=== PATIENT | female | born 1955 | race Hispanic/Latino ===

== ENCOUNTER 2016-10-21 11:28 | Inpatient (IN) | payer MEDICARE ==
--- NOTE | 2016-10-21 12:05 | Emergency Department Report ---
Chief Complaint: Abdominal Pain Stated Complaint: NAUSEA/VOMITING Time Seen by Provider: 10/21/16 12:03 - HPI History of Present Illness: 61 y/o female complain of serve abdominal pain x 2 days .pt state she vomiting since this am .pt state chest pain start this am .pt denies any prior medical treatment.pt state she do dialysis on Saturday and Saturday.pt denies any prior treatment . - ROS Review of Systems: per HPI - Exam Vital Signs: Vital Signs 10/21/16 11:44 Temperature 98.5 F Pulse Rate 76 Respiratory 20 Rate Blood Pressure 191/136 O2 Sat by Pulse 95 Oximetry Physical Exam: GENERAL: The patient is well-developed and well-nourished. Patient is in NAD. HENT: Normocephalic. Atraumatic. Patient has moist mucous membranes. Throat: No erythema, swelling or exudates. Ears:Tympanic membranes pearly zimmerman ,intact , and free of exudate and erythema . EYES: Extraocular motions are intact, PERRL NECK: Supple. No meningitic signs are noted. There is no adenopathy noted. CHEST/LUNGS: Clear to auscultation bilaterally. No wheezing, rales or rhonchi noted. There is no respiratory distress noted. HEART/CARDIOVASCULAR: Regular rate and rhythm. Normal S1 S2. No murmurs, rubs , clicks, or gallops. ABDOMEN: Abdomen is soft, nontender.. Bowel sounds normoactive. There is no abdominal distention. Negative rebound tenderness. : Deferred. SKIN: There is no rash. There is no edema. There is no diaphoresis.Normal skin turgor NEURO: The patient is A&Ox3. The patient has no focal neurologic deficits. MUSCULOSKELETAL: There is no tenderness or deformity. There is no limitation range of motion. posture erect.Spine aligned,no deformities. PSYCH: Pt has appropriate mood and affect. MSE screening note: Focused history and physical exam performed. Due to findings the following was ordered: ED Disposition for MSE Condition: Stable Instructions: Abdominal Pain (ED)
[2016-10-21 12:37] LABS: Basophils % (Auto) 0.6 % (0.0-1.8); Hematocrit 35.9 % (30.3-42.9); Hemoglobin 11.7 gm/dl (10.1-14.3); Mean Corpuscular HGB Conc 33 % (30-34); Mean Corpuscular Hemoglobin 28 pg (28-32); Mean Corpuscular Volume 85 fl (79-97); Platelet Count 210 K/mm3 (140-440); Red Blood Count 4.22 M/mm3 (3.65-5.03); White Blood Count 8.6 K/mm3 (4.5-11.0)
[2016-10-21 12:45] LABS: BUN/Creatinine Ratio 4.44; Calcium 10.4 mg/dL (8.4-10.2); Potassium 4.7 mmol/L (3.6-5.0)
[2016-10-21 12:47] LABS: Creatine Kinase 36 units/L (30-135)
[2016-10-21 12:48] LABS: INR 0.93 (0.87-1.13)
[2016-10-21 12:58] LABS: Creatine Kinase MB < 1.0 ng/mL (0.0-4.0)
[2016-10-21] MEDS ORDERED: ZOFRAN ONE ×2 (13:55→14:44)
[2016-10-21] MEDS ORDERED: ZOFRAN IV ONE ×2 (14:03→14:45)
--- NOTE | 2016-10-21 14:31 | Emergency Department Report ---
ED Abdominal Pain HPI - General Chief Complaint: Abdominal Pain Stated Complaint: NAUSEA/VOMITING Time Seen by Provider: 10/21/16 13:47 Source: patient Mode of arrival: Ambulatory Limitations: No Limitations - History of Present Illness Initial Comments: 61-year-old female presents to the emergency department complaining of abdominal pain, nausea, and vomiting. Patient reports onset of abdominal pain following dialysis 2 days ago. Pain is in the middle of her abdomen and does not radiate. She describes sharp pain. Patient began having nausea and vomiting earlier today and came to the emergency department. Patient denies fever or diarrhea. There are no other complaints. MD Complaint: abdominal pain -: Gradual, days(s) (2) Location: periumbilical Radiation: none Migration to: no migration Severity scale (0 -10): 6 Quality: sharp Consistency: constant Improves With: nothing Worsens With: nothing Associated Symptoms: nausea, vomiting - Related Data Home Medications Medication Instructions Recorded Confirmed Last Taken Cholecalciferol (Vitamin D3) 2 tab PO 4XW 07/05/16 10/21/16 10/21/16 [Vitamin D3] Meclizine [Antivert] 25 mg PO TID PRN 07/05/16 10/21/16 10/21/16 hydrALAZINE [Apresoline] 25 mg PO Q8HR 07/05/16 10/21/16 10/21/16 Previous Rx's Medication Instructions Recorded Last Taken Type Aspirin [Aspirin BABY CHEW TAB] 81 mg PO QDAY #30 tab.chew 02/13/16 10/21/16 Rx Carvedilol [Coreg] 25 mg PO BID #60 tablet 02/13/16 10/21/16 Rx Losartan [Cozaar] 25 mg PO QDAY #30 tablet 02/13/16 10/21/16 Rx Promethazine [Phenergan TAB] 25 mg PO Q6HR PRN #30 tablet 02/13/16 10/21/16 Rx Sevelamer Carbonate [Renvela] 2,400 mg PO TIDWM #90 tablet 02/13/16 10/21/16 Rx Vit B Cplx #11/FA/C/Biot/Zn Ox 1 each PO DAILY #30 tablet 02/13/16 10/21/16 Rx [Dialyvite with Zinc Tablet] amLODIPine [Norvasc] 10 mg PO DAILY #30 tablet 02/13/16 10/21/16 Rx cloNIDine [Catapres] 0.2 mg PO TID #90 tablet 02/13/16 10/21/16 Rx Allergies Allergy/AdvReac Type Severity Reaction Status Date / Time codeine Allergy Rash Verified 05/05/15 06:48 Penicillins Allergy Hives Verified 02/12/16 17:55 ciprofloxacin [From Cipro] AdvReac severe Verified 05/05/15 06:48 nausea ciprofloxacin HCl AdvReac severe Verified 05/05/15 06:48 [From Cipro] nausea ED Review of Systems ROS: Stated complaint: NAUSEA/VOMITING Other details as noted in HPI Comment: All other systems reviewed and negative Gastrointestinal: abdominal pain, nausea, vomiting ED Past Medical Hx - Past Medical History Previous Medical History?: Yes Hx Hypertension: Yes (FOR 10+ YRS; cardiomegaly, EF 55%) Hx Diabetes: Yes (FOR 10+ YRS, DIET CONTROLLED) Hx Renal Disease: Yes (HD MWF; LUE AVF) Hx Arthritis: Yes (LEFT KNEE) Hx Asthma: No Hx COPD: No Hx HIV: No Additional medical history: DIALYSIS (M-W-F) - Surgical History Past Surgical History?: Yes Hx Open Heart Surgery: No Hx Appendectomy: Yes Additional Surgical History: NODULES removed from LUNGS , SHUNT LEFT ARM, bilateral nephrectomies, HYSTERECTOMY - Family History Family history: no significant - Social History Smoking Status: Never Smoker Substance Use Type: None - Medications Home Medications: Home Medications Medication Instructions Recorded Confirmed Last Taken Type Aspirin [Aspirin BABY CHEW TAB] 81 mg PO QDAY #30 tab.chew 02/13/16 10/21/16 Rx Carvedilol [Coreg] 25 mg PO BID #60 tablet 02/13/16 10/21/16 10/21/16 Rx Losartan [Cozaar] 25 mg PO QDAY #30 tablet 02/13/16 10/21/16 10/21/16 Rx Promethazine [Phenergan TAB] 25 mg PO Q6HR PRN #30 tablet 02/13/16 10/21/16 Rx Sevelamer Carbonate [Renvela] 2,400 mg PO TIDWM #90 tablet 02/13/16 10/21/16 Rx Vit B Cplx #11/FA/C/Biot/Zn Ox 1 each PO DAILY #30 tablet 02/13/16 10/21/16 Rx [Dialyvite with Zinc Tablet] amLODIPine [Norvasc] 10 mg PO DAILY #30 tablet 02/13/16 10/21/16 10/21/16 Rx cloNIDine [Catapres] 0.2 mg PO TID #90 tablet 02/13/16 10/21/16 10/21/16 Rx Cholecalciferol (Vitamin D3) 2 tab PO 4XW 07/05/16 10/21/16 10/21/16 History [Vitamin D3] Meclizine [Antivert] 25 mg PO TID PRN 07/05/16 10/21/16 10/21/16 History hydrALAZINE [Apresoline] 25 mg PO Q8HR 07/05/16 10/21/16 10/21/16 History ED Physical Exam - General Limitations: No Limitations General appearance: alert, in distress (mild distress secondary to vomiting) - Head Head exam: Present: atraumatic, normocephalic - Eye Eye exam: Present: normal appearance, PERRL, EOMI - ENT ENT exam: Present: normal exam, normal orophraynx, mucous membranes moist - Neck Neck exam: Present: normal inspection, full ROM. Absent: tenderness - Respiratory Respiratory exam: Present: normal lung sounds bilaterally. Absent: respiratory distress - Cardiovascular Cardiovascular Exam: Present: regular rate, normal rhythm, normal heart sounds - GI/Abdominal GI/Abdominal exam: Present: soft, normal bowel sounds. Absent: distended, tenderness - Extremities Exam Extremities exam: Present: normal inspection, full ROM. Absent: tenderness - Back Exam Back exam: Present: normal inspection, full ROM. Absent: tenderness - Neurological Exam Neurological exam: Present: alert, oriented X3. Absent: motor sensory deficit - Skin Skin exam: Present: warm, dry, intact ED Course Vital Signs 10/21/16 10/21/16 11:44 15:27 Temperature 98.5 F 98.6 F Pulse Rate 76 80 Respiratory 20 16 Rate Blood Pressure 191/136 Blood Pressure 190/84 [Right] O2 Sat by Pulse 95 99 Oximetry ED Medical Decision Making - Lab Data Result diagrams: 10/21/16 12:19 10/21/16 12:19 - EKG Data -: EKG Interpreted by Oh EKG shows normal: sinus rhythm, axis, intervals, QRS complexes Rate: normal - EKG Data When compared to previous EKG there are: no significant change Interpretation: unchanged when compared t (12/03/2012), nonspecific ST-T wave bill - Radiology Data Radiology results: report reviewed, image reviewed CT abdomen and pelvis shows possible area of focal colitis at the splenic flexure. There is also a masslike lesion of the pancreas. - Medical Decision Making Lab and imaging results reviewed and discussed with the patient. Patient was previously aware of the mass on her pancreas. Patient has had a total of 12 mg of Zofran and 10 mg of Reglan. She is continuing to have nausea and dry heaves. I have previously spoken with Dr. Alexis, nephrology. Patient is to be admitted by the hospitalist. - Differential Diagnosis abdominal pain, gastritis, bowel obstruction Critical care attestation.: If time is entered above; I have spent that time in minutes in the direct care of this critically ill patient, excluding procedure time. ED Disposition Clinical Impression: Intractable vomiting Qualifiers: Vomiting type: unspecified Nausea presence: with nausea Qualified Code(s): R11.2 - Nausea with vomiting, unspecified Disposition: OP ADMITTED IP TO THIS HOSP Is pt being admited?: Yes Condition: Stable Instructions: Abdominal Pain (ED) Time of Disposition: 16:17
[2016-10-21] MEDS ORDERED: REGLAN ONE (15:45)
[2016-10-21] MEDS ORDERED: REGLAN IV ONE (15:52)
--- NOTE | 2016-10-21 15:55 | Cat Scan Report ---
FINAL REPORT EXAM: CT ABDOMEN PELVIS WO CON HISTORY: abdominal pain, h/o bilateral nephrectomy TECHNIQUE: CT of the abdomen and pelvis was performed without intravenous contrast. Reconstructions were included in the coronal and sagittal planes. PRIORS: None. FINDINGS: Lower thorax: Bilateral dependent atelectasis is seen. Calcified granulomas are seen in the right lower lobe. The visualized portions of the heart are normal. Liver: The liver is normal in attenuation. No intrahepatic biliary duct dilation. No focal hepatic lesions. Gallbladder/ biliary system: No cholelithiasis. The common bile duct appears nondilated. Spleen: No splenic lesions are seen. Pancreas: A focal masslike soft tissue density involving the tail of the pancreas measuring approximately 3.4 centimeters. No pancreatic duct dilation. Kidneys: Prior bilateral nephrectomy is noted. No masses are seen within the nephrectomy bed. Adrenal glands: No adrenal masses. Vasculature: The abdominal aorta is nondilated. Calcifications are seen in the abdominal aorta. Lymph nodes: No enlarged lymph nodes are seen in the abdomen or pelvis. Bowel, mesentery, peritoneum: No bowel obstruction. No free fluid or free air. The appendix is not seen. No pericecal inflammatory changes are present. No colonic diverticulosis. There is wall thickening and surrounding inflammation of the splenic flexure of the colon. Urinary bladder: The urinary bladder is decompressed. Pelvis: The uterus is absent. Abdominal wall: No abdominal wall hernia or other subcutaneous findings. Bones: Degenerative changes are seen in the spine. Diffuse sclerotic appearance of the bones is noted. IMPRESSION: 1. Findings may represent focal colitis involving the splenic flexure of the colon, infectious versus inflammatory or ischemic. An underlying colonic neoplasm is not completely excluded. Recommend further evaluation with colonoscopy if one has not recently been performed. 2. Soft tissue, masslike lesion arising from the tail of the pancreas. Recommend further evaluation with multiphasic pancreatic CT or MRI. 3. Post bilateral nephrectomy. 4. Diffuse sclerotic appearance of the bones can be seen renal osteodystrophy.
[2016-10-21] MEDS ORDERED: DILAUDID IV ONE (16:11)
[2016-10-21] MEDS ORDERED: D50W (25GM) IV PRN (16:47)
[2016-10-21] MEDS ORDERED: APRESOLINE ONE (17:23)
[2016-10-21] MEDS: APRESOLINE IV PRN ×2 (17:31→22:30)
--- NOTE | 2016-10-21 17:43 | Consultation ---
History of Present Illness - Reason for Consult Consult date: 10/21/16 end stage renal disease Requesting physician: RAMSES SUTTON - History of Present Illness 61-year-old female presents to the emergency department complaining of abdominal pain, nausea, and vomiting. Patient reports onset of abdominal pain following dialysis 2 days ago. Pain is in the middle of her abdomen and does not radiate. She describes sharp pain. Patient began having nausea and vomiting earlier today and came to the emergency department. Patient denies fever or diarrhea. There are no other complaints. Patient's think that her symptoms started recently after she was placed on a new medication. Patient denies any shortness of breath. He undergoes hemodialysis on Mondays, Wednesdays and Fridays at [facility]. She did have her last dialysis treatment on Saturday Past History Past Medical History: diabetes, ESRD, hypertension, other (renal cell cancer with possible metastases to the lungs) Social history: no significant social history Family history: no significant family history Medications and Allergies Allergies Allergy/AdvReac Type Severity Reaction Status Date / Time codeine Allergy Rash Verified 05/05/15 06:48 Penicillins Allergy Hives Verified 02/12/16 17:55 ciprofloxacin [From Cipro] AdvReac severe Verified 05/05/15 06:48 nausea ciprofloxacin HCl AdvReac severe Verified 05/05/15 06:48 [From Cipro] nausea Home Medications Medication Instructions Recorded Confirmed Last Taken Type Aspirin [Aspirin BABY CHEW TAB] 81 mg PO QDAY #30 tab.chew 02/13/16 10/21/16 Rx Carvedilol [Coreg] 25 mg PO BID #60 tablet 02/13/16 10/21/16 10/21/16 Rx Losartan [Cozaar] 25 mg PO QDAY #30 tablet 02/13/16 10/21/16 10/21/16 Rx Promethazine [Phenergan TAB] 25 mg PO Q6HR PRN #30 tablet 02/13/16 10/21/16 Rx Sevelamer Carbonate [Renvela] 2,400 mg PO TIDWM #90 tablet 02/13/16 10/21/16 Rx Vit B Cplx #11/FA/C/Biot/Zn Ox 1 each PO DAILY #30 tablet 02/13/16 10/21/16 Rx [Dialyvite with Zinc Tablet] amLODIPine [Norvasc] 10 mg PO DAILY #30 tablet 02/13/16 10/21/16 10/21/16 Rx cloNIDine [Catapres] 0.2 mg PO TID #90 tablet 02/13/16 10/21/16 10/21/16 Rx Cholecalciferol (Vitamin D3) 2 tab PO 4XW 07/05/16 10/21/16 10/21/16 History [Vitamin D3] Meclizine [Antivert] 25 mg PO TID PRN 07/05/16 10/21/16 10/21/16 History hydrALAZINE [Apresoline] 25 mg PO Q8HR 07/05/16 10/21/16 10/21/16 History Active Meds: Active Medications Amlodipine Besylate (Norvasc) 10 mg PO DAILY [facility] Aspirin (Baby Aspirin) 81 mg PO QDAY [facility] Carvedilol (Coreg) 25 mg PO BID [facility] Clonidine HCl (Catapres) 0.2 mg PO TID [facility] Dextrose (D50w (25gm)) 50 ml IV PRN PRN PRN Reason: Hypoglycemia Enoxaparin Sodium (Lovenox) 30 mg SUB-Q QDAY [facility] Hydralazine HCl (Apresoline) 25 mg PO Q8HR [facility] Hydralazine HCl (Apresoline) 10 mg IV Q6H PRN PRN Reason: SBP >160 Last Admin: 10/21/16 17:31 Dose: 10 mg Insulin Aspart (Novolog) 0 units SUB-Q ACHS [facility] PRN Reason: Protocol Losartan Potassium (Cozaar) 25 mg PO QDAY [facility] Metoclopramide HCl (Reglan) 10 mg PO Q6H PRN PRN Reason: Nausea And Vomiting Miscellaneous Medication (Cholecalciferol (Vitamin D3) [Vitamin D3]) 2 tab PO 4XW [facility] Miscellaneous Medication (Vit B Cplx #11/Fa/C/Biot/Zn Ox [Dialyvite With Zinc Tablet]) 1 each PO DAILY [facility] Ondansetron HCl (Zofran) 4 mg IV Q8H PRN PRN Reason: N/V unrelieved by Reglan Sevelamer Carbonate (Renvela) 2,400 mg PO TIDWM [facility] Review of Systems All systems: negative (negative except as noted above) Exam - Vital Signs Vital signs: Vital Signs Temp Pulse Resp BP Pulse Ox 98.5 F 76 20 191/136 95 10/21/16 11:44 10/21/16 11:44 10/21/16 11:44 10/21/16 11:44 10/21/16 11:44 - General Appearance General appearance: well-developed, well-nourished, appears stated age EENT: PERRL, mucous membranes moist Neck: Present: neck supple Respiratory: Clear to Ascultation Heart: regular, normal heart rate Gastrointestinal: Present: normoactive bowel sounds, tenderness (mild diffuse tenderness. No rebound or guarding) Integumentary: no rash, other (no edema. AVG in her left upper arm. Good bruit and thrill) Results - Lab Results 10/21/16 12:19 10/21/16 12:19 Most recent lab results Calcium 10.4 mg/dL (8.4-10.2) H 10/21/16 12:19 Assessment and Plan Impression * End-stage renal disease on maintenance hemodialysis * Nausea and vomiting * Abdominal pain * Hypertension * Diabetes * Renal cell carcinoma status post nephrectomy Recommendations * Shall schedule patient for hemodialysis tomorrow and keep her on Mondays, Wednesdays and Fridays * Adjust diet and meds for ESRD state * No IV, BP or venipuncture access arm * Shall hold off on her phosphorus binders at this time * Procrit with dialysis * Thank you very much for the consultation. Shall follow along with you
[2016-10-21] MEDS ORDERED: NACL 0.9% 1000 ML 100 ML IV PRN (17:46)
[2016-10-21] MEDS: ZOFRAN IV PRN (20:58)
[2016-10-21] MEDS: CATAPRES PO SCH ×2 (21:02→21:04)
[2016-10-21] MEDS: MORPHINE IV PRN (23:22)
[2016-10-21] MEDS: COREG PO SCH (23:23)
[2016-10-21] MEDS: APRESOLINE PO SCH (23:23)
[2016-10-21] MEDS: NOVOLOG SUB-Q SCH (23:34)
--- NOTE | 2016-10-21 23:55 | History and Physical Report ---
History of Present Illness Date of examination: 10/21/16 Date of admission: 10/21/16 16:18 Chief complaint: Abdominal pain, nausea and vomiting - 3 days History of present illness: Patient is a 61-year-old lady who has a history of bilateral renal cell carcinoma status post bilateral nephrectomy and a hemodialysis on Wednesdays and Fridays, diabetes mellitus, hypertension, and pancreatic cancer currently undergoing chemotherapy had her phosphate binder, change to a different phosphate binder. Started having intractable abdominal pain, nausea and vomiting. She believes her symptoms tare due the change in the recent phosphate binder. Denies any fever. No diarrhea. No chest pain. Past History Past Medical History: diabetes, ESRD, hypertension, other (renal cell cancer with possible metastases to the lungs) Social history: no significant social history Family history: no significant family history Medications and Allergies Allergies Allergy/AdvReac Type Severity Reaction Status Date / Time codeine Allergy Rash Verified 05/05/15 06:48 Penicillins Allergy Hives Verified 02/12/16 17:55 ciprofloxacin [From Cipro] AdvReac severe Verified 05/05/15 06:48 nausea ciprofloxacin HCl AdvReac severe Verified 05/05/15 06:48 [From Cipro] nausea Home Medications Medication Instructions Recorded Confirmed Last Taken Type Aspirin [Aspirin BABY CHEW TAB] 81 mg PO QDAY #30 tab.chew 02/13/16 10/21/16 Rx Carvedilol [Coreg] 25 mg PO BID #60 tablet 02/13/16 10/21/16 10/21/16 Rx Losartan [Cozaar] 25 mg PO QDAY #30 tablet 02/13/16 10/21/16 10/21/16 Rx Promethazine [Phenergan TAB] 25 mg PO Q6HR PRN #30 tablet 02/13/16 10/21/16 Rx Sevelamer Carbonate [Renvela] 2,400 mg PO TIDWM #90 tablet 02/13/16 10/21/16 Rx Vit B Cplx #11/FA/C/Biot/Zn Ox 1 each PO DAILY #30 tablet 02/13/16 10/21/16 Rx [Dialyvite with Zinc Tablet] amLODIPine [Norvasc] 10 mg PO DAILY #30 tablet 02/13/16 10/21/1617 Rx cloNIDine [Catapres] 0.2 mg PO TID #90 tablet 02/13/16 10/21/16 10/21/16 Rx Cholecalciferol (Vitamin D3) 2 tab PO 4XW 07/05/16 10/21/16 10/21/16 History [Vitamin D3] Meclizine [Antivert] 25 mg PO TID PRN 07/05/16 10/21/16 10/21/16 History hydrALAZINE [Apresoline] 25 mg PO Q8HR 07/05/16 10/21/16 10/21/16 History Active Meds: Active Medications Amlodipine Besylate (Norvasc) 10 mg PO DAILY [facility] Aspirin (Baby Aspirin) 81 mg PO QDAY [facility] Carvedilol (Coreg) 25 mg PO BID [facility] Last Admin: 10/21/16 23:23 Dose: Not Given Cholecalciferol (Vitamin D3) 2,000 unit PO MoWeFr [facility] Cholecalciferol (Vitamin D3) 2,000 unit PO Ya [facility] Clonidine HCl (Catapres) 0.2 mg PO TID [facility] Last Admin: 10/21/16 21:04 Dose: Not Given Dextrose (D50w (25gm)) 50 ml IV PRN PRN PRN Reason: Hypoglycemia Enoxaparin Sodium (Lovenox) 30 mg SUB-Q QDAY [facility] Hydralazine HCl (Apresoline) 25 mg PO Q8HR [facility] Last Admin: 10/21/16 23:23 Dose: Not Given Hydralazine HCl (Apresoline) 10 mg IV Q6H PRN PRN Reason: SBP >160 Last Admin: 10/21/16 22:30 Dose: 10 mg Sodium Chloride (Nacl 0.9% 1000 Ml) 100 mls @ 999 mls/hr IV STEPHANIE PRN PRN Reason: Hypotension Insulin Aspart (Novolog) 0 units SUB-Q ACHS [facility] PRN Reason: Protocol Last Admin: 10/21/16 23:34 Dose: Not Given Losartan Potassium (Cozaar) 25 mg PO QDAY [facility] Metoclopramide HCl (Reglan) 10 mg PO Q6H PRN PRN Reason: Nausea And Vomiting Morphine Sulfate (Morphine) 2 mg IV Q4H PRN PRN Reason: Pain Last Admin: 10/21/16 23:22 Dose: 2 mg Multivit/Ca Carb/B Cmplx/FA/Prenat (Renal Caps) 1 cap PO DAILY [facility] Ondansetron HCl (Zofran) 4 mg IV Q8H PRN PRN Reason: N/V unrelieved by Devante Herman Admin: 10/21/16 20:58 Dose: 4 mg Sevelamer Carbonate (Renvela) 2,400 mg PO TIDWM [facility] Review of systems Constitutional: Well Nouridhed and Well developed. Head: NC/ AT Eyes: Denies any visual impairments. No discharge from the eyes Nose: Denies any rhinorrhea or epistaxis Throats: Denies any post nasal drainage. Ears: Denies any hearing deficits Cardiovascular system: Denies any chest pain, shortness of breath, orthopnea, paroxysmal nocturnal dyspnea, or palpitation. Respiratory system: Denies any cough, difficulty breathing, wheezing, pleuritic chest pain, Gastrointestinal system: Has abdominal pain, nausea vomiting. No hematemesis or melena. Neurological system: Denies any headache, slurred speech, facial droop, lateralizing weakness Genitalia system: Denies any dysuria, urinary frequency or urgency, urethral discharge Skin: No rashes, hyperpigmented spots. Hematological: Denies any cervical tenderness hemorrhages or petechia. Immunological: Denies any multiple septic spots, Lymphatic: Denies any generalized lymphadenopathy. Endocrine: Denies any polyuria, polydipsia, polyphagia. No heat or cold intolerance. Exam - Constitutional Vitals: Temp Pulse Resp BP Pulse Ox 99.4 F 106 H 20 198/102 95 10/21/16 17:50 10/21/16 22:30 10/21/16 17:50 10/21/16 22:30 10/21/16 17:50 General appearance: Present: mild distress, well-nourished, other (patient in moderate to severe respiratory distress from nausea vomiting with abdominal pain ) - EENT Eyes: Present: PERRL ENT: hearing intact, clear oral mucosa - Neck Neck: Present: supple, normal ROM - Respiratory Respiratory effort: normal Respiratory: bilateral: CTA - Cardiovascular Heart Sounds: Present: S1 & S2. Absent: rub, click - Extremities Extremities: pulses symmetrical, No edema Peripheral Pulses: within normal limits - Abdominal General gastrointestinal: Present: soft, non-tender, non-distended, normal bowel sounds Female genitourinary: Present: normal - Integumentary Integumentary: Present: clear, warm, dry - Musculoskeletal Musculoskeletal: gait normal, strength equal bilaterally - Psychiatric Psychiatric: appropriate mood/affect, intact judgment & insight - Neurologic Neurologic: CNII-XII intact, moves all extremities Results - Labs CBC & Chem 7: 10/21/16 12:19 10/21/16 12:19 Labs: Abnormal lab results 10/21/16 Range/Units 21:35 POC Glucose 142 H (70-105) Assessment and Plan Assessment 1 Intractable abdominal pain with nausea vomiting 2. End-stage renal disease hemodialysis and underwent his arthritis 3. Metabolic acidosis 4. Diabetes mellitus type 2 uncontrolled 5. Pancreatic cancer currently undergoing chemotherapy with Dr. FRANDY Admit to [facility]. Commence IV Zofran and Reglan. IV morphine for abdominal pain. Nephrology consult for commencement of hemodialysis. Sodium bicarbonate IV. Metabolic acidosis worsened by protracted vomiting Consistent collided diets, A1c, sliding-scale insulin using NovoLog, moderate dose. DVT prophylaxis with Lovenox, GI prophylaxis with Pepcid. Spent 35 minutes in direct patient care, review of laboratory and radiological data, and explanation of management plan to the patient.
[2016-10-22] MEDS: MORPHINE IV PRN ×4 (03:53→23:39)
[2016-10-22] MEDS: APRESOLINE IV PRN (04:33)
[2016-10-22] MEDS: ZOFRAN IV PRN ×3 (05:29→19:51)
[2016-10-22 05:51] LABS: Basophils % (Auto) 0.3 % (0.0-1.8); Hemoglobin 11.1 gm/dl (10.1-14.3); Mean Corpuscular HGB Conc 33 % (30-34); Mean Corpuscular Hemoglobin 28 pg (28-32); Mean Corpuscular Volume 85 fl (79-97); Platelet Count 209 K/mm3 (140-440); Red Blood Count 3.99 M/mm3 (3.65-5.03); Red Cell Distribution Width 14.9 % (13.2-15.2); White Blood Count 9.4 K/mm3 (4.5-11.0)
[2016-10-22 06:00] LABS: INR 1.12 (0.87-1.13)
[2016-10-22 06:12] LABS: Albumin 4.2 g/dL (3.9-5); Albumin/Globulin Ratio 1.2 %; BUN/Creatinine Ratio 4.46; Bilirubin,Total 0.5 mg/dL (0.1-1.2); Calcium 10.6 mg/dL (8.4-10.2); Chloride 100.9 mmol/L (98-107); Total Protein 7.8 g/dL (6.3-8.2)
[2016-10-22] MEDS: APRESOLINE PO SCH ×2 (07:02→19:12)
[2016-10-22] MEDS: NOVOLOG SUB-Q SCH ×4 (08:01→23:24)
[2016-10-22] MEDS ORDERED: APRESOLINE PO ONE (09:00)
[2016-10-22] MEDS: REGLAN PO PRN ×2 (09:17→23:40)
--- NOTE | 2016-10-22 09:40 | Progress Note ---
Assessment and Plan n Impression * End-stage renal disease on maintenance hemodialysis * Nausea and vomiting * Abdominal pain * Hypertension * Diabetes * Renal cell carcinoma status post nephrectomy Recommendations * hemodialysis Mondays, Wednesdays and Fridays * Adjust diet and meds for ESRD state * No IV, BP or venipuncture access arm * Shall hold off on her phosphorus binders at this time * Procrit with dialysis Subjective Date of service: 10/22/16 Principal diagnosis: esrd Interval history: resting well in bed today Objective - Exam Narrative Exam: General appearance: well-developed, well-nourished, appears stated age EENT: PERRL, mucous membranes moist Neck: Present: neck supple Respiratory: Clear to Ascultation Heart: regular, normal heart rate Gastrointestinal: Present: normoactive bowel sounds, tenderness (mild diffuse tenderness. No rebound or guarding) Integumentary: no rash, other (no edema. AVG in her left upper arm. Good bruit and thrill) - Vital Signs Vital signs: Vital Signs - 12hr 10/21/16 10/21/16 10/21/16 22:00 22:01 22:30 Temperature Pulse Rate 106 H Pulse Rate [ Left] Pulse Rate [ 106 H Right Radial] Respiratory 20 Rate Blood Pressure 198/102 Blood Pressure [Left Arm] Blood Pressure 198/92 [Right Arm] O2 Sat by Pulse Oximetry 10/21/16 10/22/16 10/22/16 23:00 04:33 05:00 Temperature 99.2 F 98.9 F Pulse Rate 106 H Pulse Rate [ 112 H 109 H Left] Pulse Rate [ Right Radial] Respiratory 20 22 Rate Blood Pressure 196/92 Blood Pressure 180/85 173/83 [Left Arm] Blood Pressure [Right Arm] O2 Sat by Pulse 94 95 Oximetry 10/22/16 10/22/16 07:02 08:04 Temperature 99.9 F H Pulse Rate 108 H Pulse Rate [ 103 H Left] Pulse Rate [ Right Radial] Respiratory 20 Rate Blood Pressure 192/90 Blood Pressure 179/86 [Left Arm] Blood Pressure [Right Arm] O2 Sat by Pulse 94 Oximetry - Lab 10/22/16 05:10 10/22/16 05:10 Most recent lab results Calcium 10.6 mg/dL (8.4-10.2) H 10/22/16 05:10
--- NOTE | 2016-10-22 10:34 | Admit Criteria Form ---
Admission Criteria Documentation: VOMITING Clinical Indications for Admission to Inpatient Care ( Place 'X' for any and all applicable criteria): Admission is indicated for ANY ONE of the following(1)(2)(3): [X]I. Inpatient admission required rather than observation care because of ANY ONE of the following: [ ]i) Hemodynamic instability that is severe or persistent [X]ii) Vomiting that is severe or persistent [ ]iii) Severe electrolyte abnormalities requiring inpatient care [X]iv) Severe pain requiring acute inpatient management [ ]v) High fever or infection requiring inpatient admission as indicated by ANY ONE of the following(7)(8): [ ]1) Appropriate outpatient or observation care antimicrobial treatment unavailable, not effective, or not feasible [ ]2) Documented bacteremia [ ]3) Temp >104.9 degrees F (40.5 degrees C) (oral) [ ]4) Temp >103.1 degrees F (39.5 C) (oral) or <96.8 degrees F (36 C) (rectal) that does not respond to all emergency treatment measures [X]vi) Acute renal failure [ ]vii) IV fluid to replace significant ongoing losses (greater than 3 L/m2 per day) [ ]viii) Parenteral nutrition regimen that must be implemented on inpatient basis [ ]ix) Other condition, treatment or monitoring requiring inpatient admission [ ]II. Complete or partial gastrointestinal obstruction [ ]III. Other cause of vomiting requiring hospitalization (eg, poisoning, increased intracranial pressure) [ ]IV. Vomiting due to significant metabolic derangement (eg, severe hypercalcemia, diabetic ketoacidosis) Extended stay beyond goal length of stay may be needed for(1)(4): [ ]a) Severe vomiting [ ]b) Persistent vomiting, vital sign changes, severe electrolyte imbalance , or diagnosed cause of vomiting that requires continued hospitalization (eg, gastrointestinal obstruction , increased intracranial pressure) [ ]c) Surgery to treat identified causes of vomiting (eg, bowel obstruction , intracranial process) [ ]d) Comorbid illness that requires inpatient care (eg, acute heart failure , renal failure) [ ]e) Need for inpatient endoscopy The original [facility] [employer] content created by [facility] [employer] has been revised. The portions of the content which have been revised are identified through the use of italic text or in bold, and [facility] [employer] has neither reviewed nor approved the modified material. All other unmodified content is copyright [facility]. Please see references footnoted in the original [facility] edition 2016 Admission Criteria Met: Yes
--- NOTE | 2016-10-22 11:14 | Gastroenterology Consultation ---
History of Present Illness - Reason for Consult Consult date: 10/22/16 Intractable vomiting Requesting physician: RAMSES SUTTON - History of Present Illness The patient is a 61 year old female with multiple medical problems for whom consultation was requested for intractable vomiting. She began having diffuse abdominal pain a few days ago followed by onset of vomiting yesterday. She has been unable to tolerate any intake or medications. She does not have chronic pain or vomiting and denies fever or chills. The patient reports an unremarkable endoscopy about a year ago. She has a history of bilateral renal carcinoma now with mets to the lung and pancreas. An abdominal CT scan revealed a 3.4 cm mass in the tail of the pancreas and a focal lesion in the splenic flexure of the colon. No suggestion of obstruction Past History Past Medical History: diabetes, ESRD, hypertension, other (renal cell cancer with possible metastases to the lungs and pancreas. Pt is on Optivo by Dr. Kaur) Past Surgical History: Other (bilateral nephrectomy, hysterectomy) Social history: no significant social history Family history: no significant family history Medications and Allergies Allergies Allergy/AdvReac Type Severity Reaction Status Date / Time codeine Allergy Rash Verified 05/05/15 06:48 Penicillins Allergy Hives Verified 02/12/16 17:55 ciprofloxacin [From Cipro] AdvReac severe Verified 05/05/15 06:48 nausea ciprofloxacin HCl AdvReac severe Verified 05/05/15 06:48 [From Cipro] nausea Home Medications Medication Instructions Recorded Confirmed Last Taken Type Aspirin [Aspirin BABY CHEW TAB] 81 mg PO QDAY #30 tab.chew 02/13/16 10/21/16 Rx Carvedilol [Coreg] 25 mg PO BID #60 tablet 02/13/16 10/21/16 10/21/16 Rx Losartan [Cozaar] 25 mg PO QDAY #30 tablet 02/13/16 10/21/16 10/21/16 Rx Promethazine [Phenergan TAB] 25 mg PO Q6HR PRN #30 tablet 02/13/16 10/21/16 Rx Sevelamer Carbonate [Renvela] 2,400 mg PO TIDWM #90 tablet 02/13/16 10/21/16 Rx Vit B Cplx #11/FA/C/Biot/Zn Ox 1 each PO DAILY #30 tablet 02/13/16 10/21/16 Rx [Dialyvite with Zinc Tablet] amLODIPine [Norvasc] 10 mg PO DAILY #30 tablet 02/13/16 10/21/16 10/21/16 Rx cloNIDine [Catapres] 0.2 mg PO TID #90 tablet 02/13/16 10/21/16 10/21/16 Rx Cholecalciferol (Vitamin D3) 2 tab PO 4XW 07/05/16 10/21/16 10/21/16 History [Vitamin D3] Meclizine [Antivert] 25 mg PO TID PRN 07/05/16 10/21/16 10/21/16 History hydrALAZINE [Apresoline] 25 mg PO Q8HR 07/05/16 10/21/16 10/21/16 History Active Meds: Active Medications Amlodipine Besylate (Norvasc) 10 mg PO DAILY [facility] Aspirin (Baby Aspirin) 81 mg PO QDAY [facility] Carvedilol (Coreg) 25 mg PO BID [facility] Last Admin: 10/21/16 23:23 Dose: Not Given Cholecalciferol (Vitamin D3) 2,000 unit PO MoWeFr [facility] Cholecalciferol (Vitamin D3) 2,000 unit PO Ya [facility] Clonidine HCl (Catapres) 0.2 mg PO TID [facility] Last Admin: 10/21/16 21:04 Dose: Not Given Dextrose (D50w (25gm)) 50 ml IV PRN PRN PRN Reason: Hypoglycemia Enoxaparin Sodium (Lovenox) 30 mg SUB-Q QDAY [facility] Hydralazine HCl (Apresoline) 10 mg IV Q6H PRN PRN Reason: SBP >160 Last Admin: 10/22/16 04:33 Dose: 10 mg Hydralazine HCl (Apresoline) 50 mg PO Q8HR [facility] Sodium Chloride (Nacl 0.9% 1000 Ml) 100 mls @ 999 mls/hr IV STEPHANIE PRN PRN Reason: Hypotension Metronidazole (Flagyl 500 Mg/100 Ml) 100 mls @ 100 mls/hr IV Q8HR [facility] Insulin Aspart (Novolog) 0 units SUB-Q ACHS [facility] PRN Reason: Protocol Last Admin: 10/22/16 08:01 Dose: Not Given Losartan Potassium (Cozaar) 25 mg PO QDAY [facility] Metoclopramide HCl (Reglan) 10 mg PO Q6H PRN PRN Reason: Nausea And Vomiting Last Admin: 10/22/16 09:17 Dose: 10 mg Morphine Sulfate (Morphine) 2 mg IV Q4H PRN PRN Reason: Pain Last Admin: 10/22/16 03:53 Dose: 2 mg Multivit/Ca Carb/B Cmplx/FA/Prenat (Renal Caps) 1 cap PO DAILY [facility] Ondansetron HCl (Zofran) 4 mg IV Q8H PRN PRN Reason: N/V unrelieved by Reglan Last Admin: 10/22/16 05:29 Dose: 4 mg Sevelamer Carbonate (Renvela) 2,400 mg PO TIDWM [facility] Review of Systems - Review of Systems Constitutional: no weight loss, no weight gain, no fever, no chills Eyes: no change in vision Ears, Nose, Throat: no decreased hearing, no difficulty swallowing, no painful swallowing Breasts: deferred Cardiovascular: no chest pain, no shortness of breath, no syncope Respiratory: no cough, no shortness of breath, no wheezing Gastrointestinal: abdominal pain, nausea, vomiting, no diarrhea, no constipation , no change in bowel habits, no hematemesis, no BRBPR, no melena Rectal: no pain, no incontinence Female Genitourinary: deferred Musculoskeletal: no gait dysfunction, no joint pain Integumentary: no rash, no pruritis, no jaundice Neurological: no head injury, no paralysis, no weakness Psychiatric: no memory loss Endocrine: no cold intolerance, no heat intolerance Hematologic/Lymphatic: no easy bruising, no easy bleeding Allergic/Immunologic: no wheezing Exam - Constitutional Vital Signs: Temp Pulse Resp BP Pulse Ox 99.9 F H 103 H 20 179/86 94 10/22/16 08:04 10/22/16 08:04 10/22/16 08:04 10/22/16 08:04 10/22/16 08:04 General appearance: mild distress (presently vomiting), well-nourished, other - EENT Eyes: PERRL ENT: hearing intact, clear oral mucosa - Neck Neck: supple, normal ROM, no masses or JVD - Respiratory Respiratory effort: normal Respiratory: bilateral: CTA - Breasts Breasts: deferred - Cardiovascular Rhythm: regular Heart Sounds: Present: S1 & S2. Absent: gallop, rub Extremities: pulses intact, No edema, normal color, Full ROM - Gastrointestinal General gastrointestinal: Present: soft, non-tender, non-distended, normal bowel sounds, other (fullness in RUQ, obese). Absent: hepatomegaly, splenomegaly Rectal Exam: deferred - Genitourinary Female Genitourinary: deferred - Integumentary Integumentary: Present: clear, warm, dry - Musculoskeletal Musculoskeletal: normal - Neurologic Neurological: alert and oriented x3 - Psychiatric Psychiatric: appropriate mood/affect, intact judgment & insight, memory intact - Labs CBC & Chem 7: 10/22/16 05:10 10/22/16 05:10 Lab Results: Laboratory Results - last 24 hr 10/21/16 10/22/16 10/22/16 21:35 05:10 05:10 WBC 9.4 RBC 3.99 Hgb 11.1 Hct 34.0 MCV 85 MCH 28 MCHC 33 RDW 14.9 Plt Count 209 Lymph % (Auto) 11.0 L [place] % (Auto) 5.8 Eos % (Auto) 0.0 Baso % (Auto) 0.3 Lymph # 1.0 L [place] # 0.5 Eos # 0.0 Baso # 0.0 Seg Neutrophils % 82.9 H Seg Neutrophils # 7.8 H PT 14.3 INR 1.12 Sodium Potassium Chloride Carbon Dioxide Anion Gap BUN Creatinine Estimated GFR BUN/Creatinine Ratio Glucose POC Glucose 142 H Calcium Total Bilirubin AST ALT Alkaline Phosphatase Total Protein Albumin Albumin/Globulin Ratio PTH Intact 10/22/16 10/22/16 10/22/16 05:10 06:20 09:42 WBC RBC Hgb Hct MCV MCH MCHC RDW Plt Count Lymph % (Auto) [place] % (Auto) Eos % (Auto) Baso % (Auto) Lymph # [place] # Eos # Baso # Seg Neutrophils % Seg Neutrophils # PT INR Sodium 145 Potassium 5.0 Chloride 100.9 Carbon Dioxide 24 Anion Gap 25 BUN 46 H Creatinine 10.3 H Estimated GFR 4 BUN/Creatinine Ratio 4.46 Glucose 156 H POC Glucose 160 H Calcium 10.6 H Total Bilirubin 0.5 AST 15 ALT 7 Alkaline Phosphatase 75 Total Protein 7.8 Albumin 4.2 Albumin/Globulin Ratio 1.2 PTH Intact 128.8 H Assessment and Plan - Patient Problems (1) Intractable vomiting Current Visit: Yes Status: Acute Qualifiers: Vomiting type: unspecified Nausea presence: with nausea Qualified Code(s) : R11.2 - Nausea with vomiting, unspecified Plan to address problem: Acute symptoms, possibly acute gastroenteritis. No chronic symptoms. May need endoscopy if she does not improve within a few days with medical therapy Needs IV fluid support and antiemetics (2) Diabetes 1.5, managed as type 2 Current Visit: No Status: Chronic (3) ESRD (end stage renal disease) Current Visit: No Status: Chronic (4) Hypertension Current Visit: No Status: Chronic (5) Renal cell cancer Current Visit: No Status: Chronic (6) Abnormal CT of the abdomen Current Visit: Yes Status: Acute Plan to address problem: A focal lesion in the splenic flexure is present. Needs colonoscopy when symptoms allow preparation of the colon Thank you very much Dr. Sutton for asking me to see this patient in consultation
[2016-10-22] MEDS: CATAPRES PO SCH ×2 (12:03→19:12)
--- NOTE | 2016-10-22 14:03 | Progress Note ---
Assessment and Plan Fulll consult dictated 61 y/o female r/o colitis splenic flexure r/o pancreatic mass tail of pancreas pt c/o N&V but no evidence of sbo Abd obese soft. non tender at present (but pt recently medicated) GI eval for colonoscopy will order MRCP to further w/u pancreatic mass will follow with you. thanks. Laboratory Tests 10/21/16 10/22/16 10/22/16 12:19 05:10 05:10 WBC 9.4 Hgb 11.1 Hct 34.0 Plt Count 209 Sodium 145 Potassium 5.0 Chloride 100.9 BUN 46 H Creatinine 10.3 H Glucose 156 H Calcium 10.6 H Total Bilirubin 0.5 AST 15 ALT 7 Alkaline Phosphatase 75 Amylase 49 Lipase 122 H Objective Vital Signs - 12hr 10/22/16 10/22/16 10/22/16 04:33 05:00 07:02 Temperature 98.9 F Pulse Rate 106 H 108 H Pulse Rate [ 109 H Left] Pulse Rate [ Right Radial] Respiratory 22 Rate Blood Pressure 196/92 192/90 Blood Pressure 173/83 [Left Arm] Blood Pressure [Right Radial Artery] O2 Sat by Pulse 95 Oximetry 10/22/16 10/22/16 10/22/16 08:04 11:47 12:03 Temperature 99.9 F H Pulse Rate 103 H Pulse Rate [ 103 H Left] Pulse Rate [ 103 H Right Radial] Respiratory 20 Rate Blood Pressure 189/98 Blood Pressure 179/86 [Left Arm] Blood Pressure 189/88 [Right Radial Artery] O2 Sat by Pulse 94 Oximetry - Labs 10/22/16 05:10 10/22/16 05:10 Diabetes panel 10/22/16 Range/Units 05:10 Sodium 145 (137-145) mmol/L Potassium 5.0 (3.6-5.0) mmol/L Chloride 100.9 (98-107) mmol/L Carbon Dioxide 24 (22-30) mmol/L BUN 46 H (7-17) mg/dL Creatinine 10.3 H (0.7-1.2) mg/dL Glucose 156 H (65-100) mg/dL Calcium 10.6 H (8.4-10.2) mg/dL AST 15 (5-40) units/L ALT 7 (7-56) units/L Alkaline Phosphatase 75 (35-129) units/L Total Protein 7.8 (6.3-8.2) g/dL Albumin 4.2 (3.9-5) g/dL Calcium panel 10/22/16 Range/Units 05:10 Calcium 10.6 H (8.4-10.2) mg/dL Albumin 4.2 (3.9-5) g/dL Pituitary panel 10/22/16 Range/Units 05:10 Sodium 145 (137-145) mmol/L Potassium 5.0 (3.6-5.0) mmol/L Chloride 100.9 (98-107) mmol/L Carbon Dioxide 24 (22-30) mmol/L BUN 46 H (7-17) mg/dL Creatinine 10.3 H (0.7-1.2) mg/dL Glucose 156 H (65-100) mg/dL Calcium 10.6 H (8.4-10.2) mg/dL Adrenal panel 10/22/16 Range/Units 05:10 Sodium 145 (137-145) mmol/L Potassium 5.0 (3.6-5.0) mmol/L Chloride 100.9 (98-107) mmol/L Carbon Dioxide 24 (22-30) mmol/L BUN 46 H (7-17) mg/dL Creatinine 10.3 H (0.7-1.2) mg/dL Glucose 156 H (65-100) mg/dL Calcium 10.6 H (8.4-10.2) mg/dL Total Bilirubin 0.5 (0.1-1.2) mg/dL AST 15 (5-40) units/L ALT 7 (7-56) units/L Alkaline Phosphatase 75 (35-129) units/L Total Protein 7.8 (6.3-8.2) g/dL Albumin 4.2 (3.9-5) g/dL
[2016-10-22] MEDS: FLAGYL 500 MG/100 ML 100 ML IV SCH (14:42)
--- NOTE | 2016-10-22 15:48 | Progress Note ---
Assessment and Plan Assessment and plan: Patient is a 61-year-old lady who has a history of bilateral renal cell carcinoma status post bilateral nephrectomy and a hemodialysis on Wednesdays and Fridays, diabetes mellitus, hypertension, and pancreatic cancer currently undergoing chemotherapy had her phosphate binder, change to a different phosphate binder. Started having intractable abdominal pain, nausea and vomiting. She believes her symptoms tare due the change in the recent phosphate binder. Denies any fever. No diarrhea. No chest pain. Assessment 1. Intractable abdominal pain with nausea vomiting-likely acute gastroenteritis - Resolving 2. End-stage renal disease hemodialysis and underwent his arthritis 3. Metabolic acidosis 4. Diabetes mellitus type 2 uncontrolled 5. Pancreatic cancer currently undergoing chemotherapy with Dr. WISE 6. HTN 7. Renal Cell Cancer Plan: * Continue IV zofran and Reglan * No Diarrhea. * Continue Bicarb iv, sliding scale insulin * Surgery and GI input noted. Await MRCP * Dr WISE Consulted. * Phosphate Binder held at this time. * DVT/GI prophy History Interval history: Patient seen and examined this morning, in no acute distress. no diarrhea reported. abdominal pain improving. Hospitalist Physical - Physical exam Narrative exam: VITAL SIGNS: Reviewed. GENERAL: The patient appeared well nourished and normally developed. Vital signs as documented. HEAD: No signs of head trauma. EYES: Pupils are equal. Extraocular motions intact. EARS: Hearing grossly intact. MOUTH: Oropharynx is normal. NECK: No adenopathy, no JVD. CHEST: Chest with clear breath sounds bilaterally. No wheezes, rales, or rhonchi. CARDIAC: Regular rate and rhythm. S1 and S2, without murmurs, gallops, or rubs. VASCULAR: No Edema. Peripheral pulses normal and equal in all extremities. ABDOMEN: Soft, without detectable tenderness. No sign of distention. No rebound or guarding, and no masses palpated. Bowel Sounds normal. MUSCULOSKELETAL: Good range of motion of all major joints. Extremities without clubbing, cyanosis or edema. NEUROLOGIC EXAM: Alert and oriented x 3. No focal sensory or strength deficits. Speech normal. Follows commands. PSYCHIATRIC: Mood normal. SKIN: No rash or lesions. - Constitutional Vitals: Temp Pulse Resp BP Pulse Ox 99.9 F H 103 H 20 170/90 94 10/22/16 08:04 10/22/16 12:03 10/22/16 08:04 10/22/16 14:30 10/22/16 08:04 General appearance: Present: mild distress, well-nourished, other (patient in moderate to severe respiratory distress from nausea vomiting with abdominal pain ) Results - Labs CBC & Chem 7: 10/22/16 05:10 10/22/16 05:10 Labs: Laboratory Last Values WBC 9.4 K/mm3 (4.5-11.0) 10/22/16 05:10 RBC 3.99 M/mm3 (3.65-5.03) 10/22/16 05:10 Hgb 11.1 gm/dl (10.1-14.3) 10/22/16 05:10 Hct 34.0 % (30.3-42.9) 10/22/16 05:10 MCV 85 fl (79-97) 10/22/16 05:10 MCH 28 pg (28-32) 10/22/16 05:10 MCHC 33 % (30-34) 10/22/16 05:10 RDW 14.9 % (13.2-15.2) 10/22/16 05:10 Plt Count 209 K/mm3 (140-440) 10/22/16 05:10 Lymph % (Auto) 11.0 % (13.4-35.0) L 10/22/16 05:10 [place] % (Auto) 5.8 % (0.0-7.3) 10/22/16 05:10 Eos % (Auto) 0.0 % (0.0-4.3) 10/22/16 05:10 Baso % (Auto) 0.3 % (0.0-1.8) 10/22/16 05:10 Lymph # 1.0 K/mm3 (1.2-5.4) L 10/22/16 05:10 [place] # 0.5 K/mm3 (0.0-0.8) 10/22/16 05:10 Eos # 0.0 K/mm3 (0.0-0.4) 10/22/16 05:10 Baso # 0.0 K/mm3 (0.0-0.1) 10/22/16 05:10 Seg Neutrophils % 82.9 % (40.0-70.0) H 10/22/16 05:10 Seg Neutrophils # 7.8 K/mm3 (1.8-7.7) H 10/22/16 05:10 PT 14.3 Sec. (12.2-14.9) 10/22/16 05:10 INR 1.12 (0.87-1.13) 10/22/16 05:10 Sodium 145 mmol/L (137-145) 10/22/16 05:10 Potassium 5.0 mmol/L (3.6-5.0) 10/22/16 05:10 Chloride 100.9 mmol/L (98-107) 10/22/16 05:10 Carbon Dioxide 24 mmol/L (22-30) 10/22/16 05:10 Anion Gap 25 mmol/L 10/22/16 05:10 BUN 46 mg/dL (7-17) H 10/22/16 05:10 Creatinine 10.3 mg/dL (0.7-1.2) H 10/22/16 05:10 Estimated GFR 4 ml/min 10/22/16 05:10 BUN/Creatinine Ratio 4.46 % 10/22/16 05:10 Glucose 156 mg/dL (65-100) H 10/22/16 05:10 POC Glucose 133 (70-105) H 10/22/16 11:39 Calcium 10.6 mg/dL (8.4-10.2) H 10/22/16 05:10 Total Bilirubin 0.5 mg/dL (0.1-1.2) 10/22/16 05:10 AST 15 units/L (5-40) 10/22/16 05:10 ALT 7 units/L (7-56) 10/22/16 05:10 Alkaline Phosphatase 75 units/L (35-129) 10/22/16 05:10 Total Creatine Kinase 36 units/L (30-135) 10/21/16 12:19 CK-MB (CK-2) < 1.0 ng/mL (0.0-4.0) 10/21/16 12:19 CK-MB (CK-2) Rel Index 2.7 (0-4) 10/21/16 12:19 Troponin T < 0.010 ng/mL (0.00-0.029) 10/21/16 12:19 Total Protein 7.8 g/dL (6.3-8.2) 10/22/16 05:10 Albumin 4.2 g/dL (3.9-5) 10/22/16 05:10 Albumin/Globulin Ratio 1.2 % 10/22/16 05:10 Amylase 49 units/L (27-131) 10/21/16 12:19 Lipase 122 units/L (13-60) H 10/21/16 12:19 PTH Intact 128.8 pg/mL (15-65) H 10/22/16 09:42 - Imaging and Cardiology CT scan - abdomen: image reviewed (soft tissue masslike lesion, diffuse sclerotic appearance of bone)
[2016-10-22] MEDS: COZAAR PO SCH (19:09)
[2016-10-22] MEDS: BABY ASPIRIN PO SCH (19:09)
[2016-10-22] MEDS: COREG PO SCH (19:10)
[2016-10-22] MEDS: NORVASC PO SCH (19:10)
[2016-10-22] MEDS: RENVELA PO SCH ×2 (19:10→19:12)
[2016-10-22] MEDS: Renal Caps PO SCH (19:10)
[2016-10-22] MEDS: VITAMIN D3 PO SCH (19:11)
[2016-10-22] MEDS: LOVENOX SUB-Q SCH (19:12)
--- NOTE | 2016-10-23 00:53 | Consultation ---
REASON FOR CONSULTATION: 1. Abdominal pain, nausea, and vomiting. 2. Rule out pancreatic mass. 3. Rule out colitis. HISTORY OF PRESENT ILLNESS: The patient is a 61-year-old female who I am seeing at this time. It appears that she has recently received IV narcotics and is very sedated. Her history thus is somewhat unreliable as well as her physical exam. It appears the patient was admitted with a chief complaint of abdominal pain, nausea, and vomiting. Denied any diarrhea. PAST MEDICAL HISTORY: Pertinent for renal cell carcinoma, left kidney. Also, diabetes and hypertension. PAST SURGICAL HISTORY: The patient is status post EBER-BSO. Also, bilateral nephrectomies ?port insertion. The patient currently is on dialysis. ALLERGIES: Allergic to penicillin, which causes a rash. FAMILY HISTORY: The patient does not recall at this time. SOCIAL HISTORY: Denies any smoking or drinking. Again, to reiterate this history is somewhat unreliable as patient is quite somnolent. PHYSICAL EXAMINATION: GENERAL: At this time reveals the patient to be again somnolent, but responsive. VITAL SIGNS: Show her to have a temperature of 99.9, blood pressure is 189/98, pulse of 103, respirations of 20. ABDOMEN: Examination of the abdomen reveals to be obese and soft. Multiple scars are noted, presumably from her previous surgeries. There is no tenderness that can be elicited at this time. Bowel sounds are present. LABORATORY DATA: Lab work at present includes a CBC which shows a white count of 9.4, H and H of 11.1 and 34. Electrolytes are essentially within normal limits. BUN is 46, creatinine is 10.3. Total bilirubin is 0.5, AST is 15, ALT is 7, alkaline phosphatase is 75. Amylase is 49, lipase is 122. A CT scan of the abdomen has been performed, which I have reviewed with Dr. Elias. There does appear to be this pancreatic tail mass. Also, appears to be some radiographic evidence of colitis in the splenic flexure of the colon. IMPRESSION: 1. At this time is that of a 61-year-old female, with known history of diabetes, hypertension, and status post bilateral nephrectomy secondary to cancer. Currently, on dialysis. 2. Rule out colitis. 3. Rule out pancreatic mass at the tail of pancreas. RECOMMENDATIONS: Would keep the patient n.p.o. at this time. We will obtain consultation with GI, which I have already done with Dr. Wick. Also, we will order an MRCP for further delineation of pancreatic mass. We will follow up closely with you. We will await colonoscopy findings also as per Dr. Wick. We will follow closely with you. Thank you very much for consultation. JOB# [id number] GONZALO/NTS
[2016-10-23] MEDS: RENVELA PO SCH ×3 (01:23→18:27)
[2016-10-23] MEDS: CATAPRES PO SCH ×4 (01:23→23:01)
[2016-10-23] MEDS: COREG PO SCH ×3 (01:24→23:01)
[2016-10-23] MEDS: COZAAR PO SCH ×2 (01:24→16:42)
[2016-10-23] MEDS: BABY ASPIRIN PO SCH ×2 (01:25→16:35)
[2016-10-23] MEDS: APRESOLINE PO SCH ×5 (01:25→23:01)
[2016-10-23] MEDS: NORVASC PO SCH ×2 (01:26→16:41)
[2016-10-23] MEDS: FLAGYL 500 MG/100 ML 100 ML IV SCH ×4 (01:26→22:56)
[2016-10-23] MEDS: ZOFRAN IV PRN ×3 (03:27→21:41)
[2016-10-23 06:10] LABS: Albumin 4.1 g/dL (3.9-5); Albumin/Globulin Ratio 1.3 %; BUN/Creatinine Ratio 3.54; Bilirubin,Total 0.5 mg/dL (0.1-1.2); Calcium 9.2 mg/dL (8.4-10.2); Chloride 95.4 mmol/L (98-107); Potassium 4.4 mmol/L (3.6-5.0); Total Protein 7.2 g/dL (6.3-8.2)
--- NOTE | 2016-10-23 08:09 | Progress Note ---
Assessment and Plan n Impression * End-stage renal disease on maintenance hemodialysis * Nausea and vomiting * Abdominal pain * Hypertension * Diabetes * Renal cell carcinoma status post nephrectomy * lung and pancreatic metastasis Recommendations * hemodialysis Mondays, Wednesdays and Fridays * Adjust diet and meds for ESRD state * No IV, BP or venipuncture access arm * Shall hold off on her phosphorus binders at this time * Procrit with dialysis * gi following, notes reviewed Subjective Principal diagnosis: esrd Interval history: resting well in bed today Objective - Exam Narrative Exam: General appearance: well-developed, well-nourished, appears stated age EENT: PERRL, mucous membranes moist Neck: Present: neck supple Respiratory: Clear to Ascultation Heart: regular, normal heart rate Gastrointestinal: Present: normoactive bowel sounds, tenderness (mild diffuse tenderness. No rebound or guarding) Integumentary: no rash, other (no edema. AVG in her left upper arm. Good bruit and thrill) - Vital Signs Vital signs: Vital Signs - 12hr 10/22/16 10/22/16 10/22/16 20:15 20:30 20:45 Temperature Pulse Rate 98 H 97 H 97 H Respiratory Rate Respiratory Rate [Head] Blood Pressure 151/81 141/76 154/75 10/22/16 10/22/16 10/22/16 21:00 21:15 21:25 Temperature Pulse Rate 96 H 96 H 102 H Respiratory Rate Respiratory Rate [Head] Blood Pressure 137/79 149/78 161/81 10/22/16 10/22/16 10/22/16 21:57 22:00 23:39 Temperature 98.3 F Pulse Rate 102 H Respiratory 20 18 18 Rate Respiratory 20 Rate [Head] Blood Pressure 161/81 10/23/16 10/23/16 10/23/16 01:23 01:24 01:25 Temperature Pulse Rate 108 H 108 H 108 H Respiratory Rate Respiratory Rate [Head] Blood Pressure 188/86 188/86 188/86 10/23/16 10/23/16 10/23/16 01:26 01:27 05:25 Temperature Pulse Rate 108 H 108 H 82 Respiratory Rate Respiratory Rate [Head] Blood Pressure 188/86 188/86 152/72 - Lab 10/22/16 05:10 10/23/16 05:30 Most recent lab results Calcium 9.2 mg/dL (8.4-10.2) 10/23/16 05:30
[2016-10-23 08:36] LABS: INR 1.18 (0.87-1.13)
[2016-10-23] MEDS: NOVOLOG SUB-Q SCH ×4 (08:57→22:57)
[2016-10-23] MEDS: LOVENOX SUB-Q SCH (09:10)
[2016-10-23] MEDS: D5NS 1,000 ML IV SCH (09:21)
[2016-10-23] MEDS ORDERED: ATIVAN IV ONE (11:00)
[2016-10-23] MEDS: MORPHINE IV PRN ×3 (11:16→20:24)
[2016-10-23] MEDS ORDERED: REGLAN PO PRN (11:56)
[2016-10-23] MEDS: APRESOLINE IV PRN (14:02)
--- NOTE | 2016-10-23 14:23 | Magnetic Resonance Report ---
MR ABDOMEN MRCP History: Pancreatic mass Technique: Multiple T1 and T2-weighted images. Thick and thin MRCP images. Findings: Correlation is made with the CT abdomen and pelvis dated 10/21/16. Please note this examination is severely limited secondary to susceptibility artifact from multiple surgical clips secondary to bilateral nephrectomies. Having said that, MRI also demonstrates a 4.3 x 3.3 cm pancreatic tail mass. This mass is slightly decreased signal on T1 and increased signal on T2. There is no evidence for internal cystic change or calcifications. The proximal pancreas is obscured by artifact. There is diffuse decreased signal on T1 and T2 images throughout the liver and spleen. The liver and spleen are normal size and contour. This suggests iron deposition. Is there clinical concern for hemochromatosis or hemosiderosis? No focal liver mass is appreciated. Most of the gallbladder and biliary system are obscured by artifact. The MRCP images are suboptimal. No obvious biliary dilatation. The visualized bowel loops are unremarkable. Mild cardiomegaly is noted at the lung bases. Impression: Limited exam secondary to artifact as described above. A pancreatic tail mass is confirmed on MRI. A pancreatic neoplasm cannot be excluded. There are no obvious findings of metastatic disease on this limited exam. This appears to be accessible for CT-guided percutaneous biopsy. Iron deposition in the liver and spleen. Hemosiderosis versus hemochromatosis. Mild cardiomegaly.
--- NOTE | 2016-10-23 15:23 | Gastroenterology Progress Note ---
Assessment and Plan GI: pt w/ continue nausea today - possible gastroenteritis - continue conservative management at this time - consider EGD based on progress - pt w/ splenic flex lesion on ct scan, colonoscopy when stable - continue NPO, iv fluids and meds, start p.o. based on progress - will follow Subjective Date of service: 10/23/16 Principal diagnosis: esrd Interval history: - reports nausea w/ dry heaves only slightly improved. Denies other specific complaints Objective - Constitutional Vitals: Temp Pulse Resp BP Pulse Ox 97.2 F L 104 H 20 164/78 100 10/23/16 11:30 10/23/16 14:02 10/23/16 11:30 10/23/16 14:02 10/23/16 11:30 General appearance: no acute distress - Respiratory Respiratory: bilateral: CTA - Cardiovascular Rhythm: regular Heart Sounds: Present: S1 & S2 - Gastrointestinal General gastrointestinal: Present: soft, non-tender - Labs CBC & Chem 7: 10/22/16 05:10 10/23/16 05:30 Labs: Laboratory Results - last 24 hr 10/22/16 10/22/16 10/23/16 16:41 23:22 05:30 PT INR Sodium 141 Potassium 4.4 Chloride 95.4 L Carbon Dioxide 30 Anion Gap 20 BUN 22 H Creatinine 6.2 H Estimated GFR 7 BUN/Creatinine Ratio 3.54 Glucose 127 H POC Glucose 104 104 Calcium 9.2 Total Bilirubin 0.5 AST 28 ALT 8 Alkaline Phosphatase 68 Total Protein 7.2 Albumin 4.1 Albumin/Globulin Ratio 1.3 10/23/16 10/23/16 10/23/16 06:33 08:00 08:22 PT 14.9 INR 1.18 H Sodium Potassium Chloride Carbon Dioxide Anion Gap BUN Creatinine Estimated GFR BUN/Creatinine Ratio Glucose POC Glucose 137 H 137 H Calcium Total Bilirubin AST ALT Alkaline Phosphatase Total Protein Albumin Albumin/Globulin Ratio 10/23/16 11:22 PT INR Sodium Potassium Chloride Carbon Dioxide Anion Gap BUN Creatinine Estimated GFR BUN/Creatinine Ratio Glucose POC Glucose 151 H Calcium Total Bilirubin AST ALT Alkaline Phosphatase Total Protein Albumin Albumin/Globulin Ratio
[2016-10-23] MEDS: Renal Caps PO SCH (16:41)
--- NOTE | 2016-10-23 17:36 | Progress Note ---
Assessment and Plan Pt status quo. Abd soft. GI & Renal eval appreciated MRCP - pancreatic tail mass confirmed. surgically stable awaiting onc eval IR consult - possible CT guided biopsy of pancreatic mass Await colonoscopy findings for further surgical recommendations Selected Entries 10/23/16 10/23/16 10/23/16 11:30 13:50 14:02 Temperature 97.2 F L Pulse Rate [ 104 H Right Radial] Blood Pressure 164/78 Objective Vital Signs - 12hr 10/23/16 10/23/16 10/23/16 07:30 11:30 13:50 Temperature 98.6 F 97.2 F L Pulse Rate Pulse Rate [ 88 96 H Left] Pulse Rate [ 104 H Right Radial] Respiratory 16 20 Rate Blood Pressure Blood Pressure 147/75 172/86 164/78 [Left Arm] O2 Sat by Pulse 99 100 Oximetry 10/23/16 10/23/16 14:02 16:30 Temperature 97.9 F Pulse Rate 104 H Pulse Rate [ 105 H Left] Pulse Rate [ Right Radial] Respiratory 16 Rate Blood Pressure 164/78 Blood Pressure 150/78 [Left Arm] O2 Sat by Pulse 98 Oximetry - Labs 10/22/16 05:10 10/23/16 05:30 Diabetes panel 10/23/16 Range/Units 05:30 Sodium 141 (137-145) mmol/L Potassium 4.4 (3.6-5.0) mmol/L Chloride 95.4 L (98-107) mmol/L Carbon Dioxide 30 (22-30) mmol/L BUN 22 H (7-17) mg/dL Creatinine 6.2 H (0.7-1.2) mg/dL Glucose 127 H (65-100) mg/dL Calcium 9.2 (8.4-10.2) mg/dL AST 28 (5-40) units/L ALT 8 (7-56) units/L Alkaline Phosphatase 68 (35-129) units/L Total Protein 7.2 (6.3-8.2) g/dL Albumin 4.1 (3.9-5) g/dL Calcium panel 10/23/16 Range/Units 05:30 Calcium 9.2 (8.4-10.2) mg/dL Albumin 4.1 (3.9-5) g/dL Pituitary panel 10/23/16 Range/Units 05:30 Sodium 141 (137-145) mmol/L Potassium 4.4 (3.6-5.0) mmol/L Chloride 95.4 L (98-107) mmol/L Carbon Dioxide 30 (22-30) mmol/L BUN 22 H (7-17) mg/dL Creatinine 6.2 H (0.7-1.2) mg/dL Glucose 127 H (65-100) mg/dL Calcium 9.2 (8.4-10.2) mg/dL Adrenal panel 10/23/16 Range/Units 05:30 Sodium 141 (137-145) mmol/L Potassium 4.4 (3.6-5.0) mmol/L Chloride 95.4 L (98-107) mmol/L Carbon Dioxide 30 (22-30) mmol/L BUN 22 H (7-17) mg/dL Creatinine 6.2 H (0.7-1.2) mg/dL Glucose 127 H (65-100) mg/dL Calcium 9.2 (8.4-10.2) mg/dL Total Bilirubin 0.5 (0.1-1.2) mg/dL AST 28 (5-40) units/L ALT 8 (7-56) units/L Alkaline Phosphatase 68 (35-129) units/L Total Protein 7.2 (6.3-8.2) g/dL Albumin 4.1 (3.9-5) g/dL
--- NOTE | 2016-10-23 18:57 | Progress Note ---
Assessment and Plan Assessment and plan: Patient is a 61-year-old lady who has a history of bilateral renal cell carcinoma status post bilateral nephrectomy and a hemodialysis on Wednesdays and Fridays, diabetes mellitus, hypertension, and pancreatic cancer currently undergoing chemotherapy had her phosphate binder, change to a different phosphate binder. Started having intractable abdominal pain, nausea and vomiting. She believes her symptoms tare due the change in the recent phosphate binder. Denies any fever. No diarrhea. No chest pain. Assessment 1. Intractable abdominal pain with nausea vomiting-likely acute gastroenteritis - Resolving 2. End-stage renal disease hemodialysis and underwent his arthritis 3. Metabolic acidosis 4. Diabetes mellitus type 2 uncontrolled 5. Pancreatic cancer currently undergoing chemotherapy with Dr. WISE 6. HTN 7. Renal Cell Cancer Plan: * Continue IV zofran and Reglan * No Diarrhea. * Continue Bicarb iv, sliding scale insulin * Surgery and GI input noted. Await MRCP * Dr WISE Consulted. * Phosphate Binder held at this time. * DVT/GI prophy Hospitalist Physical - Constitutional Vitals: Temp Pulse Resp BP Pulse Ox 97.9 F 105 H 16 150/78 98 10/23/16 16:30 10/23/16 16:30 10/23/16 16:30 10/23/16 16:30 10/23/16 16:30 General appearance: Present: mild distress, well-nourished, other (patient in moderate to severe respiratory distress from nausea vomiting with abdominal pain ) Results - Labs CBC & Chem 7: 10/22/16 05:10 10/23/16 05:30 Labs: Laboratory Last Values WBC 9.4 K/mm3 (4.5-11.0) 10/22/16 05:10 RBC 3.99 M/mm3 (3.65-5.03) 10/22/16 05:10 Hgb 11.1 gm/dl (10.1-14.3) 10/22/16 05:10 Hct 34.0 % (30.3-42.9) 10/22/16 05:10 MCV 85 fl (79-97) 10/22/16 05:10 MCH 28 pg (28-32) 10/22/16 05:10 MCHC 33 % (30-34) 10/22/16 05:10 RDW 14.9 % (13.2-15.2) 10/22/16 05:10 Plt Count 209 K/mm3 (140-440) 10/22/16 05:10 Lymph % (Auto) 11.0 % (13.4-35.0) L 10/22/16 05:10 [place] % (Auto) 5.8 % (0.0-7.3) 10/22/16 05:10 Eos % (Auto) 0.0 % (0.0-4.3) 10/22/16 05:10 Baso % (Auto) 0.3 % (0.0-1.8) 10/22/16 05:10 Lymph # 1.0 K/mm3 (1.2-5.4) L 10/22/16 05:10 [place] # 0.5 K/mm3 (0.0-0.8) 10/22/16 05:10 Eos # 0.0 K/mm3 (0.0-0.4) 10/22/16 05:10 Baso # 0.0 K/mm3 (0.0-0.1) 10/22/16 05:10 Seg Neutrophils % 82.9 % (40.0-70.0) H 10/22/16 05:10 Seg Neutrophils # 7.8 K/mm3 (1.8-7.7) H 10/22/16 05:10 PT 14.9 Sec. (12.2-14.9) 10/23/16 08:00 INR 1.18 (0.87-1.13) H 10/23/16 08:00 Sodium 141 mmol/L (137-145) 10/23/16 05:30 Potassium 4.4 mmol/L (3.6-5.0) 10/23/16 05:30 Chloride 95.4 mmol/L (98-107) L 10/23/16 05:30 Carbon Dioxide 30 mmol/L (22-30) 10/23/16 05:30 Anion Gap 20 mmol/L 10/23/16 05:30 BUN 22 mg/dL (7-17) H 10/23/16 05:30 Creatinine 6.2 mg/dL (0.7-1.2) H 10/23/16 05:30 Estimated GFR 7 ml/min 10/23/16 05:30 BUN/Creatinine Ratio 3.54 % 10/23/16 05:30 Glucose 127 mg/dL (65-100) H 10/23/16 05:30 POC Glucose 111 (70-105) H 10/23/16 15:16 Calcium 9.2 mg/dL (8.4-10.2) 10/23/16 05:30 Total Bilirubin 0.5 mg/dL (0.1-1.2) 10/23/16 05:30 AST 28 units/L (5-40) 10/23/16 05:30 ALT 8 units/L (7-56) 10/23/16 05:30 Alkaline Phosphatase 68 units/L (35-129) 10/23/16 05:30 Total Creatine Kinase 36 units/L (30-135) 10/21/16 12:19 CK-MB (CK-2) < 1.0 ng/mL (0.0-4.0) 10/21/16 12:19 CK-MB (CK-2) Rel Index 2.7 (0-4) 10/21/16 12:19 Troponin T < 0.010 ng/mL (0.00-0.029) 10/21/16 12:19 Total Protein 7.2 g/dL (6.3-8.2) 10/23/16 05:30 Albumin 4.1 g/dL (3.9-5) 10/23/16 05:30 Albumin/Globulin Ratio 1.3 % 10/23/16 05:30 Amylase 49 units/L (27-131) 10/21/16 12:19 Lipase 122 units/L (13-60) H 10/21/16 12:19 PTH Intact 128.8 pg/mL (15-65) H 10/22/16 09:42
[2016-10-24] MEDS: MORPHINE IV PRN ×3 (02:31→23:21)
[2016-10-24] MEDS: NOVOLOG SUB-Q SCH ×4 (07:30→23:29)
[2016-10-24] MEDS: RENVELA PO SCH ×3 (08:00→17:15)
[2016-10-24] MEDS: CATAPRES PO SCH ×3 (08:00→23:28)
[2016-10-24] MEDS: ZOFRAN IV PRN (11:15)
[2016-10-24] MEDS ORDERED: APRESOLINE IV PRN (13:13)
[2016-10-24] MEDS: FLAGYL 500 MG/100 ML 100 ML IV SCH ×3 (13:50→23:05)
[2016-10-24] MEDS: APRESOLINE PO SCH ×3 (13:50→23:32)
[2016-10-24] MEDS: COREG PO SCH ×2 (13:55→23:28)
[2016-10-24] MEDS: COZAAR PO SCH (13:55)
[2016-10-24] MEDS: BABY ASPIRIN PO SCH (13:55)
[2016-10-24] MEDS: Renal Caps PO SCH (13:56)
[2016-10-24] MEDS: NORVASC PO SCH (13:56)
[2016-10-24] MEDS: LOVENOX SUB-Q SCH (13:56)
[2016-10-24] MEDS: VITAMIN D3 PO SCH (13:56)
--- NOTE | 2016-10-24 14:46 | Progress Note ---
Assessment and Plan 61-year-old female with bilateral nephrectomies secondary to renal cell carcinoma with pancreatic tail mass seen on CT. Discussion with patient revealed that she is aware of her pancreatic tail mass, and this is a known metastatic deposit of renal cell carcinoma and she is actively being treated with chemotherapy for this lesion at [place] by her oncologist. In addition, this is also reasonable with a unknown pancreatic lesion, as the most common metastatic lesion to the pancreas is renal cell carcinoma. In addition, she reports that she has a metastatic renal cell lesion to the lung. This was discussed with Dr. Cage and Dr. Wick. No need for biopsy as this will not change patient's management. Pancreatic metastatic lesion and lung metastatic lesion are being managed by oncologist at [place]. Subjective Date of service: 10/24/16 Principal diagnosis: esrd Interval history: 61-year-old female actively receiving dialysis. Patient has some mild diffuse abdominal pain. Had discussion with patient about pancreatic mass. Objective - Labs CBC & Chem 7: 10/22/16 05:10 10/23/16 05:30 Labs: Abnormal lab results 10/23/16 10/23/16 10/24/16 Range/Units 15:16 21:49 06:28 POC Glucose 111 H 125 H 116 H (70-105)
--- NOTE | 2016-10-24 14:50 | Gastroenterology Progress Note ---
Assessment and Plan - Patient Problems (1) Intractable vomiting Current Visit: Yes Status: Acute Qualifiers: Qualified Code(s): R11.2 - Nausea with vomiting, unspecified Plan to address problem: Not improving despite supportive care for several days and symptoms for a week prior to admission. Will plan diagnostic EGD at this point tomorrow (2) ESRD (end stage renal disease) Current Visit: No Status: Chronic (3) Renal cell cancer Current Visit: No Status: Chronic (4) Hypertension Current Visit: No Status: Chronic (5) Diabetes 1.5, managed as type 2 Current Visit: No Status: Chronic (6) Abnormal CT of the abdomen Current Visit: Yes Status: Acute Plan to address problem: The pancreatic lesion is likely a metastasis as is her lung lesion. She is not a candidate for pancreatic surgery and biopsy would not add to her care at this point. Subjective Date of service: 10/24/16 Principal diagnosis: Intractable vomiting Interval history: The patient reports no progress with persistent nausea and vomiting. Unable to advance diet. Objective - Constitutional Vitals: Temp Pulse Resp BP Pulse Ox 99.5 F 99 H 22 134/63 99 10/24/16 00:00 10/24/16 00:00 10/24/16 00:00 10/24/16 00:00 10/24/16 00:00 General appearance: no acute distress - EENT ENT: hearing intact, clear oral mucosa, dentition normal - Neck Neck: supple, normal ROM - Respiratory Respiratory effort: normal Respiratory: bilateral: CTA - Cardiovascular Rhythm: regular - Gastrointestinal General gastrointestinal: Present: soft, non-tender, non-distended, normal bowel sounds, other (obese, no succussion splash). Absent: hepatomegaly, splenomegaly - Labs CBC & Chem 7: 10/22/16 05:10 10/23/16 05:30 Labs: Laboratory Results - last 24 hr 10/23/16 10/23/16 10/24/16 15:16 21:49 06:28 POC Glucose 111 H 125 H 116 H
--- NOTE | 2016-10-24 15:51 | Progress Note ---
Assessment and Plan n Impression * End-stage renal disease on maintenance hemodialysis * Nausea and vomiting * Abdominal pain * Hypertension * Diabetes * Renal cell carcinoma status post nephrectomy * lung and pancreatic metastasis Recommendations * hemodialysis Mondays, Wednesdays and Fridays * Adjust diet and meds for ESRD state * No IV, BP or venipuncture access arm * Shall hold off on her phosphorus binders at this time * Procrit with dialysis * gi following, notes reviewed Subjective Date of service: 10/24/16 Principal diagnosis: Intractable vomiting Interval history: resting well in bed today Objective - Exam Narrative Exam: General appearance: well-developed, well-nourished, appears stated age EENT: PERRL, mucous membranes moist Neck: Present: neck supple Respiratory: Clear to Ascultation Heart: regular, normal heart rate Gastrointestinal: Present: normoactive bowel sounds, tenderness (mild diffuse tenderness. No rebound or guarding) Integumentary: no rash, other (no edema. AVG in her left upper arm. Good bruit and thrill) - Lab 10/22/16 05:10 10/23/16 05:30 Most recent lab results Calcium 9.2 mg/dL (8.4-10.2) 10/23/16 05:30
--- NOTE | 2016-10-24 19:39 | Progress Note ---
Assessment and Plan Assessment and plan: Patient is a 61-year-old lady who has a history of bilateral renal cell carcinoma status post bilateral nephrectomy and a hemodialysis on Wednesdays and Fridays, diabetes mellitus, hypertension, and pancreatic cancer currently undergoing chemotherapy had her phosphate binder, change to a different phosphate binder. Started having intractable abdominal pain, nausea and vomiting. She believes her symptoms tare due the change in the recent phosphate binder. Denies any fever. No diarrhea. No chest pain. Assessment 1. Intractable abdominal pain with nausea vomiting-likely acute gastroenteritis - Resolving 2. End-stage renal disease hemodialysis and underwent his arthritis 3. Metabolic acidosis 4. Diabetes mellitus type 2 uncontrolled 5. Pancreatic cancer currently undergoing chemotherapy with Dr. WISE 6. HTN 7. Renal Cell Cancer Plan: * Continue IV zofran and Reglan * No Diarrhea. * Continue Bicarb iv, sliding scale insulin * Surgery and GI input noted. Await MRCP * Phosphate Binder held at this time. * DVT/GI prophy History Interval history: persistent nausea nad vomiting; c/o diffuse abd pain scheduled for EGD in the morning Hospitalist Physical - Constitutional Vitals: Temp Pulse Resp BP Pulse Ox 97.9 F 105 H 18 196/92 99 10/24/16 16:52 10/24/16 16:52 10/24/16 16:52 10/24/16 16:52 10/24/16 00:00 General appearance: Present: mild distress, well-nourished, other (patient in moderate to severe respiratory distress from nausea vomiting with abdominal pain ) Results - Labs CBC & Chem 7: 10/22/16 05:10 10/23/16 05:30 Labs: Laboratory Last Values WBC 9.4 K/mm3 (4.5-11.0) 10/22/16 05:10 RBC 3.99 M/mm3 (3.65-5.03) 10/22/16 05:10 Hgb 11.1 gm/dl (10.1-14.3) 10/22/16 05:10 Hct 34.0 % (30.3-42.9) 10/22/16 05:10 MCV 85 fl (79-97) 10/22/16 05:10 MCH 28 pg (28-32) 10/22/16 05:10 MCHC 33 % (30-34) 10/22/16 05:10 RDW 14.9 % (13.2-15.2) 10/22/16 05:10 Plt Count 209 K/mm3 (140-440) 10/22/16 05:10 Lymph % (Auto) 11.0 % (13.4-35.0) L 10/22/16 05:10 [place] % (Auto) 5.8 % (0.0-7.3) 10/22/16 05:10 Eos % (Auto) 0.0 % (0.0-4.3) 10/22/16 05:10 Baso % (Auto) 0.3 % (0.0-1.8) 10/22/16 05:10 Lymph # 1.0 K/mm3 (1.2-5.4) L 10/22/16 05:10 [place] # 0.5 K/mm3 (0.0-0.8) 10/22/16 05:10 Eos # 0.0 K/mm3 (0.0-0.4) 10/22/16 05:10 Baso # 0.0 K/mm3 (0.0-0.1) 10/22/16 05:10 Seg Neutrophils % 82.9 % (40.0-70.0) H 10/22/16 05:10 Seg Neutrophils # 7.8 K/mm3 (1.8-7.7) H 10/22/16 05:10 PT 14.9 Sec. (12.2-14.9) 10/23/16 08:00 INR 1.18 (0.87-1.13) H 10/23/16 08:00 Sodium 141 mmol/L (137-145) 10/23/16 05:30 Potassium 4.4 mmol/L (3.6-5.0) 10/23/16 05:30 Chloride 95.4 mmol/L (98-107) L 10/23/16 05:30 Carbon Dioxide 30 mmol/L (22-30) 10/23/16 05:30 Anion Gap 20 mmol/L 10/23/16 05:30 BUN 22 mg/dL (7-17) H 10/23/16 05:30 Creatinine 6.2 mg/dL (0.7-1.2) H 10/23/16 05:30 Estimated GFR 7 ml/min 10/23/16 05:30 BUN/Creatinine Ratio 3.54 % 10/23/16 05:30 Glucose 127 mg/dL (65-100) H 10/23/16 05:30 POC Glucose 101 (70-105) 10/24/16 16:13 Calcium 9.2 mg/dL (8.4-10.2) 10/23/16 05:30 Total Bilirubin 0.5 mg/dL (0.1-1.2) 10/23/16 05:30 AST 28 units/L (5-40) 10/23/16 05:30 ALT 8 units/L (7-56) 10/23/16 05:30 Alkaline Phosphatase 68 units/L (35-129) 10/23/16 05:30 Total Creatine Kinase 36 units/L (30-135) 10/21/16 12:19 CK-MB (CK-2) < 1.0 ng/mL (0.0-4.0) 10/21/16 12:19 CK-MB (CK-2) Rel Index 2.7 (0-4) 10/21/16 12:19 Troponin T < 0.010 ng/mL (0.00-0.029) 10/21/16 12:19 Total Protein 7.2 g/dL (6.3-8.2) 10/23/16 05:30 Albumin 4.1 g/dL (3.9-5) 10/23/16 05:30 Albumin/Globulin Ratio 1.3 % 10/23/16 05:30 Amylase 49 units/L (27-131) 10/21/16 12:19 Lipase 122 units/L (13-60) H 10/21/16 12:19 CA 19-9 Antigen 31 U/mL (<34) 10/22/16 15:05 PTH Intact 128.8 pg/mL (15-65) H 10/22/16 09:42
[2016-10-24 20:03] LABS: Albumin 4.3 g/dL (3.8-4.8); Gamma Globulin 1.2 g/dL (0.8-1.7)
[2016-10-25] MEDS: FLAGYL 500 MG/100 ML 100 ML IV SCH ×4 (06:04→21:38)
[2016-10-25] MEDS: APRESOLINE PO SCH ×4 (06:05→21:38)
[2016-10-25] MEDS: NOVOLOG SUB-Q SCH ×4 (07:32→22:00)
[2016-10-25] MEDS: RENVELA PO SCH ×3 (08:33→16:46)
[2016-10-25] MEDS: CATAPRES PO SCH ×4 (09:20→21:38)
[2016-10-25] MEDS: NORVASC PO SCH (09:20)
[2016-10-25] MEDS: D5NS 1,000 ML IV SCH (09:21)
--- NOTE | 2016-10-25 09:42 | Progress Note ---
Assessment and Plan n Impression: * End-stage renal disease on maintenance hemodialysis * Nausea and vomiting * Abdominal pain * Hypertension * Diabetes * Renal cell carcinoma status post nephrectomy * lung and pancreatic metastasis Recommendations: * hemodialysis Mondays, Wednesdays and Fridays * Adjust diet and meds for ESRD state * No IV, BP or venipuncture access arm * Shall hold off on her phosphorus binders at this time * Procrit with dialysis * gi following, notes reviewed Subjective Date of service: 10/25/16 Principal diagnosis: Intractable vomiting Interval history: resting well in bed today Objective - Exam Narrative Exam: General appearance: well-developed, well-nourished, appears stated age EENT: PERRL, mucous membranes moist Neck: Present: neck supple Respiratory: Clear to Ascultation Heart: regular, normal heart rate Gastrointestinal: Present: normoactive bowel sounds, tenderness (mild diffuse tenderness. No rebound or guarding) Integumentary: no rash, other (no edema. AVG in her left upper arm. Good bruit and thrill) - Vital Signs Vital signs: Vital Signs - 12hr 10/25/16 10/25/16 00:00 04:13 Temperature 97.6 F Pulse Rate [ 83 Apical] Respiratory 20 Rate Blood Pressure 153/75 [Left Arm] O2 Sat by Pulse 100 100 Oximetry - Lab 10/22/16 05:10 10/23/16 05:30 Most recent lab results Calcium 9.2 mg/dL (8.4-10.2) 10/23/16 05:30
[2016-10-25] MEDS: BABY ASPIRIN PO SCH ×2 (12:33→16:47)
[2016-10-25] MEDS: Renal Caps PO SCH ×2 (12:34→16:47)
[2016-10-25] MEDS: LOVENOX SUB-Q SCH ×2 (12:35→16:48)
--- NOTE | 2016-10-25 13:48 | Progress Note ---
Assessment and Plan Pt currently down for EGD. No abd pain as per R.N. Await results of EGD. also rec colonoscopy. Selected Entries 10/25/16 08:05 Temperature 99.0 F Pulse Rate [ 70 Right Radial] Respiratory 20 Rate Blood Pressure 144/70 [Left Arm] Objective Vital Signs - 12hr 10/25/16 10/25/16 04:13 08:05 Temperature 99.0 F Pulse Rate [ 70 Right Radial] Respiratory 20 Rate Blood Pressure 144/70 [Left Arm] O2 Sat by Pulse 100 98 Oximetry - Labs 10/22/16 05:10 10/23/16 05:30 Diabetes panel 10/22/16 Range/Units 09:42 Albumin 4.3 (3.8-4.8) g/dL Calcium panel 10/22/16 Range/Units 09:42 Albumin 4.3 (3.8-4.8) g/dL Adrenal panel 10/22/16 Range/Units 09:42 Albumin 4.3 (3.8-4.8) g/dL
--- NOTE | 2016-10-25 14:08 | Anesthesia Day of Surgery ---
Anesthesia Day of Surgery - Day of Surgery Patient Examined: Yes Patient H&P Reviewed: Yes Patient is NPO: Yes Beta Blockers: Yes
--- NOTE | 2016-10-25 14:10 | Anesthesia Consultation ---
Anesthesia Consult and Med Hx Date of service: 10/25/16 - Airway Anesthetic Teeth Evaluation: Poor ROM Head & Neck: Adequate Mental/Hyoid Distance: Adequate Mallampati Class: Class II Intubation Access Assessment: Probably Good - Pulmonary Exam CTA: Yes - Cardiac Exam Cardiac Exam: RRR - Pre-Operative Health Status ASA Pre-Surgery Classification: ASA4 Proposed Anesthetic Plan: MAC - Pulmonary Hx Smoking: No Hx Asthma: No SOB: Yes (Right lower lobe resection) COPD: No Hx Pneumonia: No Hx Sleep Apnea: Yes - Cardiovascular System Hx Hypertension: Yes Hx Coronary Artery Disease: No Hx Cardia Arrhythmia: No - Central Nervous System Hx Neuromuscular Disorder: No Hx Psychiatric Problems: No - Gastrointestinal Hx Gastroesophageal Reflux Disease: No - Endocrine Hx Renal Disease: Yes Hx End Stage Renal Disease: Yes Hx Non-Insulin Dependent Diabetes: Yes (Accucheck 126) - Hematic Hx Anemia: Yes - Other Systems Hx Alcohol Use: No Hx Cancer: Yes (renal s/p nephrectomy bilat) Hx Obesity: Yes (BMI=43) - Additional Comments Anesthesia Medical History Comments: NAC
[2016-10-25] MEDS ORDERED: NACL 0.9% 1000 ML 1,000 ML ONE (14:37)
[2016-10-25] MEDS ORDERED: WATER FOR IRRIG STERILE IR ONE (14:57)
[2016-10-25] MEDS ORDERED: NACL 0.9% 1000 ML 1,000 ML IV SCH (15:00)
[2016-10-25] MEDS ORDERED: DIPRIVAN 10 MG/ML IV ONE (15:04)
[2016-10-25] MEDS: COREG PO SCH ×3 (15:24→21:38)
[2016-10-25] MEDS: COZAAR PO SCH (15:25)
--- NOTE | 2016-10-25 15:42 | Post Operative Note ---
Pre-op diagnosis: nausea, vomiting Post-op diagnosis: same Findings: EGD: Grade I esophagitis (bx's) - hiatal hernia - small gastric polyps (bx's) - multiple superficial ulcer (3-6 mm) antrum (bx's) Procedure: EGD w/ bx Anesthesia: MAC Surgeon: KAI FARRELL Estimated blood loss: none Pathology: list Specimen disposition: to lab Condition: stable Disposition: floor
--- NOTE | 2016-10-25 16:02 | Post Anesthesia Evaluation ---
- Post Anesthesia Evaluation Patient Participated: Yes Airway Patent: Yes Stable Respiratory Function: Yes Temp > 96.8F: Yes Pain Manageable: Yes Adequeate Hydration: Yes Anesthesia Complications: No Block Receding Appropriately: Not Applicable
[2016-10-25] MEDS: CARAFATE PO SCH (19:20)
--- NOTE | 2016-10-25 19:24 | Progress Note ---
Assessment and Plan Assessment and plan: Patient is a 61-year-old lady who has a history of bilateral renal cell carcinoma status post bilateral nephrectomy and a hemodialysis on Wednesdays and Fridays, diabetes mellitus, hypertension, and pancreatic cancer currently undergoing chemotherapy had her phosphate binder, change to a different phosphate binder. Started having intractable abdominal pain, nausea and vomiting. She believes her symptoms tare due the change in the recent phosphate binder. Denies any fever. No diarrhea. No chest pain. Assessment 1. Intractable abdominal pain with nausea vomiting-likely acute gastroenteritis - Resolving 2. End-stage renal disease hemodialysis and underwent his arthritis 3. Metabolic acidosis 4. Diabetes mellitus type 2 uncontrolled 5. Pancreatic cancer currently undergoing chemotherapy with Dr. WISE 6. HTN 7. Renal Cell Cancer Plan: * Continue IV zofran and Reglan * No Diarrhea. * Continue Bicarb iv, sliding scale insulin * Surgery and GI input noted. Await MRCP * Phosphate Binder held at this time. * DVT/GI prophy EGD: Grade I esophagitis (bx's) - hiatal hernia - small gastric polyps (bx's) - multiple superficial ulcer (3-6 mm) antrum (bx's) History Interval history: still nauseated underwent EGD today Hospitalist Physical - Constitutional Vitals: Temp Pulse Resp BP Pulse Ox 98.1 F 78 20 194/84 100 10/25/16 15:40 10/25/16 16:30 10/25/16 16:30 10/25/16 16:30 10/25/16 15:55 General appearance: Present: mild distress, well-nourished, other (patient in moderate to severe respiratory distress from nausea vomiting with abdominal pain ) Results - Labs CBC & Chem 7: 10/22/16 05:10 10/23/16 05:30 Labs: Laboratory Last Values WBC 9.4 K/mm3 (4.5-11.0) 10/22/16 05:10 RBC 3.99 M/mm3 (3.65-5.03) 10/22/16 05:10 Hgb 11.1 gm/dl (10.1-14.3) 10/22/16 05:10 Hct 34.0 % (30.3-42.9) 10/22/16 05:10 MCV 85 fl (79-97) 10/22/16 05:10 MCH 28 pg (28-32) 10/22/16 05:10 MCHC 33 % (30-34) 10/22/16 05:10 RDW 14.9 % (13.2-15.2) 10/22/16 05:10 Plt Count 209 K/mm3 (140-440) 10/22/16 05:10 Lymph % (Auto) 11.0 % (13.4-35.0) L 10/22/16 05:10 [place] % (Auto) 5.8 % (0.0-7.3) 10/22/16 05:10 Eos % (Auto) 0.0 % (0.0-4.3) 10/22/16 05:10 Baso % (Auto) 0.3 % (0.0-1.8) 10/22/16 05:10 Lymph # 1.0 K/mm3 (1.2-5.4) L 10/22/16 05:10 [place] # 0.5 K/mm3 (0.0-0.8) 10/22/16 05:10 Eos # 0.0 K/mm3 (0.0-0.4) 10/22/16 05:10 Baso # 0.0 K/mm3 (0.0-0.1) 10/22/16 05:10 Seg Neutrophils % 82.9 % (40.0-70.0) H 10/22/16 05:10 Seg Neutrophils # 7.8 K/mm3 (1.8-7.7) H 10/22/16 05:10 PT 14.9 Sec. (12.2-14.9) 10/23/16 08:00 INR 1.18 (0.87-1.13) H 10/23/16 08:00 Sodium 141 mmol/L (137-145) 10/23/16 05:30 Potassium 4.4 mmol/L (3.6-5.0) 10/23/16 05:30 Chloride 95.4 mmol/L (98-107) L 10/23/16 05:30 Carbon Dioxide 30 mmol/L (22-30) 10/23/16 05:30 Anion Gap 20 mmol/L 10/23/16 05:30 BUN 22 mg/dL (7-17) H 10/23/16 05:30 Creatinine 6.2 mg/dL (0.7-1.2) H 10/23/16 05:30 Estimated GFR 7 ml/min 10/23/16 05:30 BUN/Creatinine Ratio 3.54 % 10/23/16 05:30 Glucose 127 mg/dL (65-100) H 10/23/16 05:30 POC Glucose 106 (70-105) H 10/25/16 17:17 Calcium 9.2 mg/dL (8.4-10.2) 10/23/16 05:30 Total Bilirubin 0.5 mg/dL (0.1-1.2) 10/23/16 05:30 AST 28 units/L (5-40) 10/23/16 05:30 ALT 8 units/L (7-56) 10/23/16 05:30 Alkaline Phosphatase 68 units/L (35-129) 10/23/16 05:30 Total Creatine Kinase 36 units/L (30-135) 10/21/16 12:19 CK-MB (CK-2) < 1.0 ng/mL (0.0-4.0) 10/21/16 12:19 CK-MB (CK-2) Rel Index 2.7 (0-4) 10/21/16 12:19 Troponin T < 0.010 ng/mL (0.00-0.029) 10/21/16 12:19 Serum Total Protein 7.4 g/dL (6.1-8.1) 10/22/16 09:42 Total Protein 7.2 g/dL (6.3-8.2) 10/23/16 05:30 Albumin 4.1 g/dL (3.9-5) 10/23/16 05:30 Albumin/Globulin Ratio 1.3 % 10/23/16 05:30 Kzsnx-9-Lftifinoy 0.3 g/dL (0.2-0.3) 10/22/16 09:42 Trliu-8-Bxrvgessy 0.8 g/dL (0.5-0.9) 10/22/16 09:42 Beta Globulins 0.4 g/dL (0.2-0.5) 10/22/16 09:42 Gamma Globulins 1.2 g/dL (0.8-1.7) 10/22/16 09:42 Abnorm Protein Band 1 see below 10/22/16 09:42 PEP Interpretation see below 10/22/16 09:42 Amylase 49 units/L (27-131) 10/21/16 12:19 Lipase 122 units/L (13-60) H 10/21/16 12:19 CA 19-9 Antigen 31 U/mL (<34) 10/22/16 15:05 PTH Intact 128.8 pg/mL (15-65) H 10/22/16 09:42
--- NOTE | 2016-10-25 19:31 | Operative Report ---
PROCEDURE: EGD with cold biopsies. INDICATIONS: Nausea and vomiting. MEDICATIONS: Propofol per PROFESSOR OF ASTRONOMY. COMPLICATIONS: None. DESCRIPTION OF PROCEDURE: The patient brought to procedure suite. The patient had the procedure discussed with her at length. All risks, complications, and benefits were discussed, which the patient signed for the procedure to be performed. The patient was placed in left lateral decubitus position. Mouth block was placed in the patient's oral cavity. After adequate sedation medication as above, endoscope was introduced into the mouth and brought to the level of the second portion of duodenum. Retroflexion view was performed. The patient's vital signs remained stable throughout the procedure. FINDINGS: There was noted to be grade 1 esophagitis noted at GE junction, 37 cm from the gums. Biopsies were taken and sent to pathology. Small to medium hiatal hernia at GE junction. The esophagus otherwise appeared to be normal. There were few small benign-appearing polyps noted in the gastric body. Biopsies were taken and sent to pathology. Mild gastritis noted in the antrum. Biopsies were taken and sent to pathology. The remaining stomach otherwise appeared to be normal. There were multiple small, many superficial but some slightly cratered ulcers noted in the duodenal bulb approaching the duodenal sweep. These were 3-6 mm in size with no bleeding stigmata. Biopsies were taken and sent to pathology. Second portion of duodenum appeared to be normal. Retroflexion view performed in the stomach showed no other pathology other than noted above. The patient tolerated the procedure well. There were no complications during the procedure. IMPRESSION: 1. Hiatal hernia. 2. Esophagitis, biopsy performed. 3. Otherwise, normal esophagus. 4. Small polyps of gastric body with biopsy performed. 5. Gastritis, biopsy performed. 6. Otherwise, normal stomach. 7. Ulcers, proximal duodenum, biopsy performed. 8. Otherwise, normal duodenum. RECOMMENDATIONS: 1. Follow up biopsy results. 2. Stool for H. pylori, if present treat. 3. PPI b.i.d. 4. Carafate suspension q.i.d. 5. Colonoscopy in near future. 6. Followup based on progress. JOB# [id number] [facility]
[2016-10-26] MEDS: CARAFATE PO SCH ×5 (00:10→23:55)
[2016-10-26] MEDS: FLAGYL 500 MG/100 ML 100 ML IV SCH ×2 (05:22→16:40)
[2016-10-26] MEDS ORDERED: CHLORASEPTIC MM PRN (05:26)
[2016-10-26] MEDS: NOVOLOG SUB-Q SCH ×4 (08:19→22:00)
--- NOTE | 2016-10-26 08:47 | Progress Note ---
Assessment and Plan Pt feeling better. In much better spirits Abd soft. non tender EGD - esophagitis and superficial peptic ulcerations. surgically stable Rx with protonix & carafate may attempt cl liq from gen surg perspective colonoscopy? Selected Entries 10/26/16 00:00 Temperature 98.7 F Pulse Rate [ 64 Apical] Respiratory 18 Rate Blood Pressure 110/58 [Left Arm] Objective Vital Signs - 12hr 10/25/16 10/26/16 21:33 00:00 Temperature 99.7 F H 98.7 F Pulse Rate [ 61 64 Apical] Respiratory 18 18 Rate Blood Pressure 110/58 [Left Arm] Blood Pressure 111/57 [Right Arm] O2 Sat by Pulse 98 92 Oximetry - Labs 10/22/16 05:10 10/23/16 05:30
[2016-10-26 09:10] LABS: Basophils % (Auto) 0.8 % (0.0-1.8); Eosinophils % (Auto) 3.1 % (0.0-4.3); Hematocrit 31.4 % (30.3-42.9); Hemoglobin 10.1 gm/dl (10.1-14.3); Mean Corpuscular HGB Conc 32 % (30-34); Mean Corpuscular Hemoglobin 28 pg (28-32); Mean Corpuscular Volume 87 fl (79-97); Platelet Count 162 K/mm3 (140-440); Red Blood Count 3.61 M/mm3 (3.65-5.03); Red Cell Distribution Width 14.9 % (13.2-15.2); White Blood Count 7.1 K/mm3 (4.5-11.0)
[2016-10-26 09:22] LABS: BUN/Creatinine Ratio 4.53; Calcium 8.5 mg/dL (8.4-10.2); Chloride 97.3 mmol/L (98-107)
[2016-10-26] MEDS: RENVELA PO SCH ×3 (09:31→18:22)
--- NOTE | 2016-10-26 10:40 | Gastroenterology Progress Note ---
Assessment and Plan - Patient Problems (1) Intractable vomiting Current Visit: Yes Status: Acute Qualifiers: Vomiting type: unspecified Nausea presence: with nausea Qualified Code(s) : R11.2 - Nausea with vomiting, unspecified Plan to address problem: Now resolving. Gastritis, superficial ulcers and esophagitis found at endoscopy. Will advance diet. (2) ESRD (end stage renal disease) Current Visit: No Status: Chronic (3) Renal cell cancer Current Visit: No Status: Chronic Qualifiers: Laterality: L (4) Hypertension Current Visit: No Status: Chronic Qualifiers: Hypertension type: H (5) Diabetes 1.5, managed as type 2 Current Visit: No Status: Chronic (6) Abnormal CT of the abdomen Current Visit: Yes Status: Acute Plan to address problem: Outpatient colonoscopy will be planned. Patient is not obstructed. Subjective Date of service: 10/26/16 Principal diagnosis: Intractable vomiting Interval history: Feels much better. Tolerated liquid diet yesterday and desires diet advancement. Objective - Constitutional Vitals: Temp Pulse Resp BP Pulse Ox 98.4 F 70 20 145/64 92 10/26/16 10:10 10/26/16 10:10 10/26/16 10:10 10/26/16 10:10 10/26/16 00:00 General appearance: no acute distress - EENT ENT: hearing intact, clear oral mucosa, dentition normal - Neck Neck: supple, normal ROM - Respiratory Respiratory effort: normal Respiratory: bilateral: CTA - Cardiovascular Rhythm: regular - Gastrointestinal General gastrointestinal: Present: soft, non-tender, non-distended, normal bowel sounds - Neurologic Neurological: alert and oriented x3 - Labs CBC & Chem 7: 10/26/16 08:26 10/26/16 08:26 Labs: Laboratory Results - last 24 hr 10/25/16 10/25/16 10/25/16 11:31 13:34 17:17 WBC RBC Hgb Hct MCV MCH MCHC RDW Plt Count Lymph % (Auto) Luce % (Auto) Eos % (Auto) Baso % (Auto) Lymph # Luce # Eos # Baso # Seg Neutrophils % Seg Neutrophils # Sodium Potassium Chloride Carbon Dioxide Anion Gap BUN Creatinine Estimated GFR BUN/Creatinine Ratio Glucose POC Glucose 103 91 106 H Calcium 10/25/16 10/26/16 10/26/16 21:41 07:02 08:26 WBC 7.1 RBC 3.61 L Hgb 10.1 Hct 31.4 MCV 87 MCH 28 MCHC 32 RDW 14.9 Plt Count 162 Lymph % (Auto) 21.0 [place] % (Auto) 12.7 H Eos % (Auto) 3.1 Baso % (Auto) 0.8 Lymph # 1.5 Luce # 0.9 H Eos # 0.2 Baso # 0.1 Seg Neutrophils % 62.4 Seg Neutrophils # 4.4 Sodium Potassium Chloride Carbon Dioxide Anion Gap BUN Creatinine Estimated GFR BUN/Creatinine Ratio Glucose POC Glucose 89 97 Calcium 10/26/16 08:26 WBC RBC Hgb Hct MCV MCH MCHC RDW Plt Count Lymph % (Auto) Luce % (Auto) Eos % (Auto) Baso % (Auto) Lymph # Luce # Eos # Baso # Seg Neutrophils % Seg Neutrophils # Sodium 138 Potassium 4.0 Chloride 97.3 L Carbon Dioxide 26 Anion Gap 19 BUN 34 H Creatinine 7.5 H Estimated GFR 6 BUN/Creatinine Ratio 4.53 Glucose 94 POC Glucose Calcium 8.5
[2016-10-26] MEDS: APRESOLINE PO SCH ×3 (11:17→21:58)
[2016-10-26] MEDS: BABY ASPIRIN PO SCH (11:18)
[2016-10-26] MEDS: NORVASC PO SCH (11:18)
[2016-10-26] MEDS: CATAPRES PO SCH ×3 (11:18→21:57)
[2016-10-26] MEDS: LOVENOX SUB-Q SCH ×2 (11:18→16:41)
[2016-10-26] MEDS: COZAAR PO SCH ×2 (11:18→18:33)
[2016-10-26] MEDS: COREG PO SCH ×2 (11:18→21:59)
[2016-10-26] MEDS: Renal Caps PO SCH (11:19)
[2016-10-26] MEDS: VITAMIN D3 PO SCH (11:19)
--- NOTE | 2016-10-26 12:25 | Progress Note ---
Assessment and Plan end-stage renal disease patient is currently tolerating dialysis treatment well She'll continue to dialyze on Saturday schedule Nausea vomiting likely due to the new binder that she was started on Gastroenterology notes were also reviewed Advance diet as tolerated-and recommended by gastroenterology service Patient is advised to stay with high protein diet, needs to limit her fluids to approximately 40 ounces per day Current access appears to be working well we'll continue to follow and make recommendation from renal standpoint More than 35 minutes was spent directly in patient care today Care plan was also discussed with dialysis nurse as well Subjective Principal diagnosis: Intractable vomiting Interval history: Patient was seen today for follow-up on multiple renal related issues She appears to be doing better, no complaints of any nausea vomiting Patient relates all this to the new binder that she was started on She is currently tolerating dialysis treatment well Objective - Vital Signs Vital signs: Vital Signs - 12hr 10/26/16 10/26/16 10/26/16 10:10 10:15 10:30 Temperature 98.4 F Pulse Rate 68 69 69 Respiratory 20 Rate Blood Pressure 151/72 156/75 139/67 10/26/16 10/26/16 10/26/16 10:45 11:00 11:15 Temperature Pulse Rate 69 69 67 Respiratory Rate Blood Pressure 132/57 134/62 123/56 10/26/16 10/26/16 11:30 11:45 Temperature Pulse Rate 68 69 Respiratory Rate Blood Pressure 120/64 136/63 - General Appearance General appearance: well-nourished EENT: mucous membranes moist Neck: no JVD Gastrointestinal: normal (nontender abdomen) Musculoskeletal: other (minimal edema) Psychiatric: mood/affect appropriate, other - Lab 10/26/16 08:26 10/26/16 08:26 Most recent lab results Calcium 8.5 mg/dL (8.4-10.2) 10/26/16 08:26
[2016-10-26] MEDS ORDERED: PROTONIX IV SCH (13:00)
[2016-10-26] MEDS ORDERED: FLAGYL 500 MG/100 ML 500 MG/100 ML BAG IV SCH (14:30)
[2016-10-26] MEDS: FLAGYL 500 MG/100 ML 500 MG/100 ML BAG IV SCH ×2 (18:31→21:57)
--- NOTE | 2016-10-26 19:18 | Progress Note ---
History Interval history: feeling better, tolerating clear liquid diet, plan to advance it Hospitalist Physical - Constitutional Vitals: Temp Pulse Resp BP Pulse Ox 98.2 F 73 20 150/69 92 10/26/16 13:50 10/26/16 13:50 10/26/16 13:50 10/26/16 13:50 10/26/16 00:00 General appearance: Present: mild distress, well-nourished, other (patient in moderate to severe respiratory distress from nausea vomiting with abdominal pain ) Results - Labs CBC & Chem 7: 10/26/16 08:26 10/26/16 08:26 Labs: Laboratory Last Values WBC 7.1 K/mm3 (4.5-11.0) 10/26/16 08:26 RBC 3.61 M/mm3 (3.65-5.03) L 10/26/16 08:26 Hgb 10.1 gm/dl (10.1-14.3) 10/26/16 08:26 Hct 31.4 % (30.3-42.9) 10/26/16 08:26 MCV 87 fl (79-97) 10/26/16 08:26 MCH 28 pg (28-32) 10/26/16 08:26 MCHC 32 % (30-34) 10/26/16 08:26 RDW 14.9 % (13.2-15.2) 10/26/16 08:26 Plt Count 162 K/mm3 (140-440) 10/26/16 08:26 Lymph % (Auto) 21.0 % (13.4-35.0) 10/26/16 08:26 [place] % (Auto) 12.7 % (0.0-7.3) H 10/26/16 08:26 Eos % (Auto) 3.1 % (0.0-4.3) 10/26/16 08:26 Baso % (Auto) 0.8 % (0.0-1.8) 10/26/16 08:26 Lymph # 1.5 K/mm3 (1.2-5.4) 10/26/16 08:26 [place] # 0.9 K/mm3 (0.0-0.8) H 10/26/16 08:26 Eos # 0.2 K/mm3 (0.0-0.4) 10/26/16 08:26 Baso # 0.1 K/mm3 (0.0-0.1) 10/26/16 08:26 Seg Neutrophils % 62.4 % (40.0-70.0) 10/26/16 08:26 Seg Neutrophils # 4.4 K/mm3 (1.8-7.7) 10/26/16 08:26 PT 14.9 Sec. (12.2-14.9) 10/23/16 08:00 INR 1.18 (0.87-1.13) H 10/23/16 08:00 Sodium 138 mmol/L (137-145) 10/26/16 08:26 Potassium 4.0 mmol/L (3.6-5.0) 10/26/16 08:26 Chloride 97.3 mmol/L (98-107) L 10/26/16 08:26 Carbon Dioxide 26 mmol/L (22-30) 10/26/16 08:26 Anion Gap 19 mmol/L 10/26/16 08:26 BUN 34 mg/dL (7-17) H 10/26/16 08:26 Creatinine 7.5 mg/dL (0.7-1.2) H 10/26/16 08:26 Estimated GFR 6 ml/min 10/26/16 08:26 BUN/Creatinine Ratio 4.53 % 10/26/16 08:26 Glucose 94 mg/dL (65-100) 10/26/16 08:26 POC Glucose 143 (70-105) H 10/26/16 16:05 Calcium 8.5 mg/dL (8.4-10.2) 10/26/16 08:26 Total Bilirubin 0.5 mg/dL (0.1-1.2) 10/23/16 05:30 AST 28 units/L (5-40) 10/23/16 05:30 ALT 8 units/L (7-56) 10/23/16 05:30 Alkaline Phosphatase 68 units/L (35-129) 10/23/16 05:30 Total Creatine Kinase 36 units/L (30-135) 10/21/16 12:19 CK-MB (CK-2) < 1.0 ng/mL (0.0-4.0) 10/21/16 12:19 CK-MB (CK-2) Rel Index 2.7 (0-4) 10/21/16 12:19 Troponin T < 0.010 ng/mL (0.00-0.029) 10/21/16 12:19 Serum Total Protein 7.4 g/dL (6.1-8.1) 10/22/16 09:42 Total Protein 7.2 g/dL (6.3-8.2) 10/23/16 05:30 Albumin 4.1 g/dL (3.9-5) 10/23/16 05:30 Albumin/Globulin Ratio 1.3 % 10/23/16 05:30 Spxir-0-Ufrakscyg 0.3 g/dL (0.2-0.3) 10/22/16 09:42 Aegsf-5-Livhhdbee 0.8 g/dL (0.5-0.9) 10/22/16 09:42 Beta Globulins 0.4 g/dL (0.2-0.5) 10/22/16 09:42 Gamma Globulins 1.2 g/dL (0.8-1.7) 10/22/16 09:42 Abnorm Protein Band 1 see below 10/22/16 09:42 PEP Interpretation see below 10/22/16 09:42 Amylase 49 units/L (27-131) 10/21/16 12:19 Lipase 122 units/L (13-60) H 10/21/16 12:19 CA 19-9 Antigen 31 U/mL (<34) 10/22/16 15:05 PTH Intact 128.8 pg/mL (15-65) H 10/22/16 09:42
[2016-10-27] MEDS: CARAFATE PO SCH ×2 (06:17→13:10)
[2016-10-27] MEDS: APRESOLINE PO SCH (06:17)
[2016-10-27] MEDS ORDERED: FLAGYL PO SCH (08:00)
[2016-10-27] MEDS: CATAPRES PO SCH (09:12)
[2016-10-27] MEDS: RENVELA PO SCH ×2 (09:12→13:10)
[2016-10-27] MEDS: NOVOLOG SUB-Q SCH ×2 (09:12→13:10)
[2016-10-27] MEDS ORDERED: PROTONIX PO SCH (10:00)
[2016-10-27 10:14] VITALS: BP 149/68
--- NOTE | 2016-10-27 10:24 | Gastroenterology Progress Note ---
Assessment and Plan GI: pt reports nausea, vomiting resolved - continue current meds and diet - will need colonoscopy as outpt, discussed w/ pt - ok to d/c from GI standpoint with outpt follow up - will sign off, call if needed Subjective Date of service: 10/27/16 Principal diagnosis: Intractable vomiting Interval history: pt reports doing better, tolerating po, denies GI complaints Objective - Constitutional Vitals: Temp Pulse Resp BP Pulse Ox 97.9 F 72 20 149/68 96 10/27/16 08:00 10/27/16 08:00 10/27/16 08:00 10/27/16 08:00 10/27/16 08:00 General appearance: no acute distress - Respiratory Respiratory: bilateral: CTA - Cardiovascular Rhythm: regular Heart Sounds: Present: S1 & S2 - Gastrointestinal General gastrointestinal: Present: soft, non-tender - Labs CBC & Chem 7: 10/26/16 08:26 10/26/16 08:26 Labs: Laboratory Results - last 24 hr 10/26/16 10/26/16 10/27/16 16:05 21:35 06:32 POC Glucose 143 H 102 117 H
--- NOTE | 2016-10-27 10:59 | Discharge Summary ---
Providers - Providers Date of Admission: 10/21/16 16:18 Date of discharge: 10/27/16 Attending physician: ZACHARY RANGEL 10/22/16 10:06 Consult to Physician [CONS] Routine Consulting Provider: NITA PERALTA Reason For Exam: possible ischemic colitis, vs colon mass Place consult to:: dr. peralta Notified:: office Phone number called:: [phone] Was contact made?: Yes If yes, spoke with:: chepe Time called:: 10:25 10/22/16 10:38 Consult to Physician [CONS] Urgent Consulting Provider: [facility] Reason For Exam: colonic mass vs ischemia Place consult to:: delano adair Notified:: yes Phone number called:: [phone] Was contact made?: Yes If yes, spoke with:: kong Time called:: 10:50 Comment:: the dr matias be informed 10/22/16 19:58 Consult to Physician [CONS] Routine Consulting Provider: DEANN BATES Reason For Exam: Colitis Place consult to:: [place] Notified:: PLEASE CALL MD IN AM Was contact made?: Yes Comment:: Dr. perez to place patient on list 10/23/16 17:33 Consult to Physician [CONS] Routine Consulting Provider: TAMICA WEEKS Reason For Exam: CT guided pancreatic biopsy Place consult to:: DR. WEEKS Notified:: [facility] Phone number called:: [phone] Was contact made?: Yes If yes, spoke with:: TALA/DR. CONDE Time called:: 18:12 Comment:: [place] NOTIFIED Primary care physician: KODI LEONARD Hospitalization Condition: Stable Procedures: CT abdomen/pelvis MRCP Disposition: DISCHARGED TO HOME OR SELFCARE Time spent for discharge: 35 min Core Measure Documentation - Palliative Care Palliative Care/ Comfort Measures: Not Applicable - Core Measures Any of the following diagnoses?: none Exam - Physical Exam Narrative exam: Patient seen and examined; - Constitutional Vitals: Temp Pulse Resp BP Pulse Ox 97.9 F 72 20 149/68 96 10/27/16 08:00 10/27/16 08:00 10/27/16 08:00 10/27/16 08:00 10/27/16 08:00 General appearance: Present: no acute distress, obese - EENT Eyes: Present: PERRL, EOM intact - Neck Neck: Present: supple, normal ROM. Absent: masses or JVD - Respiratory Respiratory effort: normal Respiratory: bilateral: CTA, negative: rales, rhonchi, wheezing - Cardiovascular Rhythm: regular Heart Sounds: Present: S1 & S2. Absent: systolic murmur - Extremities Extremities: no ischemia - Abdominal General gastrointestinal: Present: soft, non-tender, non-distended, normal bowel sounds - Neurologic Neurologic: CNII-XII intact, no focal deficits Plan Activity: advance as tolerated Diet: low cholesterol, low salt, renal Additional Instructions: Follow up with your procurement inspector to resume outpatient hemodialysis. Follow-up with gastroenterology, Dr. Marcelo Silveira, for outpatient colonoscopy. Follow-up with your oncologist Follow up with: KODI LEONARD PA [Primary Care Provider] - 3-5 Days Prescriptions: amLODIPine [Norvasc] 10 mg PO DAILY #30 tablet Aspirin [Aspirin BABY CHEW TAB] 81 mg PO QDAY #30 tab.chew Carvedilol [Coreg] 25 mg PO BID #60 tablet cloNIDine [Catapres] 0.2 mg PO TID #90 tablet hydrALAZINE [Apresoline TAB] 25 mg PO Q8HR #90 tablet Losartan [Cozaar] 25 mg PO QDAY #30 tablet Pantoprazole [Protonix TAB] 40 mg PO DAILY #30 tablet Sucralfate [Carafate] 1 gm PO Q6HR #120 oral.liqd
[2016-10-27] MEDS ORDERED: FLUSH HEPARIN IV ONE (11:01)
[2016-10-27] MEDS ORDERED: TRIPLE ANTIBIOTIC TP ONE (11:01)
[2016-10-27] MEDS: NORVASC PO SCH (11:06)
[2016-10-27] MEDS: BABY ASPIRIN PO SCH (11:06)
[2016-10-27] MEDS: COREG PO SCH (11:06)
[2016-10-27] MEDS: LOVENOX SUB-Q SCH (11:07)
[2016-10-27] MEDS: Renal Caps PO SCH (11:07)
[2016-10-27] MEDS: COZAAR PO SCH (11:07)
[2016-10-28] MEDS ORDERED: VITAMIN D3 PO SCH (10:00)
== END 2016-10-27 13:39 | disposition home or self-care (01) | DRG 391 ==
LOC: ED 11:28 → 4A 16:18 → 3A 16:49
PROVIDERS: ADMIT Family Medicine; ATTEND Internal Medicine
PROC: 5A1D60Z (ICD-10-PCS; 2016-10-21)
PROC: 0DB68ZX Excision of Stomach, Via Natural or Artificial Opening Endoscopic, Diagnostic (ICD-10-PCS; principal; 2016-10-25)
PROC: 0DB48ZX Excision of Esophagogastric Junction, Via Natural or Artificial Opening Endoscopic, Diagnostic (ICD-10-PCS; principal; 2016-10-25)
PROC: 0DB98ZX Excision of Duodenum, Via Natural or Artificial Opening Endoscopic, Diagnostic (ICD-10-PCS; principal; 2016-10-25)
DX: K52.89 Other specified noninfective gastroenteritis and colitis (principal); N18.6 End stage renal disease; C78.89 Secondary malignant neoplasm of other digestive organs; C78.00 Secondary malignant neoplasm of unspecified lung; I12.0 Hypertensive chronic kidney disease with stage 5 chronic kidney disease or end stage renal disease; R11.2 Nausea with vomiting, unspecified; K31.7 Polyp of stomach and duodenum; E11.22 Type 2 diabetes mellitus with diabetic chronic kidney disease; E11.65 Type 2 diabetes mellitus with hyperglycemia; M19.90 Unspecified osteoarthritis, unspecified site; K20.9 Esophagitis, unspecified; K44.9 Diaphragmatic hernia without obstruction or gangrene; K27.9 Peptic ulcer, site unspecified, unspecified as acute or chronic, without hemorrhage or perforation; D64.9 Anemia, unspecified; Z99.2 Dependence on renal dialysis; Z88.6 Allergy status to analgesic agent; Z88.0 Allergy status to penicillin; Z88.8 Allergy status to other drugs, medicaments and biological substances; Z90.710 Acquired absence of both cervix and uterus; Z90.5 Acquired absence of kidney
CPT/HCPCS: 36415; 74176; 74181; 80048; 80053; 82150; 82378; 82550; 82553; 82962; 83690; 83970; 84165; 84484; 85025; 85610; 86301; 88305; 88312; 88342; 93005; 93010; 96374; 96375; 96376; A6250; C9113; J0360; J1170; J1642; J1650; J2060; J2270; J2405; J2704; J2765; J7030; J7042

== ENCOUNTER 2017-12-17 07:51 | Day surgery (SDC) | payer MEDICARE ==
[2017-12-17] MEDS ORDERED: DIPRIVAN 10 MG/ML IV ONE ×2 (09:26)
[2017-12-17] MEDS ORDERED: WATER FOR IRRIG STERILE IR ONE (09:28)
[2017-12-17] MEDS ORDERED: WATER FOR IRRIG STERILE ONE (09:28)
--- NOTE | 2017-12-17 09:59 | Short Stay Summary ---
Short Stay Documentation Date of service: 12/17/17 Narrative H&P: The patient presents for colonoscopy surveillance for a history of polyps. Last study 5 years ago. See office H&P dated 11/19/17 - History H&P: obtained from office - Allergies and Medications Current Medications: Allergies codeine Allergy (Verified 05/05/15 06:48) Rash Penicillins Allergy (Verified 02/12/16 17:55) Hives ciprofloxacin [From Cipro] Adverse Reaction (Verified 05/05/15 06:48) severe nausea ciprofloxacin HCl [From Cipro] Adverse Reaction (Verified 05/05/15 06:48) severe nausea Home Medications Medication Instructions Recorded Confirmed Last Taken Type B Complex 11/Folic/C/Biot/Zinc 1 each PO DAILY #30 tablet 02/13/16 10/21/16 Rx [Dialyvite with Zinc Tablet] Promethazine [Phenergan TAB] 25 mg PO Q6HR PRN #30 tablet 02/13/16 10/21/16 Rx Sevelamer Carbonate [Renvela] 2,400 mg PO TIDWM #90 tablet 02/13/16 10/21/16 Rx Cholecalciferol (Vitamin D3) 2 tab PO 4XW 07/05/16 10/21/16 10/21/16 History [Vitamin D3 2,000 unit] Meclizine [Antivert] 25 mg PO TID PRN 07/05/16 10/21/16 10/21/16 History Aspirin [Aspirin BABY CHEW TAB] 81 mg PO QDAY #30 tab.chew 10/27/16 12/16/17 Rx Carvedilol [Coreg] 25 mg PO BID #60 tablet 10/27/16 12/15/17 Rx Losartan [Cozaar] 25 mg PO QDAY #30 tablet 10/27/16 12/16/17 Rx Pantoprazole [Protonix TAB] 40 mg PO DAILY #30 tablet 10/27/16 Unknown Rx Sucralfate [Carafate] 1 gm PO Q6HR #120 oral.liqd 10/27/16 Unknown Rx amLODIPine [Norvasc] 10 mg PO DAILY #30 tablet 10/27/16 12/16/17 Rx cloNIDine [Catapres] 0.2 mg PO TID #90 tablet 10/27/16 12/17/17 06:00 Rx hydrALAZINE [Apresoline TAB] 25 mg PO Q8HR #90 tablet 10/27/16 12/14/17 Rx Active Medications Sodium Chloride (Nacl 0.9% 1000 Ml) 1,000 mls @ 50 mls/hr IV DIRECT APRYL Last Admin: 12/17/17 09:27 Dose: 50 mls/hr - Brief post op/procedure progress note Date of procedure: 12/17/17 Findings: Report dictated Estimated blood loss: none Pathology: list (Transverse colon polyp) Specimen disposition: to lab Condition: stable - Disposition Condition at discharge: Good Disposition: DC-01 TO HOME OR SELFCARE Short Stay Discharge Plan Activity: other (No driving for 24 hours) Weight Bearing Status: Weight Bear as Tolerated Diet: renal Follow up with: KODI LEONARD PA [Primary Care Provider] - 7 Days
[2017-12-17] MEDS ORDERED: NACL 0.9% 1000 ML 1,000 ML IV SCH (10:00)
--- NOTE | 2017-12-17 10:01 | Operative Report ---
Operative Report Operative Report: Date of procedure: 12/16/2017 Preprocedure diagnosis: History of colon polyps, last study 5 years ago. Post procedure diagnosis: 8 mm pedunculated transverse colon polyp Procedure: Colonoscopy to the cecum with snare cautery polypectomy Endoscopist: Dr. Wick Anesthesia: Monitored anesthesia care per anesthesia department Estimated blood loss: 0 Medications: Monitored anesthesia care. See separate report by anesthesia for details. After careful discussion of the nature and purpose of the procedure as well as details of the technique risks benefits and alternatives the patient gave consent. Please see recent history and physical from the office. The patient was placed in the left lateral decubitus position and medicated per anesthesia. A rectal exam was performed sphincter tone was normal there were no masses palpable. The [employer] 570 scope was passed transanally and advanced under continuous direct vision without difficulty to the cecum. The colon was well prepared. The cecum was normal. The ascending colon was normal and on forward and retroflexed views. The transverse colon revealed an 8 mm pedunculated polyp. The polyp was removed with snare electrocautery and retrieved by suction. The descending colon and sigmoid colon were normal. The rectum was normal on forward and retroflexed views. The procedure was well-tolerated overall and the patient was observed in recovery. Conclusions: 8 mm transverse colon polyp. Plan: Await pathology results. Follow-up colonoscopy in 5 years if the patient remains in reasonably good health. Signed electronically: Noam Wick M.D.
[2017-12-17 10:38] VITALS: BP 161/71
--- NOTE | 2017-12-17 12:28 | Anesthesia Consultation ---
Anesthesia Consult and Med Hx Date of service: 12/17/17 - Airway Anesthetic Teeth Evaluation: Good ROM Head & Neck: Adequate Mental/Hyoid Distance: Adequate Mallampati Class: Class II Intubation Access Assessment: Probably Good - Pulmonary Exam CTA: Yes - Cardiac Exam Cardiac Exam: RRR - Pre-Operative Health Status ASA Pre-Surgery Classification: ASA3 Proposed Anesthetic Plan: MAC - Pulmonary Hx Sleep Apnea: Yes - Cardiovascular System Hx Hypertension: Yes - Endocrine Hx Renal Disease: Yes Hx End Stage Renal Disease: Yes (Dialysis) Hx Non-Insulin Dependent Diabetes: Yes - Hematic Hx Anemia: Yes - Other Systems Hx Cancer: Yes (renal cell s/p nephrectomy) Hx Obesity: Yes
--- NOTE | 2017-12-17 12:29 | Anesthesia Day of Surgery ---
Anesthesia Day of Surgery - Day of Surgery Patient Examined: Yes Patient H&P Reviewed: Yes Patient is NPO: Yes
--- NOTE | 2017-12-17 14:08 | Post Anesthesia Evaluation ---
- Post Anesthesia Evaluation Patient Participated: Yes Airway Patent: Yes Stable Respiratory Function: Yes Nausea/Vomiting: No Temp > 96.8F: Yes Pain Manageable: Yes Adequeate Hydration: Yes Anesthesia Complications: No
== END 2017-12-17 07:52 | disposition home or self-care (01) ==
LOC: GIO 07:51
PROVIDERS: ATTEND Internal Medicine Gastroenterology
DX: Z09 Encounter for follow-up examination after completed treatment for conditions other than malignant neoplasm (principal); D12.3 Benign neoplasm of transverse colon; E11.22 Type 2 diabetes mellitus with diabetic chronic kidney disease; I12.0 Hypertensive chronic kidney disease with stage 5 chronic kidney disease or end stage renal disease; N18.6 End stage renal disease; E66.9 Obesity, unspecified; G47.30 Sleep apnea, unspecified; Z98.890 Other specified postprocedural states; Z90.710 Acquired absence of both cervix and uterus; Z88.5 Allergy status to narcotic agent; Z88.0 Allergy status to penicillin; Z86.010 Personal history of colon polyps; Z85.528 Personal history of other malignant neoplasm of kidney; Z99.2 Dependence on renal dialysis; Z88.1 Allergy status to other antibiotic agents; Z68.41 Body mass index [BMI] 40.0-44.9, adult
CPT/HCPCS: 45385; 82962; 88305; J2704; J7030

== ENCOUNTER 2018-04-27 04:35 | Emergency (ER) | payer MEDICARE ==
[2018-04-27] MEDS ORDERED: ASPIRIN PO ONE (04:46)
[2018-04-27 05:39] LABS: BUN/Creatinine Ratio 5; Blood Urea Nitrogen 40 mg/dL (7-17); Calcium 9.2 mg/dL (8.4-10.2); Hemolysis Index 5
[2018-04-27 05:45] LABS: Basophils # (Auto) 0.1 K/mm3 (0.0-0.1); Basophils % (Auto) 0.9 % (0.0-1.8); Eosinophils # (Auto) 0.3 K/mm3 (0.0-0.4); Eosinophils % (Auto) 3.6 % (0.0-4.3); Hematocrit 34.5 % (30.3-42.9); Hemoglobin 11.6 gm/dl (10.1-14.3); Lymphocytes % (Auto) 11.9 % (13.4-35.0); Mean Corpuscular HGB Conc 34 % (30-34); Mean Corpuscular Hemoglobin 30 pg (28-32); Mean Corpuscular Volume 89 fl (79-97); Monocytes # (Auto) 0.8 K/mm3 (0.0-0.8); Platelet Count 176 K/mm3 (140-440); Red Blood Count 3.87 M/mm3 (3.65-5.03); Red Cell Distribution Width 14.4 % (13.2-15.2)
[2018-04-27] MEDS ORDERED: PERCOCET 5/325 PO ONE (06:51)
[2018-04-27] MEDS ORDERED: APRESOLINE IV ONE ×2 (06:54→11:18)
[2018-04-27] MEDS ORDERED: ZOFRAN IV ONE (06:55)
[2018-04-27] MEDS ORDERED: TYLENOL PO ONE (06:58)
--- NOTE | 2018-04-27 12:06 | Emergency Department Report ---
ED General Adult HPI - General Chief complaint: Nausea/Vomiting/Diarrhea Stated complaint: ELEVATED BP Time Seen by Provider: 04/27/18 06:19 Source: patient, EMS Mode of arrival: Wheelchair Limitations: No Limitations - History of Present Illness Initial comments: 63-year-old woman with history of hypertension, end-stage renal disease secondary to bilateral nephrectomies due to renal cell carcinoma in 2013, on 3 times weekly dialysis, Saturday and Saturday, comes in for evaluation of elevated blood pressure, noting that she awakened at 0300 hrs., 3 hours prior to arrival, noticed headache, was mildly nauseous, and checked her blood pressure, and found that it was elevated, with the systolic around 200 mmHg, which should have been running over the past week, which is well over her typical blood pressure in the 160/70 range. She doesn't have any chest pain, no shortness of breath, still has some mild nausea, but has been keeping fluids down. She takes several medications for blood pressure, including amlodipine, hydralazine, carvedilol, losartan, but has not had any of these today, although she did take a clonidine earlier, this did not lower her blood pressure. She is relatively stable now, still has some headache, still has elevated blood pressure, no focal neurologic symptoms, and only mild nausea. She also has a secondary complaint of right knee and upper calf pain, reporting that she twisted her leg a couple of weeks ago, but did not fall, and does not think it is broken, but she has persistent discomfort in that area, when she walks, and it was initially swollen but that has now subsided. She has never been diagnosed with blood clots in the extremities, nor with pulmonary emboli. Renal cell carcinoma was stage IV, and she had 2 small isolated lesions in the abdomen, but she has been managed with outpatient chemotherapy, until she been designated stable, with no signs of growth, and is now currently being observed , through [place], at [facility]. Severity scale (0 -10): 0 - Related Data Home Medications Medication Instructions Recorded Confirmed Last Taken Cholecalciferol (Vitamin D3) 2 tab PO 4XW 07/05/16 10/21/16 10/21/16 [Vitamin D3 2,000 unit] Meclizine [Antivert] 25 mg PO TID PRN 10/10/21/16 10/21/16 Previous Rx's Medication Instructions Recorded Last Taken Type B Complex 11/Folic/C/Biot/Zinc 1 each PO DAILY #30 tablet 02/13/16 10/21/16 Rx [Dialyvite with Zinc Tablet] Promethazine [Phenergan TAB] 25 mg PO Q6HR PRN #30 tablet 02/13/16 10/21/16 Rx Sevelamer Carbonate [Renvela] 2,400 mg PO TIDWM #90 tablet 02/13/16 10/21/16 Rx Aspirin [Aspirin BABY CHEW TAB] 81 mg PO QDAY #30 tab.chew 10/27/16 12/16/17 Rx Carvedilol [Coreg] 25 mg PO BID #60 tablet 10/27/16 12/15/17 Rx Losartan [Cozaar] 25 mg PO QDAY #30 tablet 10/27/16 12/16/17 Rx Pantoprazole [Protonix TAB] 40 mg PO DAILY #30 tablet 10/27/16 Unknown Rx Sucralfate [Carafate] 1 gm PO Q6HR #120 oral.liqd 10/27/16 Unknown Rx amLODIPine [Norvasc] 10 mg PO DAILY #30 tablet 10/27/16 12/16/17 Rx cloNIDine [Catapres] 0.2 mg PO TID #90 tablet 10/27/16 12/17/17 06:00 Rx hydrALAZINE [Apresoline TAB] 25 mg PO Q8HR #90 tablet 10/27/16 12/14/17 Rx traMADol [Ultram 50 MG tab] 50 mg PO Q6HR PRN #15 tablet 04/27/18 Unknown Rx Allergies Allergy/AdvReac Type Severity Reaction Status Date / Time codeine Allergy Rash Verified 05/05/15 06:48 Penicillins Allergy Hives Verified 02/12/16 17:55 ciprofloxacin [From Cipro] AdvReac severe Verified 05/05/15 06:48 nausea ciprofloxacin HCl AdvReac severe Verified 05/05/15 06:48 [From Cipro] nausea ED Review of Systems ROS: Stated complaint: ELEVATED BP Other details as noted in HPI Comment: All other systems reviewed and negative Constitutional: denies: chills, diaphoresis, fever, malaise, weakness ENT: denies: throat pain Respiratory: shortness of breath (mild) Cardiovascular: denies: chest pain, edema ED Past Medical Hx - Past Medical History Previous Medical History?: Yes Hx Hypertension: Yes Hx Congestive Heart Failure: No Hx Diabetes: Yes Hx Renal Disease: Yes Hx of Cancer: Yes (renal) Hx Arthritis: Yes (LEFT KNEE) Hx Asthma: No Hx COPD: No Hx HIV: No Additional medical history: DIALYSIS (M-W-F) - Surgical History Past Surgical History?: Yes Hx Open Heart Surgery: No Hx Appendectomy: Yes Additional Surgical History: NODULES removed from LUNGS , SHUNT LEFT ARM, bilateral nephrectomies, HYSTERECTOMY - Social History Smoking Status: Never Smoker Substance Use Type: None - Medications Home Medications: Home Medications Medication Instructions Recorded Confirmed Last Taken Type B Complex 11/Folic/C/Biot/Zinc 1 each PO DAILY #30 tablet 02/13/16 10/21/16 Rx [Dialyvite with Zinc Tablet] Promethazine [Phenergan TAB] 25 mg PO Q6HR PRN #30 tablet 02/13/16 10/21/16 Rx Sevelamer Carbonate [Renvela] 2,400 mg PO TIDWM #90 tablet 02/13/16 10/21/16 Rx Cholecalciferol (Vitamin D3) 2 tab PO 4XW 07/05/16 10/21/16 10/21/16 History [Vitamin D3 2,000 unit] Meclizine [Antivert] 25 mg PO TID PRN 07/05/16 10/21/16 10/21/16 History Aspirin [Aspirin BABY CHEW TAB] 81 mg PO QDAY #30 tab.chew 10/27/16 12/16/17 Rx Carvedilol [Coreg] 25 mg PO BID #60 tablet 10/27/16 12/15/17 Rx Losartan [Cozaar] 25 mg PO QDAY #30 tablet 10/27/16 12/16/17 Rx Pantoprazole [Protonix TAB] 40 mg PO DAILY #30 tablet 10/27/16 Unknown Rx Sucralfate [Carafate] 1 gm PO Q6HR #120 oral.liqd 10/27/16 Unknown Rx amLODIPine [Norvasc] 10 mg PO DAILY #30 tablet 10/27/16 12/16/17 Rx cloNIDine [Catapres] 0.2 mg PO TID #90 tablet 10/27/16 12/17/17 06:00 Rx hydrALAZINE [Apresoline TAB] 25 mg PO Q8HR #90 tablet 10/27/16 12/14/17 Rx traMADol [Ultram 50 MG tab] 50 mg PO Q6HR PRN #15 tablet 04/27/18 Unknown Rx ED Physical Exam - General Limitations: No Limitations General appearance: alert, in no apparent distress, other (elevated systolic pressure, 202/85) - Head Head exam: Present: atraumatic - Eye Eye exam: Present: PERRL, EOMI - ENT ENT exam: Present: normal exam, mucous membranes moist - Neck Neck exam: Present: normal inspection, full ROM. Absent: tenderness - Respiratory Respiratory exam: Present: normal lung sounds bilaterally. Absent: wheezes, rales, rhonchi, chest wall tenderness - Cardiovascular Cardiovascular Exam: Present: regular rate, normal heart sounds - GI/Abdominal GI/Abdominal exam: Present: soft, normal bowel sounds. Absent: distended, tenderness - Rectal Rectal exam: Present: deferred - Extremities Exam Extremities exam: Present: normal inspection, full ROM, tenderness (proximal right calf just posterior to me), calf tenderness (mild proximal right calf tenderness posterior to the knee, without discernible swelling edema or bruising ). Absent: pedal edema, joint swelling - Back Exam Back exam: Present: normal inspection. Absent: tenderness, CVA tenderness (R), CVA tenderness (L) - Neurological Exam Neurological exam: Present: alert, oriented X3, CN II-XII intact. Absent: motor sensory deficit - Psychiatric Psychiatric exam: Present: normal affect, normal mood ED Course Vital Signs 04/27/18 04/27/18 04/27/18 05:09 07:10 07:35 Temperature 36.8 C 36.8 C Pulse Rate 66 63 63 Respiratory 18 22 Rate Blood Pressure 214/82 Blood Pressure 172/62 [Right] O2 Sat by Pulse 95 95 Oximetry - Reevaluation(s) Reevaluation #1: 04/27/18 12:11 Patient's blood pressure decreased to 168/80 after IV hydralazine, 10 mg, but this returned to the 200 range after continued observation while waiting for duplex Doppler venous scan right lower extremity, which was ultimately negative. ED Medical Decision Making - Lab Data Result diagrams: 04/27/18 05:06 04/27/18 05:06 - EKG Data -: EKG Interpreted by Me (unremarkable EKG tracing.) EKG shows normal: sinus rhythm, axis (normal QRS axis of 8), intervals ( borderline QT interval at 475 ms corrected.), QRS complexes (normal QRS complexes, no ectopy), ST-T waves (normal ST segments, no significant elevations or depressions) - Radiology Data Radiology results: report reviewed Duplex Doppler venous scan of right lower extremity is negative for acute VTE. - Medical Decision Making Patient comes in with elevated blood pressure, and mild secondary symptoms of headache, as well as some secondary nausea, without any other signs of secondary end organ damage, with temporary response to intravenous hydralazine, which was repeated, the patient is stable for discharge after evaluation, and duplex Doppler venous scanning for GTE from recent discomfort from a strain in her right lower extremity. She has no pulmonary symptoms, and although her d- dimer is high, this is likely secondary to underlying diathesis secondary to her pre-existing renal cell carcinoma. She can be discharged to her routine medicines, with recommendation for follow-up by her physicians, and resumption of her regular dialysis in the morning at her usual schedule time. Critical Care Time: No Critical care attestation.: If time is entered above; I have spent that time in minutes in the direct care of this critically ill patient, excluding procedure time. ED Disposition Clinical Impression: Hypertension Qualifiers: Hypertension type: unspecified Qualified Code(s): I10 - Essential (primary) hypertension Renal failure Qualifiers: Renal failure chronicity: chronic Chronic kidney disease stage: on chronic dialysis Qualified Code(s): N18.6 - End stage renal disease Disposition: DC-01 TO HOME OR SELFCARE Is pt being admited?: No Does the pt Need Aspirin: No Condition: Stable Instructions: Chronic Hypertension (ED), Hypertension (ED) Additional Instructions: Continue your other medications as before We're prescribing tramadol if you have any headache, he may take 1 tablet every 6 hours as needed. Resume dialysis in the morning. Have recheck with your doctor in the coming week to reassess her blood pressure and discuss what he needed additional medication if her blood pressure remains elevated. We have performed ultrasound Doppler scanning of the right leg, because of your having twisted it, but this was negative for blood clots. Have recheck by your doctor, and discuss additional measures if he have any persistent symptoms. Prescriptions: traMADol [Ultram 50 MG tab] 50 mg PO Q6HR PRN #15 tablet PRN Reason: Headache Referrals: PRIMARY CARE,MD [Primary Care Provider] - 3-5 Days Time of Disposition: 12:15
[2018-04-27] MEDS ORDERED: APRESOLINE PO ONE (12:32)
[2018-04-27] MEDS ORDERED: CATAPRES PO ONE (12:32)
--- NOTE | 2018-04-27 13:45 | XRay Report ---
FINAL REPORT EXAM: XR CXR CLINICAL INDICATIONS: DIFFICULTY BREATHING FINDINGS: Single frontal view of the chest was acquired. There is cardiomegaly. There is a right-sided central venous catheter with tip in superior vena cava. There is no pneumothorax. There is no consolidative pulmonary infiltrate. The pulmonary vasculature is within normal limits. IMPRESSION: CARDIOMEGALY
[2018-04-27 13:59] VITALS: BP 217/86
== END 2018-04-27 14:08 | disposition home or self-care (01) ==
LOC: ED 04:35
DX: I12.0 Hypertensive chronic kidney disease with stage 5 chronic kidney disease or end stage renal disease (principal); E11.22 Type 2 diabetes mellitus with diabetic chronic kidney disease; N18.6 End stage renal disease; M13.862 Other specified arthritis, left knee; Z99.2 Dependence on renal dialysis; Z90.710 Acquired absence of both cervix and uterus; Z88.6 Allergy status to analgesic agent; Z88.1 Allergy status to other antibiotic agents; Z88.0 Allergy status to penicillin
CPT/HCPCS: 36415; 71045; 80048; 84484; 85025; 85379; 93005; 93010; 93971; 96374; 96375; 96376; 99285; J0360; J2405

== ENCOUNTER 2018-04-29 08:00 | Outpatient (CLI) | payer MEDICARE ==
--- NOTE | 2018-04-30 10:56 | Mammography Report ---
BILATERAL DIGITAL SCREENING MAMMOGRAM with CAD: 04/29/18 08:00:00 CLINICAL: Routine screening.History of pancreatic, renal and lung cancer. COMPARISON:05/22/16 FINDINGS: The breasts are heterogeneously dense, which may obscure small masses. A left subareolar focal asymmetry requires additional imaging.No architectural distortion or suspicious calcifications.The right breast is negative. IMPRESSION: Left asymmetry requiring further workup. BI-RADS CATEGORY: 0 -- Additional Imaging Evaluation Required RECOMMENDATION: Recall for left nipple magnification views and left breast ultrasound if needed. ACR BI-RADS MAMMOGRAPHIC CODES: 0 = Needs additional imaging evaluation; 1 = Negative; 2 = Benign; 3 = Probably benign; 4 = Suspicious; 5 = Malignant; 6 = Known biopsy-proven malignancy COMMENT: 1. Dense breast tissue, i.e., adenosis, fibrocystic changes, etc., may obscure an underlying neoplasm. 2. Approximately 10% of cancers are not detected with mammography. 3. A negative mammography report should not delay biopsy if a clinically suspicious mass is present. COMMENT: Patient follow-up letters are generated via our [employer] application.
== END 2018-04-29 08:01 | disposition home or self-care (01) ==
LOC: MAMMO 08:00
PROVIDERS: ATTEND Obstetrics & Gynecology
DX: Z12.31 Encounter for screening mammogram for malignant neoplasm of breast (principal); I12.0 Hypertensive chronic kidney disease with stage 5 chronic kidney disease or end stage renal disease; E11.22 Type 2 diabetes mellitus with diabetic chronic kidney disease; N18.6 End stage renal disease; F32.9 Major depressive disorder, single episode, unspecified; E78.00 Pure hypercholesterolemia, unspecified; E66.9 Obesity, unspecified; Z88.0 Allergy status to penicillin; Z88.6 Allergy status to analgesic agent; Z88.1 Allergy status to other antibiotic agents; Z90.89 Acquired absence of other organs; Z90.710 Acquired absence of both cervix and uterus; Z90.722 Acquired absence of ovaries, bilateral; Z90.5 Acquired absence of kidney
CPT/HCPCS: 77067

== ENCOUNTER 2018-05-01 00:15 | Emergency (ER) | payer MEDICARE ==
[2018-05-01] MEDS ORDERED: ZOFRAN IV ONE (00:49)
[2018-05-01] MEDS ORDERED: MORPHINE IV ONE (00:49)
--- NOTE | 2018-05-01 00:53 | Emergency Department Report ---
ED General Adult HPI - General Chief complaint: Weakness Stated complaint: HEADACHE, NAUSEA Time Seen by Provider: 05/01/18 00:38 Source: patient, EMS Mode of arrival: Stretcher Limitations: No Limitations - History of Present Illness Initial comments: Patient is 63 years old female with history of end-stage renal disease on hemodialysis, Saturday, Saturday and Saturday. Patient had bilateral nephrectomy secondary to renal cell carcinoma in 2013. This is her second visit for the same complaint patient presented to the ER complaining of nausea and high blood pressure. Patient stated that she is compliant with her medication but admitted that she has been dealing with a lot of stress since she's been taking care of her has who recently diagnosed with a stroke. Patient is also complaining of pain in her joints secondary to arthritis. Patient had dialysis today and she stated that she finishes her dialysis session. Patient denied any fever, weakness, numbness or tingling sensation. - Related Data Home Medications Medication Instructions Recorded Confirmed Last Taken Cholecalciferol (Vitamin D3) 2 tab PO 4XW 07/05/16 10/21/16 10/21/16 [Vitamin D3 2,000 unit] Meclizine [Antivert] 25 mg PO TID PRN 07/05/16 10/21/16 10/21/16 Previous Rx's Medication Instructions Recorded Last Taken Type B Complex 11/Folic/C/Biot/Zinc 1 each PO DAILY #30 tablet 02/13/16 10/21/16 Rx [Dialyvite with Zinc Tablet] Promethazine [Phenergan TAB] 25 mg PO Q6HR PRN #30 tablet 02/13/16 10/21/16 Rx Sevelamer Carbonate [Renvela] 2,400 mg PO TIDWM #90 tablet 02/13/16 10/21/16 Rx Aspirin [Aspirin BABY CHEW TAB] 81 mg PO QDAY #30 tab.chew 10/27/16 12/16/17 Rx Carvedilol [Coreg] 25 mg PO BID #60 tablet 10/27/16 12/15/17 Rx Losartan [Cozaar] 25 mg PO QDAY #30 tablet 10/27/16 12/16/17 Rx Pantoprazole [Protonix TAB] 40 mg PO DAILY #30 tablet 10/27/16 Unknown Rx Sucralfate [Carafate] 1 gm PO Q6HR #120 oral.liqd 10/27/16 Unknown Rx amLODIPine [Norvasc] 10 mg PO DAILY #30 tablet 10/27/16 12/16/17 Rx cloNIDine [Catapres] 0.2 mg PO TID #90 tablet 10/27/16 12/17/17 06:00 Rx hydrALAZINE [Apresoline TAB] 25 mg PO Q8HR #90 tablet 10/27/16 12/14/17 Rx traMADol [Ultram 50 MG tab] 50 mg PO Q6HR PRN #15 tablet 04/27/18 Unknown Rx amLODIPine [Norvasc] 10 mg PO DAILY #30 tab 05/01/18 Unknown Rx Allergies Allergy/AdvReac Type Severity Reaction Status Date / Time codeine Allergy Rash Verified 05/05/15 06:48 Penicillins Allergy Hives Verified 02/12/16 17:55 ciprofloxacin [From Cipro] AdvReac severe Verified 05/05/15 06:48 nausea ciprofloxacin HCl AdvReac severe Verified 05/05/15 06:48 [From Cipro] nausea ED Review of Systems ROS: Stated complaint: HEADACHE, NAUSEA Other details as noted in HPI Comment: All other systems reviewed and negative Constitutional: denies: chills, fever Respiratory: denies: cough, orthopnea, shortness of breath, SOB with exertion, SOB at rest, wheezing Cardiovascular: denies: chest pain Gastrointestinal: nausea. denies: abdominal pain, vomiting, diarrhea, constipation, hematemesis, melena Neurological: denies: headache, weakness Psychiatric: anxiety ED Past Medical Hx - Past Medical History Previous Medical History?: Yes Hx Hypertension: Yes Hx Congestive Heart Failure: No Hx Diabetes: Yes Hx Renal Disease: Yes Hx Arthritis: Yes (LEFT KNEE) Hx Asthma: No Hx COPD: No Hx HIV: No Additional medical history: DIALYSIS (M-W-F) - Surgical History Past Surgical History?: Yes Hx Open Heart Surgery: No Hx Appendectomy: Yes Additional Surgical History: NODULES removed from LUNGS , SHUNT LEFT ARM, bilateral nephrectomies, HYSTERECTOMY - Social History Smoking Status: Never Smoker Substance Use Type: None - Medications Home Medications: Home Medications Medication Instructions Recorded Confirmed Last Taken Type B Complex 11/Folic/C/Biot/Zinc 1 each PO DAILY #30 tablet 02/13/16 10/21/16 Rx [Dialyvite with Zinc Tablet] Promethazine [Phenergan TAB] 25 mg PO Q6HR PRN #30 tablet 02/13/16 10/21/16 Rx Sevelamer Carbonate [Renvela] 2,400 mg PO TIDWM #90 tablet 02/13/16 10/21/16 Rx Cholecalciferol (Vitamin D3) 2 tab PO 4XW 07/05/16 10/21/16 10/21/16 History [Vitamin D3 2,000 unit] Meclizine [Antivert] 25 mg PO TID PRN 07/05/16 10/21/16 10/21/16 History Aspirin [Aspirin BABY CHEW TAB] 81 mg PO QDAY #30 tab.chew 10/27/16 12/16/17 Rx Carvedilol [Coreg] 25 mg PO BID #60 tablet 10/27/16 12/15/17 Rx Losartan [Cozaar] 25 mg PO QDAY #30 tablet 10/27/16 12/16/17 Rx Pantoprazole [Protonix TAB] 40 mg PO DAILY #30 tablet 10/27/16 Unknown Rx Sucralfate [Carafate] 1 gm PO Q6HR #120 oral.liqd 10/27/16 Unknown Rx amLODIPine [Norvasc] 10 mg PO DAILY #30 tablet 10/27/16 12/16/17 Rx cloNIDine [Catapres] 0.2 mg PO TID #90 tablet 10/27/16 12/17/17 06:00 Rx hydrALAZINE [Apresoline TAB] 25 mg PO Q8HR #90 tablet 10/27/16 12/14/17 Rx traMADol [Ultram 50 MG tab] 50 mg PO Q6HR PRN #15 tablet 04/27/18 Unknown Rx amLODIPine [Norvasc] 10 mg PO DAILY #30 tab 05/01/18 Unknown Rx ED Physical Exam - General Limitations: No Limitations General appearance: alert, in no apparent distress, anxious - Head Head exam: Present: atraumatic, normocephalic, normal inspection - Eye Eye exam: Present: normal appearance - ENT ENT exam: Present: normal exam, normal orophraynx, mucous membranes moist - Neck Neck exam: Present: normal inspection, full ROM. Absent: tenderness, meningismus, lymphadenopathy - Respiratory Respiratory exam: Present: normal lung sounds bilaterally - Cardiovascular Cardiovascular Exam: Present: regular rate, normal rhythm, normal heart sounds - GI/Abdominal GI/Abdominal exam: Present: soft, normal bowel sounds. Absent: distended, tenderness, guarding, rebound, rigid, organomegaly, mass, bruit, pulsatile mass , hernia - Extremities Exam Extremities exam: Present: normal inspection, full ROM, normal capillary refill. Absent: tenderness, pedal edema, joint swelling, calf tenderness - Back Exam Back exam: Present: normal inspection, full ROM. Absent: CVA tenderness (L) - Neurological Exam Neurological exam: Present: alert, oriented X3, CN II-XII intact, normal gait, reflexes normal - Skin Skin exam: Present: warm, intact, normal color ED Course Vital Signs 05/01/18 05/01/18 05/01/18 00:38 01:00 02:00 Temperature 98.1 F Pulse Rate 63 62 61 Respiratory 22 16 19 Rate Blood Pressure 209/73 207/84 187/91 Blood Pressure 209/73 [Right] O2 Sat by Pulse 97 96 94 Oximetry 05/01/18 05/01/18 05/01/18 03:00 04:00 05:00 Temperature Pulse Rate 61 59 L 60 Respiratory 20 20 18 Rate Blood Pressure 205/82 189/80 197/81 Blood Pressure [Right] O2 Sat by Pulse 96 88 92 Oximetry - Reevaluation(s) Reevaluation #1: 05/01/18 05:26 Patient stated that she is feeling was better. She denied any weakness, numbness or tingling sensation. 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 By sufficient to return to the ER if she starts feeling weakness headache numbness or tingling sensation or chest pain. ED Medical Decision Making - Lab Data Result diagrams: 05/01/18 01:01 05/01/18 01:01 Critical care attestation.: If time is entered above; I have spent that time in minutes in the direct care of this critically ill patient, excluding procedure time. ED Disposition Clinical Impression: Malignant hypertension, ESRD (end stage renal disease) Disposition: TO HOME OR SELFCARE Is pt being admited?: No Condition: Stable Instructions: Hypertension (ED) Prescriptions: amLODIPine [Norvasc] 10 mg PO DAILY #30 tab Referrals: PRIMARY CARE, [Primary Care Provider] - 3-5 Days
[2018-05-01 01:14] LABS: Basophils # (Auto) 0.1 K/mm3 (0.0-0.1); Basophils % (Auto) 1.1 % (0.0-1.8); Eosinophils # (Auto) 0.3 K/mm3 (0.0-0.4); Eosinophils % (Auto) 4.3 % (0.0-4.3); Hematocrit 32.9 % (30.3-42.9); Hemoglobin 11.1 gm/dl (10.1-14.3); Lymphocytes % (Auto) 15.5 % (13.4-35.0); Mean Corpuscular HGB Conc 34 % (30-34); Mean Corpuscular Hemoglobin 30 pg (28-32); Mean Corpuscular Volume 89 fl (79-97); Monocytes # (Auto) 0.8 K/mm3 (0.0-0.8); Monocytes % (Auto) 12.4 % (0.0-7.3); Platelet Count 170 K/mm3 (140-440); Red Blood Count 3.68 M/mm3 (3.65-5.03); Red Cell Distribution Width 14.2 % (13.2-15.2)
[2018-05-01 01:34] LABS: Albumin 4.2 g/dL (3.9-5); Calcium 9.2 mg/dL (8.4-10.2)
[2018-05-01] MEDS ORDERED: ATIVAN ONE (03:37)
[2018-05-01] MEDS ORDERED: ATIVAN IV ONE (03:38)
[2018-05-01] MEDS ORDERED: CATAPRES PO ONE (05:59)
[2018-05-01 06:17] VITALS: BP 186/81
== END 2018-05-01 06:15 | disposition home or self-care (01) ==
LOC: ED 00:15
DX: I12.0 Hypertensive chronic kidney disease with stage 5 chronic kidney disease or end stage renal disease (principal); E11.22 Type 2 diabetes mellitus with diabetic chronic kidney disease; N18.6 End stage renal disease; Z99.2 Dependence on renal dialysis; Z79.82 Long term (current) use of aspirin; M19.90 Unspecified osteoarthritis, unspecified site; Z90.710 Acquired absence of both cervix and uterus; Z88.6 Allergy status to analgesic agent; Z88.1 Allergy status to other antibiotic agents; Z88.0 Allergy status to penicillin
CPT/HCPCS: 36415; 80053; 85025; 93005; 93010; 96374; 96375; 99284; J2060; J2270; J2405

== ENCOUNTER 2018-11-17 09:05 | Emergency (ER) | payer MEDICARE ==
[2018-11-17 10:04] LABS: Basophils # (Auto) 0.1 K/mm3 (0.0-0.1); Basophils % (Auto) 1.1 % (0.0-1.8); Eosinophils # (Auto) 0.2 K/mm3 (0.0-0.4); Eosinophils % (Auto) 2.7 % (0.0-4.3); Hematocrit 34.5 % (30.3-42.9); Hemoglobin 11.8 gm/dl (10.1-14.3); Lymphocytes # (Auto) 0.9 K/mm3 (1.2-5.4); Lymphocytes % (Auto) 12.1 % (13.4-35.0); Mean Corpuscular HGB Conc 34 % (30-34); Mean Corpuscular Volume 92 fl (79-97); Monocytes # (Auto) 0.5 K/mm3 (0.0-0.8); Monocytes % (Auto) 6.5 % (0.0-7.3); Platelet Count 197 K/mm3 (140-440); Red Blood Count 3.75 M/mm3 (3.65-5.03); Red Cell Distribution Width 15.3 % (13.2-15.2)
[2018-11-17 10:24] LABS: BUN/Creatinine Ratio 7; Blood Urea Nitrogen 70 mg/dL (7-17); Calcium 10.4 mg/dL (8.4-10.2); Hemolysis Index 76
[2018-11-17] MEDS ORDERED: CATAPRES PO ONE (11:07)
[2018-11-17] MEDS ORDERED: PHENERGAN PO ONE (11:07)
[2018-11-17] MEDS ORDERED: APRESOLINE PO ONE (11:08)
--- NOTE | 2018-11-17 11:16 | Emergency Department Report ---
ED General Adult HPI - General Chief complaint: Chest Pain Stated complaint: CHEST PAIN Time Seen by Provider: 11/17/18 10:48 Source: EMS Mode of arrival: Stretcher Limitations: No Limitations - History of Present Illness Initial comments: Mrs. Encarnacion is a 63 yo female with hx of ESRD on MD MWGregg, HTN, GERD, metastatic renal cell carcinoma on chemotherapy presents with nausea and vomiting. She reported chest pain to EMS but denies chest pain to be. She speaks at length about being under stress. Her is hospitalized. is her creative arts music therapist. She attempted to take her blood pressure medication. However, she vomited up her medication. She was concerned that her blood pressure would be elevated prior to her dialysis appointment which is scheduled at 11 AM. She has had recurrent nausea and vomiting associated with dialysis. Recently, she has had more vomiting than normal. She did not think to take her promethazine prior to arrival. She explains that she has always had an upset stomach. [place] Oncologist Dr. Fuentes [place] Followed by [facility] -: Gradual, This morning Severity scale (0 -10): 6 Consistency: now resolved Improves with: medication Worsens with: none Associated Symptoms: nausea/vomiting - Related Data Home Medications Medication Instructions Recorded Confirmed Last Taken Cholecalciferol (Vitamin D3) 2 tab PO 4XW 07/05/16 06/20/18 10/21/16 [Vitamin D3 2,000 UNIT CAP] Meclizine [Antivert] 25 mg PO TID PRN 07/05/16 06/20/18 10/21/16 Previous Rx's Medication Instructions Recorded Last Taken Type B Complex 11/Folic/C/Biot/Zinc 1 each PO DAILY #30 tablet 02/13/16 10/21/16 Rx [Dialyvite with Zinc Tablet] Promethazine [Phenergan TAB] 25 mg PO Q6HR PRN #30 tablet 02/13/16 10/21/16 Rx Sevelamer Carbonate [Renvela] 2,400 mg PO TIDWM #90 tablet 02/13/16 10/21/16 Rx Aspirin [Aspirin BABY CHEW TAB] 81 mg PO QDAY #30 tab.chew 10/27/16 12/16/17 Rx Losartan [Cozaar] 25 mg PO QDAY #30 tablet 10/27/16 12/16/17 Rx Pantoprazole [Protonix TAB] 40 mg PO DAILY #30 tablet 10/27/16 Unknown Rx Sucralfate [Carafate] 1 gm PO Q6HR #120 oral.liqd 10/27/16 Unknown Rx hydrALAZINE [Apresoline TAB] 25 mg PO Q8HR #90 tablet 10/27/16 12/14/17 Rx Carvedilol [Coreg] 25 mg PO BID #60 tablet 06/23/18 Unknown Rx amLODIPine [Norvasc] 10 mg PO DAILY #30 tablet 06/23/18 Unknown Rx cloNIDine [Catapres] 0.2 mg PO TID #90 tablet 06/23/18 Unknown Rx traMADol [Ultram 50 MG tab] 50 mg PO Q6HR PRN #15 tablet 06/23/18 Unknown Rx Allergies Allergy/AdvReac Type Severity Reaction Status Date / Time codeine Allergy Rash Verified 05/05/15 06:48 Penicillins Allergy Hives Verified 02/12/16 17:55 ciprofloxacin [From Cipro] AdvReac severe Verified 05/05/15 06:48 nausea ciprofloxacin HCl AdvReac severe Verified 05/05/15 06:48 [From Cipro] nausea ED Review of Systems ROS: Stated complaint: CHEST PAIN Other details as noted in HPI Comment: All other systems reviewed and negative Constitutional: denies: fever, malaise Respiratory: denies: cough Cardiovascular: chest pain Gastrointestinal: nausea, vomiting. denies: abdominal pain ED Past Medical Hx - Past Medical History Previous Medical History?: Yes Hx Hypertension: Yes Hx Congestive Heart Failure: No Hx Diabetes: Yes Hx Renal Disease: Yes (Renal Cancer) Hx Arthritis: Yes (bilateral knees) Hx Asthma: No Hx COPD: No Hx HIV: No Additional medical history: DIALYSIS (M-W-F) - Surgical History Past Surgical History?: Yes Hx Open Heart Surgery: No Hx Appendectomy: Yes Additional Surgical History: NODULES removed from LUNGS , SHUNT LEFT ARM, bilateral nephrectomies, HYSTERECTOMY - Social History Smoking Status: Never Smoker - Medications Home Medications: Home Medications Medication Instructions Recorded Confirmed Last Taken Type B Complex 11/Folic/C/Biot/Zinc 1 each PO DAILY #30 tablet 02/13/16 06/20/18 10/21/16 Rx [Dialyvite with Zinc Tablet] Promethazine [Phenergan TAB] 25 mg PO Q6HR PRN #30 tablet 02/13/16 06/20/18 10/21/16 Rx Sevelamer Carbonate [Renvela] 2,400 mg PO TIDWM #90 tablet 02/13/16 06/20/18 10/21/16 Rx Cholecalciferol (Vitamin D3) 2 tab PO 4XW 07/05/16 06/20/18 10/21/16 History [Vitamin D3 2,000 UNIT CAP] Meclizine [Antivert] 25 mg PO TID PRN 07/05/16 06/20/18 10/21/16 History Aspirin [Aspirin BABY CHEW TAB] 81 mg PO QDAY #30 tab.chew 10/27/16 06/20/18 12/16/17 Rx Losartan [Cozaar] 25 mg PO QDAY #30 tablet 10/27/16 06/20/18 12/16/17 Rx Pantoprazole [Protonix TAB] 40 mg PO DAILY #30 tablet 10/27/16 06/20/18 Unknown Rx Sucralfate [Carafate] 1 gm PO Q6HR #120 oral.liqd 10/27/16 06/20/18 Unknown Rx hydrALAZINE [Apresoline TAB] 25 mg PO Q8HR #90 tablet 10/27/16 06/20/18 12/14/17 Rx Carvedilol [Coreg] 25 mg PO BID #60 tablet 06/23/18 Unknown Rx amLODIPine [Norvasc] 10 mg PO DAILY #30 tablet 06/23/18 Unknown Rx cloNIDine [Catapres] 0.2 mg PO TID #90 tablet 06/23/18 Unknown Rx traMADol [Ultram 50 MG tab] 50 mg PO Q6HR PRN #15 tablet 06/23/18 Unknown Rx ED Physical Exam - General Limitations: No Limitations General appearance: alert, in no apparent distress - Head Head exam: Present: atraumatic, normocephalic - Eye Eye exam: Present: normal appearance - ENT ENT exam: Present: mucous membranes moist - Neck Neck exam: Present: normal inspection. Absent: tenderness, meningismus - Respiratory Respiratory exam: Present: normal lung sounds bilaterally. Absent: respiratory distress, wheezes, rales, rhonchi - Cardiovascular Cardiovascular Exam: Present: regular rate, normal rhythm, normal heart sounds. Absent: systolic murmur, diastolic murmur, rubs, gallop - GI/Abdominal GI/Abdominal exam: Present: soft, normal bowel sounds. Absent: distended, tenderness, guarding, rebound - Extremities Exam Extremities exam: Present: normal inspection - Back Exam Back exam: Present: normal inspection - Neurological Exam Neurological exam: Present: alert, oriented X3 - Psychiatric Psychiatric exam: Present: normal affect, normal mood - Skin Skin exam: Present: warm, dry, intact, normal color. Absent: rash ED Course Vital Signs 11/17/18 11/17/18 11/17/18 09:19 09:28 09:30 Temperature 97.8 F 97.8 F Pulse Rate 77 78 78 Respiratory 11 L 17 17 Rate Blood Pressure 185/68 Blood Pressure 185/68 [Right] O2 Sat by Pulse 98 98 Oximetry 11/17/18 11/17/18 11/17/18 09:31 09:45 10:00 Temperature Pulse Rate 75 77 68 Respiratory 13 21 16 Rate Blood Pressure 185/68 185/68 185/68 Blood Pressure [Right] O2 Sat by Pulse 98 96 97 Oximetry 11/17/18 11/17/18 11/17/18 10:15 10:31 10:45 Temperature Pulse Rate 70 67 66 Respiratory 17 11 L 15 Rate Blood Pressure 181/76 181/76 181/76 Blood Pressure [Right] O2 Sat by Pulse 92 98 98 Oximetry 11/17/18 11/17/18 11/17/18 11:01 11:15 11:31 Temperature Pulse Rate 72 69 68 Respiratory 11 L 18 18 Rate Blood Pressure 203/89 181/76 181/76 Blood Pressure [Right] O2 Sat by Pulse 98 96 94 Oximetry 11/17/18 11/17/18 11/17/18 11:45 12:00 12:15 Temperature Pulse Rate 67 70 68 Respiratory 13 10 L 16 Rate Blood Pressure 181/76 196/86 203/89 Blood Pressure [Right] O2 Sat by Pulse 97 97 91 Oximetry 11/17/18 11/17/18 12:31 12:45 Temperature Pulse Rate 66 67 Respiratory 17 17 Rate Blood Pressure 203/89 188/76 Blood Pressure [Right] O2 Sat by Pulse 96 95 Oximetry ED Medical Decision Making - Lab Data Result diagrams: 11/17/18 09:38 11/17/18 09:38 Laboratory Tests 11/17/18 11/17/18 09:38 09:38 WBC 7.5 RBC 3.75 Hgb 11.8 Hct 34.5 MCV 92 MCH 31 MCHC 34 RDW 15.3 H Plt Count 197 Lymph % (Auto) 12.1 L [place] % (Auto) 6.5 Eos % (Auto) 2.7 Baso % (Auto) 1.1 Lymph # 0.9 L [place] # 0.5 Eos # 0.2 Baso # 0.1 Seg Neutrophils % 77.6 H Seg Neutrophils # 5.8 Sodium 136 L Potassium 4.2 Chloride 93.4 L Carbon Dioxide 20 L Anion Gap 27 BUN 70 H Creatinine 10.2 H Estimated GFR 4 BUN/Creatinine Ratio 7 Glucose 169 H Calcium 10.4 H Troponin T < 0.010 - EKG Data 11/17/18 11:15 EKG obtained 0916 NSR rate 80 bpm nl axis prolonged KS interval no ST elevation prolonged QT no signs of ischemia - Medical Decision Making Ms. Encarnacion presents with recurrent nausea/vomiting and elevated blood pressure. She denies chest pain to me although reported by EMS. She and daughter gave further hx. Mrs. Encarnacion ran out of blood pressure medications. Her daughter is picking up prescription today. Mrs. Encarnacion is pain free and blood pressure has been managed with her home PO medications. No vomiting occurred in the ED. She is stable to be discharged home. I recommended going to dialysis today. I reviewed labs. Normal troponin. No need for emergent dialysis. Critical care attestation.: If time is entered above; I have spent that time in minutes in the direct care of this critically ill patient, excluding procedure time. ED Disposition Clinical Impression: Hypertensive urgency, Recurrent vomiting, ESRD (end stage renal disease) Disposition: TO HOME OR SELFCARE Is pt being admited?: No Does the pt Need Aspirin: No Condition: Stable Additional Instructions: Please go to dialysis today.
[2018-11-17] MEDS ORDERED: NORVASC PO ONE (12:21)
[2018-11-17] MEDS ORDERED: COZAAR PO ONE (12:21)
[2018-11-17] MEDS ORDERED: COREG PO ONE (12:22)
[2018-11-17 12:47] VITALS: BP 188/76
== END 2018-11-17 13:16 | disposition home or self-care (01) ==
LOC: ED 09:05
DX: I16.0 Hypertensive urgency (principal); R11.2 Nausea with vomiting, unspecified; E11.22 Type 2 diabetes mellitus with diabetic chronic kidney disease; I12.0 Hypertensive chronic kidney disease with stage 5 chronic kidney disease or end stage renal disease; N18.6 End stage renal disease; Z99.2 Dependence on renal dialysis; M17.0 Bilateral primary osteoarthritis of knee; Z88.5 Allergy status to narcotic agent; Z88.0 Allergy status to penicillin; Z88.1 Allergy status to other antibiotic agents
CPT/HCPCS: 36415; 80048; 84484; 85025; 93005; 93010; Q0169

== ENCOUNTER 2019-01-12 04:19 | Inpatient (IN) | payer MEDICARE ==
[2019-01-12] MEDS ORDERED: APRESOLINE IV ONE (04:51)
[2019-01-12] MEDS ORDERED: ZOFRAN IV ONE (04:51)
--- NOTE | 2019-01-12 06:27 | Emergency Department Report ---
ED N/V/D HPI - General Chief complaint: Nausea/Vomiting/Diarrhea Stated complaint: HTN / NAUSEA/VOMITING Time Seen by Provider: 01/12/19 06:07 Source: patient, EMS Mode of arrival: Stretcher Limitations: No Limitations - History of Present Illness Initial comments: 63-year-old female presents to ED with complaint of nausea and vomiting since last night. Patient denies fever, diarrhea, abdominal pain. History of renal cell carcinoma, currently in remission, status post bilateral kidney resection. Patient currently on dialysis M,W, F. Patient of dialysis today, last dialyzed 3 days ago. Vice Investigator: Ashkan Pickering MD complaint: nausea, vomiting -: Last night Description of Vomiting: food contents Associated Abdominal Pain: No Severity: moderate Consistency: constant Improves with: none Worsens with: eating Associated Symptoms: denies: chest pain, shortness of breath - Related Data Home Medications Medication Instructions Recorded Confirmed Last Taken Cholecalciferol (Vitamin D3) 2 tab PO 4XW 07/05/16 06/20/18 10/21/16 [Vitamin D3 2,000 UNIT CAP] Meclizine [Antivert] 25 mg PO TID PRN 07/05/16 06/20/18 10/21/16 Previous Rx's Medication Instructions Recorded Last Taken Type B Complex 11/Folic/C/Biot/Zinc 1 each PO DAILY #30 tablet 02/13/16 10/21/16 Rx [Dialyvite with Zinc Tablet] Promethazine [Phenergan TAB] 25 mg PO Q6HR PRN #30 tablet 02/13/16 10/21/16 Rx Sevelamer Carbonate [Renvela] 2,400 mg PO TIDWM #90 tablet 02/13/16 10/21/16 Rx Aspirin [Aspirin BABY CHEW TAB] 81 mg PO QDAY #30 tab.chew 10/27/16 12/16/17 Rx Losartan [Cozaar] 25 mg PO QDAY #30 tablet 10/27/16 12/16/17 Rx Pantoprazole [Protonix TAB] 40 mg PO DAILY #30 tablet 10/27/16 Unknown Rx Sucralfate [Carafate] 1 gm PO Q6HR #120 oral.liqd 10/27/16 Unknown Rx hydrALAZINE [Apresoline TAB] 25 mg PO Q8HR #90 tablet 10/27/16 12/14/17 Rx Carvedilol [Coreg] 25 mg PO BID #60 tablet 06/23/18 Unknown Rx amLODIPine [Norvasc] 10 mg PO DAILY #30 tablet 06/23/18 Unknown Rx cloNIDine [Catapres] 0.2 mg PO TID #90 tablet 06/23/18 Unknown Rx traMADol [Ultram 50 MG tab] 50 mg PO Q6HR PRN #15 tablet 06/23/18 Unknown Rx Allergies Allergy/AdvReac Type Severity Reaction Status Date / Time codeine Allergy Rash Verified 05/05/15 06:48 Penicillins Allergy Hives Verified 02/12/16 17:55 ciprofloxacin [From Cipro] AdvReac severe Verified 05/05/15 06:48 nausea ciprofloxacin HCl AdvReac severe Verified 05/05/15 06:48 [From Cipro] nausea ED Review of Systems ROS: Stated complaint: HTN / NAUSEA/VOMITING Other details as noted in HPI ED Past Medical Hx - Past Medical History Previous Medical History?: Yes Hx Hypertension: Yes Hx Congestive Heart Failure: No Hx Diabetes: Yes Hx Renal Disease: Yes (Renal Cancer) Hx of Cancer: Yes (Bilateral kidneys, pancreas, and Lung) Hx Arthritis: Yes (bilateral knees) Hx Asthma: No Hx COPD: No Hx HIV: No Additional medical history: DIALYSIS (M-W-F) - Surgical History Hx Open Heart Surgery: No Hx Appendectomy: Yes Additional Surgical History: NODULES removed from LUNGS , SHUNT LEFT ARM, bi lateral nephrectomies, HYSTERECTOMY - Social History Smoking Status: Never Smoker Substance Use Type: None - Medications Home Medications: Home Medications Medication Instructions Recorded Confirmed Last Taken Type B Complex 11/Folic/C/Biot/Zinc 1 each PO DAILY #30 tablet 02/13/16 06/20/18 10/21/16 Rx [Dialyvite with Zinc Tablet] Promethazine [Phenergan TAB] 25 mg PO Q6HR PRN #30 tablet 02/13/16 06/20/18 10/21/16 Rx Sevelamer Carbonate [Renvela] 2,400 mg PO TIDWM #90 tablet 02/13/16 06/20/18 10/21/16 Rx Cholecalciferol (Vitamin D3) 2 tab PO 4XW 07/05/16 06/20/18 10/21/16 History [Vitamin D3 2,000 UNIT CAP] Meclizine [Antivert] 25 mg PO TID PRN 07/05/16 06/20/18 10/21/16 History Aspirin [Aspirin BABY CHEW TAB] 81 mg PO QDAY #30 tab.chew 10/27/16 06/20/18 12/16/17 Rx Losartan [Cozaar] 25 mg PO QDAY #30 tablet 10/27/16 06/20/18 12/16/17 Rx Pantoprazole [Protonix TAB] 40 mg PO DAILY #30 tablet 10/27/16 06/20/18 Unknown Rx Sucralfate [Carafate] 1 gm PO Q6HR #120 oral.liqd 10/27/16 06/20/18 Unknown Rx hydrALAZINE [Apresoline TAB] 25 mg PO Q8HR #90 tablet 10/27/16 06/20/18 12/14/17 Rx Carvedilol [Coreg] 25 mg PO BID #60 tablet 06/23/18 Unknown Rx amLODIPine [Norvasc] 10 mg PO DAILY #30 tablet 06/23/18 Unknown Rx cloNIDine [Catapres] 0.2 mg PO TID #90 tablet 06/23/18 Unknown Rx traMADol [Ultram 50 MG tab] 50 mg PO Q6HR PRN #15 tablet 06/23/18 Unknown Rx ED Physical Exam - General Limitations: No Limitations General appearance: alert, in no apparent distress - Head Head exam: Present: atraumatic, normocephalic - Eye Eye exam: Present: normal appearance - ENT ENT exam: Present: mucous membranes moist - Neck Neck exam: Present: normal inspection - Respiratory Respiratory exam: Present: normal lung sounds bilaterally. Absent: respiratory distress - Cardiovascular Cardiovascular Exam: Present: regular rate, normal rhythm - GI/Abdominal GI/Abdominal exam: Present: soft. Absent: distended, tenderness - Neurological Exam Neurological exam: Present: alert, oriented X3 - Psychiatric Psychiatric exam: Present: normal affect, normal mood - Skin Skin exam: Present: warm, dry, intact, normal color ED Course Vital Signs 01/12/19 01/12/19 01/12/19 04:45 05:00 05:06 Temperature 98.2 F Pulse Rate 68 68 Respiratory 20 20 Rate Blood Pressure 229/87 229/87 Blood Pressure [Right] O2 Sat by Pulse 98 98 Oximetry 01/12/19 01/12/19 06:00 08:05 Temperature Pulse Rate 66 73 Respiratory 16 Rate Blood Pressure Blood Pressure 190/67 195/83 [Right] O2 Sat by Pulse 97 Oximetry - Consultations Consultation #1: 01/12/19 07:30 Spoke w/ Dr Soto, piece hand. Will place orders for dialysis. ED Medical Decision Making - Lab Data Result diagrams: 01/12/19 06:18 01/12/19 06:18 - EKG Data -: EKG Interpreted by Me EKG shows normal: sinus rhythm, axis, QRS complexes, ST-T waves Rate: normal - EKG Data Interpretation: no acute changes, other (prolonged TX) - Medical Decision Making 63-year-old female with history of end-stage renal disease presents ED for nausea, vomiting, hypertension. Potassium 5.9. Patient is due to be dialyzed today. EKG shows no changes consistent with hyperkalemia. Calcium chloride, D50, insulin given. Spoke with the piece hand, will place orders for dialysis. Patient admitted to hospitalist. - Differential Diagnosis gastroenteritis, hyperkalemia Critical Care Time: Yes Critical care time in (mins) excluding proc time.: 35 Critical care attestation.: If time is entered above; I have spent that time in minutes in the direct care of this critically ill patient, excluding procedure time. Critical Care Time: 35 minutes ED Disposition Clinical Impression: Hyperkalemia Nausea and vomiting Qualifiers: Vomiting Intractability: intractable Disposition: OP ADMIT IP TO THIS HOSP Is pt being admited?: Yes Condition: Stable Time of Disposition: 09:00
[2019-01-12 06:28] LABS: Basophils # (Auto) 0.1 K/mm3 (0.0-0.1); Basophils % (Auto) 0.8 % (0.0-1.8); Eosinophils # (Auto) 0.2 K/mm3 (0.0-0.4); Eosinophils % (Auto) 2.1 % (0.0-4.3); Hematocrit 34.8 % (30.3-42.9); Hemoglobin 11.6 gm/dl (10.1-14.3); Lymphocytes % (Auto) 11.5 % (13.4-35.0); Mean Corpuscular HGB Conc 33 % (30-34); Mean Corpuscular Volume 93 fl (79-97); Monocytes # (Auto) 0.5 K/mm3 (0.0-0.8); Monocytes % (Auto) 5.9 % (0.0-7.3); Platelet Count 188 K/mm3 (140-440); Red Blood Count 3.76 M/mm3 (3.65-5.03); Red Cell Distribution Width 13.8 % (13.2-15.2)
[2019-01-12 06:44] LABS: Albumin 4.1 g/dL (3.9-5)
[2019-01-12] MEDS ORDERED: CALCIUM CHLORIDE IV ONE (07:11)
[2019-01-12] MEDS ORDERED: HumuLIN R IV ONE (07:11)
[2019-01-12] MEDS ORDERED: D50W (25GM) Syringe IV ONE (07:12)
[2019-01-12] MEDS ORDERED: REGLAN IV ONE (07:50)
[2019-01-12] MEDS ORDERED: NACL 0.9 (PRIMING MACHINE ONLY DIALYSIS) MC ONE (09:54)
--- NOTE | 2019-01-12 09:54 | Consultation ---
History of Present Illness - History of Present Illness 63 year old lady with medical history significant for hypertension, diabetes mellitus type 2, renal cell carcinoma involving bilateral kidneys status post bilateral nephrectomy currently on dialysis at [facility] dialysis unit on Saturday via a left arm AV fistula admitted with complaints of worsening nausea and vomiting unable to keep any food down or any medications. He reports elevated blood pressure denies any lower extremity edema. Denies any orthopnea PND. She reports her target weight is 95 kg. She denies any neuropathy or known retinopathy related to diabetes Medications and Allergies Allergies Allergy/AdvReac Type Severity Reaction Status Date / Time codeine Allergy Rash Verified 05/05/15 06:48 Penicillins Allergy Hives Verified 02/12/16 17:55 ciprofloxacin [From Cipro] AdvReac severe Verified 05/05/15 06:48 nausea ciprofloxacin HCl AdvReac severe Verified 05/05/15 06:48 [From Cipro] nausea Home Medications Medication Instructions Recorded Confirmed Last Taken Type B Complex 11/Folic/C/Biot/Zinc 1 each PO DAILY #30 tablet 02/13/16 06/20/18 10/21/16 Rx [Dialyvite with Zinc Tablet] Promethazine [Phenergan TAB] 25 mg PO Q6HR PRN #30 tablet 02/13/16 06/20/18 10/21/16 Rx Sevelamer Carbonate [Renvela] 2,400 mg PO TIDWM #90 tablet 02/13/16 06/20/18 10/21/16 Rx Cholecalciferol (Vitamin D3) 2 tab PO 4XW 07/05/16 06/20/18 10/21/16 History [Vitamin D3 2,000 UNIT CAP] Meclizine [Antivert] 25 mg PO TID PRN 07/05/16 06/20/18 10/21/16 History Aspirin [Aspirin BABY CHEW TAB] 81 mg PO QDAY #30 tab.chew 10/27/16 06/20/18 12/16/17 Rx Losartan [Cozaar] 25 mg PO QDAY #30 tablet 10/27/16 06/20/18 12/16/17 Rx Pantoprazole [Protonix TAB] 40 mg PO DAILY #30 tablet 10/27/16 06/20/18 Unknown Rx Sucralfate [Carafate] 1 gm PO Q6HR #120 oral.liqd 10/27/16 06/20/18 Unknown Rx hydrALAZINE [Apresoline TAB] 25 mg PO Q8HR #90 tablet 10/27/16 06/20/18 12/14/17 Rx Carvedilol [Coreg] 25 mg PO BID #60 tablet 06/23/18 Unknown Rx amLODIPine [Norvasc] 10 mg PO DAILY #30 tablet 06/23/18 Unknown Rx cloNIDine [Catapres] 0.2 mg PO TID #90 tablet 06/23/18 Unknown Rx traMADol [Ultram 50 MG tab] 50 mg PO Q6HR PRN #15 tablet 06/23/18 Unknown Rx Exam - Vital Signs Vital signs: Vital Signs Temp Pulse Resp BP Pulse Ox 98.2 F 68 20 229/87 98 01/12/19 04:45 01/12/19 04:45 01/12/19 04:45 01/12/19 04:45 01/12/19 04:45 - General Appearance General appearance: well-developed, well-nourished EENT: ATNC, PERRL, mucous membranes moist Neck: Present: neck supple Respiratory: Decreased Breath Sounds Heart: regular, S1S2 Gastrointestinal: Present: normal, normoactive bowel sounds Integumentary: no rash Neurologic: alert and oriented x3, CN 3-12 intact Musculoskeletal: Present: deformities Psychiatric: mood/affect appropriate Results - Lab Results 01/12/19 06:18 01/12/19 06:18 Most recent lab results Calcium 11.0 mg/dL (8.4-10.2) H 01/12/19 06:18 - Image Kidney/bladder ultrasound: report reviewed (I reviewed previous abdominal CT with concern for masslike lesion in the tail of the pancreas), image reviewed Assessment and Plan - Patient Problems (1) ESRD (end stage renal disease) Current Visit: No Status: Chronic Plan to address problem: End-stage renal disease Access left arm AV fistula We'll initiate hemodialysis for 3-1/2 hours 2 potassium/2.5 calcium/35 dialysate via (2) Hyperkalemia Current Visit: Yes Status: Acute Plan to address problem: Hyperkalemia secondary to renal failure Will initiate hemodialysis received insulin and dextrose in the emergency room (3) Nausea and vomiting Current Visit: Yes Status: Acute Qualifiers: Vomiting Intractability: intractable Plan to address problem: Intractable nausea and vomiting Received Zofran Consider repeat abdominal CT given previous lesion on pancreas noted on previous CT (4) Anemia in ESRD (end-stage renal disease) Current Visit: No Status: Chronic Plan to address problem: Mild anemia hemoglobin 11.6 No indication for erythropoiesis stimulating agents at this time Monitor CBC (5) Hypertension Current Visit: No Status: Chronic Qualifiers: Hypertension type: unspecified Qualified Code(s): I10 - Essential (primary) hypertension Plan to address problem: Hypertension uncontrolled secondary to recent missed medication Received hydralazine Can give 20 mg labetalol IV when necessary systolic greater than 180 mmHg Resume oral medications as tolerated
[2019-01-12] MEDS: CATAPRES PO SCH (23:14)
[2019-01-12] MEDS: APRESOLINE PO SCH (23:14)
[2019-01-13] MEDS: APRESOLINE PO SCH ×2 (05:27→13:41)
[2019-01-13] MEDS: CATAPRES PO SCH ×2 (09:02→16:54)
[2019-01-13 10:21] LABS: Hematocrit 34.2 % (30.3-42.9); Hemoglobin 11.5 gm/dl (10.1-14.3); Mean Corpuscular HGB Conc 34 % (30-34); Mean Corpuscular Volume 94 fl (79-97); Platelet Count 181 K/mm3 (140-440); Red Blood Count 3.66 M/mm3 (3.65-5.03); Red Cell Distribution Width 13.8 % (13.2-15.2)
[2019-01-13] MEDS ORDERED: ULTRAM PO PRN (10:26)
[2019-01-13] MEDS ORDERED: ANTIVERT PO PRN (10:26)
[2019-01-13] MEDS ORDERED: NON-FORMULARY (B Complex 11/Folic/C/Biot/Zinc [Dialyvite With Zinc Tablet] 1 EACH) PO SCH (10:30)
[2019-01-13] MEDS ORDERED: CHOLECALCIFEROL PO SCH (10:30)
[2019-01-13 10:35] LABS: Calcium 10.4 mg/dL (8.4-10.2)
[2019-01-13] MEDS ORDERED: Renal Caps PO SCH (11:00)
[2019-01-13] MEDS ORDERED: COREG PO SCH (11:00)
[2019-01-13] MEDS ORDERED: COZAAR PO SCH ×2 (11:00)
[2019-01-13] MEDS ORDERED: PROTONIX PO SCH (11:00)
[2019-01-13] MEDS ORDERED: BABY ASPIRIN PO SCH (11:00)
[2019-01-13] MEDS ORDERED: NORVASC PO SCH (11:00)
[2019-01-13] MEDS: CARAFATE PO SCH ×2 (11:25→18:22)
[2019-01-13] MEDS: RENVELA PO SCH ×2 (11:26→16:55)
--- NOTE | 2019-01-13 12:18 | Progress Note ---
Assessment and Plan - Patient Problems (1) ESRD (end stage renal disease) Current Visit: No Status: Chronic Plan to address problem: End-stage renal disease Access left arm AV fistula Received hemodialysis for 3-1/2 hours 2 potassium/2.5 calcium/35 dialysate bath (2) Hyperkalemia Current Visit: Yes Status: Acute Plan to address problem: Hyperkalemia secondary to renal failure:improved. continue hemodialysis received insulin and dextrose in the emergency room (3) Nausea and vomiting Current Visit: Yes Status: Acute Qualifiers: Vomiting Intractability: intractable Plan to address problem: Intractable nausea and vomiting:much improved. Received Zofran Consider repeat abdominal CT given previous lesion on pancreas noted on previous CT (4) Anemia in ESRD (end-stage renal disease) Current Visit: No Status: Chronic Plan to address problem: Mild anemia hemoglobin 11.6 No indication for erythropoiesis stimulating agents at this time Monitor CBC (5) Hypertension Current Visit: No Status: Chronic Qualifiers: Hypertension type: unspecified Qualified Code(s): I10 - Essential (primary) hypertension Plan to address problem: Hypertension uncontrolled secondary to recent missed medication Received hydralazine Can give 20 mg labetalol IV when necessary systolic greater than 180 mmHg Resume oral medications as tolerated Subjective Interval history: 63 year old lady with medical history significant for hypertension, diabetes mellitus type 2, renal cell carcinoma involving bilateral kidneys status post bilateral nephrectomy currently on dialysis at [facility] dialysis unit on Saturday via a left arm AV fistula admitted with complaints of worsening nausea and vomiting She reports nausea and vomitting has resolved. tolerated dialysis well yesterday , denies any orthopnea or PND. Objective - Vital Signs Vital signs: Vital Signs - 12hr 01/13/19 01/13/19 01/13/19 01:33 02:00 05:12 Temperature 98.5 F 98.5 F Pulse Rate 65 70 67 Respiratory 18 18 Rate Blood Pressure 176/69 194/70 O2 Sat by Pulse 95 94 Oximetry 01/13/19 01/13/19 01/13/19 05:27 08:13 09:02 Temperature 98.6 F Pulse Rate 65 65 77 Respiratory 16 Rate Blood Pressure 194/70 204/76 148/83 O2 Sat by Pulse 95 Oximetry 01/13/19 01/13/19 01/13/19 11:26 11:27 11:31 Temperature Pulse Rate 77 77 77 Respiratory Rate Blood Pressure 143/83 148/83 148/83 O2 Sat by Pulse Oximetry - General Appearance General appearance: well-developed, well-nourished EENT: ATNC, PERRL Neck: no JVD Respiratory: Present: Clear to Ascultation Cardiology: regular, S1S2 Gastrointestinal: normal, normoactive bowel sounds Integumentary: no rash Neurologic: alert and oriented x3 Musculoskeletal: cyanosis Psychiatric: mood/affect appropriate - Lab 01/13/19 10:01 01/13/19 10:01 Most recent lab results Calcium 10.4 mg/dL (8.4-10.2) H 01/13/19 10:01 - Imaging Kidney/bladder ultrasound: image reviewed Medications & Allergies - Medications Allergies/Adverse Reactions: Allergies codeine Allergy (Verified 05/05/15 06:48) Rash Penicillins Allergy (Verified 02/12/16 17:55) Hives ciprofloxacin [From Cipro] Adverse Reaction (Verified 05/05/15 06:48) severe nausea ciprofloxacin HCl [From Cipro] Adverse Reaction (Verified 05/05/15 06:48) severe nausea Home Medications: Home Medications Medication Instructions Recorded Confirmed Last Taken Type B Complex 11/Folic/C/Biot/Zinc 1 each PO DAILY #30 tablet 02/13/16 01/13/19 01/11/19 Rx [Dialyvite with Zinc Tablet] Promethazine [Phenergan TAB] 25 mg PO Q6HR PRN #30 tablet 02/13/16 01/13/19 Rx Sevelamer Carbonate [Renvela] 2,400 mg PO TIDWM #90 tablet 02/13/16 01/13/19 01/07/19 Rx Cholecalciferol (Vitamin D3) 2 tab PO 4XW 07/05/16 01/13/19 01/07/19 History [Vitamin D3 2,000 UNIT CAP] Meclizine [Antivert] 25 mg PO TID PRN 07/05/16 01/13/19 10/21/16 History Aspirin [Aspirin BABY CHEW TAB] 81 mg PO QDAY #30 tab.chew 10/27/16 01/13/19 01/11/19 Rx Losartan [Cozaar] 25 mg PO QDAY #30 tablet 10/27/16 01/13/19 01/11/19 Rx Pantoprazole [Protonix TAB] 40 mg PO DAILY #30 tablet 10/27/16 01/13/19 01/11/19 Rx Sucralfate [Carafate] 1 gm PO Q6HR #120 oral.liqd 10/27/16 01/13/19 01/11/19 Rx hydrALAZINE [Apresoline TAB] 25 mg PO Q8HR #90 tablet 10/27/16 01/13/19 01/11/19 Rx Carvedilol [Coreg] 25 mg PO BID #60 tablet 06/23/18 01/13/19 01/11/19 Rx amLODIPine [Norvasc] 10 mg PO DAILY #30 tablet 06/23/18 01/13/19 01/11/19 Rx cloNIDine [Catapres] 0.2 mg PO TID #90 tablet 06/23/18 01/13/19 01/11/19 Rx traMADol [Ultram 50 MG tab] 50 mg PO Q6HR PRN #15 tablet 06/23/18 01/13/19 Unknown Rx Active Medications: Generic Name Dose Route Start Last Admin Trade Name Freq PRN Reason Stop Dose Admin Amlodipine Besylate 10 mg 01/13/19 11:00 01/13/19 11:26 Norvasc PO 10 mg DAILY APRYL Administration Aspirin 81 mg 01/13/19 11:00 01/13/19 11:27 Baby Aspirin PO 81 mg QDAY APRYL Administration Carvedilol 25 mg 01/13/19 11:00 01/13/19 11:31 Coreg PO 25 mg BID APRYL Administration Cholecalciferol 2,000 unit 01/15/19 10:00 Vitamin D3 PO Q48HR APRYL Clonidine HCl 0.2 mg 01/13/19 00:00 01/13/19 09:02 Catapres PO 0.2 mg Q8H APRYL Administration Hydralazine HCl 25 mg 01/12/19 22:00 01/13/19 05:27 Apresoline PO 25 mg Q8HR APRYL Administration Losartan Potassium 25 mg 01/13/19 11:00 01/13/19 11:27 Cozaar PO 25 mg QDAY APRYL Administration Meclizine HCl 25 mg 01/13/19 10:26 Antivert PO TID PRN Vertigo Multivit/Ca Carb/B Cmplx/FA/Prenat 1 cap 01/13/19 11:00 01/13/19 11:25 Renal Caps PO 1 cap QDAY APRYL Administration Pantoprazole Sodium 40 mg 01/13/19 11:00 01/13/19 11:31 Protonix PO 40 mg DAILY APRYL Administration Sevelamer Carbonate 2,400 mg 01/13/19 12:00 01/13/19 11:26 Renvela PO 2,400 mg TIDWM APRYL Administration Sucralfate 1 gm 01/13/19 12:00 01/13/19 11:25 Carafate PO 1 gm Q6HR APRYL Administration Tramadol HCl 50 mg 01/13/19 10:26 Ultram PO Q6HR PRN Pain, Moderate (4-6)
--- NOTE | 2019-01-13 13:19 | History and Physical Report ---
History of Present Illness Date of examination: 01/13/19 Date of admission: 01/12/19 08:59 Chief complaint: Nausea and vomiting History of present illness: Patient is 63 yo with history of end-stage disease on hemodialysis, renal cell cancer s/p bilat nephrectomies , pancreatic cancer, hypertension. She presents with nausea, and vomiting. She denies abdominal pain. Vomited several times a day especially after eating food. Patient stated that his last dialysis was 3 days ago. She was evaluated in ED and admitted. Past History Past Medical History: cancer (Pancreatic cancer, renal cell cancer), diabetes, ESRD (on dialysis), hypertension Past Surgical History: appendectomy, Other (Bilateral nephrectomies) Social history: full code Family history: no significant family history Medications and Allergies Allergies Allergy/AdvReac Type Severity Reaction Status Date / Time codeine Allergy Rash Verified 05/05/15 06:48 Penicillins Allergy Hives Verified 02/12/16 17:55 ciprofloxacin [From Cipro] AdvReac severe Verified 05/05/15 06:48 nausea ciprofloxacin HCl AdvReac severe Verified 05/05/15 06:48 [From Cipro] nausea Home Medications Medication Instructions Recorded Confirmed Last Taken Type B Complex 11/Folic/C/Biot/Zinc 1 each PO DAILY #30 tablet 02/13/16 01/16/19 01/15/19 Rx [Dialyvite with Zinc Tablet] Meclizine [Antivert] 25 mg PO TID PRN 07/05/16 01/16/19 10/21/16 History Aspirin [Aspirin BABY CHEW TAB] 81 mg PO QDAY #30 tab.chew 10/27/16 01/16/19 01/15/19 Rx Carvedilol [Coreg] 25 mg PO BID #60 tablet 06/23/18 01/16/19 01/15/19 Rx amLODIPine [Norvasc] 10 mg PO DAILY #30 tablet 06/23/18 01/16/19 01/15/19 Rx cloNIDine [Catapres] 0.2 mg PO TID #90 tablet 06/23/18 01/16/19 01/15/19 Rx traMADol [Ultram 50 MG tab] 50 mg PO Q6HR PRN #15 tablet 06/23/18 01/16/19 Unknown Rx Cholecalciferol (Vitamin D3) 5,000 unit PO DAILY 01/16/19 01/16/19 01/15/19 History [Vitamin D3] Cinacalcet [Sensipar] 30 mg PO TID 01/16/19 01/16/19 Unknown History Promethazine [Phenergan] 25 mg PO Q8HR PRN 01/16/19 01/16/19 Unknown History Sevelamer Carbonate [Renvela] 4,000 mg PO TIDWM 01/16/19 01/16/19 Unknown Hist ory hydrALAZINE [Apresoline TAB] 100 mg PO TID 01/16/19 01/16/19 01/15/19 History Famotidine [Pepcid] 10 mg PO BID #60 tablet 01/17/19 Unknown Rx Promethazine [Phenergan] 25 mg PO Q6H PRN #20 tablet 01/17/19 Unknown Rx Active Meds: Active Medications Amlodipine Besylate (Norvasc) 10 mg PO DAILY [facility] Last Admin: 01/13/19 11:26 Dose: 10 mg Documented by: Aspirin (Baby Aspirin) 81 mg PO QDAY [facility] Last Admin: 01/13/19 11:27 Dose: 81 mg Documented by: Carvedilol (Coreg) 25 mg PO BID [facility] Last Admin: 01/13/19 11:31 Dose: 25 mg Documented by: Cholecalciferol (Vitamin D3) 2,000 unit PO Q48HR [facility] Clonidine HCl (Catapres) 0.2 mg PO Q8H [facility] Last Admin: 01/13/19 09:02 Dose: 0.2 mg Documented by: Hydralazine HCl (Apresoline) 25 mg PO Q8HR [facility] Last Admin: 01/13/19 05:27 Dose: 25 mg Documented by: Losartan Potassium (Cozaar) 25 mg PO QDAY [facility] Last Admin: 01/13/19 11:27 Dose: 25 mg Documented by: Meclizine HCl (Antivert) 25 mg PO TID PRN PRN Reason: Vertigo Multivit/Ca Carb/B Cmplx/FA/Prenat (Renal Caps) 1 cap PO QDAY [facility] Last Admin: 01/13/19 11:25 Dose: 1 cap Documented by: Pantoprazole Sodium (Protonix) 40 mg PO DAILY [facility] Last Admin: 01/13/19 11:31 Dose: 40 mg Documented by: Sevelamer Carbonate (Renvela) 2,400 mg PO TIDWM [facility] Last Admin: 01/13/19 11:26 Dose: 2,400 mg Documented by: Sucralfate (Carafate) 1 gm PO Q6HR [facility] Last Admin: 01/13/19 11:25 Dose: 1 gm Documented by: Tramadol HCl (Ultram) 50 mg PO Q6HR PRN PRN Reason: Pain, Moderate (4-6) Review of Systems All systems: negative (No fever, no abd pain, no cough. All other systems reviewed and are negative) Exam - Physical Exam Narrative exam: Gen: Not in acute distress, lying in bed HEENT: Normocephalic, atraumatic Neck: supple, no JVD Heart: S1 and S2 reg, no murmurs, rubs or gallop Lungs: Clear, no crackles Abd: soft, non tender, non distended, normal BS Ext: No edema, no clubbing, no cyanosis, Neuro: AAO x 3, no focal signs, moves all ext Psych:Normal mood - Constitutional Vitals: Temp Pulse Resp BP Pulse Ox 98.6 F 77 16 148/83 95 01/13/19 08:13 01/13/19 11:31 01/13/19 08:13 01/13/19 11:31 01/13/19 08:13 Results - Labs CBC & Chem 7: 01/13/19 10:01 01/13/19 10:01 Labs: Abnormal lab results 01/12/19 01/13/19 Range/Units 07:39 10:01 Potassium 5.2 H (3.6-5.0) mmol/L Chloride 96.8 L (98-107) mmol/L BUN 38 H (7-17) mg/dL Creatinine 7.1 H (0.7-1.2) mg/dL Glucose 211 H (65-100) mg/dL POC Glucose 155 H (70-105) Calcium 10.4 H (8.4-10.2) mg/dL Assessment and Plan Nausea, vomiting, diarrhea Admit Keep NPO. Pancreatic cancer, on chemotherapy [facility] to [facility] [place] History of renal cell cancer with metastases s/p bilat nephrectomy ESRD on hemodialysis Last hemodialysis 3 days ago Consult nephrology Hyperkalemia. For dialysis Hyponatremia Repeat in am Hypertension. Mopnitor BP Full code status
[2019-01-13] MEDS ORDERED: APRESOLINE PO SCH (14:00)
[2019-01-13] MEDS ORDERED: CATAPRES PO SCH (14:00)
[2019-01-13 18:04] VITALS: BP 174/76
--- NOTE | 2019-01-13 19:17 | Discharge Summary ---
Providers - Providers Date of Admission: 01/12/19 08:59 Date of discharge: 01/13/19 Attending physician: HANNA TOBIAS 01/12/19 07:30 Consult to Physician [CONS] Stat Comment: Consulting Provider: JOHN DELA CRUZ Physician Instructions: Reason For Exam: dialysis Primary care physician: LEVY MENENDEZ Hospitalization Condition: Undetermined Hospital course: Patient is 63 yo with history of end-stage disease on hemodialysis, renal cell cancer s/p bilat nephrectomies , pancreatic cancer, hypertension. She presents with nausea, and vomiting. She denies abdominal pain. Vomited several times a day especially after eating food. Patient stated that her last dialysis was 3 days ago. She was evaluated in ED and admitted. She had hyperkalemia, dialysis ws done. By next day was feeling better but Potassium level was still high. Patient suddenly signed out against medical advice and left hospital. Disposition: [id number] LEFT AGAINST MED ADVICE - Discharge Diagnoses (1) Pancreatic cancer Status: Acute (2) Intractable vomiting Status: Acute Qualifiers: Vomiting type: unspecified Nausea presence: with nausea Qualified Code(s): R11.2 - Nausea with vomiting, unspecified (3) Nausea and vomiting Status: Acute Qualifiers: Vomiting type: unspecified Vomiting Intractability: non-intractable Qualified Code(s): R11.2 - Nausea with vomiting, unspecified (4) Need for acute hemodialysis Status: Acute (5) Uncontrolled hypertension Status: Acute (6) ESRD (end stage renal disease) Status: Chronic (7) Hypertension Status: Chronic Qualifiers: Hypertension type: unspecified Qualified Code(s): I10 - Essential (primary) hypertension (8) Renal cell cancer Status: Chronic Qualifiers: Laterality: unspecified laterality Qualified Code(s): C64.9 - Malignant neoplasm of unspecified kidney, except renal pelvis (9) Left against medical advice Status: Acute Core Measure Documentation - Palliative Care Palliative Care/ Comfort Measures: Not Applicable - Core Measures Any of the following diagnoses?: none Exam - Constitutional Vitals: Temp Pulse Resp BP Pulse Ox 98.8 F 71 16 174/76 95 01/13/19 17:08 01/13/19 17:08 01/13/19 17:08 01/13/19 17:08 01/13/19 17:08 Plan Follow up with: LEVY MENENDEZ MD [Primary Care Provider] - 3-5 Days Forms: AMA Form
[2019-01-15] MEDS ORDERED: VITAMIN D3 PO SCH (10:00)
== END 2019-01-13 19:23 | disposition left against medical advice (07) | DRG 640 ==
LOC: ED 04:19 → 4A 08:59
PROVIDERS: ADMIT Hospitalist; ATTEND Internal Medicine
PROC: 5A1D70Z Performance of Urinary Filtration, Intermittent, Less than 6 Hours Per Day (ICD-10-PCS; principal; 2019-01-12)
DX: E87.5 Hyperkalemia (principal); N18.6 End stage renal disease; I12.0 Hypertensive chronic kidney disease with stage 5 chronic kidney disease or end stage renal disease; D63.1 Anemia in chronic kidney disease; E11.22 Type 2 diabetes mellitus with diabetic chronic kidney disease; Z79.82 Long term (current) use of aspirin; Z79.899 Other long term (current) drug therapy; Z88.5 Allergy status to narcotic agent; Z88.0 Allergy status to penicillin; Z88.1 Allergy status to other antibiotic agents; Z90.5 Acquired absence of kidney; Z99.2 Dependence on renal dialysis; Z95.9 Presence of cardiac and vascular implant and graft, unspecified; Z91.14 Patient's other noncompliance with medication regimen; Z79.4 Long term (current) use of insulin; Z85.528 Personal history of other malignant neoplasm of kidney
CPT/HCPCS: 36415; 80048; 80053; 82962; 83690; 85025; 85027; 93005; 93010; 96374; 96375; 99291; G0378; J0360; J1815; J2405; J2765; J7030

== ENCOUNTER 2019-01-16 08:26 | Inpatient (IN) | payer MEDICARE ==
[2019-01-16] MEDS ORDERED: NORMODYNE IV ONE (08:58)
[2019-01-16 09:11] LABS: Basophils # (Auto) 0.1 K/mm3 (0.0-0.1); Basophils % (Auto) 0.7 % (0.0-1.8); Eosinophils # (Auto) 0.2 K/mm3 (0.0-0.4); Eosinophils % (Auto) 2.1 % (0.0-4.3); Hematocrit 34.2 % (30.3-42.9); Hemoglobin 11.5 gm/dl (10.1-14.3); Lymphocytes # (Auto) 1.1 K/mm3 (1.2-5.4); Lymphocytes % (Auto) 11.2 % (13.4-35.0); Mean Corpuscular HGB Conc 34 % (30-34); Mean Corpuscular Volume 93 fl (79-97); Monocytes # (Auto) 0.6 K/mm3 (0.0-0.8); Monocytes % (Auto) 6.4 % (0.0-7.3); Platelet Count 157 K/mm3 (140-440); Red Blood Count 3.69 M/mm3 (3.65-5.03); Red Cell Distribution Width 13.3 % (13.2-15.2)
[2019-01-16] MEDS ORDERED: ZOFRAN ONE (09:32)
[2019-01-16] MEDS ORDERED: ZOFRAN IV ONE (09:33)
--- NOTE | 2019-01-16 09:34 | XRay Report ---
PORTABLE CHEST INDICATION: Hypertension. COMPARISON: 06/24/[address] FINDINGS: Portable, frontal chest radiograph demonstrates stable cardiomediastinal silhouette/mild cardiomegaly, left distal subclavian stent(s) and right subclavian port tip along the distal SVC. Grossly clear lungs with small bilateral pleural effusions and lung nodules on prior CT, worrisome for metastatic disease in this patient with known pancreatic tail mass, not well visualized plain radiographically. No CHF. Right hemidiaphragm approximately 1.5 cm higher than the left. Mild spinal degenerative changes. EKG leads. CONCLUSION: No acute significant chest radiographic abnormality with various other findings, as described. Thank you for the opportunity to participate in this patient's care.
[2019-01-16 09:54] LABS: Creatine Kinase MB 1.2 ng/mL (0.0-4.0)
[2019-01-16 09:56] LABS: Alanine Aminotransferase 8 units/L (7-56); BUN/Creatinine Ratio 7; Blood Urea Nitrogen 62 mg/dL (7-17); Calcium 10.8 mg/dL (8.4-10.2); Hemolysis Index 22
--- NOTE | 2019-01-16 09:58 | Emergency Department Report ---
ED General Adult HPI - General Chief complaint: Abdominal Pain Stated complaint: N/V HBP Time Seen by Provider: 01/16/19 08:52 Source: patient Mode of arrival: Stretcher Limitations: No Limitations - History of Present Illness Initial comments: This is a 63-year-old female that recently signed out of the hospital AGAINST MEDICAL ADVICE per her hospitalist on 01/13/2019. She states that she did go to dialysis on Saturday. She states that today she was unable take her blood pressure medicine due to nausea and vomiting. She states that she had some abdominal discomfort upon vomiting but did not independently complain of abdominal pain. She states that she feels like she has "diarrhea coming on". She requests to go to the bathroom. I have requested stool studies since she was recently in the hospital. She denies fever or chills. She denies shortness of breath or chest discomfort. Patient reported no blood in her emesis or coffee ground material. However, it was noted to be slightly dark but not obviously bilious -: Gradual Location: abdomen (as above only or vomiting) Severity scale (0 -10): 0 Consistency: intermittent, now resolved Improves with: none Worsens with: other (nausea and vomiting) Associated Symptoms: denies other symptoms - Related Data Home Medications Medication Instructions Recorded Confirmed Last Taken Cholecalciferol (Vitamin D3) 2 tab PO 4XW 07/05/16 01/13/19 01/07/19 [Vitamin D3 2,000 UNIT CAP] Meclizine [Antivert] 25 mg PO TID PRN 07/05/16 01/13/19 10/21/16 Previous Rx's Medication Instructions Recorded Last Taken Type B Complex 11/Folic/C/Biot/Zinc 1 each PO DAILY #30 tablet 02/13/16 01/11/19 Rx [Dialyvite with Zinc Tablet] Promethazine [Phenergan TAB] 25 mg PO Q6HR PRN #30 tablet 02/13/16 01/11/19 Rx Sevelamer Carbonate [Renvela] 2,400 mg PO TIDWM #90 tablet 02/13/16 01/07/19 Rx Aspirin [Aspirin BABY CHEW TAB] 81 mg PO QDAY #30 tab.chew 10/27/16 01/11/19 Rx Losartan [Cozaar] 25 mg PO QDAY #30 tablet 10/27/16 01/11/19 Rx Pantoprazole [Protonix TAB] 40 mg PO DAILY #30 tablet 10/27/16 01/11/19 Rx Sucralfate [Carafate] 1 gm PO Q6HR #120 oral.liqd 10/27/16 01/11/19 Rx hydrALAZINE [Apresoline TAB] 25 mg PO Q8HR #90 tablet 10/27/16 01/11/19 Rx Carvedilol [Coreg] 25 mg PO BID #60 tablet 06/23/18 01/11/19 Rx amLODIPine [Norvasc] 10 mg PO DAILY #30 tablet 06/23/18 01/11/19 Rx cloNIDine [Catapres] 0.2 mg PO TID #90 tablet 06/23/18 01/11/19 Rx traMADol [Ultram 50 MG tab] 50 mg PO Q6HR PRN #15 tablet 06/23/18 Unknown Rx Allergies Allergy/AdvReac Type Severity Reaction Status Date / Time codeine Allergy Rash Verified 05/05/15 06:48 Penicillins Allergy Hives Verified 02/12/16 17:55 ciprofloxacin [From Cipro] AdvReac severe Verified 05/05/15 06:48 nausea ciprofloxacin HCl AdvReac severe Verified 05/05/15 06:48 [From Cipro] nausea ED Review of Systems ROS: Stated complaint: N/V HBP Other details as noted in HPI Constitutional: other (unable to take by mouth). denies: chills, fever Eyes: denies: eye pain, eye discharge, vision change ENT: denies: ear pain, throat pain Respiratory: denies: cough, shortness of breath, wheezing Cardiovascular: denies: chest pain, palpitations Endocrine: no symptoms reported Gastrointestinal: as per HPI, nausea, vomiting Genitourinary: denies: urgency, dysuria, discharge Musculoskeletal: denies: back pain, joint swelling, arthralgia Skin: denies: rash, lesions Neurological: denies: headache, weakness, paresthesias Psychiatric: denies: anxiety, depression Hematological/Lymphatic: denies: easy bleeding, easy bruising ED Past Medical Hx - Past Medical History Previous Medical History?: Yes Hx Hypertension: Yes Hx Congestive Heart Failure: No Hx Diabetes: Yes Hx Renal Disease: Yes (Renal Cancer) Hx Arthritis: Yes (bilateral knees) Hx Asthma: No Hx COPD: No Hx HIV: No Additional medical history: DIALYSIS (M-W-F) - Surgical History Hx Open Heart Surgery: No Hx Appendectomy: Yes Additional Surgical History: NODULES removed from LUNGS , SHUNT LEFT ARM, bilateral nephrectomies, HYSTERECTOMY - Social History Smoking Status: Never Smoker Substance Use Type: None - Medications Home Medications: Home Medications Medication Instructions Recorded Confirmed Last Taken Type B Complex 11/Folic/C/Biot/Zinc 1 each PO DAILY #30 tablet 02/13/16 01/13/19 01/11/19 Rx [Dialyvite with Zinc Tablet] Promethazine [Phenergan TAB] 25 mg PO Q6HR PRN #30 tablet 02/13/16 01/13/19 01/11/19 Rx Sevelamer Carbonate [Renvela] 2,400 mg PO TIDWM #90 tablet 02/13/16 01/13/19 01/07/19 Rx Cholecalciferol (Vitamin D3) 2 tab PO 4XW 07/05/16 01/13/19 01/07/19 History [Vitamin D3 2,000 UNIT CAP] Meclizine [Antivert] 25 mg PO TID PRN 07/05/16 01/13/19 10/21/16 History Aspirin [Aspirin BABY CHEW TAB] 81 mg PO QDAY #30 tab.chew 10/27/16 01/13/19 01/11/19 Rx Losartan [Cozaar] 25 mg PO QDAY #30 tablet 10/27/16 01/13/19 01/11/19 Rx Pantoprazole [Protonix TAB] 40 mg PO DAILY #30 tablet 10/27/16 01/13/19 01/11/19 Rx Sucralfate [Carafate] 1 gm PO Q6HR #120 oral.liqd 10/27/16 01/13/19 01/11/19 Rx hydrALAZINE [Apresoline TAB] 25 mg PO Q8HR #90 tablet 10/27/16 01/13/19 01/11/19 Rx Carvedilol [Coreg] 25 mg PO BID #60 tablet 06/23/18 01/13/19 01/11/19 Rx amLODIPine [Norvasc] 10 mg PO DAILY #30 tablet 06/23/18 01/13/19 01/11/19 Rx cloNIDine [Catapres] 0.2 mg PO TID #90 tablet 06/23/18 01/13/19 01/11/19 Rx traMADol [Ultram 50 MG tab] 50 mg PO Q6HR PRN #15 tablet 06/23/18 01/13/19 Unknown Rx ED Physical Exam - General Limitations: No Limitations General appearance: alert, in no apparent distress - Head Head exam: Present: atraumatic, normocephalic - Eye Eye exam: Present: normal appearance. Absent: scleral icterus - ENT ENT exam: Present: mucous membranes moist, other (conjunctiva looks somewhat pale) - Neck Neck exam: Present: normal inspection. Absent: tenderness, meningismus - Respiratory Respiratory exam: Present: normal lung sounds bilaterally. Absent: respiratory distress - Cardiovascular Cardiovascular Exam: Present: regular rate, normal rhythm. Absent: systolic murmur, diastolic murmur, rubs, gallop - GI/Abdominal GI/Abdominal exam: Present: soft, normal bowel sounds. Absent: distended, tenderness, guarding, rebound, rigid - Extremities Exam Extremities exam: Present: normal inspection - Back Exam Back exam: Present: normal inspection - Neurological Exam Neurological exam: Present: alert, oriented X3 - Psychiatric Psychiatric exam: Present: normal affect, normal mood - Skin Skin exam: Present: warm, dry, intact, normal color. Absent: rash ED Course Vital Signs 01/16/19 01/16/19 01/16/19 08:38 08:42 08:45 Temperature 98.3 F Pulse Rate 72 Respiratory 18 Rate Blood Pressure 204/77 204/77 Blood Pressure [Right] O2 Sat by Pulse 96 96 96 Oximetry 01/16/19 01/16/19 01/16/19 08:59 09:01 09:15 Temperature Pulse Rate 69 73 Respiratory 18 13 13 Rate Blood Pressure 201/74 196/72 Blood Pressure 196/72 [Right] O2 Sat by Pulse 96 95 96 Oximetry 01/16/19 01/16/19 01/16/19 09:25 09:31 09:35 Temperature Pulse Rate 69 71 69 Respiratory 15 Rate Blood Pressure 192/74 211/71 Blood Pressure 211/71 [Right] O2 Sat by Pulse 96 Oximetry 01/16/19 01/16/19 01/16/19 09:57 10:01 10:15 Temperature Pulse Rate 157 H 66 71 Respiratory 14 15 Rate Blood Pressure 211/71 185/68 177/70 Blood Pressure [Right] O2 Sat by Pulse 96 96 95 Oximetry - Reevaluation(s) Reevaluation #1: Patient is given labetalol for her hypertension. I spoke with Dr. Arevalo who requested admission to [facility]. I did look at the patient's prior CT which was reflective of possible pulmonary metastases as well as recurrent chest x-ray que stioning that: IMPRESSION: Noncalcified nodular densities seen in the right lung as described are suspicious for metastatic disease given the mass in the tail the pancreas. There is however also evidence of prior granulomatous disease with a small calcified nodule on the right. The patient has history of a pancreatic tail mass as well as renal cell carcinoma. I do not know if she is known to have metastatic disease. This can be further elaborated upon by the hospitalist staff. The patent searcher instructed me not to medically treat the patient's hyperkalemia at this time. She will enter urgent dialysis orders. 01/16/19 10:33 ED Medical Decision Making - Lab Data Result diagrams: 01/16/19 08:57 01/16/19 08:56 Laboratory Results - last 24 hr 01/16/19 01/16/19 01/16/19 08:54 08:56 08:57 WBC 10.2 RBC 3.69 Hgb 11.5 Hct 34.2 MCV 93 MCH 31 MCHC 34 RDW 13.3 Plt Count 157 Lymph % (Auto) 11.2 L [place] % (Auto) 6.4 Eos % (Auto) 2.1 Baso % (Auto) 0.7 Lymph # 1.1 L [place] # 0.6 Eos # 0.2 Baso # 0.1 Seg Neutrophils % 79.6 H Seg Neutrophils # 8.1 H CK-MB (CK-2) 1.2 Troponin T < 0.010 NT-Pro-B Natriuret Pep 8181 H Lipase 137 H Laboratory Results - last 24 hr 01/16/19 01/16/19 01/16/19 08:54 08:56 08:57 WBC 10.2 RBC 3.69 Hgb 11.5 Hct 34.2 MCV 93 MCH 31 MCHC 34 RDW 13.3 Plt Count 157 Lymph % (Auto) 11.2 L [place] % (Auto) 6.4 Eos % (Auto) 2.1 Baso % (Auto) 0.7 Lymph # 1.1 L Granite # 0.6 Eos # 0.2 Baso # 0.1 Seg Neutrophils % 79.6 H Seg Neutrophils # 8.1 H Sodium 134 L Potassium 5.9 H Chloride 99.2 Carbon Dioxide 21 L D Anion Gap 20 BUN 62 H Creatinine 8.8 H Estimated GFR 5 BUN/Creatinine Ratio 7 Glucose 153 H Calcium 10.8 H Phosphorus 4.60 H Magnesium 2.20 Total Bilirubin 0.30 Direct Bilirubin < 0.2 Indirect Bilirubin 0.1 AST 13 ALT 8 Alkaline Phosphatase 65 Total Creatine Kinase 28 L CK-MB (CK-2) 1.2 CK-MB (CK-2) Rel Index 4.2 H Troponin T < 0.010 NT-Pro-B Natriuret Pep 8181 H Total Protein 7.1 Albumin 4.0 Albumin/Globulin Ratio 1.3 Lipase 137 H - EKG Data -: EKG Interpreted by Me EKG shows normal: sinus rhythm, axis (left axis), intervals, QRS complexes, ST-T waves Rate: normal - EKG Data Interpretation: no acute changes - Radiology Data Radiology results: report reviewed FINDINGS: Portable, frontal chest radiograph demonstrates stable cardiomediastinal silhouette/mild cardiomegaly, left distal subclavian stent(s) and right subclavian port tip along the distal SVC. Grossly clear lungs with small bilateral pleural effusions and lung nodules on prior CT, worrisome for metastatic disease in this patient with known pancreatic tail mass, not well visualized plain radiographically. No CHF. Right hemidiaphragm approximately 1.5 cm higher than the left. Mild spinal degenerative changes. EKG leads. CONCLUSION: No acute significant chest radiographic abnormality with various other findings, as described. Critical Care Time: Yes Critical care time in (mins) excluding proc time.: 45 Critical care attestation.: If time is entered above; I have spent that time in minutes in the direct care of this critically ill patient, excluding procedure time. ED Disposition Clinical Impression: End-stage renal disease needing dialysis, Hyperkalemia, Uncontrolled hypertension, Hyperphosphatemia Cardiomyopathy Qualifiers: Cardiomyopathy type: unspecified Qualified Code(s): I42.9 - Cardiomyopathy, unspecified Nausea and vomiting Qualifiers: Vomiting type: unspecified Vomiting Intractability: non-intractable Qualified Code(s): R11.2 - Nausea with vomiting, unspecified Disposition: OP ADMIT IP TO THIS HOSP Is pt being admited?: Yes Does the pt Need Aspirin: No (dark emesis will hold) Condition: Stable Instructions: Abdominal Pain (ED), Hypertension (ED) Referrals: AMY BRITT MD [Primary Care Provider] - 3-5 Days Time of Disposition: 10:37
[2019-01-16 09:59] LABS: Bilirubin,Direct < 0.2 mg/dL (0-0.2)
[2019-01-16] MEDS ORDERED: PROTONIX IV ONE (10:38)
--- NOTE | 2019-01-16 11:22 | History and Physical Report ---
History of Present Illness Date of examination: 01/16/19 Date of admission: 01/16/19 Chief complaint: nausea and vomiting History of present illness: Patient is 63 yo with history of end-stage disease on hemodialysis, renal cell cancer s/p bilat nephrectomies , pancreatic cancer, hypertension. She presents with nausea, vomiting, abdominal pain. The patient's was admitted earlier this week and just left the hospital AGAINST MEDICAL ADVICE 3 days ago on 01/13/2019. She now presents with above symptoms for 1 day. Patient stated that she had vomited 5 times in the past 1 day. No blood in vomitus. Since also complains of mid abdominal pain. Abdominal pain is 8 out of 10, dull pain with no radiation. She was seen and evaluated in the emergency department. Past History Past Medical History: cancer (Pancreatic cancer, Renal cell cancer), diabetes, ESRD (on hemoduialysis), GERD, other (pancreatitis) Past Surgical History: appendectomy, Other (Bilateral nephrectomies for cancer) Social history: full code. denies: smoking Family history: no significant family history Medications and Allergies Allergies Allergy/AdvReac Type Severity Reaction Status Date / Time codeine Allergy Rash Verified 05/05/15 06:48 Penicillins Allergy Hives Verified 02/12/16 17:55 ciprofloxacin [From Cipro] AdvReac severe Verified 05/05/15 06:48 nausea ciprofloxacin HCl AdvReac severe Verified 05/05/15 06:48 [From Cipro] nausea Home Medications Medication Instructions Recorded Confirmed Last Taken Type B Complex 11/Folic/C/Biot/Zinc 1 each PO DAILY #30 tablet 02/13/16 01/16/19 01/15/19 Rx [Dialyvite with Zinc Tablet] Meclizine [Antivert] 25 mg PO TID PRN 07/05/16 01/16/19 10/21/16 History Aspirin [Aspirin BABY CHEW TAB] 81 mg PO QDAY #30 tab.chew 10/27/16 01/16/19 01/15/19 Rx Carvedilol [Coreg] 25 mg PO BID #60 tablet 06/23/18 01/16/19 01/15/19 Rx amLODIPine [Norvasc] 10 mg PO DAILY #30 tablet 06/23/18 01/16/19 01/15/19 Rx cloNIDine [Catapres] 0.2 mg PO TID #90 tablet 06/23/18 01/16/19 01/15/19 Rx traMADol [Ultram 50 MG tab] 50 mg PO Q6HR PRN #15 tablet 06/23/18 01/16/19 Unknown Rx Cholecalciferol (Vitamin D3) 5,000 unit PO DAILY 01/16/19 01/16/19 01/15/19 History [Vitamin D3] Cinacalcet [Sensipar] 30 mg PO TID 01/16/19 01/16/19 Unknown History Promethazine [Phenergan] 25 mg PO Q8HR PRN 01/16/19 01/16/19 Unknown History Sevelamer Carbonate [Renvela] 4,000 mg PO TIDWM 01/16/19 01/16/19 Unknown History hydrALAZINE [Apresoline TAB] 100 mg PO TID 01/16/19 01/16/19 01/15/19 History Review of Systems All systems: negative (No fever, no cough, no chest pain. All other systems reviewed and are negative) Exam - Physical Exam Narrative exam: Gen: Not in acute distress, lying in bed, obese HEENT: Normocephalic, atraumatic Neck: supple, no JVD Heart: S1 and S2 reg, no murmurs, rubs or gallop Lungs: Clear, no crackles Abd: soft, tender mid abd, non distended, normal BS Ext: No edema, no clubbing, no cyanosis, Musculosk: tender lower back Neuro: AAO x 3, no focal signs, moves all ext Psych:Normal mood - Constitutional Vitals: Temp Pulse Resp BP Pulse Ox 98.3 F 71 15 177/70 95 01/16/19 08:42 01/16/19 10:15 01/16/19 10:15 01/16/19 10:15 01/16/19 10:15 Results - Labs CBC & Chem 7: 01/16/19 08:57 01/16/19 08:56 Labs: Abnormal lab results 01/16/19 01/16/19 01/16/19 Range/Units 08:54 08:56 08:57 Lymph % (Auto) 11.2 L (13.4-35.0) % Lymph # 1.1 L (1.2-5.4) K/mm3 Seg Neutrophils % 79.6 H (40.0-70.0) % Seg Neutrophils # 8.1 H (1.8-7.7) K/mm3 Sodium 134 L (137-145) mmol/L Potassium 5.9 H (3.6-5.0) mmol/L Carbon Dioxide 21 L D (22-30) mmol/L BUN 62 H (7-17) mg/dL Creatinine 8.8 H (0.7-1.2) mg/dL Glucose 153 H (65-100) mg/dL Calcium 10.8 H (8.4-10.2) mg/dL Phosphorus 4.60 H (2.5-4.5) mg/dL Total Creatine Kinase 28 L (30-135) units/L CK-MB (CK-2) Rel Index 4.2 H (0-4) NT-Pro-B Natriuret Pep 8181 H (0-900) pg/mL Lipase 137 H (13-60) units/L Assessment and Plan Acute pancreatitis. Admit to Tele NPO Check fingerstick q 6hr zofran prn Consult GI Physician nausea, vomiting, diarrhea may be due to pancreatitis. Pancreatic cancer, on chemotherapy [facility] [place] Consult Dr. macdonald History of renal cell cancer with metastases s/p bilat nephrectomy ESRD on hemodialysis Consult nephrology Hyperkalemia. for dialysis today Hyponatremia Repeat in am Hypertension. Mopnitor BP Full code status
[2019-01-16] MEDS ORDERED: ANTIVERT PO PRN (11:23)
[2019-01-16] MEDS ORDERED: ULTRAM PO PRN (11:23)
[2019-01-16] MEDS ORDERED: SODIUM CHLORIDE FLUSH SYRINGE 10 ML IV PRN (11:27)
[2019-01-16] MEDS ORDERED: NON-FORMULARY (B Complex 11/Folic/C/Biot/Zinc [Dialyvite With Zinc Tablet] 1 EACH) PO SCH (11:30)
[2019-01-16] MEDS ORDERED: NON-FORMULARY (Cholecalciferol (Vitamin D3) [Vitamin D3] 5,000 UNIT) PO SCH (11:30)
[2019-01-16] MEDS ORDERED: COREG ONE (11:37)
[2019-01-16] MEDS ORDERED: TYLENOL PO PRN (11:51)
[2019-01-16] MEDS ORDERED: ZOFRAN IV PRN (11:52)
[2019-01-16] MEDS: COREG PO SCH ×2 (12:56→21:20)
[2019-01-16] MEDS: NORVASC PO SCH (12:56)
--- NOTE | 2019-01-16 15:17 | Consultation ---
History of Present Illness - History of Present Illness 63-year-old lady with medical history significant for hypertension, bilateral renal cancer status post bilateral nephrectomy, concern for metastasis to lung and pancreas, end-stage renal disease on hemodialysis Saturday at [facility] dialysis unit [facility] presenting with complaints of weakness fatigue nausea vomiting diarrhea was recently admitted on Saturday for similar complaints however she signed out AMA from the hospital. Has not had dialysis today potassium is elevated the she went to dialysis on Saturday denies any orthopnea PND denies lower extremity edema Medications and Allergies Allergies Allergy/AdvReac Type Severity Reaction Status Date / Time codeine Allergy Rash Verified 05/05/15 06:48 Penicillins Allergy Hives Verified 02/12/16 17:55 ciprofloxacin [From Cipro] AdvReac severe Verified 05/05/15 06:48 nausea ciprofloxacin HCl AdvReac severe Verified 05/05/15 06:48 [From Cipro] nausea Home Medications Medication Instructions Recorded Confirmed Last Taken Type B Complex 11/Folic/C/Biot/Zinc 1 each PO DAILY #30 tablet 02/13/16 01/16/19 01/15/19 Rx [Dialyvite with Zinc Tablet] Meclizine [Antivert] 25 mg PO TID PRN 07/05/16 01/16/19 10/21/16 History Aspirin [Aspirin BABY CHEW TAB] 81 mg PO QDAY #30 tab.chew 10/27/16 01/16/19 01/15/19 Rx Carvedilol [Coreg] 25 mg PO BID #60 tablet 06/23/18 01/16/19 01/15/19 Rx amLODIPine [Norvasc] 10 mg PO DAILY #30 tablet 06/23/18 01/16/19 01/15/19 Rx cloNIDine [Catapres] 0.2 mg PO TID #90 tablet 06/23/18 01/16/19 01/15/19 Rx traMADol [Ultram 50 MG tab] 50 mg PO Q6HR PRN #15 tablet 06/23/18 01/16/19 Unknown Rx Cholecalciferol (Vitamin D3) 5,000 unit PO DAILY 01/16/19 01/16/19 01/15/19 History [Vitamin D3] Cinacalcet [Sensipar] 30 mg PO TID 01/16/19 01/16/19 Unknown History Promethazine [Phenergan] 25 mg PO Q8HR PRN 01/16/19 01/16/19 Unknown History Sevelamer Carbonate [Renvela] 4,000 mg PO TIDWM 01/16/19 01/16/19 Unknown History hydrALAZINE [Apresoline TAB] 100 mg PO TID 01/16/19 01/16/19 01/15/19 History Active Meds: Active Medications Acetaminophen (Tylenol) 650 mg PO Q4H PRN PRN Reason: Pain MILD(1-3)/Fever >100.5/STEWARD Amlodipine Besylate (Norvasc) 10 mg PO DAILY [facility] Last Admin: 01/16/19 12:56 Dose: Not Given Documented by: Aspirin (Baby Aspirin) 81 mg PO QDAY [facility] Carvedilol (Coreg) 25 mg PO BID [facility] Last Admin: 01/16/19 12:56 Dose: Not Given Documented by: Cholecalciferol (Vitamin D3) 5,000 unit PO QDAY [facility] Cinacalcet (Sensipar) 30 mg PO TID [facility] Clonidine HCl (Catapres) 0.2 mg PO TID [facility] Hydralazine HCl (Apresoline) 100 mg PO TID [facility] Meclizine HCl (Antivert) 25 mg PO TID PRN PRN Reason: Vertigo Multivit/Ca Carb/B Cmplx/FA/Prenat (Renal Caps) 1 cap PO QDAY [facility] Ondansetron HCl (Zofran) 4 mg IV Q6H PRN PRN Reason: Nausea And Vomiting Pantoprazole Sodium (Protonix) 40 mg IV QDAY [facility] Sevelamer Carbonate (Renvela) 4,000 mg PO TIDWM [facility] Sodium Chloride (Sodium Chloride Flush Syringe 10 Ml) 10 ml IV BID [facility] Sodium Chloride (Sodium Chloride Flush Syringe 10 Ml) 10 ml IV PRN PRN PRN Reason: LINE FLUSH Tramadol HCl (Ultram) 50 mg PO Q6HR PRN PRN Reason: Pain, Moderate (4-6) Review of Systems Constitutional: weight loss, weight gain Ears, nose, mouth and throat: no deferred, no ear pain Breasts: no deferred, no normal Cardiovascular: no chest pain, no orthopnea Respiratory: no cough Gastrointestinal: nausea, vomiting, diarrhea Rectal: no pain, no incontinence, no bleeding Integumentary: no darkening of skin Neurological: no paralysis, no weakness Psychiatric: anxiety, memory loss Endocrine: no cold intolerance, no heat intolerance Allergic/Immunologic: urticaria Exam - Vital Signs Vital signs: Vital Signs Pulse Ox 96 01/16/19 08:38 - General Appearance General appearance: well-developed, well-nourished EENT: ATNC, PERRL Neck: Present: neck supple Respiratory: Clear to Ascultation Heart: regular, irregular, S1S2 Gastrointestinal: Present: normal, normoactive bowel sounds Integumentary: no rash Neurologic: no focal deficit, alert and oriented x3, CN 3-12 intact Psychiatric: mood/affect appropriate Results - Lab Results 01/16/19 08:57 01/16/19 08:56 Most recent lab results Calcium 10.8 mg/dL (8.4-10.2) H 01/16/19 08:56 Phosphorus 4.60 mg/dL (2.5-4.5) H 01/16/19 08:56 Magnesium 2.20 mg/dL (1.7-2.3) 01/16/19 08:56 - Image Kidney/bladder ultrasound: other (I reviewed chest x-ray cardiomegaly with patchy opacities) Assessment and Plan - Patient Problems (1) End-stage renal disease needing dialysis Current Visit: Yes Status: Acute Plan to address problem: End-stage renal disease Access AV fistula We'll initiate dialysis Ultrafiltration 2 L (2) Acute hyperkalemia Current Visit: No Status: Acute Plan to address problem: Hyperkalemia: 2/2 renal failure Will initiate dialysis (3) Hypertensive urgency Current Visit: No Status: Acute Plan to address problem: Hypertensive urgency due to inability to take medications given intractable vomiting Intravenous medications. Resume oral medications as tolerated (4) Intractable vomiting Current Visit: No Status: Acute Qualifiers: Vomiting type: unspecified Nausea presence: with nausea Qualified Code(s): R11.2 - Nausea with vomiting, unspecified Plan to address problem: Intractable vomiting Zofran as needed History of pancreatic lesion. Metastatic lesion History of bilateral renal cancer with concern for involvement of the lung and the pancreas She follows at cancer [place] at [facility] Was previously on Votrient and then on Opdivo which was recently discontinued as PET scan was normal
[2019-01-16] MEDS ORDERED: MORPHINE IV PRN (15:59)
--- NOTE | 2019-01-16 17:05 | Event Note ---
Hemodialysis note I attest I saw the patient on Dialysis at 2pm Denies any complaints nausea is improved 2k/2.5ca/35Hco3 bath UF: 2L
[2019-01-16] MEDS: BABY ASPIRIN PO SCH (18:21)
[2019-01-16] MEDS: RENVELA PO SCH ×2 (18:21→18:22)
[2019-01-16] MEDS: CATAPRES PO SCH ×2 (18:22→20:02)
[2019-01-16] MEDS: SENSIPAR PO SCH ×2 (18:22→20:02)
[2019-01-16] MEDS: Renal Caps PO SCH (18:22)
[2019-01-16] MEDS: APRESOLINE PO SCH ×2 (18:22→20:02)
[2019-01-16] MEDS: PHENERGAN PO PRN (20:07)
[2019-01-16] MEDS: SODIUM CHLORIDE FLUSH SYRINGE 10 ML IV SCH (21:20)
[2019-01-17 05:51] LABS: Basophils # (Auto) 0.1 K/mm3 (0.0-0.1); Basophils % (Auto) 0.7 % (0.0-1.8); Eosinophils # (Auto) 0.2 K/mm3 (0.0-0.4); Eosinophils % (Auto) 2.7 % (0.0-4.3); Hematocrit 34.4 % (30.3-42.9); Hemoglobin 11.4 gm/dl (10.1-14.3); Lymphocytes # (Auto) 1.4 K/mm3 (1.2-5.4); Lymphocytes % (Auto) 17.6 % (13.4-35.0); Mean Corpuscular HGB Conc 33 % (30-34); Mean Corpuscular Volume 94 fl (79-97); Monocytes # (Auto) 0.9 K/mm3 (0.0-0.8); Monocytes % (Auto) 10.9 % (0.0-7.3); Red Blood Count 3.66 M/mm3 (3.65-5.03)
[2019-01-17 06:05] LABS: Platelet Count 180 K/mm3 (140-440)
[2019-01-17 06:13] LABS: Calcium 9.4 mg/dL (8.4-10.2)
[2019-01-17] MEDS: CATAPRES PO SCH ×2 (07:38→14:33)
[2019-01-17] MEDS: APRESOLINE PO SCH ×2 (07:39→14:38)
[2019-01-17] MEDS: RENVELA PO SCH ×2 (07:40→14:33)
[2019-01-17] MEDS: PHENERGAN PO PRN (07:45)
[2019-01-17] MEDS: SENSIPAR PO SCH ×2 (08:38→14:38)
[2019-01-17] MEDS ORDERED: VITAMIN D3 PO SCH (10:00)
[2019-01-17] MEDS ORDERED: PROTONIX IV SCH (10:00)
[2019-01-17] MEDS ORDERED: PROTONIX PO SCH (10:00)
[2019-01-17] MEDS: Renal Caps PO SCH (10:23)
[2019-01-17] MEDS: NORVASC PO SCH (10:26)
[2019-01-17] MEDS: BABY ASPIRIN PO SCH (10:27)
[2019-01-17] MEDS: COREG PO SCH (10:27)
[2019-01-17] MEDS: SODIUM CHLORIDE FLUSH SYRINGE 10 ML IV SCH (10:28)
--- NOTE | 2019-01-17 10:53 | Gastroenterology Consultation ---
History of Present Illness - Reason for Consult Consult date: 01/17/19 N/V, Elevated Lipase Requesting physician: HANNA TOBIAS - History of Present Illness The patient is a 63 yo female with a multiyear hx of recurrent N/V, and a distant hx of pancreatitis. She was in for the same earlier this week, and signed out AMA "because I felt better." She returned to the ER yesterday "because it came back" but since being admitted, she has started eating a regular diet. She was noted to have an elevated lipase on admit, but this is consistent from prior values, and markedly improved from her lipase levels of a few years ago. 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 Her last chemo was about 1 month ago, and she is on a break until her next PET in January. She has no fevers, chills, emesis, chest pain, or unusual stomach pain (has chronic pain from surgeries and mets CA). She has had an EGD and colonoscopy with Dr Wick in the past 3-4 years without significant findings. Past History Past Medical History: cancer (Pancreatic cancer, Renal cell cancer), diabetes, ESRD (on hemoduialysis), GERD, other (pancreatitis) Past Surgical History: appendectomy, Other (Bilateral nephrectomies for cancer) Social history: full code. denies: smoking Family history: no significant family history Medications and Allergies Allergies Allergy/AdvReac Type Severity Reaction Status Date / Time codeine Allergy Rash Verified 05/05/15 06:48 Penicillins Allergy Hives Verified 02/12/16 17:55 ciprofloxacin [From Cipro] AdvReac severe Verified 05/05/15 06:48 nausea ciprofloxacin HCl AdvReac severe Verified 05/05/15 06:48 [From Cipro] nausea Home Medications Medication Instructions Recorded Confirmed Last Taken Type B Complex 11/Folic/C/Biot/Zinc 1 each PO DAILY #30 tablet 02/13/16 01/16/19 01/15/19 Rx [Dialyvite with Zinc Tablet] Meclizine [Antivert] 25 mg PO TID PRN 07/05/16 01/16/19 10/21/16 History Aspirin [Aspirin BABY CHEW TAB] 81 mg PO QDAY #30 tab.chew 10/27/16 01/16/19 01/15/19 Rx Carvedilol [Coreg] 25 mg PO BID #60 tablet 06/23/18 01/16/19 01/15/19 Rx amLODIPine [Norvasc] 10 mg PO DAILY #30 tablet 06/23/18 01/16/19 01/15/19 Rx cloNIDine [Catapres] 0.2 mg PO TID #90 tablet 06/23/18 01/16/19 01/15/19 Rx traMADol [Ultram 50 MG tab] 50 mg PO Q6HR PRN #15 tablet 06/23/18 01/16/19 Unknown Rx Cholecalciferol (Vitamin D3) 5,000 unit PO DAILY 01/16/19 01/16/19 01/15/19 Hi story [Vitamin D3] Cinacalcet [Sensipar] 30 mg PO TID 01/16/19 01/16/19 Unknown History Promethazine [Phenergan] 25 mg PO Q8HR PRN 01/16/19 01/16/19 Unknown History Sevelamer Carbonate [Renvela] 4,000 mg PO TIDWM 01/16/19 01/16/19 Unknown History hydrALAZINE [Apresoline TAB] 100 mg PO TID 01/16/19 01/16/19 01/15/19 History Active Meds: Active Medications Acetaminophen (Tylenol) 650 mg PO Q4H PRN PRN Reason: Pain MILD(1-3)/Fever >100.5/STEWARD Last Admin: 01/17/19 07:38 Dose: 650 mg Documented by: Amlodipine Besylate (Norvasc) 10 mg PO DAILY [facility] Last Admin: 01/17/19 10:26 Dose: 10 mg Documented by: Aspirin (Baby Aspirin) 81 mg PO QDAY [facility] Last Admin: 01/17/19 10:27 Dose: 81 mg Documented by: Carvedilol (Coreg) 25 mg PO BID [facility] Last Admin: 01/17/19 10:27 Dose: 25 mg Documented by: Cholecalciferol (Vitamin D3) 5,000 unit PO QDAY [facility] Last Admin: 01/17/19 10:32 Dose: 5,000 unit Documented by: Cinacalcet (Sensipar) 30 mg PO TID [facility] Last Admin: 01/16/19 20:02 Dose: 30 mg Documented by: Clonidine HCl (Catapres) 0.2 mg PO TID [facility] Last Admin: 01/17/19 07:38 Dose: 0.2 mg Documented by: Hydralazine HCl (Apresoline) 100 mg PO TID [facility] Last Admin: 01/17/19 07:39 Dose: 100 mg Documented by: Meclizine HCl (Antivert) 25 mg PO TID PRN PRN Reason: Vertigo Morphine Sulfate (Morphine) 2 mg IV Q4H PRN PRN Reason: Pain, Moderate (4-6) Multivit/Ca Carb/B Cmplx/FA/Prenat (Renal Caps) 1 cap PO QDAY [facility] Last Admin: 01/17/19 10:23 Dose: 1 cap Documented by: Ondansetron HCl (Zofran) 4 mg IV Q6H PRN PRN Reason: Nausea And Vomiting Pantoprazole Sodium (Protonix) 40 mg PO DAILY [facility] Last Admin: 01/17/19 10:35 Dose: 40 mg Documented by: Promethazine HCl (Phenergan) 25 mg PO Q6H PRN PRN Reason: Nausea And Vomiting Last Admin: 01/17/19 07:45 Dose: 25 mg Documented by: Sevelamer Carbonate (Renvela) 4,000 mg PO TIDWM [facility] Last Admin: 01/17/19 07:40 Dose: 4,000 mg Documented by: Sodium Chloride (Sodium Chloride Flush Syringe 10 Ml) 10 ml IV BID [facility] Last Admin: 01/17/19 10:28 Dose: 10 ml Documented by: Sodium Chloride (Sodium Chloride Flush Syringe 10 Ml) 10 ml IV PRN PRN PRN Reason: LINE FLUSH Tramadol HCl (Ultram) 50 mg PO Q6HR PRN PRN Reason: Pain, Moderate (4-6) I HAVE REVIEWED AND RECONCILED MEDICATIONS Review of Systems - Review of Systems All systems: negative (as noted in the HPI) Exam - Constitutional Vital Signs: Temp Pulse Resp BP Pulse Ox 98.2 F 70 18 203/66 96 01/17/19 07:23 01/17/19 07:23 01/17/19 07:23 01/17/19 07:23 01/17/19 07:23 General appearance: no acute distress - EENT Eyes: PERRL, EOM intact ENT: hearing intact, no thrush - Neck Neck: supple - Respiratory Respiratory effort: normal Respiratory: bilateral: CTA - Cardiovascular Rhythm: regular Heart Sounds: Present: S1 & S2 - Gastrointestinal General gastrointestinal: Present: soft, non-tender, non-distended - Integumentary Integumentary: Present: clear, warm, dry - Neurologic Neurological: alert and oriented x3 - Labs CBC & Chem 7: 01/17/19 04:58 01/17/19 04:58 Lab Results: Laboratory Results - last 24 hr 01/16/19 01/17/19 01/17/19 08:57 00:59 04:58 WBC 8.2 RBC 3.66 Hgb 11.4 Hct 34.4 MCV 94 MCH 31 MCHC 33 RDW 14.0 Plt Count 180 Lymph % (Auto) 17.6 [place] % (Auto) 10.9 H Eos % (Auto) 2.7 Baso % (Auto) 0.7 Lymph # 1.4 [place] # 0.9 H Eos # 0.2 Baso # 0.1 Seg Neutrophils % 68.1 Seg Neutrophils # 5.6 Sodium Potassium Chloride Carbon Dioxide Anion Gap BUN Creatinine Estimated GFR BUN/Creatinine Ratio Glucose POC Glucose 133 H Calcium Lipase Blood Type O POSITIVE Antibody Screen Negative 01/17/19 01/17/19 04:58 07:27 WBC RBC Hgb Hct MCV MCH MCHC RDW Plt Count Lymph % (Auto) [place] % (Auto) Eos % (Auto) Baso % (Auto) Lymph # [place] # Eos # Baso # Seg Neutrophils % Seg Neutrophils # Sodium 138 Potassium 5.4 H Chloride 95.6 L Carbon Dioxide 27 Anion Gap 21 BUN 24 H Creatinine 5.7 H Estimated GFR 8 BUN/Creatinine Ratio 4 Glucose 103 H POC Glucose 102 Calcium 9.4 Lipase 91 H Blood Type Antibody Screen Assessment and Plan - Patient Problems (1) Elevated lipase Current Visit: Yes Status: Acute Plan to address problem: - No convincing evidence of acute pancreatitis, and she has a known mets cancer in the pancreas (renal CA); in addition, ESRD will lead to a mildly elevated lipase. - No further inpatient w/u recommended at present, and since eating a regular diet, OK to discharge her home for f/u in the clinic. - Will sign off; please call if needed.
[2019-01-17 12:35] VITALS: BP 157/47
--- NOTE | 2019-01-17 13:10 | Progress Note ---
Assessment and Plan Impression: * End stage renal disease * Elevated lipase * Nausea/vomting - resolved * Hx of RCC and pancreatic mets * Anemia secondary to ESRD * Secondary hyperparathyroidism Plan: * Hemodialysis MWF * UF as tolerated * Epogen TIW prn * Diet as tolerated * GI recommendations noted Subjective Date of service: 01/17/19 Interval history: Patient has no complaint today. Denies N/V. She is tolerating po intake. She denies abdominal pain Objective - Vital Signs Vital signs: Vital Signs - 12hr 01/17/19 01/17/19 01/17/19 05:00 07:23 12:20 Temperature 98.5 F 98.2 F 98.6 F Pulse Rate 70 70 65 Respiratory 18 18 18 Rate Blood Pressure 182/67 203/66 157/47 O2 Sat by Pulse 95 96 95 Oximetry - General Appearance General appearance: well-developed, well-nourished EENT: ATNC Respiratory: Present: Clear to Ascultation Cardiology: regular, S1S2 Gastrointestinal: normal, no tenderness, no distended Integumentary: no rash, warm and dry Neurologic: no focal deficit Musculoskeletal: other (no edema) Psychiatric: cooperative - Lab 01/17/19 04:58 01/17/19 04:58 Most recent lab results Calcium 9.4 mg/dL (8.4-10.2) 01/17/19 04:58 Phosphorus 4.60 mg/dL (2.5-4.5) H 01/16/19 08:56 Magnesium 2.20 mg/dL (1.7-2.3) 01/16/19 08:56 Medications & Allergies - Medications Allergies/Adverse Reactions: Allergies codeine Allergy (Verified 05/05/15 06:48) Rash Penicillins Allergy (Verified 02/12/16 17:55) Hives ciprofloxacin [From Cipro] Adverse Reaction (Verified 05/05/15 06:48) severe nausea ciprofloxacin HCl [From Cipro] Adverse Reaction (Verified 05/05/15 06:48) severe nausea Home Medications: Home Medications Medication Instructions Recorded Confirmed Last Taken Type B Complex 11/Folic/C/Biot/Zinc 1 each PO DAILY #30 tablet 02/13/16 01/16/19 01/15/19 Rx [Dialyvite with Zinc Tablet] Meclizine [Antivert] 25 mg PO TID PRN 07/05/16 01/16/1910/21/17 History Aspirin [Aspirin BABY CHEW TAB] 81 mg PO QDAY #30 tab.chew 10/27/16 01/16/19 01/15/19 Rx Carvedilol [Coreg] 25 mg PO BID #60 tablet 06/23/18 01/16/19 01/15/19 Rx amLODIPine [Norvasc] 10 mg PO DAILY #30 tablet 06/23/18 01/16/19 01/15/19 Rx cloNIDine [Catapres] 0.2 mg PO TID #90 tablet 06/23/18 01/16/19 01/15/19 Rx traMADol [Ultram 50 MG tab] 50 mg PO Q6HR PRN #15 tablet 06/23/18 01/16/19 Unknown Rx Cholecalciferol (Vitamin D3) 5,000 unit PO DAILY 01/16/19 01/16/19 01/15/19 History [Vitamin D3] Cinacalcet [Sensipar] 30 mg PO TID 01/16/19 01/16/19 Unknown History Promethazine [Phenergan] 25 mg PO Q8HR PRN 01/16/19 01/16/19 Unknown History Sevelamer Carbonate [Renvela] 4,000 mg PO TIDWM 01/16/19 01/16/19 Unknown History hydrALAZINE [Apresoline TAB] 100 mg PO TID 01/16/19 01/16/19 01/15/19 History Famotidine [Pepcid] 10 mg PO BID #60 tablet 01/17/19 Unknown Rx Promethazine [Phenergan] 25 mg PO Q6H PRN #20 tablet 01/17/19 Unknown Rx Active Medications: Generic Name Dose Route Start Last Admin Trade Name Freq PRN Reason Stop Dose Admin Acetaminophen 650 mg 01/16/19 11:51 01/17/19 07:38 Tylenol PO 650 mg Q4H PRN Administration Pain MILD(1-3)/Fever >100.5/STEWARD Amlodipine Besylate 10 mg 01/16/19 12:00 01/17/19 10:26 Norvasc PO 10 mg DAILY [facility] Administration Aspirin 81 mg 01/16/19 12:00 01/17/19 10:27 Baby Aspirin PO 81 mg QDAY [facility] Administration Carvedilol 25 mg 01/16/19 12:00 01/17/19 10:27 Coreg PO 25 mg BID [facility] Administration Cholecalciferol 5,000 unit 01/17/19 10:00 01/17/19 10:32 Vitamin D3 PO 5,000 unit QDAY [facility] Administration Cinacalcet 30 mg 01/16/19 14:00 01/16/19 20:02 Sensipar PO 30 mg TID [facility] Administration Clonidine HCl 0.2 mg 01/16/19 14:00 01/17/19 07:38 Catapres PO 0.2 mg TID [facility] Administration Hydralazine HCl 100 mg 01/16/19 14:00 01/17/19 07:39 Apresoline PO 100 mg TID [facility] Administration Meclizine HCl 25 mg 01/16/19 11:23 Antivert PO TID PRN Vertigo Morphine Sulfate 2 mg 01/16/19 15:59 Morphine IV Q4H PRN Pain, Moderate (4-6) Multivit/Ca Carb/B Cmplx/FA/Prenat 1 cap 01/16/19 14:00 01/17/19 10:23 Renal Caps PO 1 cap QDAY [facility] Administration Ondansetron HCl 4 mg 01/16/19 11:52 Zofran IV Q6H PRN Nausea And Vomiting Pantoprazole Sodium 40 mg 01/17/19 10:00 01/17/19 10:35 Protonix PO 40 mg DAILY [facility] Administration Promethazine HCl 25 mg 01/16/19 20:00 01/17/19 07:45 Phenergan PO 25 mg Q6H PRN Administration Nausea And Vomiting Sevelamer Carbonate 4,000 mg 01/16/19 12:00 01/17/19 07:40 Renvela PO 4,000 mg TIDWM [facility] Administration Sodium Chloride 10 ml 01/16/19 22:00 01/17/19 10:28 Sodium Chloride Flush Syringe 10 Ml IV 10 ml BID [facility] Administration Sodium Chloride 10 ml 01/16/19 11:27 Sodium Chloride Flush Syringe 10 Ml IV PRN PRN LINE FLUSH Tramadol HCl 50 mg 01/16/19 11:23 Ultram PO Q6HR PRN Pain, Moderate (4-6)
--- NOTE | 2019-01-17 14:32 | Discharge Summary ---
Providers - Providers Date of Admission: 01/16/19 10:19 Date of discharge: 01/17/19 Attending physician: HANNA TOBIAS 01/16/19 10:40 Consult to Physician [CONS] Urgent Comment: DR SIRISHA JAVIER W/DR DELA CRUZ @[id number] Consulting Provider: JOHN DELA CRUZ Physician Instructions: Reason For Exam: ESRD needs D 01/16/19 16:32 Consult to Physician [CONS] Routine Comment: Consulting Provider: CRYSTAL SON Physician Instructions: Reason For Exam: Pancreatic cancer 01/16/19 17:13 Consult to Physician [CONS] Routine Comment: Consulting Provider: KAI FARRELL Physician Instructions: Reason For Exam: Nausea,vomiting,pancreatitis,pancreatic cancer [facility] Condition: [facility] Hospital course: Patient is 63 yo with history of end-stage disease on hemodialysis, renal cell cancer s/p bilat nephrectomies , pancreatic cancer, hypertension. She presented with nausea, vomiting, abdominal pain. The patient' was admitted earlier in week and just left the hospital AGAINST MEDICAL ADVICE 3 days prior on 01/13/2019. She now presents with above symptoms for 1 day. Patient stated that she had vomited 5 times in the past 1 day. No blood in vomitus. Since also complains of mid abdominal pain. She was seen and evaluated in the emergency department. She again had hyperkalemia with Potassium 5.9. Also lipase was elevated so was diagnosed with acute pancreatitis. She was admitted, Nephrology, GI Physician and Oncology were consulted. She was evaluated, di alysis done. By next day, nausea and vomiting subsided. GI recommended discharge so she was discharged home. Disposition: DC- TO HOME OR SELFCARE - Discharge Diagnoses (1) Diabetes mellitus Status: Acute (2) Nausea and vomiting Status: Acute Qualifiers: Vomiting type: unspecified Vomiting Intractability: non-intractable Qualified Code(s): R11.2 - Nausea with vomiting, unspecified (3) Pancreatic cancer Status: Acute (4) Pancreatitis Status: Acute (5) ESRD (end stage renal disease) Status: Chronic (6) Hypertension Status: Chronic Qualifiers: Hypertension type: unspecified Qualified Code(s): I10 - Essential (primary) hypertension (7) Renal cell cancer Status: Chronic Qualifiers: Laterality: unspecified laterality Qualified Code(s): C64.9 - Malignant neoplasm of unspecified kidney, except renal pelvis Core Measure Documentation - Palliative Care Palliative Care/ Comfort Measures: Not Applicable - Core Measures Any of the following diagnoses?: none Exam - Constitutional Vitals: Temp Pulse Resp BP Pulse Ox 98.6 F 65 18 157/47 95 01/17/19 12:20 01/17/19 12:20 01/17/19 12:20 01/17/19 12:20 01/17/19 12:20 Plan Diet: low fat, low cholesterol, low salt Additional Instructions: 1.Follow up with PCP in 1 week. 2.Follow up with Oncologist at [place] as scheduled. 3.Continue hemodialysis as scheduled Follow up with: AMY BRITT MD [Primary Care Provider] - 3-5 Days Prescriptions: Famotidine [Pepcid] 10 mg PO BID #60 tablet Promethazine [Phenergan] 25 mg PO Q6H PRN #20 tablet PRN Reason: Nausea And Vomiting
--- NOTE | 2019-01-19 07:59 | Event Note ---
Date: 01/17/19 [id number]
--- NOTE | 2019-01-19 13:25 | Consultation ---
REFERRED BY: Ruben Arevalo MD REASON FOR CONSULTATION: Pancreatic mass, metastatic renal cell CA, admitted with nausea and vomiting. HISTORY OF PRESENT ILLNESS: I saw the patient, a 63-year-old female in medical floor. The patient has end-stage renal disease, on dialysis. The patient has renal cell cancer for which she has had bilateral nephrectomy. Right nephrectomy was in 2003, stage IA. No adjuvant treatment. Left nephrectomy later and she has done well until 12/2012 when she developed mets in the lungs. She underwent wedge resection of lung lesions. Biopsy of one of them showed metastatic renal cell carcinoma. The patient was on first line treatment with Votrient. Treatment advice was Opdivo. The patient has been following with [place] physician. She recently went and was told not to do anything as the PET scan was negative. She has again follow up in a few weeks' time to go back to [place]. She came to the hospital because of nausea and vomiting. She was recently in the hospital, at that time, she left against medical advice. She also had mid abdominal pain and she was seen in the hospital. She was treated for possible pancreatitis. At this time, no headache, no visual disturbances, no ear discharge, no chest pain, no palpitations. Had nausea, vomiting, had abdominal pain. No diarrhea, no dysuria. No seizure or syncope. PAST MEDICAL HISTORY: As above, diabetes, ESRD, on dialysis; GERD. PAST SURGICAL HISTORY: Appendectomy, nephrectomy. SOCIAL HISTORY: Nonsmoking. FAMILY HISTORY: Noncontributory. ALLERGIES: INCLUDE PENICILLIN, CIPRO. HOME MEDICATIONS: Included B complex, amlodipine, tramadol and hydralazine. PHYSICAL EXAMINATION: VITAL SIGNS: Temperature 98, pulse 65, respirations 18, BP 157/47. EYES: No pallor, no icterus. NECK: No neck lymph nodes. HEART: S1, S2. LUNGS: Clear to auscultation. ABDOMEN: Soft. No guarding. EXTREMITIES: No calf tenderness. NEUROLOGIC: Alert, awake, oriented. LABORATORY DATA: White cell 8.2, hemoglobin 11, MCV 94 and platelets 180. Potassium 5.4, creatinine 5.7, calcium 9.4 and bilirubin 0.3. RADIOLOGY: Chest x-ray was done recently. Lipase was 136. ASSESSMENT: 1. Metastatic renal cell carcinoma. The patient was on Opdivo. The patient has a pancreatic mass, which is metastatic renal cell. 2. The patient has been following at [place] and at this time as per the patient, she is on hold on treatment as PET scan was negative. 3. Admitted with nausea, vomiting and being treated for pancreatitis. 4. History of diarrhea. 5. History of abdominal pain. 6. End-stage renal disease, on dialysis. 7. History of hyperkalemia. 8. History of hyponatremia. 9. History of diabetes. I will follow the patient during inpatient stay. JOB# [id number] NM/NTS
== END 2019-01-17 16:18 | disposition home or self-care (01) | DRG 640 ==
LOC: ED 08:26 → 4A 10:19
PROVIDERS: ADMIT Internal Medicine; ATTEND Internal Medicine
PROC: 5A1D70Z Performance of Urinary Filtration, Intermittent, Less than 6 Hours Per Day (ICD-10-PCS; principal; 2019-01-16)
DX: E87.5 Hyperkalemia (principal); N18.6 End stage renal disease; I42.9 Cardiomyopathy, unspecified; C25.9 Malignant neoplasm of pancreas, unspecified; N25.81 Secondary hyperparathyroidism of renal origin; I12.0 Hypertensive chronic kidney disease with stage 5 chronic kidney disease or end stage renal disease; I16.0 Hypertensive urgency; E87.1 Hypo-osmolality and hyponatremia; E11.22 Type 2 diabetes mellitus with diabetic chronic kidney disease; M17.0 Bilateral primary osteoarthritis of knee; E83.39 Other disorders of phosphorus metabolism; K21.9 Gastro-esophageal reflux disease without esophagitis; D63.1 Anemia in chronic kidney disease; Z79.899 Other long term (current) drug therapy; Z88.5 Allergy status to narcotic agent; Z88.0 Allergy status to penicillin; Z88.1 Allergy status to other antibiotic agents; Z90.49 Acquired absence of other specified parts of digestive tract; Z90.710 Acquired absence of both cervix and uterus; Z90.5 Acquired absence of kidney; Z85.528 Personal history of other malignant neoplasm of kidney; Z99.2 Dependence on renal dialysis
CPT/HCPCS: 36415; 71045; 80048; 80076; 82550; 82553; 82962; 83690; 83735; 83880; 84100; 84484; 85025; 86850; 86900; 86901; 87045; 93005; 93010; G0378; C9113; J2405; Q0169

== ENCOUNTER 2019-01-26 22:30 | Emergency (ER) | payer MEDICARE ==
[2019-01-27] MEDS ORDERED: APRESOLINE IV ONE ×2 (00:04→02:53)
[2019-01-27] MEDS ORDERED: IMODIUM PO ONE (00:05)
[2019-01-27] MEDS ORDERED: ZOFRAN IV ONE (00:05)
--- NOTE | 2019-01-27 00:10 | Emergency Department Report ---
ED N/V/D HPI - General Chief complaint: Nausea/Vomiting/Diarrhea Stated complaint: N/V Time Seen by Provider: 01/27/19 00:00 Source: patient, EMS Mode of arrival: Stretcher Limitations: No Limitations - History of Present Illness Initial comments: 63-year-old female presents to ED with nausea, vomiting, diarrhea since earlier today. Patient states she ate scrambled eggs following dialysis today, cooked by her daughter, and believes that this is the cause of her symptoms. Patient reports diffuse abdominal cramping as well. Denies fever. Patient states she attempted to take her medications but then vomited them. MD complaint: nausea, vomiting, diarrhea, abdominal pain -: This morning Associated Abdominal Pain: Yes Location: diffuse Radiation: none Severity: moderate Quality: cramping Consistency: constant Improves with: none Worsens with: eating Associated Symptoms: denies: fever/chills, headaches - Related Data Home Medications Medication Instructions Recorded Confirmed Last Taken Meclizine [Antivert] 25 mg PO TID PRN 07/05/16 01/16/19 10/21/16 Cholecalciferol (Vitamin D3) 5,000 unit PO DAILY 01/16/19 01/16/19 01/15/19 [Vitamin D3] Cinacalcet [Sensipar] 30 mg PO TID 01/16/19 01/16/19 Unknown Promethazine [Phenergan] 25 mg PO Q8HR PRN 01/16/19 01/16/19 Unknown Sevelamer Carbonate [Renvela] 4,000 mg PO TIDWM 01/16/19 01/16/19 Unknown hydrALAZINE [Apresoline TAB] 100 mg PO TID 01/16/19 01/16/19 01/15/19 Previous Rx's Medication Instructions Recorded Last Taken Type B Complex 11/Folic/C/Biot/Zinc 1 each PO DAILY #30 tablet 02/13/16 01/15/19 Rx [Dialyvite with Zinc Tablet] Aspirin [Aspirin BABY CHEW TAB] 81 mg PO QDAY #30 tab.chew 10/27/16 01/15/19 Rx Carvedilol [Coreg] 25 mg PO BID #60 tablet 06/23/18 01/15/19 Rx amLODIPine [Norvasc] 10 mg PO DAILY #30 tablet 06/23/18 01/15/19 Rx cloNIDine [Catapres] 0.2 mg PO TID #90 tablet 06/23/18 01/15/19 Rx traMADol [Ultram 50 MG tab] 50 mg PO Q6HR PRN #15 tablet 06/23/18 Unknown Rx Famotidine [Pepcid] 10 mg PO BID #60 tablet 01/17/19 Unknown Rx Promethazine [Phenergan] 25 mg PO Q6H PRN #20 tablet 01/17/19 Unknown Rx Dicyclomine [Bentyl] 20 mg PO QID PRN #20 tablet 01/27/19 Unknown Rx Metoclopramide HCl [Reglan TAB] 5 mg PO BID PRN #20 tablet 01/27/19 Unknown Rx Allergies Allergy/AdvReac Type Severity Reaction Status Date / Time codeine Allergy Rash Verified 05/05/15 06:48 Penicillins Allergy Hives Verified 02/12/16 17:55 ciprofloxacin [From Cipro] AdvReac severe Verified 05/05/15 06:48 nausea ciprofloxacin HCl AdvReac severe Verified 05/05/15 06:48 [From Cipro] nausea ED Review of Systems ROS: Stated complaint: N/V Other details as noted in HPI Comment: All other systems reviewed and negative Constitutional: denies: chills, fever Cardiovascular: denies: chest pain Gastrointestinal: abdominal pain, nausea, vomiting, diarrhea Neurological: denies: headache ED Past Medical Hx - Past Medical History Hx Hypertension: Yes Hx Congestive Heart Failure: No Hx Diabetes: Yes Hx Renal Disease: Yes (Renal Cancer) Hx Arthritis: Yes (bilateral knees) Hx Asthma: No Hx COPD: No Hx HIV: No Additional medical history: DIALYSIS (M-W-F) - Surgical History Hx Open Heart Surgery: No Hx Appendectomy: Yes Additional Surgical History: NODULES removed from LUNGS , SHUNT LEFT ARM, bilateral nephrectomies, HYSTERECTOMY - Social History Smoking Status: Never Smoker Substance Use Type: None - Medications Home Medications: Home Medications Medication Instructions Recorded Confirmed Last Taken Type B Complex 11/Folic/C/Biot/Zinc 1 each PO DAILY #30 tablet 02/13/16 01/16/19 01/15/19 Rx [Dialyvite with Zinc Tablet] Meclizine [Antivert] 25 mg PO TID PRN 07/05/16 01/16/19 10/21/16 History Aspirin [Aspirin BABY CHEW TAB] 81 mg PO QDAY #30 tab.chew 10/27/16 01/16/19 01/15/19 Rx Carvedilol [Coreg] 25 mg PO BID #60 tablet 06/23/18 01/16/19 01/15/19 Rx amLODIPine [Norvasc] 10 mg PO DAILY #30 tablet 06/23/18 01/16/19 01/15/19 Rx cloNIDine [Catapres] 0.2 mg PO TID #90 tablet 06/23/18 01/16/19 01/15/19 Rx traMADol [Ultram 50 MG tab] 50 mg PO Q6HR PRN #15 tablet 06/23/18 01/16/19 Unkno wn Rx Cholecalciferol (Vitamin D3) 5,000 unit PO DAILY 01/16/19 01/16/19 01/15/19 History [Vitamin D3] Cinacalcet [Sensipar] 30 mg PO TID 01/16/19 01/16/19 Unknown History Promethazine [Phenergan] 25 mg PO Q8HR PRN 01/16/19 01/16/19 Unknown History Sevelamer Carbonate [Renvela] 4,000 mg PO TIDWM 01/16/19 01/16/19 Unknown History hydrALAZINE [Apresoline TAB] 100 mg PO TID 01/16/19 01/16/19 01/15/19 History Famotidine [Pepcid] 10 mg PO BID #60 tablet 01/17/19 Unknown Rx Promethazine [Phenergan] 25 mg PO Q6H PRN #20 tablet 01/17/19 Unknown Rx Dicyclomine [Bentyl] 20 mg PO QID PRN #20 tablet 01/27/19 Unknown Rx Metoclopramide HCl [Reglan TAB] 5 mg PO BID PRN #20 tablet 01/27/19 Unknown Rx ED Physical Exam - General Limitations: No Limitations General appearance: alert, in no apparent distress - Head Head exam: Present: atraumatic, normocephalic - Eye Eye exam: Present: normal appearance - ENT ENT exam: Present: mucous membranes moist - Neck Neck exam: Present: normal inspection - Respiratory Respiratory exam: Present: normal lung sounds bilaterally. Absent: respiratory distress - Cardiovascular Cardiovascular Exam: Present: regular rate, normal rhythm - GI/Abdominal GI/Abdominal exam: Present: soft. Absent: distended, tenderness - Extremities Exam Extremities exam: Present: normal inspection - Neurological Exam Neurological exam: Present: alert, oriented X3 - Psychiatric Psychiatric exam: Present: normal affect, normal mood - Skin Skin exam: Present: warm, dry, intact, normal color ED Course Vital Signs 01/26/19 01/26/19 01/27/19 23:21 23:24 00:31 Temperature 99 F Pulse Rate 74 72 Respiratory 16 18 Rate Blood Pressure 220/82 Blood Pressure 230/86 [Left] O2 Sat by Pulse 96 Oximetry - Reevaluation(s) Reevaluation #1: 01/27/19 01:48 Notes from GI from last admission show pt has history of recurrent nausea, vomiting, chronic abdominal pain. 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 ED Medical Decision Making - Lab Data Result diagrams: 01/27/19 00:07 01/27/19 00:07 Critical care attestation.: If time is entered above; I have spent that time in minutes in the direct care of this critically ill patient, excluding procedure time. ED Disposition Clinical Impression: Hypertension, Gastroenteritis Disposition: -01 TO HOME OR SELFCARE Is pt being admited?: No Condition: Stable Instructions: Gastroenteritis (ED), Hypertension (ED) Prescriptions: Dicyclomine [Bentyl] 20 mg PO QID PRN #20 tablet PRN Reason: abdominal pain Metoclopramide HCl [Reglan TAB] 5 mg PO BID PRN #20 tablet PRN Reason: Nausea And Vomiting Referrals: [facility] MD MACEY [Primary Care Provider] - 3-5 Days PRIMARY CAREMD [Referring] - 3-5 Days Time of Disposition: 02:54
[2019-01-27 00:19] LABS: Basophils # (Auto) 0.1 K/mm3 (0.0-0.1); Basophils % (Auto) 0.8 % (0.0-1.8); Eosinophils # (Auto) 0.1 K/mm3 (0.0-0.4); Eosinophils % (Auto) 0.7 % (0.0-4.3); Hematocrit 34.3 % (30.3-42.9); Hemoglobin 11.4 gm/dl (10.1-14.3); Lymphocytes # (Auto) 0.8 K/mm3 (1.2-5.4); Lymphocytes % (Auto) 8.8 % (13.4-35.0); Mean Corpuscular HGB Conc 33 % (30-34); Mean Corpuscular Volume 94 fl (79-97); Monocytes # (Auto) 0.5 K/mm3 (0.0-0.8); Monocytes % (Auto) 5.3 % (0.0-7.3); Platelet Count 194 K/mm3 (140-440); Red Blood Count 3.66 M/mm3 (3.65-5.03); Red Cell Distribution Width 13.5 % (13.2-15.2)
[2019-01-27 00:41] LABS: Albumin 4.2 g/dL (3.9-5); Calcium 10.1 mg/dL (8.4-10.2)
--- NOTE | 2019-01-27 01:02 | XRay Report ---
PROCEDURE: XR ABD SERIES W CXR 1V TECHNIQUE: A portable upright view the chest was obtained along with 3 portable views of the abdomen and pelvis. HISTORY: vomiting, abd pain COMPARISONS: 05/07/2016 FINDINGS: The heart is mildly enlarged. The lungs are negative for infiltrates or effusions. There is a Port-A- Cath catheter along the right chest wall with the limb in the superior vena cava. The bones and soft tissues of the chest do not show any acute changes. There is a graft seen in the left axillary portio n of the chest. There are numerous surgical clips in the upper abdomen. The bowel gas pattern otherwise is unremarkab le. There are no suspicious air-fluid levels. Free air is not seen. The skeletal structures reveal ar thritic changes in the lumbar spine. IMPRESSION: No acute process in the chest. Numerous surgical clips in the upper abdomen. No acute process otherwise.. This document is electronically signed by Fuentes Valentin MD., Jan 27 2019 01:00:12 AM ET
[2019-01-27] MEDS ORDERED: REGLAN IV ONE (01:25)
[2019-01-27 03:16] VITALS: BP 134/80
== END 2019-01-27 03:55 | disposition home or self-care (01) ==
LOC: ED 22:30
DX: K52.9 Noninfective gastroenteritis and colitis, unspecified (principal); M17.0 Bilateral primary osteoarthritis of knee; E11.22 Type 2 diabetes mellitus with diabetic chronic kidney disease; I12.0 Hypertensive chronic kidney disease with stage 5 chronic kidney disease or end stage renal disease; N18.6 End stage renal disease; Z99.2 Dependence on renal dialysis; Z88.5 Allergy status to narcotic agent; Z88.0 Allergy status to penicillin; Z88.1 Allergy status to other antibiotic agents
CPT/HCPCS: 36415; 74022; 80053; 83690; 85025; 96374; 96375; 96376; 99284; J0360; J2405; J2765

== ENCOUNTER 2019-07-13 06:17 | Observation (INO) | payer MEDICARE ==
--- NOTE | 2019-07-13 07:12 | Emergency Department Report ---
ED Chest Pain HPI - General Chief Complaint: Chest Pain Stated Complaint: CP Time Seen by Provider: 07/13/19 07:07 Source: patient, EMS Mode of arrival: Stretcher Limitations: No Limitations - History of Present Illness Initial Comments: 64-year-old female with history of renal cell carcinoma, hypertension, end-stage renal disease presents to ED for evaluation. Patient states she was awakened from her sleep by palpitations. Patient states she took her blood pressure at that time and it was elevated, with systolic BP in the 200s. Patient is due for dialysis this morning. She is on dialysis schedule. Patient states she has not missed dialysis, was last dialyzed on Saturday, 3 days ago. Patient also reports diffuse chest pain across her chest. Reports she also vomited after waking. Patient has history of chronic GI issues which include chronic abdominal pain and vomiting. Patient states she is unable to take her blood pressure medications this morning due to emesis. Patient states chest pain is improved at this time. Dental Therapist:Dr Reuben PALENCIA Complaint: chest pain -: hour(s) (1) Onset: awoke with symptoms Pain Location: left chest, right chest Pain Radiation: none Severity: moderate Quality: heaviness Consistency: now resolved Improves With: nothing Worsens With: nothing re: nausea, vomting, dyspnea. denies: diaphoresis Other Symptoms: denies: cough, fever Treatments Prior to Arrival: aspirin, nitroglycerin - Related Data Home Medications Medication Instructions Recorded Confirmed Last Taken Meclizine [Antivert] 25 mg PO TID PRN 07/05/16 01/27/19 10/21/16 Cholecalciferol (Vitamin D3) 5,000 unit PO DAILY 01/16/19 01/27/19 01/15/19 [Vitamin D3 5,000 UNIT] Cinacalcet [Sensipar] 30 mg PO TID 01/16/19 01/27/19 Unknown Sevelamer Carbonate [Renvela] 4,000 mg PO TIDWM 01/16/19 01/27/19 Unknown hydrALAZINE [Apresoline TAB] 100 mg PO TID 01/16/19 01/27/19 01/15/19 Previous Rx's Medication Instructions Recorded Last Taken Type B Complex 11/Folic/C/Biot/Zinc 1 each PO DAILY #30 tablet 02/13/16 01/15/19 Rx [Dialyvite with Zinc Tablet] Aspirin [Aspirin BABY CHEW TAB] 81 mg PO QDAY #30 tab.chew 10/27/16 01/15/19 Rx Carvedilol [Coreg] 25 mg PO BID #60 tablet 06/23/18 01/15/19 Rx amLODIPine [Norvasc] 10 mg PO DAILY #30 tablet 06/23/18 01/15/19 Rx cloNIDine [Catapres] 0.2 mg PO TID #90 tablet 06/23/18 01/15/19 Rx traMADol [Ultram 50 MG tab] 50 mg PO Q6HR PRN #15 tablet 06/23/18 Unknown Rx Famotidine [Pepcid] 10 mg PO BID #60 tablet 01/17/19 Unknown Rx Promethazine [Phenergan] 25 mg PO Q6H PRN #20 tablet 01/17/19 Unknown Rx Dicyclomine [Bentyl] 20 mg PO QID PRN #20 tablet 01/27/19 Unknown Rx Metoclopramide HCl [Reglan TAB] 5 mg PO BID PRN #20 tablet 01/29/19 Unknown Rx Allergies Allergy/AdvReac Type Severity Reaction Status Date / Time codeine Allergy Rash Verified 05/05/15 06:48 Penicillins Allergy Hives Verified 02/12/16 17:55 ciprofloxacin [From Cipro] AdvReac severe Verified 05/05/15 06:48 nausea ciprofloxacin HCl AdvReac severe Verified 05/05/15 06:48 [From Cipro] nausea Heart Score - HEART Score History: Slightly suspicious EKG: Normal Age: 45-65 Risk factors: 1-2 risk factors Troponin: < normal limit HEART Score: 2 ED Review of Systems ROS: Stated complaint: CP Other details as noted in HPI Comment: All other systems reviewed and negative Constitutional: denies: chills, fever Respiratory: shortness of breath Cardiovascular: chest pain, palpitations Gastrointestinal: nausea, vomiting. denies: abdominal pain, diarrhea ED Past Medical Hx - Past Medical History Previous Medical History?: Yes Hx Hypertension: Yes Hx Congestive Heart Failure: No Hx Diabetes: Yes Hx Renal Disease: Yes (Renal Cancer; mets to lungs and pancreas) Hx Arthritis: Yes (bilateral knees) Hx Asthma: No Hx COPD: No Hx HIV: No Additional medical history: DIALYSIS (M-W-F) - Surgical History Hx Open Heart Surgery: No Hx Appendectomy: Yes Additional Surgical History: NODULES removed from LUNGS , SHUNT LEFT ARM, bilateral nephrectomies, HYSTERECTOMY - Social History Smoking Status: Never Smoker Substance Use Type: None - Medications Home Medications: Home Medications Medication Instructions Recorded Confirmed Last Taken Type B Complex 11/Folic/C/Biot/Zinc 1 each PO DAILY #30 tablet 02/13/16 01/27/19 01/15/19 Rx [Dialyvite with Zinc Tablet] Meclizine [Antivert] 25 mg PO TID PRN 07/05/16 01/27/19 10/21/16 History Aspirin [Aspirin BABY CHEW TAB] 81 mg PO QDAY #30 tab.chew 10/27/16 01/27/19 01/15/19 Rx Carvedilol [Coreg] 25 mg PO BID #60 tablet 06/23/18 01/27/19 01/15/19 Rx amLODIPine [Norvasc] 10 mg PO DAILY #30 tablet 06/23/18 01/27/19 01/15/19 Rx cloNIDine [Catapres] 0.2 mg PO TID #90 tablet 06/23/18 01/27/19 01/15/19 Rx traMADol [Ultram 50 MG tab] 50 mg PO Q6HR PRN #15 tablet 06/23/18 01/27/19 Unknown Rx Cholecalciferol (Vitamin D3) 5,000 unit PO DAILY 01/16/19 01/27/19 01/15/19 History [Vitamin D3 5,000 UNIT] Cinacalcet [Sensipar] 30 mg PO TID 01/16/19 01/27/19 Unknown History Sevelamer Carbonate [Renvela] 4,000 mg PO TIDWM 01/16/19 01/27/19 Unknown History hydrALAZINE [Apresoline TAB] 100 mg PO TID 01/16/19 01/27/19 01/15/19 History Famotidine [Pepcid] 10 mg PO BID #60 tablet 01/17/19 01/27/19 Unknown Rx Promethazine [Phenergan] 25 mg PO Q6H PRN #20 tablet 01/17/19 01/27/19 Unknown Rx Dicyclomine [Bentyl] 20 mg PO QID PRN #20 tablet 01/27/19 01/27/19 Unknown Rx Metoclopramide HCl [Reglan TAB] 5 mg PO BID PRN #20 tablet 01/29/19 Unknown Rx ED Physical Exam - General Limitations: No Limitations General appearance: alert, in no apparent distress - Head Head exam: Present: atraumatic, normocephalic - Eye Eye exam: Present: normal appearance, PERRL, EOMI - ENT ENT exam: Present: mucous membranes moist - Neck Neck exam: Present: normal inspection - Respiratory Respiratory exam: Present: normal lung sounds bilaterally. Absent: respiratory distress - Cardiovascular Cardiovascular Exam: Present: regular rate, normal rhythm - GI/Abdominal GI/Abdominal exam: Present: soft. Absent: distended, tenderness - Extremities Exam Extremities exam: Present: normal inspection, pedal edema. Absent: calf tenderness - Neurological Exam Neurological exam: Present: alert, oriented X3 - Psychiatric Psychiatric exam: Present: normal affect, normal mood - Skin Skin exam: Present: warm, dry, intact, normal color ED Course Vital Signs 07/13/19 07/13/19 07/13/19 06:47 07:03 07:46 Temperature 98.0 F Pulse Rate 80 79 Respiratory 12 16 18 Rate Blood Pressure 188/73 Blood Pressure 208/86 [Right] O2 Sat by Pulse 96 96 96 Oximetry 07/13/19 07/13/19 07/13/19 07:47 08:42 08:43 Temperature Pulse Rate 79 79 Respiratory 18 Rate Blood Pressure 198/77 Blood Pressure 198/77 [Right] O2 Sat by Pulse Oximetry 07/13/19 07/13/19 07/13/19 08:47 09:02 09:27 Temperature 98.3 F Pulse Rate 82 Respiratory Rate Blood Pressure Blood Pressure 204/82 187/98 [Right] O2 Sat by Pulse Oximetry 07/13/19 09:54 Temperature Pulse Rate Respiratory Rate Blood Pressure 210/86 Blood Pressure [Right] O2 Sat by Pulse Oximetry - Consultations Consultation #1: 07/13/19 08:27 Spoke w/ Dr Calzada. Will place orders for dialysis. ED Medical Decision Making - Lab Data Result diagrams: 07/13/19 06:59 07/13/19 06:59 - EKG Data -: EKG Interpreted by Ca EKG shows normal: sinus rhythm, axis, intervals, QRS complexes Rate: normal - EKG Data When compared to previous EKG there are: other (inferolateral T wave inversions improved compared to January 2019) Interpretation: no acute changes, LVH - Radiology Data Radiology results: report reviewed, image reviewed - Medical Decision Making - EKG unrenarkable, troponin normal, HR normal - no emesis in ED - potassium normal, no edema on CXR - spoke w/ oncology pharmacist, will place orders for dialysis - spoke to hospitalist for admission - Differential Diagnosis HTN emergency, pulm edema, hyperkalemia Critical Care Time: Yes Critical care time in (mins) excluding proc time.: 35 Critical care attestation.: If time is entered above; I have spent that time in minutes in the direct care of this critically ill patient, excluding procedure time. Critical Care Time: 35 minutes ED Disposition Clinical Impression: Uncontrolled hypertension, Chest pain, End stage renal disease Disposition: OP ADMIT IP TO THIS HOSP Is pt being admited?: Yes Condition: Stable Time of Disposition: 08:28
[2019-07-13] MEDS ORDERED: ONDANSETRON 4 MG/2 ML INJ IV ONE (07:20)
[2019-07-13 07:36] LABS: BUN/Creatinine Ratio 6; Blood Urea Nitrogen 56 mg/dL (7-17); Hemolysis Index 32
--- NOTE | 2019-07-13 07:40 | XRay Report ---
CHEST 1 VIEW INDICATION / CLINICAL INFORMATION: Chest Pain. COMPARISON: 01/27/2019 FINDINGS: SUPPORT DEVICES: No significant change in position. HEART / MEDIASTINUM: The cardiomediastinal silhouette has not significantly changed in the interim. LUNGS / PLEURA: Mild increased pulmonary vascular congestion without severe cardiopulmonary edema or pleural effusions. Signer Name: Daniel Hallman MD Signed: 07/13/2019 7:35 AM Workstation Name: [id number]
[2019-07-13 07:43] LABS: Hematocrit 35.3 % (30.3-42.9); Hemoglobin 11.7 gm/dl (10.1-14.3); Mean Corpuscular HGB Conc 33 % (30-34); Mean Corpuscular Volume 94 fl (79-97); Red Blood Count 3.77 M/mm3 (3.65-5.03); Red Cell Distribution Width 15.3 % (13.2-15.2)
[2019-07-13] MEDS ORDERED: LABETALOL 20 MG/4 ML INJ IV ONE (08:29)
[2019-07-13 08:54] LABS: Anisocytosis 1+; Band Neutrophils # (Manual) 0.2 K/mm3; Basophils % (Manual) 0 % (0.0-1.8); Platelet Estimate Consistent w Auto; Stomatocytes Rare; Total Cells Counted 100
[2019-07-13 08:55] LABS: Platelet Count 119 K/mm3 (140-440)
[2019-07-13] MEDS ORDERED: METOCLOPRAMIDE HCL 5 MG PO PRN (09:00)
--- NOTE | 2019-07-13 09:00 | History and Physical Report ---
History of Present Illness Date of examination: 07/13/19 Date of admission: 07/13/19 08:25 Chief complaint: Shortness of breath with chest tightness History of present illness: The pt is a 64 YO female with a past medical history of renal cell carcinoma s/p bilateral nephrectomy, on hemodialysis, hypertension presented with c/o chest pain and palpitations. Patient states she was awakened from her sleep by palpitations. She checked her BP and noted SBP to be in 200s and thus she decided to come to ER. She also c/o chest pain as an intermittent, nonradiating, nonexertional midsternal heaviness which lasted until she received nitro and ASA in ED. She also c/o a bout of vomiting and SOB. She denies any diaphoresis, dizziness or syncope. She reports compliance with dialysis. Patient was admitted to hospital with further Mx. Past medical History: h/o renal cancer status post nephrectomy and chemotherapy, end-stage renal disease, dm, MORBID OBESITY, Uncontrolled HTN Past surgical History: s/p jenny nephrectomy, left arm dialysis fistula placement Social History: Lives with family, denies any smoking, drinking and elicit drug abuse. Family History: Significant for diabetes mellitus, hypertension and chronic kidney disease Review of System: Constitutional: no fever, no chills, no weight loss Ears, eyes, nose, mouth and throat: no nasal congestion, no nasal discharge, no sinus pressure, no vision change, no red eye. Neck: No neck pain or rigidity. Cardiovascular: + chest pain, no orthopnea, + palpitations, no leg swelling Respiratory: + shortness of breath, no cough, no congestion, no wheezing Gastrointestinal: no abdominal pain, + nausea, + vomiting Genitourinary : no dysuria, no hematuria Musculoskeletal: no joint swelling or muscle ache Integumentary: no rash, no pruritis Neurological: no parathesias, no numbness, no tingling Endocrine: no cold or heat intolerance, no polyuria or polydipsia Hematologic/Lymphatic: no easy bruising, no easy bleeding, no gland swelling Allergic/Immunologic: no urticaria, no angioedema. Medications and Allergies Allergies Allergy/AdvReac Type Severity Reaction Status Date / Time codeine Allergy Rash Verified 05/05/15 06:48 Penicillins Allergy Hives Verified 02/12/16 17:55 ciprofloxacin [From Cipro] AdvReac severe Verified 05/05/15 06:48 nausea ciprofloxacin HCl AdvReac severe Verified 05/05/15 06:48 [From Cipro] nausea Home Medications Medication Instructions Recorded Confirmed Last Taken Type B Complex 11/Folic/C/Biot/Zinc 1 each PO DAILY #30 tablet 02/13/16 01/27/19 01/15/19 Rx [Dialyvite with Zinc Tablet] Meclizine [Antivert] 25 mg PO TID PRN 07/05/16 01/27/19 10/21/16 History Aspirin [Aspirin BABY CHEW TAB] 81 mg PO QDAY #30 tab.chew 10/27/16 01/27/19 01/15/19 Rx Carvedilol [Coreg] 25 mg PO BID #60 tablet 06/23/18 01/27/19 01/15/19 Rx amLODIPine [Norvasc] 10 mg PO DAILY #30 tablet 06/23/18 01/27/19 01/15/19 Rx cloNIDine [Catapres] 0.2 mg PO TID #90 tablet 06/23/18 01/27/19 01/15/19 Rx traMADol [Ultram 50 MG tab] 50 mg PO Q6HR PRN #15 tablet 06/23/18 01/27/19 Unknown Rx Cholecalciferol (Vitamin D3) 5,000 unit PO DAILY 01/16/19 01/27/19 01/15/19 History [Vitamin D3 5,000 UNIT] Cinacalcet [Sensipar] 30 mg PO TID 01/16/19 01/27/19 Unknown History Sevelamer Carbonate [Renvela] 4,000 mg PO TIDWM 01/16/19 01/27/19 Unknown History hydrALAZINE [Apresoline TAB] 100 mg PO TID 01/16/19 01/27/19 01/15/19 History Famotidine [Pepcid] 10 mg PO BID #60 tablet 01/17/19 01/27/19 Unknown Rx Promethazine [Phenergan] 25 mg PO Q6H PRN #20 tablet 01/17/19 01/27/19 Unknown Rx Dicyclomine [Bentyl] 20 mg PO QID PRN #20 tablet 01/27/19 01/27/19 Unknown Rx Metoclopramide HCl [Reglan TAB] 5 mg PO BID PRN #20 tablet 01/29/19 Unknown Rx Exam - Constitutional Vitals: Temp Pulse Resp BP Pulse Ox 98.3 F 79 18 198/77 96 07/13/19 08:47 07/13/19 08:43 07/13/19 07:47 07/13/19 08:43 07/13/19 07:46 General appearance: Present: no acute distress, obese - EENT Eyes: Present: PERRL ENT: hearing intact, clear oral mucosa - Neck Neck: Present: supple, normal ROM - Respiratory Respiratory effort: normal Respiratory: bilateral: CTA - Cardiovascular Heart Sounds: Present: S1 & S2. Absent: rub, click - Extremities Extremities: pulses symmetrical, No edema Peripheral Pulses: within normal limits - Abdominal General gastrointestinal: Present: soft, non-tender, non-distended, normal bowel sounds - Integumentary Integumentary: Present: clear, warm, dry - Musculoskeletal Musculoskeletal: gait normal, strength equal bilaterally - Psychiatric Psychiatric: appropriate mood/affect, intact judgment & insight - Neurologic Neurologic: CNII-XII intact, moves all extremities Results - Labs CBC & Chem 7: 07/13/19 06:59 07/13/19 06:59 Labs: Abnormal lab results 07/13/19 07/13/19 Range/Units 06:59 06:59 WBC 11.3 H (4.5-11.0) K/mm3 RDW 15.3 H (13.2-15.2) % Plt Count 119 L (140-440) K/mm3 Seg Neuts % (Manual) 72.0 H (40.0-70.0) % Seg Neutrophils # Man 8.1 H (1.8-7.7) K/mm3 Chloride 97.5 L (98-107) mmol/L Carbon Dioxide 20 L (22-30) mmol/L BUN 56 H (7-17) mg/dL Creatinine 9.2 H (0.7-1.2) mg/dL Glucose 171 H (65-100) mg/dL Calcium 11.0 H (8.4-10.2) mg/dL - Imaging and Cardiology Chest x-ray: report reviewed Assessment and Plan Respiratory distress with the volume overload End-stage renal disease on dialysis Saturday and Saturday - Consulted nephrology for emergent dialysis - Continue to monitor telemetry, supplemental O2 as needed History of renal cancer status post nephrectomy, continue to monitor clinically, has outpatient follow-up with Dr. Miranda Malignant hypertension, BP was 208/86 on admission - We'll place on home medications, also under IV hydralazine as needed to keep SBP less than 160 Diabetes mellitus type 2, dietary controlled - monitor blood glucose with SSI, place on consistent carb diet - Morbid obesity, diet and exercise recommendation on clinically stable Chest pain, likely atypical -Due to uncontrolled blood pressure volume overload -Troponin trended normal -Continue aspirin and statin -Cardiologic consultation -DVT prophylaxis, with heparin
[2019-07-13] MEDS ORDERED: DICYCLOMINE 20 MG TAB PO PRN (09:30)
[2019-07-13] MEDS ORDERED: METOCLOPRAMIDE 10 MG TAB ONE (09:52)
[2019-07-13] MEDS ORDERED: amLODIPine 10 MG TAB ONE (09:53)
[2019-07-13] MEDS ORDERED: CARVEDILOL 25 MG TAB ONE (09:53)
[2019-07-13] MEDS: CARVEDILOL 25 MG TAB PO SCH ×2 (09:54→21:03)
[2019-07-13] MEDS: METOCLOPRAMIDE 10 MG TAB PO PRN ×2 (09:54→20:41)
[2019-07-13] MEDS: amLODIPine 10 MG TAB PO SCH (09:54)
[2019-07-13] MEDS ORDERED: CHOLECALCIFEROL (VIT D3) 1000 UNIT TAB PO SCH (10:00)
[2019-07-13] MEDS ORDERED: NON-FORMULARY EACH (B Complex 11/Folic/C/Biot/Zinc [Dialyvite With Zinc Tablet] 1 EACH) PO SCH (10:00)
[2019-07-13] MEDS ORDERED: hydrALAZINE 20 MG/1 ML INJ IV PRN (11:00)
--- NOTE | 2019-07-13 13:26 | Consultation ---
History of Present Illness Consult date: 07/13/19 Requesting physician: ISAIAS JOHNSTON Consult reason: chest pain History of present illness: The pt is a 64 YO female with a past medical history of renal cell carcinoma s/p bilateral nephrectomy, on hemodialysis, hypertension. She is followed in our office by Dr. Jimenez. She presented with c/o chest pain and palpitations. Patient states she was awakened from her sleep by palpitations. She was sleeping this morning when her symptoms awoke her from sleep. She checked her BP and noted SBP to be in 200s and thus she decided to seek medical treatment. She describes her chest pain as an intermittent, nonradiating, nonexertional midsternal heaviness which lasted until she received nitro and ASA in ED. She also c/o a bout of vomiting and SOB. She denies any diaphoresis, dizziness or syncope. She admits that she ran out of clonidine and norvasc several days ago. She reports compliance with dialysis. Echo done 04/2018 showed EF 55-60%, grade 2 diastolic dysfunction, LA severely enlarged, trace MR. Past History Past Medical History: other (as per HPI) Medications and Allergies Allergies Allergy/AdvReac Type Severity Reaction Status Date / Time codeine Allergy Rash Verified 05/05/15 06:48 Penicillins Allergy Hives Verified 02/12/16 17:55 ciprofloxacin [From Cipro] AdvReac severe Verified 05/05/15 06:48 nausea ciprofloxacin HCl AdvReac severe Verified 05/05/15 06:48 [From Cipro] nausea Home Medications Medication Instructions Recorded Confirmed Last Taken Type B Complex 11/Folic/C/Biot/Zinc 1 each PO DAILY #30 tablet 02/13/16 01/27/19 01/15/19 Rx [Dialyvite with Zinc Tablet] Meclizine [Antivert] 25 mg PO TID PRN 07/05/16 01/27/19 10/21/16 History Aspirin [Aspirin BABY CHEW TAB] 81 mg PO QDAY #30 tab.chew 10/27/16 01/27/19 01/15/19 Rx Carvedilol [Coreg] 25 mg PO BID #60 tablet 06/23/18 01/27/19 01/15/19 Rx amLODIPine [Norvasc] 10 mg PO DAILY #30 tablet 06/23/18 01/27/19 01/15/19 Rx cloNIDine [Catapres] 0.2 mg PO TID #90 tablet 06/23/18 01/27/19 01/15/19 Rx traMADol [Ultram 50 MG tab] 50 mg PO Q6HR PRN #15 tablet 06/23/18 01/27/19 Unknown Rx Cholecalciferol (Vitamin D3) 5,000 unit PO DAILY 01/16/19 01/27/19 01/15/19 History [Vitamin D3 5,000 UNIT] Cinacalcet [Sensipar] 30 mg PO TID 01/16/19 01/27/19 Unknown History Sevelamer Carbonate [Renvela] 4,000 mg PO TIDWM 01/16/19 01/27/19 Unknown History hydrALAZINE [Apresoline TAB] 100 mg PO TID 01/16/19 01/27/19 01/15/19 History Famotidine [Pepcid] 10 mg PO BID #60 tablet 01/17/19 01/27/19 Unknown Rx Promethazine [Phenergan] 25 mg PO Q6H PRN #20 tablet 01/17/19 01/27/19 Unknown Rx Dicyclomine [Bentyl] 20 mg PO QID PRN #20 tablet 01/27/19 01/27/19 Unknown Rx Metoclopramide HCl [Reglan TAB] 5 mg PO BID PRN #20 tablet 01/29/19 Unknown Rx Active Meds: Active Medications Amlodipine Besylate (Norvasc) 10 mg PO DAILY [facility] Last Admin: 07/13/19 09:54 Dose: 10 mg Documented by: Aspirin (Baby Aspirin) 81 mg PO QDAY [facility] Carvedilol (Coreg) 25 mg PO BID [facility] Last Admin: 07/13/19 09:54 Dose: 25 mg Documented by: Cinacalcet (Sensipar) 30 mg PO TID [facility] Clonidine HCl (Catapres) 0.2 mg PO TID [facility] Dicyclomine HCl (Bentyl) 20 mg PO QID PRN PRN Reason: abdominal pain Hydralazine HCl (Apresoline) 100 mg PO TID [facility] Hydralazine HCl (Apresoline) 10 mg IV Q30MIN PRN PRN Reason: Hypertension Metoclopramide HCl (Reglan) 5 mg PO BID PRN PRN Reason: Nausea And Vomiting Last Admin: 07/13/19 09:54 Dose: 5 mg Documented by: Miscellaneous Medication (Cholecalciferol (Vitamin D3) [Vitamin D3 5,000 Unit]) 5,000 unit PO DAILY [facility] Sevelamer Carbonate (Renvela) 4,000 mg PO TIDWM [facility] Vitamin B Complex/Vitamin C (Allbee With C) 1 each PO QDAY [facility] Review of Systems Constitutional: no weight loss, no weight gain, no fever, no chills, no sweats Ears, nose, mouth and throat: no ear pain, no nose pain, no sinus pressure, no sinus pain Cardiovascular: chest pain, palpitations, shortness of breath, high blood pressure, no orthopnea, no rapid/irregular heart beat, no edema, no syncope, no lightheadedness, no dyspnea on exertion, no leg edema Respiratory: shortness of breath, no cough, no dyspnea on exertion, no congestion, no wheezing, no pain on inspiration Gastrointestinal: no abdominal pain, no nausea, no vomiting, no diarrhea, no constipation, no change in bowel habits Genitourinary Female: no pelvic pain, no flank pain, no dysuria, no urinary frequency, no urgency Musculoskeletal: no neck stiffness, no neck pain, no shooting arm pain, no arm numbness/tingling, no low back pain, no shooting leg pain Integumentary: no rash, no pruritis, no redness, no sores, no wounds Neurological: no head injury, no paralysis, no weakness, no parathesias, no numbness, no tingling, no seizures, no syncope Psychiatric: no anxiety Endocrine: no cold intolerance, no heat intolerance Hematologic/Lymphatic: no easy bruising, no easy bleeding Allergic/Immunologic: no urticaria, no wheezing Physical Examination Vital Signs Temp Pulse Resp BP Pulse Ox 98.0 F 80 12 188/73 96 07/13/19 06:47 07/13/19 06:47 07/13/19 06:47 07/13/19 06:47 07/13/19 06:47 General appearance: no acute distress HEENT: Positive: PERRL, Normocephaly, Mucus Membranes Moist Neck: Positive: neck supple, trachea midline Cardiac: Positive: Reg Rate and Rhythm, S1/S2 Lungs: Positive: Decreased Breath Sounds Neuro: Positive: Grossly Intact Abdomen: Negative: Tender Skin: Negative: Rash Musculoskeletal: No Pain Extremities: Absent: edema Results 07/13/19 06:59 07/13/19 06:59 CBC 07/13/19 Range/Units 06:59 WBC 11.3 H (4.5-11.0) K/mm3 RBC 3.77 (3.65-5.03) M/mm3 Hgb 11.7 (10.1-14.3) gm/dl Hct 35.3 (30.3-42.9) % Plt Count 119 L (140-440) K/mm3 Lymph # Circus Trainer Zavala # Circus Trainer Eos # Circus Trainer Baso # Circus Trainer Comprehensive Metabolic Panel 07/13/19 Range/Units 06:59 Sodium 139 (137-145) mmol/L Potassium 4.8 (3.6-5.0) mmol/L Chloride 97.5 L (98-107) mmol/L Carbon Dioxide 20 L (22-30) mmol/L BUN 56 H (7-17) mg/dL Creatinine 9.2 H (0.7-1.2) mg/dL Glucose 171 H (65-100) mg/dL Calcium 11.0 H (8.4-10.2) mg/dL - Imaging and Cardiology Echo: report reviewed (04/2018 showed EF 55-60%, grade 2 diastolic dysfunction, LA severely enlarged, trace MR. ) EKG: report reviewed, image reviewed EKG interpretations - Telemetry EKG Rhythm: Sinus Rhythm - EKG Sinus rhythms and dysrhythmias: sinus rhythm Assessment and Plan ECG with NAF, trop negative for AMI x 1 set. Obtain second set of [place]il[place] and plan for lexiscan MPI stress test in AM. NPO after MN. Obtain echo. Optimize BPs. The patient has been seen in conjunction with Dr. SALINAS Garza who agrees with the assessment and plan of care. - Patient Problems (1) Chest pain Current Visit: Yes Status: Acute (2) Uncontrolled hypertension Current Visit: Yes Status: Acute (3) ESRD (end stage renal disease) Current Visit: Yes Status: Chronic
--- NOTE | 2019-07-13 14:21 | Consultation ---
History of Present Illness - History of Present Illness 64 year old lady with medical history significant for hypertension, diabetes mellitus type 2, renal cell carcinoma involving bilateral kidneys status post bilateral nephrectomy currently on dialysis at [facility] dialysis unit [facility] on Saturday via a left arm AV fistula admitted with complaints of worsening nausea and vomiting unable to keep any food down or any medications. [facility]She has had elevated blood pressurebut denies any lower extremity edema. Denies any orthopnea PND. She reports her target weight is 94.5 kg. She denies any neuropathy or known retinopathy related to diabetes Past History Past Medical History: other (as per HPI) Medications and Allergies Allergies Allergy/AdvReac Type Severity Reaction Status Date / Time codeine Allergy Rash Verified 05/05/15 06:48 Penicillins Allergy Hives Verified 02/12/16 17:55 ciprofloxacin [From Cipro] AdvReac severe Verified 05/05/15 06:48 nausea ciprofloxacin HCl AdvReac severe Verified 05/05/15 06:48 [From Cipro] nausea Home Medications Medication Instructions Recorded Confirmed Last Taken Type B Complex 11/Folic/C/Biot/Zinc 1 each PO DAILY #30 tablet 02/13/16 01/27/19 01/15/19 Rx [Dialyvite with Zinc Tablet] Meclizine [Antivert] 25 mg PO TID PRN 07/05/16 01/27/19 10/21/16 History Aspirin [Aspirin BABY CHEW TAB] 81 mg PO QDAY #30 tab.chew 10/27/16 01/27/19 01/15/19 Rx Carvedilol [Coreg] 25 mg PO BID #60 tablet 06/23/18 01/27/19 01/15/19 Rx amLODIPine [Norvasc] 10 mg PO DAILY #30 tablet 06/23/18 01/27/19 01/15/19 Rx cloNIDine [Catapres] 0.2 mg PO TID #90 tablet 06/23/18 01/27/19 01/15/19 Rx traMADol [Ultram 50 MG tab] 50 mg PO Q6HR PRN #15 tablet 06/23/18 01/27/19 Unknown Rx Cholecalciferol (Vitamin D3) 5,000 unit PO DAILY 01/16/19 01/27/19 01/15/19 History [Vitamin D3 5,000 UNIT] Cinacalcet [Sensipar] 30 mg PO TID 01/16/19 01/27/19 Unknown History Sevelamer Carbonate [Renvela] 4,000 mg PO TIDWM 01/16/19 01/27/19 Unknown History hydrALAZINE [Apresoline TAB] 100 mg PO TID 01/16/19 01/27/19 01/15/19 History Famotidine [Pepcid] 10 mg PO BID #60 tablet 01/17/19 01/27/19 Unknown Rx Promethazine [Phenergan] 25 mg PO Q6H PRN #20 tablet 01/17/19 01/27/19 Unknown Rx Dicyclomine [Bentyl] 20 mg PO QID PRN #20 tablet 01/27/19 01/27/19 Unknown Rx Metoclopramide HCl [Reglan TAB] 5 mg PO BID PRN #20 tablet 01/29/19 Unknown Rx Active Meds: Active Medications Amlodipine Besylate (Norvasc) 10 mg PO DAILY [facility] Last Admin: 07/13/19 09:54 Dose: 10 mg Documented by: Aspirin (Baby Aspirin) 81 mg PO QDAY [facility] Carvedilol (Coreg) 25 mg PO BID [facility] Last Admin: 07/13/19 09:54 Dose: 25 mg Documented by: Cinacalcet (Sensipar) 30 mg PO TID [facility] Clonidine HCl (Catapres) 0.2 mg PO TID [facility] Dicyclomine HCl (Bentyl) 20 mg PO QID PRN PRN Reason: abdominal pain Hydralazine HCl (Apresoline) 100 mg PO TID [facility] Hydralazine HCl (Apresoline) 10 mg IV Q30MIN PRN PRN Reason: Hypertension Metoclopramide HCl (Reglan) 5 mg PO BID PRN PRN Reason: Nausea And Vomiting Last Admin: 07/13/19 09:54 Dose: 5 mg Documented by: Miscellaneous Medication (Cholecalciferol (Vitamin D3) [Vitamin D3 5,000 Unit]) 5,000 unit PO DAILY [facility] Sevelamer Carbonate (Renvela) 4,000 mg PO TIDWM [facility] Vitamin B Complex/Vitamin C (Allbee With C) 1 each PO QDAY [facility] Review of Systems Constitutional: anorexia, fatigue, no fever Ears, nose, mouth and throat: no deferred, no ear pain Cardiovascular: no orthopnea Respiratory: no cough, no cough with sputum Gastrointestinal: nausea, vomiting Genitourinary Female: no dyspareunia, no dysmenorrhea Musculoskeletal: no neck stiffness, no neck pain Integumentary: no deferred, no rash Neurological: no head injury, no transient paralysis Psychiatric: no anxiety, no memory loss Endocrine: no cold intolerance, no heat intolerance Hematologic/Lymphatic: no easy bruising, no easy bleeding Allergic/Immunologic: no urticaria, no allergic rhinitis Exam - Vital Signs Vital signs: Vital Signs Temp Pulse Resp BP Pulse Ox 98.0 F 80 12 188/73 96 07/13/19 06:47 07/13/19 06:47 07/13/19 06:47 07/13/19 06:47 07/13/19 06:47 - General Appearance General appearance: well-developed, well-nourished EENT: ATNC, PERRL, mucous membranes moist Neck: Present: neck supple Respiratory: Clear to Ascultation Heart: regular, S1S2 Gastrointestinal: Present: normal, normoactive bowel sounds Integumentary: no rash Neurologic: no focal deficit, alert and oriented x3, CN 3-12 intact Psychiatric: mood/affect appropriate Results - Lab Results 07/13/19 06:59 07/13/19 06:59 Most recent lab results Calcium 11.0 mg/dL (8.4-10.2) H 07/13/19 06:59 - Image Kidney/bladder ultrasound: image reviewed (I reviewed ) Assessment and Plan - Patient Problems (1) ESRD (end stage renal disease) Current Visit: Yes Status: Chronic Plan to address problem: ESRD on hemodialysis access: left arm AVF Will initiate HD. (2) Intractable vomiting Current Visit: No Status: Acute Qualifiers: Vomiting type: unspecified Nausea presence: with nausea Qualified Code(s): R11.2 - Nausea with vomiting, unspecified Plan to address problem: Intractable vomitting. - history of pancreatic lesion and bilateral renal cell carcinoma - continue antiemetics (3) Anemia in ESRD (end-stage renal disease) Current Visit: No Status: Chronic Plan to address problem: Mild anemia hb: 11.7g/dl monitor CBC. (4) Hypertension Current Visit: No Status: Chronic Qualifiers: Hypertension type: essential hypertension Qualified Code(s): I10 - Essential (primary) hypertension Plan to address problem: HTN: uncontrolled. Will use prn IV medications for now for elevated BP resume oral medications as tolerated ultrafiltration with HD.
[2019-07-13] MEDS: ASPIRIN 81 MG TAB CHEW PO SCH (19:27)
[2019-07-13] MEDS: SEVELAMER CARBONATE 800 MG TAB PO SCH ×2 (19:27→19:28)
[2019-07-13] MEDS: CINACALCET 30 MG TAB PO SCH ×2 (19:28→20:41)
[2019-07-13] MEDS: cloNIDine 0.2 MG TAB PO SCH ×2 (19:28→20:36)
[2019-07-13] MEDS: hydrALAZINE 100 MG TAB PO SCH ×2 (19:28→20:36)
[2019-07-13] MEDS: B COMPLEX W/VITAMIN C TAB PO SCH (20:42)
[2019-07-13] MEDS: HEPARIN 5,000 UNIT/1 ML VIAL SUB-Q SCH (21:04)
[2019-07-13] MEDS ORDERED: diphenhydrAMINE 25 MG CAP PO PRN (22:21)
[2019-07-14] MEDS ORDERED: REGADENOSON 0.4 MG/5 ML INJ IV ONE ×2 (08:44→08:54)
[2019-07-14] MEDS: hydrALAZINE 100 MG TAB PO SCH ×2 (08:51→16:20)
[2019-07-14] MEDS: CINACALCET 30 MG TAB PO SCH ×2 (08:52→16:20)
[2019-07-14] MEDS: cloNIDine 0.2 MG TAB PO SCH ×2 (08:52→16:20)
[2019-07-14] MEDS: SEVELAMER CARBONATE 800 MG TAB PO SCH ×3 (08:52→16:19)
[2019-07-14] MEDS ORDERED: LORazepam 2 MG/ML VIAL IV NR (08:54)
[2019-07-14] MEDS ORDERED: LORazepam 2 MG/ML VIAL ONE (09:06)
[2019-07-14] MEDS ORDERED: FLU VACC QUAD 2019-20 (3 YR UP)/PF 60 MCG/0.5 ML SYRINGE IM ONE (12:00)
[2019-07-14] MEDS: CARVEDILOL 25 MG TAB PO SCH (12:29)
[2019-07-14] MEDS: amLODIPine 10 MG TAB PO SCH (12:29)
[2019-07-14] MEDS: ASPIRIN 81 MG TAB CHEW PO SCH (12:29)
[2019-07-14] MEDS: B COMPLEX W/VITAMIN C TAB PO SCH (12:30)
[2019-07-14] MEDS: HEPARIN 5,000 UNIT/1 ML VIAL SUB-Q SCH (12:32)
--- NOTE | 2019-07-14 12:54 | Treadmill Report ---
NUCLEAR STRESS TEST The patient is brought to the nuclear lab and underwent a Lexiscan stress test. The patient tolerated the procedure well. Post-stress images reveal reduced perfusion in the anterolateral wall with moderate improvement during rest. This abnormality appears to be mild to moderate. Accompanying gated study shows good systolic function with a calculated ejection fraction of 53%. Mild hypokinesis of the anterolateral wall is noted. IMPRESSION: 1. Mild anterolateral reversibility suggestive of ischemia. 2. Good systolic function with calculated ejection fraction of 53%, with mild hypokinesis of the anterolateral wall. 3. Suggest clinical correlation. JOB# [id number] CODY/MACRINA LEDEZMA
--- NOTE | 2019-07-14 14:06 | Progress Note ---
Assessment and Plan S/p lexiscan MPI stress test this morning which showed mild ischemia, normal EF. Chest pain currently resolved. AMI ruled out. Will optimize anti-ischemic regimen and consider LHC as OP if chest pain recurs despite optimal medical therapy. Echo reviewed - EF 50-55%, mild LVH, no significant abnormalities. Currently stable cardiac status. Pt may discharge home from cardiology standpoint. Recommend follow up in our office with Dr. Jimenez within 1-2 weeks of discharge ([phone]). The patient has been seen in conjunction with Dr. SALINAS Garza who agrees with the assessment and plan of care. - Patient Problems (1) Chest pain Current Visit: Yes Status: Acute (2) Abnormal stress test Current Visit: Yes Status: Chronic (3) Uncontrolled hypertension Current Visit: Yes Status: Chronic (4) ESRD (end stage renal disease) Current Visit: Yes Status: Chronic Subjective Date of service: 07/14/19 Principal diagnosis: cp; htn Interval history: pt for stress test today, no current complaints. Objective Last Vital Signs Temp 98.9 F 07/14/19 07:52 Pulse 73 07/14/19 12:29 Resp 18 07/14/19 07:52 BP 196/88 07/14/19 12:29 Pulse Ox 94 07/14/19 07:52 - Physical Examination General: No Apparent Distress HEENT: Positive: PERRL, Normocephaly, Mucus Membranes Moist Neck: Positive: neck supple Cardiac: Positive: Reg Rate and Rhythm, S1/S2 Lungs: Positive: clear to auscultation Neuro: Positive: Grossly Intact Abdomen: Negative: Tender Skin: Negative: Rash Musculoskeletal: No Pain Extremities: Absent: edema - Imaging and Cardiology EKG: report reviewed, image reviewed Echo: report reviewed (04/2018 showed EF 55-60%, grade 2 diastolic dysfunction, LA severely enlarged, trace MR. ) - EKG Sinus rhythms and dysrhythmias: sinus rhythm
--- NOTE | 2019-07-14 14:13 | Discharge Summary ---
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 She underwent a thorough cardiac evaluation, including Cardiology consultation, negative Troponin T x 2, normal TTE except for mild concentric LVH with estimated EF of 50-55%, EKG and borderline stress test. I discussed with vick Diaz to discharge and follow up with Dr. Tao. Discharge Diagnoses: Chest pains due to stable angina Metastatic Renal Cell Carcinoma, ok to resume Chemotherapy, I d/w Dr. SALINAS Garza Hemodialysis patient Malignant Hypertension with Urgency, currently uncontrolled due to missed dosages, she is out of Norvasc and clonidine and request scripts which have been sent to her pharmacy Type 2 DM Disposition: DC-01 TO HOME OR SELFCARE Time spent for discharge: 35 minutes Core Measure Documentation - Palliative Care Palliative Care/ Comfort Measures: Not Applicable - Core Measures Any of the following diagnoses?: none - VTE Discharge Requirements Deep Vein Thrombosis/Pulmonary Embolism Present on Admission: No Has pt received <5 days of overlap therapy or INR<2.0: No Anticoagulant overlap therapy prescribed at discharge: No Contraindication No Overlap Therapy order at DC: Not Indicated Exam - Physical Exam Narrative exam: Gen: WDWN, NAD, Awake, Alert, Orientated HEENT: NCAT, EOMI, PERRL, OP Clear Neck: supple, no adenopathy, no thyromegaly, no JVD CVS/Heart: RRR, normal S1S2, pulses present bilaterally Chest/Lungs: CTA B, Symmetrical chest expansion, good air entry bilaterally GI/Abdomen: soft, NTND, good bowel sounds, no guarding or rebound /Bladder: no suprapubic tenderness, no CVA or paraspinal tenderness Extermity/Skin: no c/c/e, no obvious rash MSK: FROM x 4 Neuro: CN 2-12 grossly intact, no new focal deficits Psych: calm - Constitutional Vitals: Temp Pulse Resp BP Pulse Ox 98.9 F 73 18 196/88 94 07/14/19 07:52 07/14/19 12:29 07/14/19 07:52 07/14/19 12:29 07/14/19 07:52 Plan Activity: other (no strenous activity unless cleared by Hoop Driving Machine Operator Helper) Diet: low salt, diabetic Special Instructions: record daily BP diary, record blood sugar diary Follow up with: PRIMARY CARE, [Referring] - 3-5 Days NICOLE TAO MD [Staff Physician] - 07/17/19 Prescriptions: RX: cloNIDine [Catapres] 0.2 mg PO TID #90 tablet RX: amLODIPine [Norvasc] 10 mg PO DAILY #30 tablet
--- NOTE | 2019-07-14 16:29 | Progress Note ---
Assessment and Plan - Patient Problems (1) ESRD (end stage renal disease) Current Visit: Yes Status: Chronic Plan to address problem: ESRD on hemodialysis access: left arm AVF Will initiate HD. (2) Intractable vomiting Current Visit: No Status: Acute Qualifiers: Vomiting type: unspecified Nausea presence: with nausea Qualified Code(s): R11.2 - Nausea with vomiting, unspecified Plan to address problem: Intractable vomitting. - history of pancreatic lesion and bilateral renal cell carcinoma - continue antiemetics (3) Anemia in ESRD (end-stage renal disease) Current Visit: No Status: Chronic Plan to address problem: Mild anemia hb: 11.7g/dl monitor CBC. (4) Hypertension Current Visit: No Status: Chronic Qualifiers: Hypertension type: essential hypertension Qualified Code(s): I10 - Essential (primary) hypertension Plan to address problem: HTN: uncontrolled. use IV medications as needed. resume oral medications as tolerated ultrafiltration with HD. Subjective Principal diagnosis: cp; htn Interval history: 64 year old lady with medical history significant for hypertension, diabetes mellitus type 2, renal cell carcinoma involving bilateral kidneys status post bilateral nephrectomy currently on dialysis at [facility] on Saturday via a left arm AV fistula admitted with complaints of worsening nausea and vomiting unable to keep any food down or any medications. Patient seen today denies any orthpnea or PND denies any abdominal pain, fevers or chills. Objective - Vital Signs Vital signs: Vital Signs - 12hr 07/14/19 07/14/19 07/14/19 07:52 08:52 10:00 Temperature 98.9 F Pulse Rate 73 73 88 Pulse Rate [ 88 Apical] Respiratory 18 20 Rate Blood Pressure 168/73 168/73 O2 Sat by Pulse 94 96 Oximetry 07/14/19 07/14/19 07/14/19 10:02 10:19 10:20 Temperature Pulse Rate Pulse Rate [ Apical] Respiratory Rate Blood Pressure 205/80 182/80 174/76 O2 Sat by Pulse Oximetry 07/14/19 07/14/19 07/14/19 10:21 10:22 12:29 Temperature Pulse Rate 73 Pulse Rate [ Apical] Respiratory Rate Blood Pressure 181/84 185/85 196/88 O2 Sat by Pulse Oximetry 07/14/19 07/14/19 16:20 16:21 Temperature Pulse Rate 73 73 Pulse Rate [ Apical] Respiratory Rate Blood Pressure 196/88 O2 Sat by Pulse Oximetry - General Appearance General appearance: well-developed EENT: ATNC, PERRL Neck: no JVD Respiratory: Present: Clear to Ascultation Cardiology: regular, S1S2 Gastrointestinal: normal, normoactive bowel sounds Integumentary: no rash Neurologic: alert and oriented x3, CN 3-12 intact Psychiatric: mood/affect appropriate - Lab 07/13/19 06:59 07/13/19 06:59 Most recent lab results Calcium 11.0 mg/dL (8.4-10.2) H 07/13/19 06:59 - Imaging Chest x-ray: image reviewed (i reviewed cxr with some haziness and patchy opacities. ) Medications & Allergies - Medications Allergies/Adverse Reactions: Allergies codeine Allergy (Verified 05/05/15 06:48) Rash Penicillins Allergy (Verified 02/12/16 17:55) Hives ciprofloxacin [From Cipro] Adverse Reaction (Verified 05/05/15 06:48) severe nausea ciprofloxacin HCl [From Cipro] Adverse Reaction (Verified 05/05/15 06:48) severe nausea Home Medications: Home Medications Medication Instructions Recorded Confirmed Last Taken Type B Complex 11/Folic/C/Biot/Zinc 1 each PO DAILY #30 tablet 02/13/16 01/27/19 01/15/19 Rx [Dialyvite with Zinc Tablet] Meclizine [Antivert] 25 mg PO TID PRN 07/05/16 01/27/19 10/21/16 History Aspirin [Aspirin BABY CHEW TAB] 81 mg PO QDAY #30 tab.chew 10/27/16 01/27/19 01/15/19 Rx Carvedilol [Coreg] 25 mg PO BID #60 tablet 06/23/18 01/27/19 01/15/19 Rx traMADol [Ultram 50 MG tab] 50 mg PO Q6HR PRN #15 tablet 06/23/18 01/27/19 Unknown Rx Cholecalciferol (Vitamin D3) 5,000 unit PO DAILY 01/16/19 01/27/19 01/15/19 History [Vitamin D3 5,000 UNIT] Cinacalcet [Sensipar] 30 mg PO TID 01/16/19 01/27/19 Unknown History Sevelamer Carbonate [Renvela] 4,000 mg PO TIDWM 01/16/19 01/27/19 Unknown History hydrALAZINE [Apresoline TAB] 100 mg PO TID 01/16/19 01/27/19 01/15/19 History Famotidine [Pepcid] 10 mg PO BID #60 tablet 01/17/19 01/27/19 Unknown Rx Promethazine [Phenergan] 25 mg PO Q6H PRN #20 tablet 01/17/19 01/27/19 Unknown Rx Dicyclomine [Bentyl] 20 mg PO QID PRN #20 tablet 01/27/19 01/27/19 Unknown Rx Metoclopramide HCl [Reglan TAB] 5 mg PO BID PRN #20 tablet 01/29/19 Unknown Rx amLODIPine [Norvasc] 10 mg PO DAILY #30 tablet 07/14/19 Unknown Rx cloNIDine [Catapres] 0.2 mg PO TID #90 tablet 07/14/19 Unknown Rx Active Medications: Generic Name Dose Route Start Last Admin Trade Name Ildefonsoq PRN Reason Stop Dose Admin Amlodipine Besylate 10 mg 07/13/19 10:00 07/14/19 12:29 Norvasc PO 10 mg DAILY APRYL Administration Aspirin 81 mg 07/13/19 10:00 07/14/19 12:29 Baby Aspirin PO 81 mg QDAY APRYL Administration Atorvastatin Calcium 40 mg 07/13/19 22:00 07/13/19 21:04 Lipitor PO 40 mg QHS APRYL Administration Carvedilol 25 mg 07/13/19 10:00 07/14/19 12:29 Coreg PO 25 mg BID APRYL Administration Cholecalciferol 5,000 unit 07/13/19 10:00 07/14/19 00:43 Vitamin D3 PO Not Given DAILY [facility] Cinacalcet 30 mg 07/13/19 14:00 07/14/19 16:20 Sensipar PO 30 mg TID APRYL Administration Clonidine HCl 0.2 mg 07/13/19 14:00 07/14/19 16:20 Catapres PO 0.2 mg TID APRYL Administration Dicyclomine HCl 20 mg 07/13/19 09:30 Bentyl PO QID PRN abdominal pain Diphenhydramine HCl 25 mg 07/13/19 22:21 07/13/19 23:22 Benadryl PO 25 mg QHS PRN Administration Sleep Heparin Sodium (Porcine) 5,000 unit 07/13/19 22:00 07/14/19 12:32 Heparin SUB-Q 5,000 unit Q12HR APRYL Administration Hydralazine HCl 100 mg 07/13/19 14:00 07/14/19 16:20 Apresoline PO 100 mg TID APRYL Administration Hydralazine HCl 10 mg 07/13/19 11:00 07/13/19 23:22 Apresoline IV 10 mg Q30MIN PRN Administration Hypertension Isosorbide Mononitrate 30 mg 07/14/19 16:00 07/14/19 16:21 Imdur PO 30 mg QDAY APRYL Administration Metoclopramide HCl 5 mg 07/13/19 10:00 07/13/19 20:41 Reglan PO 5 mg BID PRN Administration Nausea And Vomiting Sevelamer Carbonate 4,000 mg 07/13/19 12:00 07/14/19 16:19 Renvela PO 4,000 mg TIDWM APRYL Administration Vitamin B Complex/Vitamin C 1 each 07/13/19 10:00 07/14/19 12:30 Allbee With C PO 1 each QDAY APRYL Administration
[2019-07-14 17:02] VITALS: BP 166/71
== END 2019-07-14 17:38 | disposition home or self-care (01) ==
LOC: ED 06:17 → 4A 08:25
PROVIDERS: ADMIT Internal Medicine; ATTEND Internal Medicine
DX: R06.03 Acute respiratory distress (principal); I12.0 Hypertensive chronic kidney disease with stage 5 chronic kidney disease or end stage renal disease; N18.6 End stage renal disease; E11.22 Type 2 diabetes mellitus with diabetic chronic kidney disease; E66.01 Morbid (severe) obesity due to excess calories; R07.89 Other chest pain; M19.90 Unspecified osteoarthritis, unspecified site; R11.10 Vomiting, unspecified; D64.9 Anemia, unspecified; Z99.2 Dependence on renal dialysis; Z85.53 Personal history of malignant neoplasm of renal pelvis; Z68.41 Body mass index [BMI] 40.0-44.9, adult; Z79.82 Long term (current) use of aspirin; Z90.710 Acquired absence of both cervix and uterus; Z90.49 Acquired absence of other specified parts of digestive tract
CPT/HCPCS: 36415; 71045; 78452; 80048; 84484; 85007; 85025; 90686; 93005; 93010; 93017; 93306; 96372; 96374; 96375; 99291; A9270; A9502; G0378; J0360; J1644; J2060; J2405; J2785

== ENCOUNTER 2019-10-06 06:23 | Observation (INO) | payer MEDICARE ==
[2019-10-06] MEDS ORDERED: ASPIRIN EC 325 MG TAB PO NR (06:48)
[2019-10-06 07:27] LABS: Basophils % (Auto) 0.7 % (0.0-1.8); Eosinophils # (Auto) 0.2 K/mm3 (0.0-0.4); Eosinophils % (Auto) 2.8 % (0.0-4.3); Hematocrit 36.9 % (30.3-42.9); Lymphocytes # (Auto) 1.2 K/mm3 (1.2-5.4); Lymphocytes % (Auto) 17.1 % (13.4-35.0); Mean Corpuscular HGB Conc 32 % (30-34); Mean Corpuscular Volume 93 fl (79-97); Monocytes # (Auto) 0.8 K/mm3 (0.0-0.8); Monocytes % (Auto) 11.4 % (0.0-7.3); Platelet Count 207 K/mm3 (140-440); Red Blood Count 3.98 M/mm3 (3.65-5.03); Red Cell Distribution Width 13.7 % (13.2-15.2)
[2019-10-06 07:39] LABS: INR 0.98 (0.87-1.13)
[2019-10-06 07:40] LABS: Partial Thromboplastin Time 30.3 Sec. (24.2-36.6)
[2019-10-06 07:45] LABS: Calcium 9.6 mg/dL (8.4-10.2)
[2019-10-06] MEDS: SODIUM CHLORIDE 0.9% 500 ML 500 ML IV SCH ×2 (07:46→08:47)
[2019-10-06] MEDS ORDERED: HEPARIN 10,000 UNITS/10 ML VIAL ONE (07:57)
[2019-10-06] MEDS ORDERED: HEPARIN/NS 5000 UNIT/500ML 1,000 ML IR ONE (07:57)
[2019-10-06] MEDS ORDERED: VERAPAMIL 5 MG/2 ML INJ ONE (07:58)
[2019-10-06] MEDS ORDERED: NITROGLYCERIN SYRINGE 3 ML ONE (07:58)
[2019-10-06] MEDS: MIDAZOLAM 2 MG/2 ML INJ ONE ×3 (08:45→09:33)
[2019-10-06] MEDS: fentaNYL 100 MCG/2 ML INJ ONE ×3 (08:45→09:33)
[2019-10-06] MEDS: LIDOCAINE (2%) 20 MG/1 ML VIAL 20 ML MDV INFILTRATI ONE ×2 (08:46→09:09)
[2019-10-06] MEDS ORDERED: PRASUGREL 10 MG TAB PO ONE (09:39)
[2019-10-06] MEDS ORDERED: ALUM-MAG HYDROXIDE-SIMETHICONE 200-200-20MG/5ML ORAL LIQD 30 ML ONE (09:39)
--- NOTE | 2019-10-06 11:18 | Cardiac Catherization Report ---
CARDIAC CATHETERIZATION REFERRING PHYSICIAN: Dr. Gabriel and Dr. De. INDICATION FOR PROCEDURE: The patient is a pleasant 64-year-old female, who has a history of diabetes, hypertension, chronic kidney disease, on dialysis, who has had worsening shortness of breath, chest pain last week and now is an abnormal stress test, referred for left heart catheterization. She had anterolateral ischemia on a stress test in June. Risks, benefits, alternatives explained at length prior to obtaining informed consent. PROCEDURE IN DETAIL: The patient was brought to catheterization lab in a postabsorptive state, prepped and draped in sterile fashion. She is a renal patient thus we used a groin approach. A 6-Lithuanian sheath placed in right common femoral artery via modified Seldinger technique. All exchanges performed to exchange a J-tip guidewire. JL3.5 catheter was used to engage the left main. No dampening or ventricularization. Cineangiography performed in all projections. JR4 catheter, crossing the aortic valve under fluoroscopic guidance. Left ventriculography performed in 30 TORRES and 30 KIM projections via hand injections, catheter flushed. Manual pullback performed with continuous pressure monitoring. Catheter used to engage the right coronary. No dampening or ventricularization. Cineangiography performed in all projections. Next, catheter removed from the body over the wire. DATA: Aortic pressure is 180/80, LV pressure is 180. LVP of 25 mmHg. Left ventriculography reveals normal systolic performance with estimated ejection fraction of 55-60%. No evidence of aortic stenosis. CORONARY ANATOMY: This is a right dominant system. Left main without significant disease, bifurcates in left anterior descending and left circumflex. Left circumflex, moderate sized vessel, courses AV groove. There is a 30-40% ostial OM1. Mild scattered luminal irregularities in the mid left circumflex, no obstructive disease identified. LAD is a moderate sized vessel, courses anterior intergroove, wraps around the apex. Mild calcium complex 99% stenosis proximally with a long 90% stenosis in the mid segment, ostium of the first diagonal, which is moderate size is uninvolved. This is the culprit lesion. Right coronary is a moderate sized vessel, courses AV groove, 30-40% mid right coronary stenosis is identified. SUNG 3 flow throughout. Given her symptoms, abnormal stress test with anterior ischemia, we decided to proceed with PCI of culprit LAD proximal and mid. Heparin is given. Abnormal ACT is confirmed. The patient loaded with aspirin and Effient. An EBU 3.5 guide used to engage left main without difficulty. A Prowater used to cross the lesion. We predilated the lesion with a 2.5 x 12 balloon, we used an [place] 2.5 x 34 mm stent deployed at 12 KENAN for 30 seconds. Excellent result, SUNG 3 flow, no complications. Intravascular ultrasound was performed, reveals a well-opposed, well expanded stent. Excellent final angiographic result. She has no chest pain, feels much better. The diagonal is maintained and not significantly jailed, no dissection proximally or distally noted. Left main, proximal LAD without significant disease on IVUS. I directly supervised the administration of moderate sedation with fentanyl and Versed from 9:02 a.m. to 9:50 a.m. There were no immediate complications identified. CONCLUSIONS: 1. Severe single vessel coronary artery disease with a complex proximal and mid LAD stenosis, status post IVUS guided PCI with placement of drug-eluting stent (Resolute Jose Roberto 2.5 x 34 with excellent final angiographic and ultrasonographic results. 2. Nonobstructive disease noted in the OM1, 30-40% ostial nonobstructive disease noted in the mid right coronary, 30-40% mid segment. 3. Normal left ventricular systolic performance, estimated ejection fraction of 55-60%. 4. Mildly elevated LVEDP. 5. Hypertension. The patient is clinically stable, chest pain free, doing well. Pull sheath once ACT less than 170. We will follow overnight dialysis tomorrow, potentially had dialysis before she leaves tomorrow. Consult her system software programmer who is Dr. Garza. Discussed results of procedure with the patient and family. Standard groin care and stressed the importance of compliance with dual antiplatelet therapy. Stable cardiac status. Follow up with Dr. Gabriel in the office. JOB# [id number] SBM/NTS
[2019-10-06] MEDS ORDERED: diphenhydrAMINE 25 MG CAP PO PRN (13:11)
[2019-10-06] MEDS ORDERED: oxyCODONE /ACETAMINOPHEN 5-325MG TAB ONE (14:00)
[2019-10-06] MEDS: oxyCODONE /ACETAMINOPHEN 5-325MG TAB PO PRN ×2 (14:03→22:59)
[2019-10-06] MEDS: hydrALAZINE 100 MG TAB PO SCH ×2 (16:32→21:45)
[2019-10-06] MEDS ORDERED: SODIUM CHLORIDE 0.9% 100 ML IV PRN (17:46)
--- NOTE | 2019-10-06 17:48 | Event Note ---
Date: 10/06/19 Nephrology notified of admission by cardiology, appreciate consult. Will plan for official consult tomorrow, with plans for HD in AM.
[2019-10-06] MEDS: cloNIDine 0.2 MG TAB PO SCH ×2 (18:50→21:45)
[2019-10-06 22:24] LABS: Hepatitis B Surface Antigen Non-Reactive (Negative); Hepatitis C Virus Antibody Non-Reactive (NonReactive)
[2019-10-06] MEDS: carvediloL 25 MG TAB PO SCH (22:42)
[2019-10-07 05:12] LABS: Basophils # (Auto) 0.1 K/mm3 (0.0-0.1); Basophils % (Auto) 0.8 % (0.0-1.8); Eosinophils # (Auto) 0.3 K/mm3 (0.0-0.4); Hematocrit 37.6 % (30.3-42.9); Hemoglobin 12.3 gm/dl (10.1-14.3); Lymphocytes # (Auto) 0.9 K/mm3 (1.2-5.4); Lymphocytes % (Auto) 13.2 % (13.4-35.0); Mean Corpuscular HGB Conc 33 % (30-34); Mean Corpuscular Volume 94 fl (79-97); Monocytes % (Auto) 13.8 % (0.0-7.3); Platelet Count 191 K/mm3 (140-440); Red Blood Count 4.02 M/mm3 (3.65-5.03); Red Cell Distribution Width 13.8 % (13.2-15.2)
[2019-10-07 05:30] LABS: Creatine Kinase MB 1.1 ng/mL (0.0-4.0)
[2019-10-07 05:35] LABS: Calcium 9.7 mg/dL (8.4-10.2)
--- NOTE | 2019-10-07 09:04 | XRay Report ---
CHEST 1 VIEW INDICATION: post pci. COMPARISON: 07/13/2019 FINDINGS: Support devices: None. Heart: Within normal limits. Lungs/Pleura: Minimal streaky left midlung airspace disease, likely atelectasis or scarring. Otherwis e clear lungs. Additional findings: None. IMPRESSION: 1. Minimal scarring versus atelectasis in the left lung. Otherwise unremarkable exam. Signer Name: Nilesh Roblero MD Signed: 10/07/2019 8:59 AM Workstation Name: [id number]
--- NOTE | 2019-10-07 09:40 | Consultation ---
History of Present Illness - Reason for Consult Consult date: 10/07/19 end stage renal disease - History of Present Illness This is a 64 year old woman with ESRD who presents for evaluation of cardiac dysfunction. Follows with [facility]; had cardiac cath yesterday with stent placement. She usually dialyzes at [facility], with last HD on 10/05/2019. She denies any issues with HD, including chest pain, dyspnea, cramping, dizziness while on HD. Notes a good appetite. Feeling well this morning after cath yesterday. AVF has been working well for her. Past History Past Medical History: CAD, ESRD Past Surgical History: No surgical history Social history: no significant social history Family history: no significant family history Medications and Allergies Allergies Allergy/AdvReac Type Severity Reaction Status Date / Time codeine Allergy Rash Verified 05/05/15 06:48 Penicillins Allergy Hives Verified 02/12/16 17:55 ciprofloxacin [From Cipro] AdvReac severe Verified 05/05/15 06:48 nausea ciprofloxacin HCl AdvReac severe Verified 05/05/15 06:48 [From Cipro] nausea Home Medications Medication Instructions Recorded Confirmed Last Taken Type B Complex 11/Folic/C/Biot/Zinc 1 each PO DAILY #30 tablet 02/13/16 10/06/19 10/05/19 Rx [Dialyvite with Zinc Tablet] Meclizine [Antivert] 25 mg PO TID PRN 07/05/16 10/06/19 10/21/16 History Aspirin [Aspirin BABY CHEW TAB] 81 mg PO QDAY #30 tab.chew 10/27/16 10/06/19 10/05/19 Rx carvediloL [Coreg] 25 mg PO BID #60 tablet 06/23/18 10/06/19 10/05/19 Rx Cholecalciferol (Vitamin D3) 5,000 unit PO DAILY 01/16/19 10/06/19 01/15/19 History [Vitamin D3 5,000 UNIT] Cinacalcet [Sensipar] 30 mg PO QHS 01/16/19 10/06/19 10/05/19 History Sevelamer Carbonate [Renvela] 4,000 mg PO TIDWM 01/16/19 10/06/19 10/05/19 History hydrALAZINE [Apresoline TAB] 100 mg PO TID 01/16/19 10/06/19 10/05/19 History Promethazine [Phenergan] 25 mg PO Q6H PRN #20 tablet 01/17/19 10/06/19 Unknown Rx amLODIPine 10 mg PO DAILY #30 tablet 07/14/19 10/06/19 10/05/19 Rx cloNIDine [Catapres] 0.2 mg PO TID #90 tablet 07/14/19 10/06/19 10/05/19 Rx Losartan [Cozaar] 50 mg PO QDAY 10/06/19 10/06/19 10/05/19 History Metoclopramide HCl [Reglan TAB] 10 mg PO QID 10/06/19 10/06/19 10/05/19 History Aspirin [Aspirin BABY CHEW TAB] 81 mg PO QDAY tab.chew 10/07/19 Unknown Rx AtorvaSTATin [Lipitor] 40 mg PO QHS #30 tablet 10/07/19 Unknown Rx Prasugrel [Effient] 10 mg PO QDAY #30 tablet 10/07/19 Unknown Rx Active Meds: Active Medications Amlodipine Besylate (Amlodipine) 10 mg PO DAILY [facility] Aspirin (Baby Aspirin) 81 mg PO QDAY [facility] Atorvastatin Calcium (Lipitor) 40 mg PO QHS [facility] Last Admin: 10/06/19 22:44 Dose: 40 mg Documented by: Carvedilol (Coreg) 25 mg PO BID [facility] Last Admin: 10/06/19 22:42 Dose: 25 mg Documented by: Clonidine HCl (Catapres) 0.2 mg PO TID [facility] Last Admin: 10/06/19 21:45 Dose: 0.2 mg Documented by: Diphenhydramine HCl (Benadryl) 25 mg PO Q6H PRN PRN Reason: Itching Hydralazine HCl (Apresoline) 100 mg PO TID [facility] Last Admin: 10/06/19 21:45 Dose: 100 mg Documented by: Sodium Chloride (Nacl 0.9%) 100 mls @ 999 mls/hr IV STEPHANIE PRN PRN Reason: Hypotension Oxycodone/Acetaminophen (Percocet 5/325) 1 tab PO Q6H PRN PRN Reason: Pain, Moderate (4-6) Last Admin: 10/06/19 22:59 Dose: 1 tab Documented by: Prasugrel (Effient) 10 mg PO QDAY [facility] Review of Systems Constitutional: no weight loss, no weight gain Ears, nose, mouth and throat: no ear pain Cardiovascular: no chest pain, no rapid/irregular heart beat, no edema Respiratory: no cough Gastrointestinal: no abdominal pain, no nausea, no vomiting, no diarrhea Genitourinary Female: no dysuria Musculoskeletal: no hot joints, no muscle weakness, no muscle cramps Integumentary: no rash Neurological: no weakness, no numbness, no headaches Psychiatric: no anxiety Exam - Vital Signs Vital signs: Vital Signs Temp Pulse Resp BP Pulse Ox 98.6 F 73 20 150/62 97 10/06/19 06:48 10/06/19 06:48 10/06/19 06:48 10/06/19 06:48 10/06/19 06:48 - General Appearance General appearance: well-developed, well-nourished, appears stated age EENT: PERRL, mucous membranes moist Neck: Present: neck supple Respiratory: Clear to Ascultation, Normal Exam Heart: normal heart rate, S1S2 Gastrointestinal: Present: normoactive bowel sounds Integumentary: no rash Neurologic: no focal deficit, no asterixis, alert and oriented x3, CN 3-12 intact Psychiatric: mood/affect appropriate Results - Lab Results 10/07/19 04:30 10/07/19 04:30 Most recent lab results Calcium 9.7 mg/dL (8.4-10.2) 10/07/19 04:30 Assessment and Plan # ESRD: will dialyze today to maintain MWF outpatient HD schedule and for mild hyperkalemia; ok to discharge after HD from renal standpoint - renal diet - daily renal labs - avoid nephrotoxins - renally dose meds # HTN: UF as tolerated, continue home meds # Anemia: hemoglobin at goal for ESRD, no EDDIE indicated # Secondary Hyperparathyroidism: monitor, continue home binders # CAD: appreciate Cardiology recs
[2019-10-07] MEDS ORDERED: ASPIRIN 81 MG TAB CHEW PO SCH (10:00)
[2019-10-07] MEDS ORDERED: amLODIPine 10 MG TAB PO SCH (10:00)
[2019-10-07] MEDS ORDERED: PRASUGREL 10 MG TAB PO SCH (10:00)
[2019-10-07] MEDS: hydrALAZINE 100 MG TAB PO SCH ×2 (10:07→14:00)
[2019-10-07] MEDS: cloNIDine 0.2 MG TAB PO SCH ×2 (10:07→14:00)
[2019-10-07] MEDS: carvediloL 25 MG TAB PO SCH (10:08)
--- NOTE | 2019-10-07 10:49 | Short Stay Summary ---
Short Stay Documentation Date of service: 10/07/19 - History H&P: obtained from office Past Medical History: CAD, ESRD Past Surgical History: No surgical history Social history: no significant social history - Allergies and Medications Current Medications: Allergies codeine Allergy (Verified 05/05/15 06:48) Rash Penicillins Allergy (Verified 02/12/16 17:55) Hives ciprofloxacin [From Cipro] Adverse Reaction (Verified 05/05/15 06:48) severe nausea ciprofloxacin HCl [From Cipro] Adverse Reaction (Verified 05/05/15 06:48) severe nausea Home Medications Medication Instructions Recorded Confirmed Last Taken Type B Complex 11/Folic/C/Biot/Zinc 1 each PO DAILY #30 tablet 02/13/16 10/06/19 10/05/19 Rx [Dialyvite with Zinc Tablet] Meclizine [Antivert] 25 mg PO TID PRN 07/05/16 10/06/19 10/21/16 History Aspirin [Aspirin BABY CHEW TAB] 81 mg PO QDAY #30 tab.chew 10/27/16 10/06/19 10/05/19 Rx carvediloL [Coreg] 25 mg PO BID #60 tablet 06/23/18 10/06/19 10/05/19 Rx Cholecalciferol (Vitamin D3) 5,000 unit PO DAILY 01/16/19 10/06/19 01/15/19 History [Vitamin D3 5,000 UNIT] Cinacalcet [Sensipar] 30 mg PO QHS 01/16/19 10/06/19 10/05/19 History Sevelamer Carbonate [Renvela] 4,000 mg PO TIDWM 01/16/19 10/06/19 10/05/19 History hydrALAZINE [Apresoline TAB] 100 mg PO TID 01/16/19 10/06/19 10/05/19 History Promethazine [Phenergan] 25 mg PO Q6H PRN #20 tablet 01/17/19 10/06/19 Unknown Rx amLODIPine 10 mg PO DAILY #30 tablet 07/14/19 10/06/19 10/05/19 Rx cloNIDine [Catapres] 0.2 mg PO TID #90 tablet 07/14/19 10/06/19 10/05/19 Rx Losartan [Cozaar] 50 mg PO QDAY 10/06/19 10/06/19 10/05/19 History Metoclopramide HCl [Reglan TAB] 10 mg PO QID 10/06/19 10/06/19 10/05/19 History Active Medications Amlodipine Besylate (Amlodipine) 10 mg PO DAILY [facility] Last Admin: 10/07/19 10:07 Dose: 10 mg Documented by: Aspirin (Baby Aspirin) 81 mg PO QDAY [facility] Last Admin: 10/07/19 10:07 Dose: 81 mg Documented by: Atorvastatin Calcium (Lipitor) 40 mg PO QHS [facility] Last Admin: 10/06/19 22:44 Dose: 40 mg Documented by: Carvedilol (Coreg) 25 mg PO BID [facility] Last Admin: 10/07/19 10:08 Dose: 25 mg Documented by: Clonidine HCl (Catapres) 0.2 mg PO TID [facility] Last Admin: 10/07/19 10:07 Dose: 0.2 mg Documented by: Diphenhydramine HCl (Benadryl) 25 mg PO Q6H PRN PRN Reason: Itching Hydralazine HCl (Apresoline) 100 mg PO TID [facility] Last Admin: 10/07/19 10:07 Dose: 100 mg Documented by: Sodium Chloride (Nacl 0.9%) 100 mls @ 999 mls/hr IV STEPHANIE PRN PRN Reason: Hypotension Oxycodone/Acetaminophen (Percocet 5/325) 1 tab PO Q6H PRN PRN Reason: Pain, Moderate (4-6) Last Admin: 10/06/19 22:59 Dose: 1 tab Documented by: Prasugrel (Effient) 10 mg PO QDAY [facility] Last Admin: 10/07/19 10:07 Dose: 10 mg Documented by: - Physical exam General appearance: no acute distress Integumentary: no rash, other (right femoral C site c/d/i, no bleeding or hematoma) HEENT: Atraumatic, PERRLA, EOMI Lungs: Clear to auscultation Heart: Regular rate, Normal S1, Normal S2 Gastrointestinal: normal, normoactive bowel sounds Extremities: no ischemia, pulses intact, pulses symmetrical Neurological: Normal gait, Normal speech, Strength at 5/5 X4 ext - Brief post op/procedure progress note Date of procedure: 10/06/19 Pre-op diagnosis: cp; abn stress test Post-op diagnosis: other (CAD) Procedure: LHC with PCI - see dictated cath report Anesthesia: local Estimated blood loss: none Condition: stable - Hospital course Hospital course: Pt presented for scheduled elective LHC and subsequently underwent LHC with PCI of LAD - see dictated cath report. She was admitted overnight for observation. She has remained clinically and hemodynamically stable throughout admission and is medically stable for discharge home today after dialysis. - Disposition Condition at discharge: Good Disposition: DC-[id number] TO HOME OR SELFCARE - Discharge Diagnoses (1) CAD (coronary artery disease) Status: Chronic (2) Stented coronary artery Status: Chronic (3) ESRD on dialysis Status: Chronic (4) Diabetes mellitus Status: Chronic (5) Hypertension Status: Chronic Qualifiers: Hypertension type: essential hypertension Qualified Code(s): I10 - Essential (primary) hypertension Short Stay Discharge Plan Activity: advance as tolerated Diet: low fat, low cholesterol, low salt, diabetic Wound: open to air, keep clean and dry, per your surgeon's advice Follow up with: LEVY MENENDEZ MD [Primary Care Provider] - 7 Days KANIKA THOMPSON MD [Staff Physician] - 7 Days Prescriptions: AtorvaSTATin [Lipitor] 40 mg PO QHS #30 tablet Prasugrel [Effient] 10 mg PO QDAY #30 tablet
[2019-10-07 18:30] VITALS: BP 121/60
== END 2019-10-07 19:15 | disposition home or self-care (01) ==
LOC: CATHLABREC 06:23 → 4A 10:08
PROVIDERS: ADMIT Internal Medicine; ATTEND Internal Medicine
DX: I12.0 Hypertensive chronic kidney disease with stage 5 chronic kidney disease or end stage renal disease (principal); N18.6 End stage renal disease; E11.22 Type 2 diabetes mellitus with diabetic chronic kidney disease; R93.89 Abnormal findings on diagnostic imaging of other specified body structures; D64.9 Anemia, unspecified; I25.10 Atherosclerotic heart disease of native coronary artery without angina pectoris; N25.81 Secondary hyperparathyroidism of renal origin; Z95.5 Presence of coronary angioplasty implant and graft; Z99.2 Dependence on renal dialysis; Z79.82 Long term (current) use of aspirin; Z79.899 Other long term (current) drug therapy; Z88.0 Allergy status to penicillin; Z88.1 Allergy status to other antibiotic agents; Z88.5 Allergy status to narcotic agent
CPT/HCPCS: 36415; 71045; 80048; 80074; 82550; 82553; 82962; 84484; 85025; 85347; 85610; 85730; 92978; 93005; 93010; 93458; A9270; C1725; C1753; C1769; C1874; C1887; C1894; C9600; G0378; J1644; J2250; J3010; J7040; 92928; Q9967

== ENCOUNTER 2020-07-21 19:36 | Emergency (ER) | payer MEDICARE ==
[2020-07-21] MEDS ORDERED: ONDANSETRON 4 MG/2 ML INJ IV ONE (19:50)
[2020-07-21 20:37] LABS: Basophils # (Auto) 0.1 K/mm3 (0.0-0.1); Basophils % (Auto) 0.8 % (0.0-1.8); Eosinophils # (Auto) 0.4 K/mm3 (0.0-0.4); Eosinophils % (Auto) 4.1 % (0.0-4.3); Hematocrit 32.9 % (30.3-42.9); Hemoglobin 11.3 gm/dl (10.1-14.3); Lymphocytes # (Auto) 1.2 K/mm3 (1.2-5.4); Mean Corpuscular HGB Conc 35 % (30-34); Mean Corpuscular Volume 92 fl (79-97); Monocytes # (Auto) 1.3 K/mm3 (0.0-0.8); Monocytes % (Auto) 11.6 % (0.0-7.3); Platelet Count 202 K/mm3 (140-440); Red Blood Count 3.57 M/mm3 (3.65-5.03); Red Cell Distribution Width 13.2 % (13.2-15.2)
[2020-07-21 20:46] LABS: INR 0.89 (0.87-1.13)
--- NOTE | 2020-07-21 20:50 | Cat Scan Report ---
CT ABDOMEN AND PELVIS WITHOUT CONTRAST INDICATION / CLINICAL INFORMATION: Abdominal Pain. TECHNIQUE: Axial CT images were obtained through the abdomen and pelvis without IV contrast. All CT scans at this location are performed using CT dose reduction for ALARA by means of automated exposure control. COMPARISON: CT dated 01/01/2020 and 06/24/2018 FINDINGS: LOWER CHEST: 1.3 cm round nodule in the right lower lobe is unchanged since 2018. LIVER: Liver is slightly hyperdense but unchanged. No focal abnormality. GALLBLADDER: No significant abnormality. BILE DUCTS: No significant abnormality. PANCREAS: Nodular enlargement of the body and tail of the pancreas are unchanged since the prior stud y and have been mentioned on multiple prior reports. SPLEEN: No significant abnormality. ADRENALS: No significant abnormality. RIGHT KIDNEY / URETER: Right nephrectomy. LEFT KIDNEY / URETER: Left nephrectomy. STOMACH / SMALL BOWEL: No significant abnormality. COLON: No significant abnormality. APPENDIX: Not visualized. PERITONEUM: No free fluid. No free air. No fluid collection. LYMPH NODES: No significant adenopathy. AORTA / ARTERIES: Moderate atherosclerotic calcification without acute abnormality. IVC / VEINS: No significant abnormality. URINARY BLADDER: Contracted. REPRODUCTIVE ORGANS: Uterus is absent. No significant adnexal abnormality. ADDITIONAL FINDINGS: None. SKELETAL SYSTEM: No significant abnormality. IMPRESSION: 1. No acute process in the abdomen or pelvis. No change since prior study. 2. Nodular enlargement of the pancreatic body and tail appears stable. 3. Stable right lower lobe pulmonary nodule. 4. Bilateral nephrectomy. Signer Name: Jacquie Cason MD Signed: 07/21/2020 8:46 PM Workstation Name: [id number]
--- NOTE | 2020-07-21 21:00 | XRay Report ---
CHEST 1 VIEW 07/21/2020 7:52 PM INDICATION / CLINICAL INFORMATION: Shortness of breath. Weakness. Hypertension x2 weeks.. COMPARISON: 10/07/19 FINDINGS: SUPPORT DEVICES: Right Port-A-Cath is unchanged. HEART / MEDIASTINUM: Stable. LUNGS / PLEURA: No significant pulmonary or pleural abnormality. No pneumothorax. ADDITIONAL FINDINGS: Left subclavian vein stent is unchanged. IMPRESSION: 1. No acute findings. No change. Signer Name: Jacquie Cason MD Signed: 07/21/2020 8:55 PM Workstation Name: [id number]
[2020-07-21 21:01] LABS: Albumin 3.4 g/dL (3.9-5); Calcium 10.9 mg/dL (8.4-10.2)
--- NOTE | 2020-07-21 23:05 | Emergency Department Report ---
ED General Adult HPI - General Chief complaint: High BP Stated complaint: N/V WEAKNESS CHANTEL Time Seen by Provider: 07/21/20 19:50 Source: EMS Mode of arrival: Stretcher Limitations: No Limitations - History of Present Illness Initial comments: 65-year-old female presents to the ED with elevated blood pressures, nausea intermittently for the past week. Patient with a past medical history of renal disease, on dialysis. Took her hydralazine prior to coming to ED for high blood pressure. BP better now, stat history of gastritis. Has had episode in the past with frequent vomiting. Had an EGD 2 years ago which showed irritation in the stomach. No ulcers. She has not had any bouts of vomiting since yesterday. But does feel nauseous. -: Gradual - Related Data Home Medications Medication Instructions Recorded Confirmed Last Taken Meclizine [Antivert] 25 mg PO TID PRN 07/05/16 01/02/20 10/21/16 Cholecalciferol (Vitamin D3) 5,000 unit PO DAILY 01/16/19 01/02/20 12/31/19 [Vitamin D3 5,000 UNIT] Cinacalcet [Sensipar] 30 mg PO QHS 01/16/19 01/02/20 10/05/19 Sevelamer Carbonate [Renvela] 4,000 mg PO TIDWM 01/16/19 01/02/20 10/05/19 hydrALAZINE [Apresoline TAB] 100 mg PO TID 01/16/19 01/02/20 10/05/19 Losartan [Cozaar] 50 mg PO QDAY 10/06/19 01/02/20 10/05/19 Metoclopramide HCl [Reglan TAB] 10 mg PO QID 10/06/19 01/02/20 10/05/19 Previous Rx's Medication Instructions Recorded Last Taken Type B Complex 11/Folic/C/Biot/Zinc 1 each PO DAILY #30 tablet 02/13/16 10/05/19 Rx [Dialyvite with Zinc Tablet] Aspirin [Aspirin BABY CHEW TAB] 81 mg PO QDAY #30 tab.chew 10/27/16 12/31/19 Rx carvediloL [Coreg] 25 mg PO BID #60 tablet 06/23/18 10/05/19 Rx amLODIPine 10 mg PO DAILY #30 tablet 07/14/19 10/05/19 Rx cloNIDine [Catapres] 0.2 mg PO TID #90 tablet 07/14/19 10/05/19 Rx AtorvaSTATin [Lipitor] 40 mg PO QHS #30 tablet 10/07/19 12/30/19 Rx Prasugrel [Effient] 10 mg PO QDAY #30 tablet 10/07/19 Unknown Rx Promethazine [Phenergan] 25 mg PO Q6H PRN #20 tablet 07/21/20 Unknown Rx Allergies Allergy/AdvReac Type Severity Reaction Status Date / Time codeine Allergy Rash Verified 01/01/20 22:07 Penicillins Allergy Hives Verified 01/01/20 22:07 ciprofloxacin [From Cipro] AdvReac severe Verified 01/01/20 22:07 nausea ciprofloxacin HCl AdvReac severe Verified 01/01/20 22:07 [From Cipro] nausea ED Review of Systems ROS: Stated complaint: N/V WEAKNESS CHANTEL Other details as noted in HPI Comment: All other systems reviewed and negative Constitutional: denies: chills ENT: denies: ear pain, throat pain Respiratory: see HPI. denies: cough, orthopnea Gastrointestinal: nausea, vomiting ED Past Medical Hx - Past Medical History Hx Hypertension: Yes Hx Congestive Heart Failure: No Hx Diabetes: Yes Hx Renal Disease: Yes (Renal Cancer; mets to lungs and pancreas) Hx Arthritis: Yes (bilateral knees) Hx Asthma: No Hx COPD: No Hx HIV: No Additional medical history: DIALYSIS (M-W-F) - Surgical History Past Surgical History?: Yes Hx Open Heart Surgery: No Hx Appendectomy: Yes (1983) Additional Surgical History: NODULES removed from LUNGS , SHUNT LEFT ARM, bilateral nephrectomies, HYSTERECTOMY - Social History Smoking Status: Never Smoker Substance Use Type: None - Medications Home Medications: Home Medications Medication Instructions Recorded Confirmed Last Taken Type B Complex 11/Folic/C/Biot/Zinc 1 each PO DAILY #30 tablet 02/13/16 01/02/20 10/05/19 Rx [Dialyvite with Zinc Tablet] Meclizine [Antivert] 25 mg PO TID PRN 07/05/16 01/02/20 10/21/16 History Aspirin [Aspirin BABY CHEW TAB] 81 mg PO QDAY #30 tab.chew 10/27/16 01/02/20 12/31/19 Rx carvediloL [Coreg] 25 mg PO BID #60 tablet 06/23/18 01/02/20 10/05/19 Rx Cholecalciferol (Vitamin D3) 5,000 unit PO DAILY 01/16/19 01/02/20 12/31/19 History [Vitamin D3 5,000 UNIT] Cinacalcet [Sensipar] 30 mg PO QHS 01/16/19 01/02/20 10/05/19 History Sevelamer Carbonate [Renvela] 4,000 mg PO TIDWM 01/16/19 01/02/20 10/05/19 History hydrALAZINE [Apresoline TAB] 100 mg PO TID 01/16/19 01/02/20 10/05/19 History amLODIPine 10 mg PO DAILY #30 tablet 07/14/19 01/02/20 10/05/19 Rx cloNIDine [Catapres] 0.2 mg PO TID #90 tablet 07/14/19 01/02/20 10/05/19 Rx Losartan [Cozaar] 50 mg PO QDAY 10/06/19 01/02/20 10/05/19 History Metoclopramide HCl [Reglan TAB] 10 mg PO QID 10/06/19 01/02/20 10/05/19 History AtorvaSTATin [Lipitor] 40 mg PO QHS #30 tablet 10/07/19 01/02/20 12/30/19 Rx Prasugrel [Effient] 10 mg PO QDAY #30 tablet 10/07/19 01/02/20 Unknown Rx Promethazine [Phenergan] 25 mg PO Q6H PRN #20 tablet 07/21/20 Unknown Rx ED Physical Exam - General Limitations: No Limitations General appearance: alert, in no apparent distress - Head Head exam: Present: atraumatic, normocephalic - Eye Eye exam: Present: normal appearance - ENT ENT exam: Present: mucous membranes moist - Neck Neck exam: Present: normal inspection - Respiratory Respiratory exam: Present: normal lung sounds bilaterally. Absent: respiratory distress - Cardiovascular Cardiovascular Exam: Present: regular rate, normal rhythm. Absent: systolic murmur, diastolic murmur, rubs, gallop - GI/Abdominal GI/Abdominal exam: Present: soft, normal bowel sounds - Extremities Exam Extremities exam: Present: normal inspection - Back Exam Back exam: Present: normal inspection - Neurological Exam Neurological exam: Present: alert, oriented X3 - Psychiatric Psychiatric exam: Present: normal affect, normal mood - Skin Skin exam: Present: warm, dry, intact, normal color. Absent: rash ED Course Vital Signs 07/21/20 07/21/20 07/21/20 19:40 19:54 19:55 Temperature 98.1 F Pulse Rate 83 Respiratory 18 Rate Blood Pressure 187/62 O2 Sat by Pulse 96 96 Oximetry 07/21/20 07/21/20 07/21/20 20:00 20:36 21:00 Temperature Pulse Rate 82 84 82 Respiratory 16 26 H Rate Blood Pressure 186/58 162/63 152/66 O2 Sat by Pulse 95 94 Oximetry 07/21/20 07/21/20 22:00 23:00 Temperature Pulse Rate 75 73 Respiratory 24 14 Rate Blood Pressure 157/55 158/55 O2 Sat by Pulse 95 96 Oximetry ED Medical Decision Making - Lab Data Result diagrams: 07/21/20 19:56 07/21/20 19:56 Critical care attestation.: If time is entered above; I have spent that time in minutes in the direct care of this critically ill patient, excluding procedure time. ED Disposition Clinical Impression: Nausea and vomiting Qualifiers: Vomiting type: unspecified Vomiting Intractability: non-intractable Qualified Code(s): R11.2 - Nausea with vomiting, unspecified Disposition: DC-01 TO HOME OR SELFCARE Is pt being admited?: No Does the pt Need Aspirin: No Condition: Stable Prescriptions: Promethazine [Phenergan] 25 mg PO Q6H PRN #20 tablet PRN Reason: Nausea And Vomiting Referrals: PRIMARY CARE, [Primary Care Provider] - 3-5 Days
[2020-07-21 23:17] VITALS: BP 158/55
== END 2020-07-21 23:12 | disposition home or self-care (01) ==
LOC: ED 19:36
DX: R11.2 Nausea with vomiting, unspecified (principal); I10 Essential (primary) hypertension; E11.9 Type 2 diabetes mellitus without complications; M19.90 Unspecified osteoarthritis, unspecified site; Z79.899 Other long term (current) drug therapy
CPT/HCPCS: 36415; 71045; 74176; 80053; 83690; 84484; 85025; 85610; 87040; 96374; 99285; J2405

== ENCOUNTER 2020-09-16 11:44 | Emergency (ER) | payer MEDICARE ==
[2020-09-16] MEDS ORDERED: ONDANSETRON 4 MG/2 ML INJ IM ONE (12:02)
--- NOTE | 2020-09-16 12:05 | Event Note ---
ED Screening Note Date of service: 09/16/20 Time: 12:04 ED Screening Note: Patient presents for nausea and vomiting and not feeling well today History of lung cancer and currently on chemo This initial assessment/diagnostic orders/clinical plan/treatment(s) is/are subject to change based on patients health status, clinical progression and re- assessment by fellow clinical providers in the ED. Further treatment and workup at subsequent clinical providers discretion. Patient/guardian urged not to elope from the ED as their condition may be serious if not clinically assessed and managed. Initial orders include: labs cxr
[2020-09-16 12:24] LABS: Basophils # (Auto) 0.1 K/mm3 (0.0-0.1); Basophils % (Auto) 1.2 % (0.0-1.8); Eosinophils # (Auto) 0.2 K/mm3 (0.0-0.4); Eosinophils % (Auto) 2.2 % (0.0-4.3); Hematocrit 36.8 % (30.3-42.9); Hemoglobin 12.3 gm/dl (10.1-14.3); Lymphocytes # (Auto) 0.9 K/mm3 (1.2-5.4); Mean Corpuscular HGB Conc 33 % (30-34); Mean Corpuscular Volume 91 fl (79-97); Monocytes # (Auto) 0.6 K/mm3 (0.0-0.8); Monocytes % (Auto) 5.8 % (0.0-7.3); Platelet Count 224 K/mm3 (140-440); Red Blood Count 4.05 M/mm3 (3.65-5.03); Red Cell Distribution Width 13.7 % (13.2-15.2)
[2020-09-16 12:47] LABS: Albumin 3.7 g/dL (3.9-5); Calcium 10.9 mg/dL (8.4-10.2)
--- NOTE | 2020-09-16 14:21 | XRay Report ---
CHEST 2 VIEWS INDICATION / CLINICAL INFORMATION: Nausea and vomiting. COMPARISON: 07/21/20. FINDINGS: SUPPORT DEVICES: The position of the right subclavian Port-A-Cath has not changed. HEART / MEDIASTINUM: Mild cardiomegaly is stable. Pulmonary vasculature is normal. The aorta is nithya l in caliber. LUNGS / PLEURA: Minimal linear scarring in the left lung is clear. No acute pulmonary or pleural abno rmality. No pneumothorax. ADDITIONAL FINDINGS: Endovascular stent in the left subclavian/axillary region is stable. Extensive s urgical changes in the upper abdomen bilaterally. IMPRESSION: No acute abnormality or significant change. Signer Name: Fuentes Delgado MD Signed: 09/16/2020 2:17 PM Workstation Name: [id number]
[2020-09-17] MEDS ORDERED: ONDANSETRON 4 MG/2 ML INJ ONE (01:26)
[2020-09-17] MEDS ORDERED: ONDANSETRON 4 MG/2 ML INJ IV ONE (01:45)
--- NOTE | 2020-09-17 02:53 | Emergency Department Report ---
ED N/V/D HPI - General Chief complaint: Nausea/Vomiting/Diarrhea Stated complaint: NAUSEA/VOMITTING Time Seen by Provider: 09/16/20 12:02 Source: patient, EMS Mode of arrival: Wheelchair Limitations: Physical Limitation - History of Present Illness Initial comments: 65-year-old female, history of ESRD, diabetes, renal and pancreatic cancer, hypertension, CAD, presents to ED with nausea, vomiting, abdominal pain x1 day. Patient states symptoms may possibly be secondary to exacerbation of pancreatitis. She denies any alcohol use. Patient states she tried Phenergan at home without relief. Patient reports she was last dialyzed on yesterday. Patient currently on chemotherapy. Last received chemo 2 days ago. Patient states she does sometimes have nausea and vomiting following her chemo. Patient reports she is unable to keep any of her medications down, including her Phenergan tabs. MD complaint: nausea, vomiting -: days(s) (1) Description of Vomiting: watery Associated Abdominal Pain: Yes Location: diffuse Severity: moderate Consistency: constant Improves with: none Worsens with: eating Associated Symptoms: nausea/vomiting. denies: fever/chills - Related Data Home Medications Medication Instructions Recorded Confirmed Last Taken Meclizine [Antivert] 25 mg PO TID PRN 07/05/16 09/17/20 10/21/16 Cholecalciferol (Vitamin D3) 5,000 unit PO DAILY 01/16/19 09/17/20 12/31/19 [Vitamin D3 5,000 UNIT] Cinacalcet [Sensipar] 30 mg PO QHS 01/16/19 09/17/20 10/05/19 Sevelamer Carbonate [Renvela] 4,000 mg PO TIDWM 01/16/19 09/17/20 10/05/19 hydrALAZINE [Apresoline TAB] 100 mg PO TID 01/16/19 09/17/20 10/05/19 Losartan [Cozaar] 50 mg PO QDAY 10/06/19 09/17/20 10/05/19 Metoclopramide HCl [Reglan TAB] 10 mg PO QID 10/06/19 09/17/20 10/05/19 Previous Rx's Medication Instructions Recorded Last Taken Type B Complex 11/Folic/C/Biot/Zinc 1 each PO DAILY #30 tablet 02/13/16 10/05/19 Rx [Dialyvite with Zinc Tablet] Aspirin [Aspirin BABY CHEW TAB] 81 mg PO QDAY #30 tab.chew 10/27/16 12/31/19 Rx carvediloL [Coreg] 25 mg PO BID #60 tablet 06/23/18 10/05/19 Rx amLODIPine 10 mg PO DAILY #30 tablet 07/14/19 10/05/19 Rx cloNIDine [Catapres] 0.2 mg PO TID #90 tablet 07/14/19 10/05/19 Rx AtorvaSTATin [Lipitor] 40 mg PO QHS #30 tablet 10/07/19 12/30/19 Rx Prasugrel [Effient] 10 mg PO QDAY #30 tablet 10/07/19 Unknown Rx Promethazine [Phenergan] 25 mg PO Q6H PRN #20 tablet 07/21/20 Unknown Rx Dicyclomine [Bentyl] 20 mg PO QID PRN #20 tablet 09/17/20 Unknown Rx Promethazine HCl [Phenergan SUPPOS] 25 mg RC Q6HR PRN #20 supp.rect 09/17/20 Unknown Rx Allergies Allergy/AdvReac Type Severity Reaction Status Date / Time codeine Allergy Rash Verified 01/01/20 22:07 Penicillins Allergy Hives Verified 01/01/20 22:07 ciprofloxacin [From Cipro] AdvReac severe Verified 01/01/20 22:07 nausea ciprofloxacin HCl AdvReac severe Verified 01/01/20 22:07 [From Cipro] nausea ED Review of Systems ROS: Stated complaint: NAUSEA/VOMITTING Other details as noted in HPI Comment: All other systems reviewed and negative Constitutional: denies: fever Gastrointestinal: abdominal pain, vomiting. denies: diarrhea ED Past Medical Hx - Past Medical History Previous Medical History?: Yes Hx Hypertension: Yes Hx Congestive Heart Failure: No Hx Diabetes: Yes Hx Renal Disease: Yes (Renal Cancer; mets to lungs and pancreas) Hx Arthritis: Yes (bilateral knees) Hx Asthma: No Hx COPD: No Hx HIV: No Additional medical history: DIALYSIS (-W-) - Surgical History Past Surgical History?: Yes Hx Open Heart Surgery: No Hx Appendectomy: Yes (1983) Additional Surgical History: NODULES removed from LUNGS , SHUNT LEFT ARM, bilateral nephrectomies, HYSTERECTOMY - Social History Smoking Status: Never Smoker Substance Use Type: None - Medications Home Medications: Home Medications Medication Instructions Recorded Confirmed Last Taken Type B Complex 11/Folic/C/Biot/Zinc 1 each PO DAILY #30 tablet 02/13/16 09/17/20 10/05/19 Rx [Dialyvite with Zinc Tablet] Meclizine [Antivert] 25 mg PO TID PRN 07/05/16 09/17/20 10/21/16 History Aspirin [Aspirin BABY CHEW TAB] 81 mg PO QDAY #30 tab.chew 10/27/16 09/17/20 12/31/19 Rx carvediloL [Coreg] 25 mg PO BID #60 tablet 06/23/18 09/17/20 10/05/19 Rx Cholecalciferol (Vitamin D3) 5,000 unit PO DAILY 01/16/19 09/17/20 12/31/19 History [Vitamin D3 5,000 UNIT] Cinacalcet [Sensipar] 30 mg PO QHS 01/16/19 09/17/20 10/05/19 History Sevelamer Carbonate [Renvela] 4,000 mg PO TIDWM 01/16/19 09/17/20 10/05/19 History hydrALAZINE [Apresoline TAB] 100 mg PO TID 01/16/19 09/17/20 10/05/19 History amLODIPine 10 mg PO DAILY #30 tablet 07/14/19 09/17/20 10/05/19 Rx cloNIDine [Catapres] 0.2 mg PO TID #90 tablet 07/14/19 09/17/20 10/05/19 Rx Losartan [Cozaar] 50 mg PO QDAY 10/06/19 09/17/20 10/05/19 History Metoclopramide HCl [Reglan TAB] 10 mg PO QID 10/06/19 09/17/20 10/05/19 History AtorvaSTATin [Lipitor] 40 mg PO QHS #30 tablet 10/07/19 09/17/20 12/30/19 Rx Prasugrel [Effient] 10 mg PO QDAY #30 tablet 10/07/19 09/17/20 Unknown Rx Promethazine [Phenergan] 25 mg PO Q6H PRN #20 tablet 07/21/20 09/17/20 Unknown Rx Dicyclomine [Bentyl] 20 mg PO QID PRN #20 tablet 09/17/20 Unknown Rx Promethazine HCl [Phenergan SUPPOS] 25 mg RC Q6HR PRN #20 supp.rect 09/17/20 Unknown Rx ED Physical Exam - General Limitations: Physical Limitation General appearance: alert, in no apparent distress - Head Head exam: Present: atraumatic, normocephalic - Eye Eye exam: Present: normal appearance - ENT ENT exam: Present: mucous membranes moist - Neck Neck exam: Present: normal inspection - Respiratory Respiratory exam: Present: normal lung sounds bilaterally. Absent: respiratory distress - Cardiovascular Cardiovascular Exam: Present: normal rhythm, tachycardia - GI/Abdominal GI/Abdominal exam: Present: soft, distended, tenderness, other (Patient actively vomiting) - Extremities Exam Extremities exam: Present: normal inspection - Neurological Exam Neurological exam: Present: alert, oriented X3 - Psychiatric Psychiatric exam: Present: normal affect, normal mood - Skin Skin exam: Present: warm, dry, intact, normal color ED Course Vital Signs 09/17/20 09/17/20 09/17/20 00:11 01:12 01:15 Temperature 98.2 F Pulse Rate 113 H 118 H Respiratory 20 17 Rate Blood Pressure 216/67 178/93 O2 Sat by Pulse 95 94 97 Oximetry 09/17/20 09/17/20 09/17/20 01:30 01:31 02:00 Temperature 98.4 F Pulse Rate 116 H 113 H Respiratory 14 16 Rate Blood Pressure 182/89 182/89 O2 Sat by Pulse 95 95 Oximetry 09/17/20 09/17/20 09/17/20 02:30 02:57 03:00 Temperature Pulse Rate 116 H 116 H 114 H Respiratory 12 25 H Rate Blood Pressure 189/85 176/56 176/56 O2 Sat by Pulse 92 94 Oximetry 09/17/20 09/17/20 09/17/20 03:30 04:00 04:31 Temperature Pulse Rate 95 H 99 H Respiratory Rate Blood Pressure 176/64 175/75 139/37 O2 Sat by Pulse 92 Oximetry 09/17/20 05:00 Temperature Pulse Rate 99 H Respiratory 22 Rate Blood Pressure 146/53 O2 Sat by Pulse 96 Oximetry - Reevaluation(s) Reevaluation #1: 09/17/20 05:44 Patient feeling much better at this time. Vitals improved. Nausea has subsided. Patient was comfortable with discharge home. ED Medical Decision Making - Lab Data Result diagrams: 09/16/20 12:07 09/16/20 12:07 - Radiology Data Radiology results: report reviewed, image reviewed - Medical Decision Making 65-year-old female, on dialysis, with recurrent nausea and vomiting. Meds given here in ED, including antihypertensives which patient unable to take at home. Vital signs are improved. Also improved symptomatically. CT scan is unremarkable for any acute findings in the abdomen or pelvis. Patient feels comfortable with discharge home. Return precautions given. Outpatient follow- up advised. - Differential Diagnosis Bowel obstruction, chemotherapy side effects, electrolyte disturbance Critical care attestation.: If time is entered above; I have spent that time in minutes in the direct care of this critically ill patient, excluding procedure time. ED Disposition Clinical Impression: Nausea and vomiting, Acute abdominal pain Disposition: - TO HOME OR SELFCARE Is pt being admited?: No Condition: Stable Instructions: Abdominal Pain, Adult, Nausea and Vomiting, Adult Prescriptions: Dicyclomine [Bentyl] 20 mg PO QID PRN #20 tablet PRN Reason: abdominal pain Promethazine HCl [Phenergan SUPPOS] 25 mg RC Q6HR PRN #20 supp.rect PRN Reason: Nausea And Vomiting Referrals: ALEXANDRA LUCAS MD [Primary Care Provider] - 3-5 Days PRIMARY CAREMD [Referring] - 3-5 Days Time of Disposition: 05:46
[2020-09-17] MEDS ORDERED: METOCLOPRAMIDE 10 MG/2 ML INJ IV ONE (02:54)
[2020-09-17] MEDS ORDERED: MORPHINE 4 MG/1 ML INJ IV ONE (04:23)
--- NOTE | 2020-09-17 05:06 | Cat Scan Report ---
CT ABDOMEN AND PELVIS WITHOUT CONTRAST INDICATION: vomiting; hx pancreatic and renal CA CONTRAST: Without IV COMPARISON: 07/21/[address] scans at this location are performed using CT dose reduction for ALARA by means of automated e xposure control. FINDINGS: Sclerosis in the the L3 vertebral body is not significantly changed. Chronic changes are ag ain noted in the lung bases. The right lower lobe nodule is unchanged at 16 mm. Heart is enlarged. Mo derate hiatal hernia is seen. Gallbladder and bile ducts show no abnormalities. The mass at the junct ion of the head and body of the pancreas is unchanged. No other masses are seen. Bilateral nephrectom y changes are again noted. No lymphadenopathy is seen. No focal inflammatory changes are noted. Appen shon is not visualized. No free fluid is seen. No evidence of bowel obstruction is noted. IMPRESSION: No acute abnormalities are seen Signer Name: Ezio Hillman MD Signed: 09/17/2020 5:02 AM Workstation Name: [id number]
[2020-09-17 05:33] VITALS: BP 146/53
== END 2020-09-17 06:59 | disposition home or self-care (01) ==
LOC: ED 11:44
DX: R10.84 Generalized abdominal pain (principal); R11.2 Nausea with vomiting, unspecified; I10 Essential (primary) hypertension; E11.9 Type 2 diabetes mellitus without complications; M19.91 Primary osteoarthritis, unspecified site; Z90.49 Acquired absence of other specified parts of digestive tract; Z98.890 Other specified postprocedural states; Z79.899 Other long term (current) drug therapy; Z88.0 Allergy status to penicillin; Z88.1 Allergy status to other antibiotic agents; Z88.8 Allergy status to other drugs, medicaments and biological substances
CPT/HCPCS: 36415; 71046; 74176; 80053; 83690; 85025; 96372; 96374; 96375; 99285; J2270; J2405; J2765

== ENCOUNTER 2020-11-27 16:25 | Emergency (ER) | payer MEDICARE ==
[2020-11-27 16:33] VITALS: BP 160/65
--- NOTE | 2020-11-27 16:51 | Emergency Department Report ---
Blank Doc - Documentation Documentation: 65-year-old female that has been taking methotrexate started to have facial so res, mouth sores, vomiting with blood. 1- This initial assessment/diagnostic orders/clinical plan/ treatment(s) is/are subject to change based on pt's health status, clinical progression and re-asses sment by fellow clinical providers in the ED. Further treatment and workup at subsequent clinical provers discretion. Patient/guardians urged not to elope from ED as their condition may be serious if not clinically assessed and managed. 2-labs
[2020-11-27 17:29] LABS: Basophils % (Auto) 0.2 % (0.0-1.8); Eosinophils # (Auto) 0.3 K/mm3 (0.0-0.4); Eosinophils % (Auto) 7.4 % (0.0-4.3); Hematocrit 32.3 % (30.3-42.9); Hemoglobin 10.7 gm/dl (10.1-14.3); Lymphocytes # (Auto) 0.5 K/mm3 (1.2-5.4); Lymphocytes % (Auto) 13.3 % (13.4-35.0); Mean Corpuscular HGB Conc 33 % (30-34); Mean Corpuscular Volume 93 fl (79-97); Red Blood Count 3.48 M/mm3 (3.65-5.03); Red Cell Distribution Width 14.5 % (13.2-15.2)
[2020-11-27 17:30] LABS: Platelet Count 93 K/mm3 (140-440)
[2020-11-27 17:40] LABS: Albumin 3.3 g/dL (3.9-5); Calcium 8.8 mg/dL (8.4-10.2)
[2020-11-27 20:46] LABS: INR 1.05 (0.87-1.13); Partial Thromboplastin Time 32.2 Sec. (24.2-36.6)
== END 2020-11-28 01:30 | disposition left against medical advice (07) ==
LOC: ED 16:25
DX: T78.40XA Allergy, unspecified, initial encounter (principal); Z53.21 Procedure and treatment not carried out due to patient leaving prior to being seen by health care provider; X58.XXXA Exposure to other specified factors, initial encounter; Y93.89 Activity, other specified; Y92.89 Other specified places as the place of occurrence of the external cause; Y99.8 Other external cause status
CPT/HCPCS: 36415; 80053; 85025; 85610; 85730

== ENCOUNTER 2020-11-28 13:45 | Emergency (ER) | payer MEDICARE ==
[2020-11-28 14:05] VITALS: BP 181/66
--- NOTE | 2020-11-28 14:11 | Emergency Department Report ---
ED ENT HPI - General Chief complaint: Dental/Oral Stated complaint: BLISTER IN MOUTH FROM MEDS Time Seen by Provider: 11/28/20 14:03 Source: police Mode of arrival: Wheelchair Limitations: Physical Limitation - History of Present Illness Initial comments: Patient is a 65-year-old female presents emergency room with complaints of sores inside of the mouth that began a couple days ago. She states that she also has a sore throat and some discomfort with swallowing. She is able to tolerate p.o. intake. She states that 2 weeks ago she was started on methotrexate by her bump grader operator for psoriasis. She denies any fever, facial swelling, difficulty breathing, sensation of throat closing. Patient has an allergy to codeine, penicillin, Cipro, she denies coming in contact with any of these medications. She is not currently on any antibiotics. She states the methotrexate is the only new medication. - Related Data Home Medications Medication Instructions Recorded Confirmed Last Taken Meclizine [Antivert] 25 mg PO TID PRN 07/05/16 09/17/20 10/21/16 Cholecalciferol (Vitamin D3) 5,000 unit PO DAILY 01/16/19 09/17/20 12/31/19 [Vitamin D3 5,000 UNIT] Cinacalcet [Sensipar] 30 mg PO QHS 01/16/19 09/17/20 10/05/19 Sevelamer Carbonate [Renvela] 4,000 mg PO TIDWM 01/16/19 09/17/20 10/05/19 hydrALAZINE [Apresoline TAB] 100 mg PO TID 01/16/19 09/17/20 10/05/19 Losartan [Cozaar] 50 mg PO QDAY 10/06/19 09/17/20 10/05/19 Metoclopramide HCl [Reglan TAB] 10 mg PO QID 10/06/19 09/17/20 10/05/19 Previous Rx's Medication Instructions Recorded Last Taken Type B Complex 11/Folic/C/Biot/Zinc 1 each PO DAILY #30 tablet 02/13/16 10/05/19 Rx [Dialyvite with Zinc Tablet] Aspirin [Aspirin BABY CHEW TAB] 81 mg PO QDAY #30 tab.chew 10/27/16 12/31/19 Rx carvediloL [Coreg] 25 mg PO BID #60 tablet 06/23/18 10/05/19 Rx amLODIPine 10 mg PO DAILY #30 tablet 07/14/19 10/05/19 Rx cloNIDine [Catapres] 0.2 mg PO TID #90 tablet 07/14/19 10/05/19 Rx AtorvaSTATin [Lipitor] 40 mg PO QHS #30 tablet 10/07/19 12/30/19 Rx Prasugrel [Effient] 10 mg PO QDAY #30 tablet 10/07/19 Unknown Rx Promethazine [Phenergan] 25 mg PO Q6H PRN #20 tablet 07/21/20 Unknown Rx Dicyclomine [Bentyl] 20 mg PO QID PRN #20 tablet 09/17/20 Unknown Rx Promethazine HCl [Phenergan SUPPOS] 25 mg RC Q6HR PRN #20 supp.rect 09/17/20 Unknown Rx Famotidine [Pepcid] 20 mg PO DAILY #30 tablet 09/24/20 Unknown Rx Mag Hydrox/Aluminum Hyd/Simeth 30 ml PO DAILY PRN 30 Days #1 09/24/20 Unknown Rx [Maalox Advanced Suspension] bottle Lidocaine Viscous 2% 15 ml MM Q6HR PRN #1 bottle 11/28/20 Unknown Rx Nystatin [Nystatin SUSP] 5 ml PO QID #200 ml 11/28/20 Unknown Rx Allergies Allergy/AdvReac Type Severity Reaction Status Date / Time codeine Allergy Rash Verified 09/21/20 09:44 Penicillins Allergy Hives Verified 09/21/20 09:44 ciprofloxacin [From Cipro] AdvReac severe Verified 09/21/20 09:44 nausea ciprofloxacin HCl AdvReac severe Verified 09/21/20 09:44 [From Cipro] nausea ED Dental HPI - General Chief complaint: Dental/Oral Stated complaint: BLISTER IN MOUTH FROM MEDS Time Seen by Provider: 11/28/20 14:03 Source: police Mode of arrival: Wheelchair Limitations: Physical Limitation - Related Data Home Medications Medication Instructions Recorded Confirmed Last Taken Meclizine [Antivert] 25 mg PO TID PRN 07/05/16 09/17/20 10/21/16 Cholecalciferol (Vitamin D3) 5,000 unit PO DAILY 01/16/19 09/17/20 12/31/19 [Vitamin D3 5,000 UNIT] Cinacalcet [Sensipar] 30 mg PO QHS 01/16/19 09/17/20 10/05/19 Sevelamer Carbonate [Renvela] 4,000 mg PO TIDWM 01/16/19 09/17/20 10/05/19 hydrALAZINE [Apresoline TAB] 100 mg PO TID 01/16/19 09/17/20 10/05/19 Losartan [Cozaar] 50 mg PO QDAY 10/06/19 09/17/20 10/05/19 Metoclopramide HCl [Reglan TAB] 10 mg PO QID 10/06/19 09/17/20 10/05/19 Previous Rx's Medication Instructions Recorded Last Taken Type B Complex 11/Folic/C/Biot/Zinc 1 each PO DAILY #30 tablet 02/13/16 10/05/19 Rx [Dialyvite with Zinc Tablet] Aspirin [Aspirin BABY CHEW TAB] 81 mg PO QDAY #30 tab.chew 10/27/16 12/31/19 Rx carvediloL [Coreg] 25 mg PO BID #60 tablet 06/23/18 10/05/19 Rx amLODIPine 10 mg PO DAILY #30 tablet 07/14/19 10/05/19 Rx cloNIDine [Catapres] 0.2 mg PO TID #90 tablet 07/14/19 10/05/19 Rx AtorvaSTATin [Lipitor] 40 mg PO QHS #30 tablet 10/07/19 12/30/19 Rx Prasugrel [Effient] 10 mg PO QDAY #30 tablet 10/07/19 Unknown Rx Promethazine [Phenergan] 25 mg PO Q6H PRN #20 tablet 07/21/20 Unknown Rx Dicyclomine [Bentyl] 20 mg PO QID PRN #20 tablet 09/17/20 Unknown Rx Promethazine HCl [Phenergan SUPPOS] 25 mg RC Q6HR PRN #20 supp.rect 09/17/20 Unknown Rx Famotidine [Pepcid] 20 mg PO DAILY #30 tablet 09/24/20 Unknown Rx Mag Hydrox/Aluminum Hyd/Simeth 30 ml PO DAILY PRN 30 Days #1 09/24/20 Unknown Rx [Maalox Advanced Suspension] bottle Lidocaine Viscous 2% 15 ml MM Q6HR PRN #1 bottle 11/28/20 Unknown Rx Nystatin [Nystatin SUSP] 5 ml PO QID #200 ml 11/28/20 Unknown Rx Allergies Allergy/AdvReac Type Severity Reaction Status Date / Time codeine Allergy Rash Verified 09/21/20 09:44 Penicillins Allergy Hives Verified 09/21/20 09:44 ciprofloxacin [From Cipro] AdvReac severe Verified 09/21/20 09:44 nausea ciprofloxacin HCl AdvReac severe Verified 09/21/20 09:44 [From Cipro] nausea ED Review of Systems ROS: Stated complaint: BLISTER IN MOUTH FROM MEDS Other details as noted in HPI Comment: All other systems reviewed and negative ED Past Medical Hx - Past Medical History Hx Hypertension: Yes Hx Congestive Heart Failure: No Hx Diabetes: Yes Hx Renal Disease: Yes (Renal Cancer; mets to lungs and pancreas) Hx Arthritis: Yes (bilateral knees) Hx Asthma: No Hx COPD: No Hx HIV: No Additional medical history: DIALYSIS (M-W-) - Surgical History Hx Open Heart Surgery: No Hx Appendectomy: Yes (1983) Additional Surgical History: NODULES removed from LUNGS , SHUNT LEFT ARM, bilateral nephrectomies, HYSTERECTOMY - Social History Smoking Status: Never Smoker Substance Use Type: None - Medications Home Medications: Home Medications Medication Instructions Recorded Confirmed Last Taken Type B Complex 11/Folic/C/Biot/Zinc 1 each PO DAILY #30 tablet 02/13/16 09/17/20 10/05/19 Rx [Dialyvite with Zinc Tablet] Meclizine [Antivert] 25 mg PO TID PRN 07/05/16 09/17/20 10/21/16 History Aspirin [Aspirin BABY CHEW TAB] 81 mg PO QDAY #30 tab.chew 10/27/16 09/17/20 12/31/19 Rx carvediloL [Coreg] 25 mg PO BID #60 tablet 06/23/18 09/17/20 10/05/19 Rx Cholecalciferol (Vitamin D3) 5,000 unit PO DAILY 01/16/19 09/17/20 12/31/19 History [Vitamin D3 5,000 UNIT] Cinacalcet [Sensipar] 30 mg PO QHS 01/16/19 09/17/20 10/05/19 History Sevelamer Carbonate [Renvela] 4,000 mg PO TIDWM 01/16/19 09/17/20 10/05/19 History hydrALAZINE [Apresoline TAB] 100 mg PO TID 01/16/19 09/17/20 10/05/19 History amLODIPine 10 mg PO DAILY #30 tablet 07/14/19 09/17/20 10/05/19 Rx cloNIDine [Catapres] 0.2 mg PO TID #90 tablet 07/14/19 09/17/20 10/05/19 Rx Losartan [Cozaar] 50 mg PO QDAY 10/06/19 09/17/20 10/05/19 History Metoclopramide HCl [Reglan TAB] 10 mg PO QID 10/06/19 09/17/20 10/05/19 History AtorvaSTATin [Lipitor] 40 mg PO QHS #30 tablet 10/07/19 09/17/20 12/30/19 Rx Prasugrel [Effient] 10 mg PO QDAY #30 tablet 10/07/19 09/17/20 Unknown Rx Promethazine [Phenergan] 25 mg PO Q6H PRN #20 tablet 07/21/20 09/17/20 Unknown Rx Dicyclomine [Bentyl] 20 mg PO QID PRN #20 tablet 09/17/20 Unknown Rx Promethazine HCl [Phenergan SUPPOS] 25 mg RC Q6HR PRN #20 supp.rect 09/17/20 Unknown Rx Famotidine [Pepcid] 20 mg PO DAILY #30 tablet 09/24/20 Unknown Rx Mag Hydrox/Aluminum Hyd/Simeth 30 ml PO DAILY PRN 30 Days #1 09/24/20 Unknown Rx [Maalox Advanced Suspension] bottle Lidocaine Viscous 2% 15 ml MM Q6HR PRN #1 bottle 11/28/20 Unknown Rx Nystatin [Nystatin SUSP] 5 ml PO QID #200 ml 11/28/20 Unknown Rx ED Physical Exam - General Limitations: Physical Limitation General appearance: alert, in no apparent distress - Head Head exam: Present: atraumatic, normocephalic - Eye Eye exam: Present: normal appearance - ENT ENT exam: Present: mucous membranes moist, other (thick white plaques present in the mouth, tongue, and oropharynx, no facial edema, airway is intact) - Respiratory Respiratory exam: Absent: respiratory distress, accessory muscle use - Neurological Exam Neurological exam: Present: alert, oriented X3 - Psychiatric Psychiatric exam: Present: normal affect, normal mood - Skin Skin exam: Present: warm, dry ED Course Vital Signs 11/28/20 13:58 Temperature 97.9 F Pulse Rate 89 Respiratory 20 Rate Blood Pressure 181/66 O2 Sat by Pulse 98 Oximetry ED Medical Decision Making - Medical Decision Making Patient is a 65-year-old female presents emergency room with complaints of sores inside of the mouth that began a couple days ago. She states that she also has a sore throat and some discomfort with swallowing. She is able to tolerate p.o. intake. She states that 2 weeks ago she was started on methotrexate by her bump grader operator for psoriasis. She denies any fever, facial swelling, difficulty breathing, sensation of throat closing. Patient has an allergy to codeine, penicillin, Cipro, she denies coming in contact with any of these medications. She is not currently on any antibiotics. She states the methotrexate is the only new medication. Vitals with elevated blood pressure, patient states that she did not take her blood pressure medication today, she states she has a history of chronic hypertension, she states she does have her medication at home. On exam: thick white plaques present in the mouth, tongue, and oropharynx, no facial edema, airway is intact. Examination appears consistent with oropharyngeal candidiasis. Patient given prescription for nystatin and viscous lidocaine. Advised patient Please use medication as prescribed. Please follow-up with your bump grader operator. Please follow-up with your primary care doctor. Return to emergency room for any worsening symptoms. Critical care attestation.: If time is entered above; I have spent that time in minutes in the direct care of this critically ill patient, excluding procedure time. ED Disposition Clinical Impression: Oropharyngeal candidiasis Disposition: - TO HOME OR SELFCARE Is pt being admited?: No Does the pt Need Aspirin: No Condition: Stable Instructions: Oral Thrush, Adult Additional Instructions: Please use medication as prescribed. Please follow-up with your bump grader operator. Please follow-up with your primary care doctor. Return to emergency room for any worsening symptoms. Prescriptions: Lidocaine Viscous 2% 15 ml MM Q6HR PRN #1 bottle PRN Reason: mouth/throat pain Nystatin [Nystatin SUSP] 5 ml PO QID #200 ml Referrals: your, primary care doctor [Other] - 2-3 Days your, bump grader operator [Other] - 2-3 Days Time of Disposition: 14:08 Print Language: CROATIAN
== END 2020-11-28 14:37 | disposition home or self-care (01) ==
LOC: ED 13:45
DX: B37.0 Candidal stomatitis (principal); I10 Essential (primary) hypertension; E11.9 Type 2 diabetes mellitus without complications; M19.91 Primary osteoarthritis, unspecified site; Z98.890 Other specified postprocedural states; Z90.49 Acquired absence of other specified parts of digestive tract; Z79.899 Other long term (current) drug therapy; Z88.0 Allergy status to penicillin; Z88.1 Allergy status to other antibiotic agents; Z88.8 Allergy status to other drugs, medicaments and biological substances

== ENCOUNTER 2020-11-30 09:35 | Inpatient (IN) | payer MEDICARE ==
--- NOTE | 2020-11-30 10:24 | Emergency Department Report ---
ED Abdominal Pain HPI - General Chief Complaint: Nausea/Vomiting/Diarrhea Stated Complaint: VOMITING PUI?: No Time Seen by Provider: 11/30/20 10:14 Source: patient, EMS Mode of arrival: Stretcher Limitations: No Limitations - History of Present Illness Initial Comments: Chief complaint: "I keep throwing up. I have not eaten in 5 days." HPI: This is a 65-year-old female with history of end-stage renal disease on hemodialysis Saturday, hypertension, dyslipidemia, coronary artery disease, psoriasis, renal cancer with metastasis to the pancreas, gastritis, duodenitis who presents with abdominal pain since last night, her appetite for the past 5 days. She also has had nausea vomiting since last night. Patient has mild to moderate stomach upset achy feeling. Constant. Significant nausea vomiting for several days but worse over the last night. She is currently being treated for thrush which she attributed to medication for psoriasis. Patient was scheduled to have chemotherapy today. She then was scheduled to have [id number] hemodialysis sessions on Saturday and Saturday. Last chemotherapy session occurred 1 month ago. MD Complaint: abdominal pain -: Gradual, Last night Location: diffuse, periumbilical Radiation: none Migration to: no migration Severity: severe Severity scale (0 -10): 10 Quality: aching Consistency: constant Worsens With: nothing Associated Symptoms: nausea, vomiting, anorexia - Related Data Home Medications Medication Instructions Recorded Confirmed Last Taken Meclizine [Antivert] 25 mg PO TID PRN 07/05/16 09/17/20 10/21/16 Cholecalciferol (Vitamin D3) 5,000 unit PO DAILY 01/16/19 09/17/20 12/31/19 [Vitamin D3 5,000 UNIT] Cinacalcet [Sensipar] 30 mg PO QHS 01/16/19 09/17/20 10/05/19 Sevelamer Carbonate [Renvela] 4,000 mg PO TIDWM 01/16/19 09/17/20 10/05/19 hydrALAZINE [Apresoline TAB] 100 mg PO TID 01/16/19 09/17/20 10/05/19 Losartan [Cozaar] 50 mg PO QDAY 10/06/19 09/17/20 10/05/19 Metoclopramide HCl [Reglan TAB] 10 mg PO QID 10/06/19 09/17/20 10/05/19 Previous Rx's Medication Instructions Recorded Last Taken Type B Complex 11/Folic/C/Biot/Zinc 1 each PO DAILY #30 tablet 02/13/16 10/05/19 Rx [Dialyvite with Zinc Tablet] Aspirin [Aspirin BABY CHEW TAB] 81 mg PO QDAY #30 tab.chew 10/27/16 12/31/19 Rx carvediloL [Coreg] 25 mg PO BID #60 tablet 06/23/18 10/05/19 Rx amLODIPine 10 mg PO DAILY #30 tablet 07/14/19 10/05/19 Rx cloNIDine [Catapres] 0.2 mg PO TID #90 tablet 07/14/19 10/05/19 Rx AtorvaSTATin [Lipitor] 40 mg PO QHS #30 tablet 10/07/19 12/30/19 Rx Prasugrel [Effient] 10 mg PO QDAY #30 tablet 10/07/19 Unknown Rx Promethazine [Phenergan] 25 mg PO Q6H PRN #20 tablet 07/21/20 Unknown Rx Dicyclomine [Bentyl] 20 mg PO QID PRN #20 tablet 09/17/20 Unknown Rx Promethazine HCl [Phenergan SUPPOS] 25 mg RC Q6HR PRN #20 supp.rect 09/17/20 Unknown Rx Famotidine [Pepcid] 20 mg PO DAILY #30 tablet 09/24/20 Unknown Rx Mag Hydrox/Aluminum Hyd/Simeth 30 ml PO DAILY PRN 30 Days #1 09/24/20 Unknown Rx [Maalox Advanced Suspension] bottle Lidocaine Viscous 2% 15 ml MM Q6HR PRN #1 bottle 11/28/20 Unknown Rx Nystatin [Nystatin SUSP] 5 ml PO QID #200 ml 11/28/20 Unknown Rx Allergies Allergy/AdvReac Type Severity Reaction Status Date / Time codeine Allergy Rash Verified 09/21/20 09:44 Penicillins Allergy Hives Verified 09/21/20 09:44 ciprofloxacin [From Cipro] AdvReac severe Verified 09/21/20 09:44 nausea ciprofloxacin HCl AdvReac severe Verified 09/21/20 09:44 [From Cipro] nausea ED Review of Systems ROS: Stated complaint: VOMITING Other details as noted in HPI Comment: All other systems reviewed and negative Constitutional: malaise. denies: fever Respiratory: denies: cough, shortness of breath Cardiovascular: denies: chest pain Gastrointestinal: abdominal pain, nausea, vomiting, diarrhea ED Past Medical Hx - Past Medical History Previous Medical History?: Yes Hx Hypertension: Yes Hx Congestive Heart Failure: No Hx Diabetes: Yes Hx Renal Disease: Yes (Renal Cancer; mets to lungs and pancreas) Hx Arthritis: Yes (bilateral knees) Hx Asthma: No Hx COPD: No Hx HIV: No Additional medical history: DIALYSIS (M-W-F) - Surgical History Past Surgical History?: Yes Hx Open Heart Surgery: No Hx Appendectomy: Yes (1983) Additional Surgical History: NODULES removed from LUNGS , SHUNT LEFT ARM, bilateral nephrectomies, HYSTERECTOMY - Social History Smoking Status: Never Smoker Substance Use Type: None - Medications Home Medications: Home Medications Medication Instructions Recorded Confirmed Last Taken Type B Complex 11/Folic/C/Biot/Zinc 1 each PO DAILY #30 tablet 02/13/16 09/17/20 10/05/19 Rx [Dialyvite with Zinc Tablet] Meclizine [Antivert] 25 mg PO TID PRN 07/05/16 09/17/20 10/21/16 History Aspirin [Aspirin BABY CHEW TAB] 81 mg PO QDAY #30 tab.chew 10/27/16 09/17/20 12/31/19 Rx carvediloL [Coreg] 25 mg PO BID #60 tablet 06/23/18 09/17/20 10/05/19 Rx Cholecalciferol (Vitamin D3) 5,000 unit PO DAILY 01/16/19 09/17/20 12/31/19 History [Vitamin D3 5,000 UNIT] Cinacalcet [Sensipar] 30 mg PO QHS 01/16/19 09/17/20 10/05/19 History Sevelamer Carbonate [Renvela] 4,000 mg PO TIDWM 01/16/19 09/17/20 10/05/19 History hydrALAZINE [Apresoline TAB] 100 mg PO TID 01/16/19 09/17/20 10/05/19 History amLODIPine 10 mg PO DAILY #30 tablet 07/14/19 09/17/20 10/05/19 Rx cloNIDine [Catapres] 0.2 mg PO TID #90 tablet 10/09/17/20 10/05/19 Rx Losartan [Cozaar] 50 mg PO QDAY 10/06/19 09/17/20 10/05/19 History Metoclopramide HCl [Reglan TAB] 10 mg PO QID 10/06/19 09/17/20 10/05/19 History AtorvaSTATin [Lipitor] 40 mg PO QHS #30 tablet 10/07/19 09/17/20 12/30/19 Rx Prasugrel [Effient] 10 mg PO QDAY #30 tablet 10/07/19 09/17/20 Unknown Rx Promethazine [Phenergan] 25 mg PO Q6H PRN #20 tablet 07/21/20 09/17/20 Unknown Rx Dicyclomine [Bentyl] 20 mg PO QID PRN #20 tablet 09/17/20 Unknown Rx Promethazine HCl [Phenergan SUPPOS] 25 mg RC Q6HR PRN #20 supp.rect 09/17/20 Unknown Rx Famotidine [Pepcid] 20 mg PO DAILY #30 tablet 09/24/20 Unknown Rx Mag Hydrox/Aluminum Hyd/Simeth 30 ml PO DAILY PRN 30 Days #1 09/24/20 Unknown Rx [Maalox Advanced Suspension] bottle Lidocaine Viscous 2% 15 ml MM Q6HR PRN #1 bottle 11/28/20 Unknown Rx Nystatin [Nystatin SUSP] 5 ml PO QID #200 ml 11/28/20 Unknown Rx ED Physical Exam - General Limitations: No Limitations General appearance: alert, in no apparent distress, other (Appears uncomfortable, appears frail, actively vomiting in emesis bag) - Head Head exam: Present: atraumatic, normocephalic - Eye Eye exam: Present: normal appearance - ENT ENT exam: Present: other (Guo patches plaques on tongue) - Neck Neck exam: Present: normal inspection - Respiratory Respiratory exam: Present: normal lung sounds bilaterally. Absent: respiratory distress, wheezes, rales, rhonchi - Cardiovascular Cardiovascular Exam: Present: regular rate, normal rhythm, normal heart sounds. Absent: systolic murmur, diastolic murmur, rubs, gallop - GI/Abdominal GI/Abdominal exam: Present: soft, normal bowel sounds. Absent: distended, tenderness, guarding, rebound - Extremities Exam Extremities exam: Present: normal inspection - Neurological Exam Neurological exam: Present: alert, oriented X3 - Psychiatric Psychiatric exam: Present: normal affect, normal mood - Skin Skin exam: Present: warm, dry, intact, normal color, other (Left bicep AV fistula). Absent: rash ED Course Vital Signs 11/30/20 11/30/20 11/30/20 09:52 09:56 11:00 Temperature 98.4 F 98.4 F Pulse Rate 109 H 109 H 101 H Respiratory 17 17 16 Rate Blood Pressure 179/75 Blood Pressure 179/75 185/82 [Right] O2 Sat by Pulse 97 97 96 Oximetry ED Medical Decision Making - Lab Data Result diagrams: 11/30/20 12:00 11/30/20 12:00 - Radiology Data Radiology results: report reviewed Findings Reporting MD: Damaso Nance Dictation Time: November 30, 2020 10:19 Shell Sorter: Not available [employer] Date: CT abdomen pelvis wo con INDICATION: acute abdominal pain hx of pancreatitis or mass. COMPARISON: 09/17/2020, 07/21/2020 01/01/2020 CT abdomen and pelvis TECHNIQUE: Abdominal and pelvic CT exam performed. All CT scans at this location are performed using CT dose reduction for ALARA by means of automated exposure control. FINDINGS: CT ABDOMEN and PELVIS: Lung Bases: There are scattered pulmonary nodules seen within the visualized lung bases. The largest pulmonary nodule measures 1.6 cm in the posterior basal segment right lower lobe which is unchanged from the prior CT abdomen and pelvis. However, the visualized pulmonary nodules do appear larger than 06/24/[address] . Postoperative changes to the right lower lobe. Liver: Thickening of the left adrenal is unchanged. Biliary: No significant abnormality. Spleen: No significant abnormality. Pancreas: The pancreas is not well evaluated without contrast. However, there is an unchanged pancreatic tail mass. The body the pancreas also appears abnormal with a possible separate mass seen in the pancreatic body. But the appearance is unchanged from prior exams. Adrenals: No significant abnormality. Kidneys: Prior bilateral nephrectomy. Lymphatics: No lymphadenopathy. Vasculature: Abdominal aortic and branch vessel atherosclerotic calcifications without aortic aneurysm. Bowel: No significant abnormality. Pelvis: No significant abnormality. Osseous Structures: Unchanged L3 sclerotic vertebral body lesion. Additional Findings: 2.3 cm lower back saphenous nodule at the level of L3. IMPRESSION: 1. No significant change from prior CT abdomen. 2. Unchanged pancreatic masses. 3. Pulmonary nodules which are unchanged from prior examination but larger compared to CT chest in 2018. Signer Name: Damaso Nance MD Signed: 11/30/2020 10:19 AM Workstation Name: [id number] - Medical Decision Making Recurrent intractable nausea vomiting with dehydration: Exacerbation of patient's known gastritis and esophagitis, advancement of GI malignancy likely contributing,Work-up notable for leukopenia, elevated AST ALT, total and direct bilirubin Oropharyngeal candidiasis affecting patient's abililty to eat/drink Patient admitted for further treatment and evaluation. Critical care attestation.: If time is entered above; I have spent that time in minutes in the direct care of this critically ill patient, excluding procedure time. ED Disposition Clinical Impression: Intractable vomiting, Renal cell cancer, Pancreatic cancer, End-stage renal disease needing dialysis, Oropharyngeal candidiasis, Dehydration Disposition: OP ADMIT IP TO THIS HOSP Is pt being admited?: Yes Does the pt Need Aspirin: No Condition: Stable
[2020-11-30] MEDS ORDERED: PANTOPRAZOLE 40 MG INJ IV ONE (10:25)
[2020-11-30] MEDS ORDERED: MORPHINE 4 MG/1 ML INJ IV ONE (10:25)
[2020-11-30] MEDS ORDERED: ONDANSETRON 4 MG/2 ML INJ IV ONE ×2 (10:25→13:09)
--- NOTE | 2020-11-30 11:24 | Cat Scan Report ---
CT abdomen pelvis wo con INDICATION: acute abdominal pain hx of pancreatitis or mass. COMPARISON: 09/17/2020, 07/21/2020 01/01/2020 CT abdomen and pelvis TECHNIQUE: Abdominal and pelvic CT exam performed. All CT scans at this location are performed using CT dose reduction for ALARA by means of automated exposure control. FINDINGS: CT ABDOMEN and PELVIS: Lung Bases: There are scattered pulmonary nodules seen within the visualized lung bases. The largest pulmonary nodule measures 1.6 cm in the posterior basal segment right lower lobe which is unchanged f rom the prior CT abdomen and pelvis. However, the visualized pulmonary nodules do appear larger than 06/24/[address] . Postoperative changes to the right lower lobe. Liver: Thickening of the left adrenal is unchanged. Biliary: No significant abnormality. Spleen: No significant abnormality. Pancreas: The pancreas is not well evaluated without contrast. However, there is an unchanged pancrea tic tail mass. The body the pancreas also appears abnormal with a possible separate mass seen in the pancreatic body. But the appearance is unchanged from prior exams. Adrenals: No significant abnormality. Kidneys: Prior bilateral nephrectomy. Lymphatics: No lymphadenopathy. Vasculature: Abdominal aortic and branch vessel atherosclerotic calcifications without aortic aneurys m. Bowel: No significant abnormality. Pelvis: No significant abnormality. Osseous Structures: Unchanged L3 sclerotic vertebral body lesion. Additional Findings: 2.3 cm lower back saphenous nodule at the level of L3. IMPRESSION: 1. No significant change from prior CT abdomen. 2. Unchanged pancreatic masses. 3. Pulmonary nodules which are unchanged from prior examination but larger compared to CT chest in 20 18. Signer Name: Damaso Nance MD Signed: 11/30/2020 11:19 AM Workstation Name: [email or web address]
[2020-11-30 12:27] LABS: Hematocrit 31.5 % (30.3-42.9); Hemoglobin 10.6 gm/dl (10.1-14.3); Mean Corpuscular HGB Conc 34 % (30-34); Mean Corpuscular Volume 91 fl (79-97); Red Blood Count 3.46 M/mm3 (3.65-5.03); Red Cell Distribution Width 14.3 % (13.2-15.2)
[2020-11-30 12:28] LABS: Calcium 8.9 mg/dL (8.4-10.2); Platelet Count 24 K/mm3 (140-440)
[2020-11-30 12:50] LABS: Albumin 2.9 g/dL (3.9-5); Bilirubin,Direct 0.9 mg/dL (0-0.2)
[2020-11-30] MEDS ORDERED: ACETAMINOPHEN 325 MG TAB PO PRN ×2 (18:24→21:05)
[2020-11-30] MEDS ORDERED: ONDANSETRON 4 MG/2 ML INJ IV PRN (18:24)
--- NOTE | 2020-11-30 18:26 | History and Physical Report ---
History of Present Illness Date of examination: 11/30/20 Date of admission: 11/30/20 13:07 Chief complaint: Vomiting for 5 days History of present illness: 55-year-old female with history of end-stage renal disease and renal cell carcinoma presents with vomiting for 5 days. Vomited sometimes. Patient is being treated for oral candidiasis. Patient has history of psoriasis. Patient is a very poor historian and not able to review her chemotherapy status. Patient states she is having chemotherapy the last 1 month. Staging of her cancer is not known. Very poor historian. The reason for admission was persistent vomiting and couple of blood-streaked emesis - Past Medical History Previous Medical History?: Yes Hx Hypertension: Yes Hx Diabetes: Yes Hx Renal Disease: Yes (Renal Cancer; mets to lungs and pancreas) Hx Arthritis: Yes (bilateral knees) Additional medical history: DIALYSIS (-W-) - Surgical History Past Surgical History?: Yes Hx Appendectomy: Yes (1983) Additional Surgical History: NODULES removed from LUNGS , SHUNT LEFT ARM, bilateral nephrectomies, HYSTERECTOMY - Social History Smoking Status: Never Smoker Substance Use Type: None --Review of Systems ROS: Stated complaint: VOMITING Other details as noted in HPI Comment: All other systems reviewed and negative Constitutional: malaise. denies: fever Respiratory: denies: cough, shortness of breath Cardiovascular: denies: chest pain Gastrointestinal: abdominal pain, nausea, vomiting, diarrhea Medications and Allergies Allergies Allergy/AdvReac Type Severity Reaction Status Date / Time codeine Allergy Rash Verified 09/21/20 09:44 Penicillins Allergy Hives Verified 09/21/20 09:44 ciprofloxacin [From Cipro] AdvReac severe Verified 09/21/20 09:44 nausea ciprofloxacin HCl AdvReac severe Verified 09/21/20 09:44 [From Cipro] nausea Home Medications Medication Instructions Recorded Confirmed Last Taken Type B Complex 11/Folic/C/Biot/Zinc 1 each PO DAILY #30 tablet 02/13/16 11/30/2009/23 Rx [Dialyvite with Zinc Tablet] Meclizine [Antivert] 25 mg PO TID PRN 07/05/16 11/30/20 10/21/16 History Aspirin [Aspirin BABY CHEW TAB] 81 mg PO QDAY #30 tab.chew 10/27/16 11/30/2006/12 Rx carvediloL [Coreg] 25 mg PO BID #60 tablet 06/23/18 11/30/20 10/05/19 Rx Cholecalciferol (Vitamin D3) 5,000 unit PO DAILY 01/16/19 11/30/20 12/31/19 History [Vitamin D3 5,000 UNIT] Cinacalcet [Sensipar] 30 mg PO QHS 01/16/19 11/30/20 10/05/19 History Sevelamer Carbonate [Renvela] 4,000 mg PO TIDWM 01/16/19 11/30/20 10/05/19 History hydrALAZINE [Apresoline TAB] 100 mg PO TID 01/16/19 11/30/20 10/05/19 History amLODIPine 10 mg PO DAILY #30 tablet 07/14/19 11/30/20 10/05/19 Rx cloNIDine [Catapres] 0.2 mg PO TID #90 tablet 07/14/19 11/30/20 10/05/19 Rx Losartan [Cozaar] 50 mg PO QDAY 10/06/19 11/30/20 10/05/19 History Metoclopramide HCl [Reglan TAB] 10 mg PO QID 10/06/19 11/30/20 10/05/19 History AtorvaSTATin [Lipitor] 40 mg PO QHS #30 tablet 10/07/19 11/30/20 12/30/19 Rx Prasugrel [Effient] 10 mg PO QDAY #30 tablet 10/07/19 11/30/20 Unknown Rx Promethazine [Phenergan] 25 mg PO Q6H PRN #20 tablet 07/21/20 11/30/20 Unknown Rx Dicyclomine [Bentyl] 20 mg PO QID PRN #20 tablet 09/17/20 11/30/20 Unknown Rx Promethazine HCl [Phenergan SUPPOS] 25 mg RC Q6HR PRN #20 supp.rect 09/17/20 11/30/20 Unknown Rx Famotidine [Pepcid] 20 mg PO DAILY #30 tablet 09/24/20 11/30/20 Unknown Rx Mag Hydrox/Aluminum Hyd/Simeth 30 ml PO DAILY PRN 30 Days #1 09/24/20 11/30/20 Unknown Rx [Maalox Advanced Suspension] bottle Lidocaine Viscous 2% 15 ml MM Q6HR PRN #1 bottle 11/28/20 11/30/20 Unknown Rx Nystatin [Nystatin SUSP] 5 ml PO QID #200 ml 11/28/20 11/30/20 Unknown Rx Exam - Constitutional Vitals: Temp Pulse Resp BP Pulse Ox 98.3 F 106 H 20 174/74 96 11/30/20 16:18 11/30/20 16:18 11/30/20 16:18 11/30/20 16:18 11/30/20 16:18 General appearance: Present: mild distress, well-nourished - EENT Eyes: Present: PERRL ENT: hearing intact, clear oral mucosa - Neck Neck: Present: supple, normal ROM - Respiratory Respiratory effort: normal Respiratory: bilateral: CTA - Cardiovascular Heart rate: 98 Rhythm: regular Heart Sounds: Present: S1 & S2. Absent: rub, click - Extremities Extremities: no ischemia, pulses intact, pulses symmetrical, No edema Peripheral Pulses: within normal limits - Abdominal General gastrointestinal: Present: soft, non-tender, non-distended, normal bowel sounds Female genitourinary: Present: normal - Rectal Rectal Exam: deferred - Integumentary Integumentary: Present: clear, warm, dry - Musculoskeletal Musculoskeletal: gait normal, strength equal bilaterally - Psychiatric Psychiatric: appropriate mood/affect, intact judgment & insight - Neurologic Neurologic: CNII-XII intact, moves all extremities - Allied Health Allied health notes reviewed: nursing, case management HEART Score - HEART Score History: Moderately suspicious Age: 45-65 Troponin: 1-3x normal limit Results - Labs CBC & Chem 7: 12/01/20 04:57 12/01/20 04:57 Labs: Laboratory Last Values WBC 0.9 K/mm3 (4.5-11.0) L* 11/30/20 12:00 RBC 3.46 M/mm3 (3.65-5.03) L 11/30/20 12:00 Hgb 10.6 gm/dl (10.1-14.3) 11/30/20 12:00 Hct 31.5 % (30.3-42.9) 11/30/20 12:00 MCV 91 fl (79-97) 11/30/20 12:00 MCH 31 pg (28-32) 11/30/20 12:00 MCHC 34 % (30-34) 11/30/20 12:00 RDW 14.3 % (13.2-15.2) 11/30/20 12:00 Plt Count 24 K/mm3 (140-440) L 11/30/20 12:00 Sodium 138 mmol/L (137-145) 11/30/20 12:00 Potassium 4.4 mmol/L (3.6-5.0) 11/30/20 12:00 Chloride 94.5 mmol/L (98-107) L 11/30/20 12:00 Carbon Dioxide 26 mmol/L (22-30) 11/30/20 12:00 Anion Gap 22 mmol/L 11/30/20 12:00 BUN 68 mg/dL (7-17) H 11/30/20 12:00 Creatinine 7.7 mg/dL (0.6-1.2) H 11/30/20 12:00 Estimated GFR 5 ml/min 11/30/20 12:00 BUN/Creatinine Ratio 9 % 11/30/20 12:00 Glucose 164 mg/dL (65-100) H 11/30/20 12:00 Calcium 8.9 mg/dL (8.4-10.2) 11/30/20 12:00 Phosphorus 5.80 mg/dL (2.5-4.5) H 11/30/20 12:00 Magnesium 2.00 mg/dL (1.7-2.3) 11/30/20 12:00 Total Bilirubin 1.30 mg/dL (0.1-1.2) H 11/30/20 12:00 Direct Bilirubin 0.9 mg/dL (0-0.2) H 11/30/20 12:00 Indirect Bilirubin 0.4 mg/dL 11/30/20 12:00 AST 207 units/L (5-40) H 11/30/20 12:00 ALT 333 units/L (7-56) H 11/30/20 12:00 Alkaline Phosphatase 114 units/L (35-129) 11/30/20 12:00 Total Protein 5.7 g/dL (6.3-8.2) L 11/30/20 12:00 Albumin 2.9 g/dL (3.9-5) L 11/30/20 12:00 Albumin/Globulin Ratio 1.0 % 11/30/20 12:00 Lipase 26 units/L (13-60) 11/30/20 12:00 Short CBC 11/30/20 11/30/20 12/01/20 Range/Units 12:00 22:33 04:57 WBC 0.9 L* 0.9 L* (4.5-11.0) K/mm3 Hgb 10.6 10.2 10.1 (10.1-14.3) gm/dl Hct 31.5 30.2 L 29.8 L (30.3-42.9) % Plt Count 24 L 16 L* (140-440) K/mm3 BMP 11/30/20 12/01/20 12:00 04:57 Sodium 138 141 Potassium 4.4 4.7 Chloride 94.5 L 96.9 L Carbon Dioxide 26 23 BUN 68 H 84 H Creatinine 7.7 H 9.0 H Glucose 164 H 151 H Calcium 8.9 8.9 Liver Function 11/30/20 12/01/20 Range/Units 12:00 04:57 Total Bilirubin 1.30 H 1.20 (0.1-1.2) mg/dL Direct Bilirubin 0.9 H (0-0.2) mg/dL AST 207 H 101 H (5-40) units/L ALT 333 H 245 H (7-56) units/L Alkaline Phosphatase 114 103 (35-129) units/L Albumin 2.9 L 2.9 L (3.9-5) g/dL - Imaging and Cardiology Imaging and Cardiology: CT abdomen Multiple pulmonary nodules Pancreatic tail mass and possible separate mass seen in the pancreatic body Kidneys bilateral nephrectomy Gu/IV: Voiding Method Toilet Assessment and Plan Advance Directives: Yes (Full code) VTE prophylaxis?: Chemical Plan of care discussed with patient/family: Yes - Patient Problems (1) Intractable vomiting Current Visit: Yes Status: Acute Plan to address problem: Patient initiated on IV Zofran and IV Reglan. Does state emesis. IV Protonix initiated. (2) Thrombocytopenia Current Visit: Yes Status: Acute Plan to address problem: Possibly secondary to chemotherapy No active bleeding Heme-onc consult requested (3) Neutropenia Current Visit: Yes Status: Acute Plan to address problem: Severe Heme-onc consult requested May need Neupogen (4) End-stage renal disease needing dialysis Current Visit: Yes Status: Acute Plan to address problem: Nephrology consult requested (5) Pancreatic cancer Current Visit: Yes Status: Chronic Qualifiers: Pancreatic malignancy location: head of pancreas Qualified Code(s): C25.0 - Malignant neoplasm of head of pancreas Plan to address problem: Pancreatic cancer in the body and the tail of pancreas. Patient on chemotherapy. Referral back to the oncology department where she is getting chemotherapy Could not get much information from the patient Primary team to call her oncologist (6) Oropharyngeal candidiasis Current Visit: Yes Status: Acute Plan to address problem: IV Diflucan for now (7) Renal cell cancer Current Visit: Yes Status: Chronic Qualifiers: Plan to address problem: Had bilateral nephrectomy Patient unable to confirm whether it was because of renal cell carcinoma (8) Transaminitis Current Visit: Yes Status: Acute Plan to address problem: Possibly secondary to chemotherapy Check hepatitis profile (9) Severe malnutrition Current Visit: Yes Status: Acute Plan to address problem: Dietitian consult requested (10) DVT prophylaxis Current Visit: No Status: Acute Plan to address problem: On SCDs and GI prophylaxis
[2020-11-30] MEDS ORDERED: SODIUM CHLORIDE 0.9% 1000 ML 1,000 ML IV SCH (18:30)
[2020-11-30] MEDS: HYDROmorphone 1 MG/1 ML INJ IV PRN (18:52)
[2020-11-30] MEDS ORDERED: PANTOPRAZOLE 80 MG in SODIUM CHLORIDE 0.9% 100 ML IV SCH (22:00)
[2020-11-30] MEDS ORDERED: cloNIDine TTS 0.3 MG/24 HR PATCH TD SCH (22:00)
[2020-11-30 22:51] LABS: Hematocrit 30.2 % (30.3-42.9); Hemoglobin 10.2 gm/dl (10.1-14.3)
[2020-12-01] MEDS: ONDANSETRON 4 MG/2 ML INJ IV PRN ×2 (05:03→08:46)
[2020-12-01] MEDS: hydrALAZINE 20 MG/1 ML INJ IV PRN (05:03)
[2020-12-01 05:30] LABS: Hematocrit 29.8 % (30.3-42.9); Hemoglobin 10.1 gm/dl (10.1-14.3); Mean Corpuscular HGB Conc 34 % (30-34); Mean Corpuscular Volume 91 fl (79-97); Red Blood Count 3.28 M/mm3 (3.65-5.03); Red Cell Distribution Width 14.2 % (13.2-15.2)
[2020-12-01 05:40] LABS: Platelet Count 16 K/mm3 (140-440)
[2020-12-01 05:46] LABS: Albumin 2.9 g/dL (3.9-5); Calcium 8.9 mg/dL (8.4-10.2)
[2020-12-01 06:52] LABS: Eosinophils % (Manual) 3.7 % (0.0-4.3); Total Cells Counted 27
[2020-12-01 06:53] LABS: Hypochromasia Few
[2020-12-01 06:54] LABS: Platelet Estimate Consistent w Auto
[2020-12-01] MEDS ORDERED: FLUCONAZOLE 400 MG 200 ML IV SCH (08:00)
[2020-12-01] MEDS: FLUCONAZOLE 200 MG 200 MG/100 ML BAG IV SCH (09:43)
--- NOTE | 2020-12-01 10:25 | Progress Note ---
Assessment and Plan Assessment and plan: -- Intractable vomiting Current Visit: Yes Status: Acute Plan to address problem: Patient initiated on IV Zofran and IV Reglan. GI evaluated the patient Continue Protonix --Severe thrombocytopenia Current Visit: Yes Status: Acute Plan to address problem: Platelets 16 K Transfuse 3 units of platelets Per protocol, closely monitor --Neutropenia Current Visit: Yes Status: Acute Plan to address problem: Severe neutropenia, Neupogen x1 dose Hematology following Neutropenia precautions as needed --End-stage renal disease needing dialysis Current Visit: Yes Status: Acute Plan to address problem: Nephrology evaluated the patient HD per schedule -- Pancreatic cancer Current Visit: Yes Status: Chronic Plan to address problem: Pancreatic cancer in the body and the tail of pancreas. Patient on chemotherapy. Follows with Dr. Lee Patient will follow up with her private oncologist upon discharge --Oropharyngeal candidiasis Current Visit: Yes Status: Acute Plan to address problem: Status post EGD per GI IV Diflucan for now Closely monitor --History of renal cell cancer Current Visit: Yes Status: Chronic Plan to address problem: Had bilateral nephrectomy On hemodialysis --Transaminitis Current Visit: Yes Status: Acute Plan to address problem: Possibly secondary to chemotherapy Check hepatitis profile Possible metastatic --Severe protein calorie malnutrition Current Visit: Yes Status: Acute Plan to address problem: Hypoalbuminemia .Albumin 2.9 Nutrition consult requested --DVT prophylaxis Current Visit: No Status: Acute Plan to address problem: On SCDs no pharmacologic anticoagulation In view of severe thrombocytopenia --Full CODE STATUS --Patient is critically ill very poor prognosis Plan of care reviewed with the patient, her nurse and the case management Discussed with consultants GI Dr.Chokshi gonzalez and nephrology Dr. Silvia Sarkar History Interval history: I have seen and examined the patient at the bedside Patient's chart and medications reviewed Patient is critically ill Thrombocytopenia and leukopenia And mild distress Vital signs noted Hospitalist Physical - Constitutional Vitals: Temp Pulse Resp BP Pulse Ox 97.5 F L 107 H 20 178/83 96 12/01/20 04:30 12/01/20 04:30 12/01/20 04:30 12/01/20 04:30 12/01/20 04:30 General appearance: Present: mild distress, well-nourished - EENT Eyes: Present: PERRL, EOM intact - Neck Neck: Present: supple, normal ROM - Respiratory Respiratory effort: normal Respiratory: bilateral: diminished, negative: rales, rhonchi, wheezing - Cardiovascular Rhythm: regular Heart Sounds: Present: S1 & S2 - Extremities Extremities: no ischemia, No edema - Abdominal General gastrointestinal: soft, non-tender, non-distended, normal bowel sounds - Integumentary Integumentary: Present: clear, warm - Psychiatric Psychiatric: appropriate mood/affect, cooperative - Neurologic Neurologic: CNII-XII intact, moves all extremities HEART Score - HEART Score Age: 45-65 Troponin: 1-3x normal limit Results - Labs CBC & Chem 7: 12/01/20 04:57 12/01/20 04:57 Labs: Laboratory Last Values WBC 0.9 K/mm3 (4.5-11.0) L* 12/01/20 04:57 RBC 3.28 M/mm3 (3.65-5.03) L 12/01/20 04:57 Hgb 10.1 gm/dl (10.1-14.3) 12/01/20 04:57 Hct 29.8 % (30.3-42.9) L 12/01/20 04:57 MCV 91 fl (79-97) 12/01/20 04:57 MCH 31 pg (28-32) 12/01/20 04:57 MCHC 34 % (30-34) 12/01/20 04:57 RDW 14.2 % (13.2-15.2) 12/01/20 04:57 Plt Count 16 K/mm3 (140-440) L* 12/01/20 04:57 Add Manual Diff Complete 12/01/20 04:57 Total Counted 27 12/01/20 04:57 Seg Neuts % (Manual) 74.1 % (40.0-70.0) H 12/01/20 04:57 Lymphocytes % (Manual) 22.2 % (13.4-35.0) 12/01/20 04:57 Eosinophils % (Manual) 3.7 % (0.0-4.3) 12/01/20 04:57 Nucleated RBC % Not Reportable 12/01/20 04:57 Seg Neutrophils # Man 0.7 K/mm3 (1.8-7.7) L 12/01/20 04:57 Band Neutrophils # 0.0 K/mm3 12/01/20 04:57 Lymphocytes # (Manual) 0.2 K/mm3 (1.2-5.4) L 12/01/20 04:57 Abs React Lymphs (Man) 0.0 K/mm3 12/01/20 04:57 Monocytes # (Manual) 0.0 K/mm3 (0.0-0.8) 12/01/20 04:57 Eosinophils # (Manual) 0.0 K/mm3 (0.0-0.4) 12/01/20 04:57 Basophils # (Manual) 0.0 K/mm3 (0.0-0.1) 12/01/20 04:57 Metamyelocytes # 0.0 K/mm3 12/01/20 04:57 Myelocytes # 0.0 K/mm3 12/01/20 04:57 Promyelocytes # 0.0 K/mm3 12/01/20 04:57 Blast Cells # 0.0 K/mm3 12/01/20 04:57 WBC Morphology Not Reportable 12/01/20 04:57 Hypersegmented Neuts Not Reportable 12/01/20 04:57 Hyposegmented Neuts Not Reportable 12/01/20 04:57 Hypogranular Neuts Not Reportable 12/01/20 04:57 Smudge Cells Not Reportable 12/01/20 04:57 Toxic Granulation Not Reportable 12/01/20 04:57 Toxic Vacuolation Not Reportable 12/01/20 04:57 Dohle Bodies Not Reportable 12/01/20 04:57 Pelger-Huet Anomaly Not Reportable 12/01/20 04:57 Deepali Rods Not Reportable 12/01/20 04:57 Platelet Estimate Consistent w auto 12/01/20 04:57 Clumped Platelets Not Reportable 12/01/20 04:57 Plt Clumps, EDTA Not Reportable 12/01/20 04:57 Large Platelets Not Reportable 12/01/20 04:57 Giant Platelets Not Reportable 12/01/20 04:57 Platelet Satelliting Not Reportable 12/01/20 04:57 Plt Morphology Comment Not Reportable 12/01/20 04:57 RBC Morphology Not Reportable 12/01/20 04:57 Dimorphic RBCs Not Reportable 12/01/20 04:57 Polychromasia Not Reportable 12/01/20 04:57 Hypochromasia Few 12/01/20 04:57 Poikilocytosis Not Reportable 12/01/20 04:57 Anisocytosis Not Reportable 12/01/20 04:57 Microcytosis Few 12/01/20 04:57 Macrocytosis Not Reportable 12/01/20 04:57 Spherocytes Not Reportable 12/01/20 04:57 Pappenheimer Bodies Not Reportable 12/01/20 04:57 Sickle Cells Not Reportable 12/01/20 04:57 Target Cells Not Reportable 12/01/20 04:57 Tear Drop Cells Not Reportable 12/01/20 04:57 Ovalocytes Not Reportable 12/01/20 04:57 Helmet Cells Not Reportable 12/01/20 04:57 [place] Bodies Not Reportable 12/01/20 04:57 Simpson Rings Not Reportable 12/01/20 04:57 [place] Cells Not Reportable 12/01/20 04:57 Bite Cells Not Reportable 12/01/20 04:57 Crenated Cell Not Reportable 12/01/20 04:57 Elliptocytes Not Reportable 12/01/20 04:57 Acanthocytes (Spur) Not Reportable 12/01/20 04:57 Rouleaux Not Reportable 12/01/20 04:57 Hemoglobin C Crystals Not Reportable 12/01/20 04:57 Schistocytes Not Reportable 12/01/20 04:57 Malaria parasites Not Reportable 12/01/20 04:57 Kannan Bodies Not Reportable 12/01/20 04:57 Hem Pathologist Commnt No 12/01/20 04:57 Sodium 141 mmol/L (137-145) 12/01/20 04:57 Potassium 4.7 mmol/L (3.6-5.0) 12/01/20 04:57 Chloride 96.9 mmol/L (98-107) L 12/01/20 04:57 Carbon Dioxide 23 mmol/L (22-30) 12/01/20 04:57 Anion Gap 26 mmol/L 12/01/20 04:57 BUN 84 mg/dL (7-17) H 12/01/20 04:57 Creatinine 9.0 mg/dL (0.6-1.2) H 12/01/20 04:57 Estimated GFR 4 ml/min 12/01/20 04:57 BUN/Creatinine Ratio 9 % 03/11/21 04:57 Glucose 151 mg/dL (65-100) H 12/01/20 04:57 POC Glucose 136 mg/dL (70-105) H 12/01/20 07:43 Hemoglobin A1c 4.8 % (4-6) 12/01/20 04:57 Calcium 8.9 mg/dL (8.4-10.2) 12/01/20 04:57 Phosphorus 5.80 mg/dL (2.5-4.5) H 11/30/20 12:00 Magnesium 2.00 mg/dL (1.7-2.3) 11/30/20 12:00 Total Bilirubin 1.20 mg/dL (0.1-1.2) 12/01/20 04:57 Direct Bilirubin 0.9 mg/dL (0-0.2) H 11/30/20 12:00 Indirect Bilirubin 0.4 mg/dL 11/30/20 12:00 AST 101 units/L (5-40) H 12/01/20 04:57 ALT 245 units/L (7-56) H 12/01/20 04:57 Alkaline Phosphatase 103 units/L (35-129) 12/01/20 04:57 Total Protein 5.6 g/dL (6.3-8.2) L 12/01/20 04:57 Albumin 2.9 g/dL (3.9-5) L 12/01/20 04:57 Albumin/Globulin Ratio 1.1 % 12/01/20 04:57 Lipase 26 units/L (13-60) 11/30/20 12:00 Gu/IV: Voiding Method Toilet Active Medications - Current Medications Current Medications: Generic Name Dose Route Start Last Admin Trade Name Freq PRN Reason Stop Dose Admin Acetaminophen 650 mg 11/30/20 18:24 Acetaminophen 325 Mg Tab PO Q4H PRN Pain MILD(1-3)/Fever >100.5/STEWARD Clonidine HCl 0.3 mg 11/30/20 22:00 11/30/20 23:26 Clonidine Tts 0.3 Mg/24 Hr Patch TD 0.3 mg We APRYL Administration Hydralazine HCl 10 mg 11/30/20 21:51 12/01/20 05:03 Hydralazine 20 Mg/1 Ml Inj IV 10 mg Q3H PRN Administration Blood Pressure Hydromorphone HCl 1 mg 11/30/20 18:24 11/30/20 18:52 Hydromorphone 1 Mg/1 Ml Inj IV 1 mg Q3H PRN Administration Pain , Severe (7-10) Pantoprazole Sodium 80 mg/ 100 mls @ 10 mls/hr 11/30/20 22:00 Sodium Chloride IV DIRECT APRYL 8 MG/HR Fluconazole 200 mg in 100 mls @ 100 mls/hr 12/01/20 09:30 12/01/20 09:43 Diflucan IV 100 mls/hr Q24H APRYL Administration Ondansetron HCl 4 mg 11/30/20 18:24 Ondansetron 4 Mg/2 Ml Inj IV Q8H PRN Nausea And Vomiting Ondansetron HCl 4 mg 11/30/20 21:05 12/01/20 08:46 Ondansetron 4 Mg/2 Ml Inj IV 4 mg Q3H PRN Administration Nausea And Vomiting Sodium Chloride 10 ml 11/30/20 22:00 11/30/20 21:55 Sodium Chloride 0.9% 10 Ml Flush Syringe IV 10 ml BID APRYL Administration Sodium Chloride 10 ml 11/30/20 18:24 Sodium Chloride 0.9% 10 Ml Flush Syringe IV PRN PRN LINE FLUSH Sodium Chloride 10 ml 11/30/20 22:00 11/30/20 21:55 Sodium Chloride 0.9% 10 Ml Flush Syringe IV 10 ml BID APRYL Administration Sodium Chloride 10 ml 11/30/20 21:05 Sodium Chloride 0.9% 10 Ml Flush Syringe IV PRN PRN LINE FLUSH
[2020-12-01] MEDS ORDERED: TBO-FILGRASTIM 300 MCG/0.5 ML SUB-Q NR (10:26)
--- NOTE | 2020-12-01 11:19 | Consultation ---
History of Present Illness - Reason for Consult Consult date: 12/01/20 N/V Requesting physician: RUSS ISLAS - History of Present Illness Ms. Zhong is a 65-year-old woman with a history of renal cell cancer that is metastatic and has been stable according to the patient and her daughter, Kate. Patient sees Dr. Lee as well as Dr. Lemus at [place] for oncology. She gets some sort of a therapy which she was due yesterday and sounds like it may have been immunotherapy. Regardless, she has had skin lesions over the last several months and saw a auto roller and was diagnosed with psoriasis. She was started on methotrexate approximately 3 weeks ago. She started to develop difficulty swallowing and pain in her mouth, and was seen as an outpatient in [facility] emergency room here on November 27 and diagnosed with thrush. She was started on Diflucan. Her symptoms progressed, and she started to have retching with blood-tinged emesis. She therefore presented to the emergency room and was admitted. History is difficult to obtain from the patient as she is confused and distracted at times. Majority of the history was obtained from the patient's daughter by phone. Patient denies current abdominal pain. Patient states that her bowel movements were daily but that they were red. Meds reviewed. Past History Past Medical History: cancer (Renal cell, with metastasis to pancreas, etc), diabetes, ESRD (on hemodialysis), hypertension, other (psoriasis) Past Surgical History: hysterectomy, Other (Bilateral nephrectomies) Social history: denies: smoking, alcohol abuse Family history: no significant family history Medications and Allergies Allergies Allergy/AdvReac Type Severity Reaction Status Date / Time codeine Allergy Rash Verified 09/21/20 09:44 Penicillins Allergy Hives Verified 09/21/20 09:44 ciprofloxacin [From Cipro] AdvReac severe Verified 09/21/20 09:44 nausea ciprofloxacin HCl AdvReac severe Verified 09/21/20 09:44 [From Cipro] nausea Home Medications Medication Instructions Recorded Confirmed Last Taken Type B Complex 11/Folic/C/Biot/Zinc 1 each PO DAILY #30 tablet 02/13/16 11/30/20 10/05/19 Rx [Dialyvite with Zinc Tablet] Meclizine [Antivert] 25 mg PO TID PRN 07/05/16 11/30/20 10/21/16 History Aspirin [Aspirin BABY CHEW TAB] 81 mg PO QDAY #30 tab.chew 10/27/16 11/30/20 12/31/19 Rx carvediloL [Coreg] 25 mg PO BID #60 tablet 06/23/18 11/30/20 10/05/19 Rx Cholecalciferol (Vitamin D3) 5,000 unit PO DAILY 01/16/19 11/30/20 12/31/19 History [Vitamin D3 5,000 UNIT] Cinacalcet [Sensipar] 30 mg PO QHS 01/16/19 11/30/20 10/05/19 History Sevelamer Carbonate [Renvela] 4,000 mg PO TIDWM 01/16/19 11/30/20 10/05/19 History hydrALAZINE [Apresoline TAB] 100 mg PO TID 01/16/19 11/30/20 10/05/19 History amLODIPine 10 mg PO DAILY #30 tablet 07/14/19 11/30/20 10/05/19 Rx cloNIDine [Catapres] 0.2 mg PO TID #90 tablet 07/14/19 11/30/20 10/05/19 Rx Losartan [Cozaar] 50 mg PO QDAY 10/06/19 11/30/20 10/05/19 History Metoclopramide HCl [Reglan TAB] 10 mg PO QID 10/06/19 11/30/20 10/05/19 History AtorvaSTATin [Lipitor] 40 mg PO QHS #30 tablet 10/07/19 11/30/20 12/30/19 Rx Prasugrel [Effient] 10 mg PO QDAY #30 tablet 10/07/19 11/30/20 Unknown Rx Promethazine [Phenergan] 25 mg PO Q6H PRN #20 tablet 07/21/20 11/30/20 Unknown Rx Dicyclomine [Bentyl] 20 mg PO QID PRN #20 tablet 09/17/20 11/30/20 Unknown Rx Promethazine HCl [Phenergan SUPPOS] 25 mg RC Q6HR PRN #20 supp.rect 09/17/20 11/30/20 Unknown Rx Famotidine [Pepcid] 20 mg PO DAILY #30 tablet 09/24/20 11/30/20 Unknown Rx Mag Hydrox/Aluminum Hyd/Simeth 30 ml PO DAILY PRN 30 Days #1 09/24/20 11/30/20 Unknown Rx [Maalox Advanced Suspension] bottle Lidocaine Viscous 2% 15 ml MM Q6HR PRN #1 bottle 11/28/20 11/30/20 Unknown Rx Nystatin [Nystatin SUSP] 5 ml PO QID #200 ml 11/28/20 11/30/20 Unknown Rx Active Meds: Active Medications Acetaminophen (Acetaminophen 325 Mg Tab) 650 mg PO Q4H PRN PRN Reason: Pain MILD(1-3)/Fever >100.5/STEWARD Clonidine HCl (Clonidine Tts 0.3 Mg/24 Hr Patch) 0.3 mg TD We [facility] Last Admin: 11/30/20 23:26 Dose: 0.3 mg Documented by: Hydralazine HCl (Hydralazine 20 Mg/1 Ml Inj) 10 mg IV Q3H PRN PRN Reason: Blood Pressure Last Admin: 12/01/20 05:03 Dose: 10 mg Documented by: Hydromorphone HCl (Hydromorphone 1 Mg/1 Ml Inj) 1 mg IV Q3H PRN PRN Reason: Pain , Severe (7-10) Last Admin: 11/30/20 18:52 Dose: 1 mg Documented by: Pantoprazole Sodium 80 mg/ (Sodium Chloride) 100 mls @ 10 mls/hr IV DIRECT APRYL Fluconazole (Diflucan) 200 mg in 100 mls @ 100 mls/hr IV Q24H [facility] Last Admin: 12/01/20 09:43 Dose: 100 mls/hr Documented by: Ondansetron HCl (Ondansetron 4 Mg/2 Ml Inj) 4 mg IV Q8H PRN PRN Reason: Nausea And Vomiting Ondansetron HCl (Ondansetron 4 Mg/2 Ml Inj) 4 mg IV Q3H PRN PRN Reason: Nausea And Vomiting Last Admin: 12/01/20 08:46 Dose: 4 mg Documented by: Sodium Chloride (Sodium Chloride 0.9% 10 Ml Flush Syringe) 10 ml IV BID [facility] Last Admin: 11/30/20 21:55 Dose: 10 ml Documented by: Sodium Chloride (Sodium Chloride 0.9% 10 Ml Flush Syringe) 10 ml IV PRN PRN PRN Reason: LINE FLUSH Sodium Chloride (Sodium Chloride 0.9% 10 Ml Flush Syringe) 10 ml IV BID APRYL Last Admin: 11/30/20 21:55 Dose: 10 ml Documented by: Sodium Chloride (Sodium Chloride 0.9% 10 Ml Flush Syringe) 10 ml IV PRN PRN PRN Reason: LINE FLUSH Tbo-Filgrastim (Tbo-Filgrastim 300 Mcg/0.5 Ml) 300 mcg SUB-Q ONCE NR Stop: 12/01/20 14:00 Review of Systems All systems: negative (as per HPI. Note that pt confused at times.) Exam - Constitutional Vitals: Temp Pulse Resp BP Pulse Ox 97.5 F L 107 H 20 178/83 96 12/01/20 04:30 12/01/20 04:30 12/01/20 04:30 12/01/20 04:30 12/01/20 04:30 General appearance: Present: mild distress, other (distracted) - EENT Eyes: Present: PERRL, EOM intact ENT: hearing intact, thrush (severe, with thick scattered white plaques and blood tinging mouth), other - Neck Neck: Present: supple - Respiratory Respiratory effort: normal Respiratory: bilateral: CTA - Cardiovascular Rhythm: regular Heart Sounds: Present: S1 & S2 - Extremities Extremity abnormal: other (psoriatic plaques on arms, small) - Abdominal General gastrointestinal: Present: soft, tender (Mild, periumbilical) - Rectal Rectal Exam: stool brown Results - Labs CBC & Chem 7: 12/01/20 04:57 12/01/20 04:57 Labs: Abnormal lab results 11/30/20 11/30/20 11/30/20 Range/Units 12:00 12:00 12:00 WBC 0.9 L* (4.5-11.0) K/mm3 RBC 3.46 L (3.65-5.03) M/mm3 Hct (30.3-42.9) % Plt Count 24 L (140-440) K/mm3 Seg Neuts % (Manual) (40.0-70.0) % Seg Neutrophils # Man (1.8-7.7) K/mm3 Lymphocytes # (Manual) (1.2-5.4) K/mm3 Chloride 94.5 L (98-107) mmol/L BUN 68 H (7-17) mg/dL Creatinine 7.7 H (0.6-1.2) mg/dL Glucose 164 H (65-100) mg/dL POC Glucose (70-105) mg/dL Phosphorus 5.80 H (2.5-4.5) mg/dL Total Bilirubin 1.30 H (0.1-1.2) mg/dL Direct Bilirubin 0.9 H (0-0.2) mg/dL AST 207 H (5-40) units/L ALT 333 H (7-56) units/L Total Protein 5.7 L (6.3-8.2) g/dL Albumin 2.9 L (3.9-5) g/dL 11/30/20 11/30/20 12/01/20 Range/Units 21:30 22:33 04:57 WBC 0.9 L* (4.5-11.0) K/mm3 RBC 3.28 L (3.65-5.03) M/mm3 Hct 30.2 L 29.8 L (30.3-42.9) % Plt Count 16 L* (140-440) K/mm3 Seg Neuts % (Manual) 74.1 H (40.0-70.0) % Seg Neutrophils # Man 0.7 L (1.8-7.7) K/mm3 Lymphocytes # (Manual) 0.2 L (1.2-5.4) K/mm3 Chloride (98-107) mmol/L BUN (7-17) mg/dL Creatinine (0.6-1.2) mg/dL Glucose (65-100) mg/dL POC Glucose 114 H (70-105) mg/dL Phosphorus (2.5-4.5) mg/dL Total Bilirubin (0.1-1.2) mg/dL Direct Bilirubin (0-0.2) mg/dL AST (5-40) units/L ALT (7-56) units/L Total Protein (6.3-8.2) g/dL Albumin (3.9-5) g/dL 12/01/20 12/01/20 Range/Units 04:57 07:43 WBC (4.5-11.0) K/mm3 RBC (3.65-5.03) M/mm3 Hct (30.3-42.9) % Plt Count (140-440) K/mm3 Seg Neuts % (Manual) (40.0-70.0) % Seg Neutrophils # Man (1.8-7.7) K/mm3 Lymphocytes # (Manual) (1.2-5.4) K/mm3 Chloride 96.9 L (98-107) mmol/L BUN 84 H (7-17) mg/dL Creatinine 9.0 H (0.6-1.2) mg/dL Glucose 151 H (65-100) mg/dL POC Glucose 136 H (70-105) mg/dL Phosphorus (2.5-4.5) mg/dL Total Bilirubin (0.1-1.2) mg/dL Direct Bilirubin (0-0.2) mg/dL AST 101 H (5-40) units/L ALT 245 H (7-56) units/L Total Protein 5.6 L (6.3-8.2) g/dL Albumin 2.9 L (3.9-5) g/dL - Imaging and Cardiology CT scan - abdomen: report reviewed (unchaged, no acute findings) Assessment and Plan 1. Odynophagia - due to severe candidiasis, as a result of MTX related bone marrow suppression. - Diflucan - empiric PPI 2. Pancytopenia - related to MTX most likely. - Hematology evaluation. No further GI recommendations. Will sign off.
[2020-12-01] MEDS: HYDROmorphone 1 MG/1 ML INJ IV PRN (12:41)
--- NOTE | 2020-12-01 13:16 | Hem/Onc Consultation ---
History of Present Illness - History of Present Illness heme/onc consult pending televisit 65yo disabled woman with ESRD requiring HD, h/o bilater;a nephrectomy per scans pancreatic nmass and lung tumors per scans, on chemotherapy admitted for vomiting found to have pancytopenia pt has been unable to explain her history well data reviewed below IMP metastatic cancer, details unavailable pancytopenia with leukopenia, probably due to chemotherapy no obvious infection vomiting, maybe related to recent chemotherapy PLAN: oral abx, low threshold for IV Abx GCSF transfusions may be needed plan to stay in hospital until count recovery try to onbtain records or info from oncologist Active Medications Fluconazole (Diflucan) 200 mg in 100 mls @ 100 mls/hr IV Q24H APRYL Last Admin: 12/01/20 09:43 Dose: 100 mls/hr Documented by: Ondansetron HCl (Ondansetron 4 Mg/2 Ml Inj) 4 mg IV Q3H PRN PRN Reason: Nausea And Vomiting Last Admin: 12/01/20 08:46 Dose: 4 mg Documented by: Pantoprazole Sodium (Pantoprazole 40 Mg Inj) 40 mg IV BID APRYL Sodium Chloride (Sodium Chloride 0.9% 10 Ml Flush Syringe) 10 ml IV BID APRYL Last Admin: 12/01/20 12:42 Dose: 10 ml Documented by: Sodium Chloride (Sodium Chloride 0.9% 10 Ml Flush Syringe) 10 ml IV PRN PRN PRN Reason: LINE FLUSH Sodium Chloride (Sodium Chloride 0.9% 10 Ml Flush Syringe) 10 ml IV BID APRYL Last Admin: 12/01/20 12:42 Dose: Not Given Documented by: Tbo-Filgrastim (Tbo-Filgrastim 480 Mcg/0.8 Ml) 480 mcg SUB-Q DAILY [facility] Laboratory Last Values WBC 0.9 K/mm3 (4.5-11.0) L* 12/01/20 04:57 Hgb 10.1 gm/dl (10.1-14.3) 12/01/20 04:57 Hct 29.8 % (30.3-42.9) L 12/01/20 04:57 Plt Count 16 K/mm3 (140-440) L* 12/01/20 04:57 Calcium 8.9 mg/dL (8.4-10.2) 12/01/20 04:57 Indirect Bilirubin 0.4 mg/dL 11/30/20 12:00 AST 101 units/L (5-40) H 12/01/20 04:57 ALT 245 units/L (7-56) H 12/01/20 04:57 Alkaline Phosphatase 103 units/L (35-129) 12/01/20 04:57 Total Protein 5.6 g/dL (6.3-8.2) L 12/01/20 04:57 Albumin 2.9 g/dL (3.9-5) L 12/01/20 04:57 Albumin/Globulin Ratio 1.1 % 12/01/20 04:57 Lipase 26 units/L (13-60) 11/30/20 12:00 Past History Past Medical History: cancer (Renal cell, with metastasis to pancreas, etc), diabetes, ESRD (on hemodialysis), hypertension, other (psoriasis) Past Surgical History: hysterectomy, Other (Bilateral nephrectomies) Social history: denies: smoking, alcohol abuse Family history: no significant family history Medications and Allergies Allergies Allergy/AdvReac Type Severity Reaction Status Date / Time codeine Allergy Rash Verified 09/21/20 09:44 Penicillins Allergy Hives Verified 09/21/20 09:44 ciprofloxacin [From Cipro] AdvReac severe Verified 09/21/20 09:44 nausea ciprofloxacin HCl AdvReac severe Verified 09/21/20 09:44 [From Cipro] nausea Home Medications Medication Instructions Recorded Confirmed Last Taken Type B Complex 11/Folic/C/Biot/Zinc 1 each PO DAILY #30 tablet 02/13/16 11/30/20 10/05/19 Rx [Dialyvite with Zinc Tablet] Meclizine [Antivert] 25 mg PO TID PRN 07/05/16 11/30/20 10/21/16 History Aspirin [Aspirin BABY CHEW TAB] 81 mg PO QDAY #30 tab.chew 10/27/16 11/30/20 12/31/19 Rx carvediloL [Coreg] 25 mg PO BID #60 tablet 06/23/18 11/30/20 10/05/19 Rx Cholecalciferol (Vitamin D3) 5,000 unit PO DAILY 01/16/19 11/30/20 12/31/19 History [Vitamin D3 5,000 UNIT] Cinacalcet [Sensipar] 30 mg PO QHS 01/16/19 11/30/20 10/05/19 History Sevelamer Carbonate [Renvela] 4,000 mg PO TIDWM 01/16/19 11/30/20 10/05/19 History hydrALAZINE [Apresoline TAB] 100 mg PO TID 01/16/19 11/30/20 10/05/19 History amLODIPine 10 mg PO DAILY #30 tablet 07/14/19 11/30/20 10/05/19 Rx cloNIDine [Catapres] 0.2 mg PO TID #90 tablet 07/14/19 11/30/20 10/05/19 Rx Losartan [Cozaar] 50 mg PO QDAY 10/06/19 11/30/20 10/05/19 History Metoclopramide HCl [Reglan TAB] 10 mg PO QID 10/06/19 11/30/20 10/05/19 History AtorvaSTATin [Lipitor] 40 mg PO QHS #30 tablet 10/07/19 11/30/20 12/30/19 Rx Prasugrel [Effient] 10 mg PO QDAY #30 tablet 10/07/19 11/30/20 Unknown Rx Promethazine [Phenergan] 25 mg PO Q6H PRN #20 tablet 07/21/20 11/30/20 Unknown Rx Dicyclomine [Bentyl] 20 mg PO QID PRN #20 tablet 09/17/20 11/30/20 Unknown Rx Promethazine HCl [Phenergan SUPPOS] 25 mg RC Q6HR PRN #20 supp.rect 09/17/20 11/30/20 Unknown Rx Famotidine [Pepcid] 20 mg PO DAILY #30 tablet 09/24/20 11/30/20 Unknown Rx Mag Hydrox/Aluminum Hyd/Simeth 30 ml PO DAILY PRN 30 Days #1 09/24/20 11/30/20 Unknown Rx [Maalox Advanced Suspension] bottle Lidocaine Viscous 2% 15 ml MM Q6HR PRN #1 bottle 11/28/20 11/30/20 Unknown Rx Nystatin [Nystatin SUSP] 5 ml PO QID #200 ml 11/28/20 11/30/20 Unknown Rx Active Meds: Active Medications Acetaminophen (Acetaminophen 325 Mg Tab) 650 mg PO Q4H PRN PRN Reason: Pain MILD(1-3)/Fever >100.5/STEWARD Clonidine HCl (Clonidine Tts 0.3 Mg/24 Hr Patch) 0.3 mg TD We [facility] Last Admin: 11/30/20 23:26 Dose: 0.3 mg Documented by: Hydralazine HCl (Hydralazine 20 Mg/1 Ml Inj) 10 mg IV Q3H PRN PRN Reason: Blood Pressure Last Admin: 12/01/20 05:03 Dose: 10 mg Documented by: Hydromorphone HCl (Hydromorphone 1 Mg/1 Ml Inj) 1 mg IV Q3H PRN PRN Reason: Pain , Severe (7-10) Last Admin: 12/01/20 12:41 Dose: 1 mg Documented by: Fluconazole (Diflucan) 200 mg in 100 mls @ 100 mls/hr IV Q24H [facility] Last Admin: 12/01/20 09:43 Dose: 100 mls/hr Documented by: Ondansetron HCl (Ondansetron 4 Mg/2 Ml Inj) 4 mg IV Q3H PRN PRN Reason: Nausea And Vomiting Last Admin: 12/01/20 08:46 Dose: 4 mg Documented by: Pantoprazole Sodium (Pantoprazole 40 Mg Inj) 40 mg IV BID [facility] Sodium Chloride (Sodium Chloride 0.9% 10 Ml Flush Syringe) 10 ml IV BID [facility] Last Admin: 12/01/20 12:42 Dose: 10 ml Documented by: Sodium Chloride (Sodium Chloride 0.9% 10 Ml Flush Syringe) 10 ml IV PRN PRN PRN Reason: LINE FLUSH Sodium Chloride (Sodium Chloride 0.9% 10 Ml Flush Syringe) 10 ml IV BID [facility] Last Admin: 12/01/20 12:42 Dose: Not Given Documented by: Tbo-Filgrastim (Tbo-Filgrastim 300 Mcg/0.5 Ml) 300 mcg SUB-Q ONCE NR Stop: 12/01/20 14:00 Tbo-Filgrastim (Tbo-Filgrastim 480 Mcg/0.8 Ml) 480 mcg SUB-Q DAILY [facility] Exam - Constitutional Vitals: Last Vital Signs Temp 97.5 F L 12/01/20 04:30 Pulse 107 H 12/01/20 04:30 Resp 20 12/01/20 04:30 BP 178/83 12/01/20 04:30 Pulse Ox 96 12/01/20 04:30 Results - Labs lab Results: Laboratory Results - last 24 hr 11/30/20 11/30/20 12/01/20 21:30 22:33 04:57 WBC 0.9 L* RBC 3.28 L Hgb 10.2 10.1 Hct 30.2 L 29.8 L MCV 91 MCH 31 MCHC 34 RDW 14.2 Plt Count 16 L* Add Manual Diff Complete Total Counted 27 Seg Neuts % (Manual) 74.1 H Lymphocytes % (Manual) 22.2 Eosinophils % (Manual) 3.7 Nucleated RBC % Not Reportable Seg Neutrophils # Man 0.7 L Band Neutrophils # 0.0 Lymphocytes # (Manual) 0.2 L Abs React Lymphs (Man) 0.0 Monocytes # (Manual) 0.0 Eosinophils # (Manual) 0.0 Basophils # (Manual) 0.0 Metamyelocytes # 0.0 Myelocytes # 0.0 Promyelocytes # 0.0 Blast Cells # 0.0 WBC Morphology Not Reportable Hypersegmented Neuts Not Reportable Hyposegmented Neuts Not Reportable Hypogranular Neuts Not Reportable Smudge Cells Not Reportable Toxic Granulation Not Reportable Toxic Vacuolation Not Reportable Dohle Bodies Not Reportable Pelger-Huet Anomaly Not Reportable Deepali Rods Not Reportable Platelet Estimate Consistent w auto Clumped Platelets Not Reportable Plt Clumps, EDTA Not Reportable Large Platelets Not Reportable Giant Platelets Not Reportable Platelet Satelliting Not Reportable Plt Morphology Comment Not Reportable RBC Morphology Not Reportable Dimorphic RBCs Not Reportable Polychromasia Not Reportable Hypochromasia Few Poikilocytosis Not Reportable Anisocytosis Not Reportable Microcytosis Few Macrocytosis Not Reportable Spherocytes Not Reportable Pappenheimer Bodies Not Reportable Sickle Cells Not Reportable Target Cells Not Reportable Tear Drop Cells Not Reportable Ovalocytes Not Reportable Helmet Cells Not Reportable [place] Bodies Not Reportable [place] Rings Not Reportable [place] Cells Not Reportable Bite Cells Not Reportable Crenated Cell Not Reportable Elliptocytes Not Reportable Acanthocytes (Spur) Not Reportable Rouleaux Not Reportable Hemoglobin C Crystals Not Reportable Schistocytes Not Reportable Malaria parasites Not Reportable Kannan Bodies Not Reportable Hem Pathologist Commnt No Sodium Potassium Chloride Carbon Dioxide Anion Gap BUN Creatinine Estimated GFR BUN/Creatinine Ratio Glucose POC Glucose 114 H Hemoglobin A1c Calcium Total Bilirubin AST ALT Alkaline Phosphatase Total Protein Albumin Albumin/Globulin Ratio 12/01/20 12/01/20 12/01/20 04:57 04:57 07:43 WBC RBC Hgb Hct MCV MCH MCHC RDW Plt Count Add Manual Diff Total Counted Seg Neuts % (Manual) Lymphocytes % (Manual) Eosinophils % (Manual) Nucleated RBC % Seg Neutrophils # Man Band Neutrophils # Lymphocytes # (Manual) Abs React Lymphs (Man) Monocytes # (Manual) Eosinophils # (Manual) Basophils # (Manual) Metamyelocytes # Myelocytes # Promyelocytes # Blast Cells # WBC Morphology Hypersegmented Neuts Hyposegmented Neuts Hypogranular Neuts Smudge Cells Toxic Granulation Toxic Vacuolation Dohle Bodies Pelger-Huet Anomaly Deepali Rods Platelet Estimate Clumped Platelets Plt Clumps, EDTA Large Platelets Giant Platelets Platelet Satelliting Plt Morphology Comment RBC Morphology Dimorphic RBCs Polychromasia Hypochromasia Poikilocytosis Anisocytosis Microcytosis Macrocytosis Spherocytes Pappenheimer Bodies Sickle Cells Target Cells Tear Drop Cells Ovalocytes Helmet Cells [place] Bodies [place] Rings [place] Cells Bite Cells Crenated Cell Elliptocytes Acanthocytes (Spur) Rouleaux Hemoglobin C Crystals Schistocytes Malaria parasites Kannan Bodies Hem Pathologist Commnt Sodium 141 Potassium 4.7 Chloride 96.9 L Carbon Dioxide 23 Anion Gap 26 BUN 84 H Creatinine 9.0 H Estimated GFR 4 BUN/Creatinine Ratio 9 Glucose 151 H POC Glucose 136 H Hemoglobin A1c 4.8 Calcium 8.9 Total Bilirubin 1.20 AST 101 H ALT 245 H Alkaline Phosphatase 103 Total Protein 5.6 L Albumin 2.9 L Albumin/Globulin Ratio 1.1 12/01/20 11:54 WBC RBC Hgb Hct MCV MCH MCHC RDW Plt Count Add Manual Diff Total Counted Seg Neuts % (Manual) Lymphocytes % (Manual) Eosinophils % (Manual) Nucleated RBC % Seg Neutrophils # Man Band Neutrophils # Lymphocytes # (Manual) Abs React Lymphs (Man) Monocytes # (Manual) Eosinophils # (Manual) Basophils # (Manual) Metamyelocytes # Myelocytes # Promyelocytes # Blast Cells # WBC Morphology Hypersegmented Neuts Hyposegmented Neuts Hypogranular Neuts Smudge Cells Toxic Granulation Toxic Vacuolation Dohle Bodies Pelger-Huet Anomaly Deepali Rods Platelet Estimate Clumped Platelets Plt Clumps, EDTA Large Platelets Giant Platelets Platelet Satelliting Plt Morphology Comment RBC Morphology Dimorphic RBCs Polychromasia Hypochromasia Poikilocytosis Anisocytosis Microcytosis Macrocytosis Spherocytes Pappenheimer Bodies Sickle Cells Target Cells Tear Drop Cells Ovalocytes Helmet Cells [place] Bodies [place] Rings [place] Cells Bite Cells Crenated Cell Elliptocytes Acanthocytes (Spur) Rouleaux Hemoglobin C Crystals Schistocytes Malaria parasites Kannan Bodies Hem Pathologist Commnt Sodium Potassium Chloride Carbon Dioxide Anion Gap BUN Creatinine Estimated GFR BUN/Creatinine Ratio Glucose POC Glucose 126 H Hemoglobin A1c Calcium Total Bilirubin AST ALT Alkaline Phosphatase Total Protein Albumin Albumin/Globulin Ratio
[2020-12-01] MEDS ORDERED: TBO-FILGRASTIM 480 MCG/0.8 ML SUB-Q SCH ×2 (14:00→22:00)
--- NOTE | 2020-12-01 15:09 | Event Note ---
Date: 12/01/20 Consult noted Labs reviewed No emergent need for HD today Spoke with Dr Rodrigez concerning thrombocytopenia. [place] [id number]. He plans to order for transfusion to keep level above 20 K Plan for HD tomorrow provided hgb and Plt count is stable Check methotrexate level
[2020-12-01 18:19] LABS: Hepatitis B Surface Antigen Non-Reactive (Negative); Hepatitis C Virus Antibody Non-Reactive (NonReactive)
[2020-12-01] MEDS ORDERED: SODIUM CHLORIDE 0.9% 500 ML 500 ML IV SCH (18:32)
[2020-12-01] MEDS: PANTOPRAZOLE 40 MG INJ IV SCH (22:53)
[2020-12-02] MEDS ORDERED: SODIUM CHLORIDE 0.9% 500 ML 500 ML IV ONE (01:44)
[2020-12-02] MEDS: hydrALAZINE 20 MG/1 ML INJ IV PRN (03:50)
--- NOTE | 2020-12-02 09:17 | Hem/Onc Progress Note ---
Subjective Interval history: heme/onc data revieww 65yo disabled woman with ESRD requiring HD, h/o bilateral nephrectomy per scans pancreatic mass and lung tumors per scans, Renal cell Ca since 2016 has been on immunotherapy with stable disease recently seen by rat poisoner for possible psoriasis received oral methotrexate admitted for vomiting found to have pancytopenia data reviewed below IMP metastatic cancer, details unavailable pancytopenia with leukopenia, probably due to recent methotrexate maybe more toxic because ESRD may have oral mucositis related to recent Methotrexate PLAN: GCSF plt transfusions to keep plt>20 , to avoid bleeding in HD plan to stay in hospital until count recovery Active Medications Acetaminophen (Acetaminophen 325 Mg Tab) 650 mg PO Q4H PRN PRN Reason: Pain MILD(1-3)/Fever >100.5/STEWARD Clonidine HCl (Clonidine Tts 0.3 Mg/24 Hr Patch) 0.3 mg TD We [facility] Last Admin: 11/30/20 23:26 Dose: 0.3 mg Documented by: Hydralazine HCl (Hydralazine 20 Mg/1 Ml Inj) 10 mg IV Q3H PRN PRN Reason: Blood Pressure Last Admin: 12/02/20 03:50 Dose: 10 mg Documented by: Hydromorphone HCl (Hydromorphone 1 Mg/1 Ml Inj) 1 mg IV Q3H PRN PRN Reason: Pain , Severe (7-10) Last Admin: 12/01/20 12:41 Dose: 1 mg Documented by: Fluconazole (Diflucan) 200 mg in 100 mls @ 100 mls/hr IV Q24H [facility]YL Last Admin: 12/01/20 09:43 Dose: 100 mls/hr Documented by: Sodium Chloride (Nacl 0.9% 500 Ml) 500 mls @ 0 mls/hr IV ONCE [facility] Stop: 12/02/20 18:31 Last Admin: 12/01/20 23:34 Dose: 50 mls/hr Documented by: Ondansetron HCl (Ondansetron 4 Mg/2 Ml Inj) 4 mg IV Q3H PRN PRN Reason: Nausea And Vomiting Last Admin: 12/01/20 08:46 Dose: 4 mg Documented by: Pantoprazole Sodium (Pantoprazole 40 Mg Inj) 40 mg IV BID [facility] Last Admin: 12/01/20 22:53 Dose: 40 mg Documented by: Tbo-Filgrastim (Tbo-Filgrastim 480 Mcg/0.8 Ml) 480 mcg SUB-Q DAILY [facility]YL Laboratory Last Values WBC 0.9 K/mm3 (4.5-11.0) L* 12/01/20 04:57 Hgb 10.1 gm/dl (10.1-14.3) 12/01/20 04:57 Hct 29.8 % (30.3-42.9) L 12/01/20 04:57 Plt Count 16 K/mm3 (140-440) L* 12/01/20 04:57 Hepatitis C Antibody Non-reactive (NonReactive) 12/01/20 07:48 Blood Type O POSITIVE 12/02/20 05:00 Objective - Constitutional Vitals: Last Vital Signs Temp 98.6 F 12/02/20 06:04 Pulse 100 H 12/02/20 06:04 Resp 18 12/02/20 06:04 BP 157/54 12/02/20 06:04 Pulse Ox 94 12/02/20 06:04 - Labs Lab Results: Laboratory Results - last 24 hr 12/01/20 12/01/20 12/01/20 07:48 11:54 17:02 POC Glucose 126 H 119 H Hepatitis A IgM Ab Non-reactive Hep Bs Antigen Non-reactive Hep B Core IgM Ab Non-reactive Hepatitis C Antibody Non-reactive Blood Type 12/01/20 12/01/20 12/02/20 19:30 21:26 05:00 POC Glucose 136 H Hepatitis A IgM Ab Hep Bs Antigen Hep B Core IgM Ab Hepatitis C Antibody Blood Type O POSITIVE O POSITIVE Medications & Allergies - Medications Allergies/Adverse Reactions: Allergies codeine Allergy (Verified 09/21/20 09:44) Rash Penicillins Allergy (Verified 09/21/20 09:44) Hives ciprofloxacin [From Cipro] Adverse Reaction (Verified 09/21/20 09:44) severe nausea ciprofloxacin HCl [From Cipro] Adverse Reaction (Verified 09/21/20 09:44) severe nausea Home Medications: Home Medications Medication Instructions Recorded Confirmed Last Taken Type B Complex 11/Folic/C/Biot/Zinc 1 each PO DAILY #30 tablet 02/13/16 11/30/20 10/05/19 Rx [Dialyvite with Zinc Tablet] Meclizine [Antivert] 25 mg PO TID PRN 07/05/16 11/30/20 10/21/16 History Aspirin [Aspirin BABY CHEW TAB] 81 mg PO QDAY #30 tab.chew 10/27/16 11/30/20 12/31/19 Rx carvediloL [Coreg] 25 mg PO BID #60 tablet 06/23/18 11/30/20 10/05/19 Rx Cholecalciferol (Vitamin D3) 5,000 unit PO DAILY 01/16/19 11/30/20 12/31/19 History [Vitamin D3 5,000 UNIT] Cinacalcet [Sensipar] 30 mg PO QHS 01/16/19 11/30/20 10/05/19 History Sevelamer Carbonate [Renvela] 4,000 mg PO TIDWM 01/16/19 11/30/20 10/05/19 History hydrALAZINE [Apresoline TAB] 100 mg PO TID 01/16/19 11/30/20 10/05/19 History amLODIPine 10 mg PO DAILY #30 tablet 07/14/19 11/30/20 10/05/19 Rx cloNIDine [Catapres] 0.2 mg PO TID #90 tablet 07/14/19 11/30/20 10/05/19 Rx Losartan [Cozaar] 50 mg PO QDAY 10/06/19 11/30/20 10/05/19 History Metoclopramide HCl [Reglan TAB] 10 mg PO QID 10/06/19 11/30/20 10/05/19 History AtorvaSTATin [Lipitor] 40 mg PO QHS #30 tablet 10/07/19 11/30/20 12/30/19 Rx Prasugrel [Effient] 10 mg PO QDAY #30 tablet 10/07/19 11/30/20 Unknown Rx Promethazine [Phenergan] 25 mg PO Q6H PRN #20 tablet 07/21/20 11/30/20 Unknown Rx Dicyclomine [Bentyl] 20 mg PO QID PRN #20 tablet 09/17/20 11/30/20 Unknown Rx Promethazine HCl [Phenergan SUPPOS] 25 mg RC Q6HR PRN #20 supp.rect 09/17/20 11/30/20 Unknown Rx Famotidine [Pepcid] 20 mg PO DAILY #30 tablet 09/24/20 11/30/20 Unknown Rx Mag Hydrox/Aluminum Hyd/Simeth 30 ml PO DAILY PRN 30 Days #1 09/24/20 11/30/20 Unknown Rx [Maalox Advanced Suspension] bottle Lidocaine Viscous 2% 15 ml MM Q6HR PRN #1 bottle 11/28/20 11/30/20 Unknown Rx Nystatin [Nystatin SUSP] 5 ml PO QID #200 ml 11/28/20 11/30/20 Unknown Rx Active Medications: Generic Name Dose Route Start Last Admin Trade Name Freq PRN Reason Stop Dose Admin Acetaminophen 650 mg 11/30/20 18:24 Acetaminophen 325 Mg Tab PO Q4H PRN Pain MILD(1-3)/Fever >100.5/STEWARD Clonidine HCl 0.3 mg 11/30/20 22:00 11/30/20 23:26 Clonidine Tts 0.3 Mg/24 Hr Patch TD 0.3 mg We APRYL Administration Hydralazine HCl 10 mg 11/30/20 21:51 12/02/20 03:50 Hydralazine 20 Mg/1 Ml Inj IV 10 mg Q3H PRN Administration Blood Pressure Hydromorphone HCl 1 mg 11/30/20 18:24 12/01/20 12:41 Hydromorphone 1 Mg/1 Ml Inj IV 1 mg Q3H PRN Administration Pain , Severe (7-10) Fluconazole 200 mg in 100 mls @ 100 mls/hr 12/01/20 09:30 12/01/20 09:43 Diflucan IV 100 mls/hr Q24H APRYL Administration Sodium Chloride 500 mls @ 0 mls/hr 12/01/20 18:32 12/01/20 23:34 Nacl 0.9% 500 Ml IV 12/02/20 18:31 50 mls/hr ONCE [facility]YL Administration As Directed Ondansetron HCl 4 mg 11/30/20 21:05 12/01/20 08:46 Ondansetron 4 Mg/2 Ml Inj IV 4 mg Q3H PRN Administration Nausea And Vomiting Pantoprazole Sodium 40 mg 12/01/20 22:00 12/01/20 22:53 Pantoprazole 40 Mg Inj IV 40 mg BID APRYL Administration Sodium Chloride 10 ml 11/30/20 22:00 12/01/20 22:53 Sodium Chloride 0.9% 10 Ml Flush Syringe IV 10 ml BID [facility]YL Administration Sodium Chloride 10 ml 11/30/20 18:24 Sodium Chloride 0.9% 10 Ml Flush Syringe IV PRN PRN LINE FLUSH Sodium Chloride 10 ml 11/30/20 22:00 12/01/20 22:57 Sodium Chloride 0.9% 10 Ml Flush Syringe IV Not Given BID APRYL Tbo-Filgrastim 480 mcg 12/02/20 12:00 Tbo-Filgrastim 480 Mcg/0.8 Ml SUB-Q DAILY [facility]YL
[2020-12-02] MEDS: FLUCONAZOLE 200 MG 200 MG/100 ML BAG IV SCH (10:16)
[2020-12-02] MEDS: PANTOPRAZOLE 40 MG INJ IV SCH ×2 (10:19→21:04)
[2020-12-02 11:10] LABS: Hematocrit 27.1 % (30.3-42.9); Mean Corpuscular HGB Conc 33 % (30-34); Mean Corpuscular Volume 91 fl (79-97); Red Blood Count 2.97 M/mm3 (3.65-5.03); Red Cell Distribution Width 14.5 % (13.2-15.2)
[2020-12-02 11:12] LABS: Platelet Count 20 K/mm3 (140-440)
--- NOTE | 2020-12-02 12:49 | Progress Note ---
Assessment and Plan Assessment and plan: --Severe thrombocytopenia Current Visit: Yes Status: Acute Plan to address problem: Severe platelet transfusion Closely monitor, transfuse additional platelets Hematology oncology following --Neutropenia; worsening Current Visit: Yes Status: Acute Plan to address problem: Neutropenia precautions Daily Neupogen, supportive care -- Intractable vomiting Current Visit: Yes Status: Acute Plan to address problem: Patient initiated on IV Zofran and IV Reglan. GI evaluated the patient Continue Protonix --End-stage renal disease needing dialysis Current Visit: Yes Status: Acute Plan to address problem: Nephrology evaluated the patient HD per schedule -- Pancreatic cancer Current Visit: Yes Status: Chronic Plan to address problem: Pancreatic cancer in the body and the tail of pancreas. Patient on chemotherapy. Follows with Dr. Lee Patient will follow up with her private oncologist upon discharge --Oropharyngeal candidiasis Current Visit: Yes Status: Acute Plan to address problem: Status post EGD per GI IV Diflucan for now Closely monitor --History of renal cell cancer Current Visit: Yes Status: Chronic Plan to address problem: Had bilateral nephrectomy On hemodialysis --Transaminitis Current Visit: Yes Status: Acute Plan to address problem: Possibly secondary to chemotherapy Check hepatitis profile Possible metastatic --Severe protein calorie malnutrition Current Visit: Yes Status: Acute Plan to address problem: Hypoalbuminemia .Albumin 2.9 Nutrition consult requested --DVT prophylaxis Current Visit: No Status: Acute Plan to address problem: On SCDs no pharmacologic anticoagulation In view of severe thrombocytopenia --Full CODE STATUS --Patient is critically ill very poor prognosis Will talk to patient's family, goals of treatment, CODE STATUS And any advanced directives. Consults and recommendations noted and appreciated Plan of care reviewed with the patient, her nurse and the case management History Interval history: I have seen and examined the patient at the bedside Patient is critically ill, with severe glossitis, and bleeding from mouth Receiving platelets Vital signs noted Hospitalist Physical - Constitutional Vitals: Temp Pulse Resp BP Pulse Ox 98.6 F 100 H 18 157/54 94 12/02/20 06:04 12/02/20 06:04 12/02/20 06:04 12/02/20 06:04 12/02/20 06:04 General appearance: Present: severe distress, well-nourished, other (Natalia Paz) - EENT Eyes: Present: PERRL, EOM intact ENT: thrush, ulcerations, other (Bleeding from mouth) - Neck Neck: Present: supple, normal ROM - Respiratory Respiratory effort: normal Respiratory: bilateral: diminished, rhonchi, negative: rales, wheezing - Cardiovascular Rhythm: regular Heart Sounds: Present: S1 & S2 - Extremities Extremities: no ischemia Extremity abnormal: edema - Abdominal General gastrointestinal: soft, non-tender, non-distended, normal bowel sounds - Integumentary Integumentary: Present: clear, warm - Psychiatric Psychiatric: appropriate mood/affect, cooperative - Neurologic Neurologic: moves all extremities HEART Score - HEART Score Age: 45-65 Troponin: 1-3x normal limit Results - Labs CBC & Chem 7: 12/02/20 10:30 12/02/20 10:30 Labs: Laboratory Last Values WBC 0.3 K/mm3 (4.5-11.0) L* 12/02/20 10:30 RBC 2.97 M/mm3 (3.65-5.03) L 12/02/20 10:30 Hgb 9.0 gm/dl (10.1-14.3) L 12/02/20 10:30 Hct 27.1 % (30.3-42.9) L 12/02/20 10:30 MCV 91 fl (79-97) 12/02/20 10:30 MCH 30 pg (28-32) 12/02/20 10:30 MCHC 33 % (30-34) 12/02/20 10:30 RDW 14.5 % (13.2-15.2) 12/02/20 10:30 Plt Count 20 K/mm3 (140-440) L 12/02/20 10:30 Lymph % (Auto) [employer] Liaison 12/02/20 10:30 Add Manual Diff Complete 12/01/20 04:57 Total Counted 27 12/01/20 04:57 Seg Neutrophils % [employer] Liaison 12/02/20 10:30 Seg Neuts % (Manual) 74.1 % (40.0-70.0) H 12/01/20 04:57 Lymphocytes % (Manual) 22.2 % (13.4-35.0) 12/01/20 04:57 Eosinophils % (Manual) 3.7 % (0.0-4.3) 12/01/20 04:57 Nucleated RBC % Not Reportable 12/01/20 04:57 Seg Neutrophils # Man 0.7 K/mm3 (1.8-7.7) L 12/01/20 04:57 Band Neutrophils # 0.0 K/mm3 12/01/20 04:57 Lymphocytes # (Manual) 0.2 K/mm3 (1.2-5.4) L 12/01/20 04:57 Abs React Lymphs (Man) 0.0 K/mm3 12/01/20 04:57 Monocytes # (Manual) 0.0 K/mm3 (0.0-0.8) 12/01/20 04:57 Eosinophils # (Manual) 0.0 K/mm3 (0.0-0.4) 12/01/20 04:57 Basophils # (Manual) 0.0 K/mm3 (0.0-0.1) 12/01/20 04:57 Metamyelocytes # 0.0 K/mm3 12/01/20 04:57 Myelocytes # 0.0 K/mm3 12/01/20 04:57 Promyelocytes # 0.0 K/mm3 12/01/20 04:57 Blast Cells # 0.0 K/mm3 12/01/20 04:57 WBC Morphology Not Reportable 12/01/20 04:57 Hypersegmented Neuts Not Reportable 12/01/20 04:57 Hyposegmented Neuts Not Reportable 12/01/20 04:57 Hypogranular Neuts Not Reportable 12/01/20 04:57 Smudge Cells Not Reportable 12/01/20 04:57 Toxic Granulation Not Reportable 12/01/20 04:57 Toxic Vacuolation Not Reportable 12/01/20 04:57 Dohle Bodies Not Reportable 12/01/20 04:57 Pelger-Huet Anomaly Not Reportable 12/01/20 04:57 Deepali Rods Not Reportable 12/01/20 04:57 Platelet Estimate Consistent w auto 12/01/20 04:57 Clumped Platelets Not Reportable 12/01/20 04:57 Plt Clumps, EDTA Not Reportable 12/01/20 04:57 Large Platelets Not Reportable 12/01/20 04:57 Giant Platelets Not Reportable 12/01/20 04:57 Platelet Satelliting Not Reportable 12/01/20 04:57 Plt Morphology Comment Not Reportable 12/01/20 04:57 RBC Morphology Not Reportable 12/01/20 04:57 Dimorphic RBCs Not Reportable 12/01/20 04:57 Polychromasia Not Reportable 12/01/20 04:57 Hypochromasia Few 12/01/20 04:57 Poikilocytosis Not Reportable 12/01/20 04:57 Anisocytosis Not Reportable 12/01/20 04:57 Microcytosis Few 12/01/20 04:57 Macrocytosis Not Reportable 12/01/20 04:57 Spherocytes Not Reportable 12/01/20 04:57 Pappenheimer Bodies Not Reportable 12/01/20 04:57 Sickle Cells Not Reportable 12/01/20 04:57 Target Cells Not Reportable 12/01/20 04:57 Tear Drop Cells Not Reportable 12/01/20 04:57 Ovalocytes Not Reportable 12/01/20 04:57 Helmet Cells Not Reportable 12/01/20 04:57 Marie-Earlton Bodies Not Reportable 12/01/20 04:57 Wayne Rings Not Reportable 12/01/20 04:57 Roann Cells Not Reportable 12/01/20 04:57 Bite Cells Not Reportable 12/01/20 04:57 Crenated Cell Not Reportable 12/01/20 04:57 Elliptocytes Not Reportable 12/01/20 04:57 Acanthocytes (Spur) Not Reportable 12/01/20 04:57 Rouleaux Not Reportable 12/01/20 04:57 Hemoglobin C Crystals Not Reportable 12/01/20 04:57 Schistocytes Not Reportable 12/01/20 04:57 Malaria parasites Not Reportable 12/01/20 04:57 Kannan Bodies Not Reportable 12/01/20 04:57 Hem Pathologist Commnt No 12/01/20 04:57 Sodium 142 mmol/L (137-145) 12/02/20 10:30 Potassium 5.0 mmol/L (3.6-5.0) 12/02/20 10:30 Chloride 98.3 mmol/L (98-107) 12/02/20 10:30 Carbon Dioxide 23 mmol/L (22-30) 12/02/20 10:30 Anion Gap 26 mmol/L 12/02/20 10:30 BUN 111 mg/dL (7-17) H 12/02/20 10:30 Creatinine 10.1 mg/dL (0.6-1.2) H 12/02/20 10:30 Estimated GFR 4 ml/min 12/02/20 10:30 BUN/Creatinine Ratio 11 % 12/02/20 10:30 Glucose 157 mg/dL (65-100) H 12/02/20 10:30 POC Glucose 147 mg/dL (70-105) H 12/02/20 11:40 Hemoglobin A1c 4.8 % (4-6) 12/01/20 04:57 Calcium 9.0 mg/dL (8.4-10.2) 12/02/20 10:30 Phosphorus 5.80 mg/dL (2.5-4.5) H 11/30/20 12:00 Magnesium 2.00 mg/dL (1.7-2.3) 11/30/20 12:00 Total Bilirubin 1.20 mg/dL (0.1-1.2) 12/01/20 04:57 Direct Bilirubin 0.9 mg/dL (0-0.2) H 11/30/20 12:00 Indirect Bilirubin 0.4 mg/dL 11/30/20 12:00 AST 101 units/L (5-40) H 12/01/20 04:57 ALT 245 units/L (7-56) H 12/01/20 04:57 Alkaline Phosphatase 103 units/L (35-129) 12/01/20 04:57 Total Protein 5.6 g/dL (6.3-8.2) L 12/01/20 04:57 Albumin 2.9 g/dL (3.9-5) L 12/01/20 04:57 Albumin/Globulin Ratio 1.1 % 12/01/20 04:57 Lipase 26 units/L (13-60) 11/30/20 12:00 Hepatitis A IgM Ab Non-reactive (NonReactive) 12/01/20 07:48 Hep Bs Antigen Non-reactive (Negative) 12/01/20 07:48 Hep B Core IgM Ab Non-reactive (NonReactive) 12/01/20 07:48 Hepatitis C Antibody Non-reactive (NonReactive) 12/01/20 07:48 Blood Type O POSITIVE 12/02/20 05:00 Gu/IV: Voiding Method External Female Catheter Active Medications - Current Medications Current Medications: Generic Name Dose Route Start Last Admin Trade Name Freq PRN Reason Stop Dose Admin Acetaminophen 650 mg 11/30/20 18:24 Acetaminophen 325 Mg Tab PO Q4H PRN Pain MILD(1-3)/Fever >100.5/STEWARD Clonidine HCl 0.3 mg 11/30/20 22:00 11/30/20 23:26 Clonidine Tts 0.3 Mg/24 Hr Patch TD 0.3 mg We [facility]YL Administration Hydralazine HCl 10 mg 11/30/20 21:51 12/02/20 03:50 Hydralazine 20 Mg/1 Ml Inj IV 10 mg Q3H PRN Administration Blood Pressure Hydromorphone HCl 1 mg 11/30/20 18:24 12/01/20 12:41 Hydromorphone 1 Mg/1 Ml Inj IV 1 mg Q3H PRN Administration Pain , Severe (7-10) Fluconazole 200 mg in 100 mls @ 100 mls/hr 12/01/20 09:30 12/02/20 10:16 Diflucan IV 100 mls/hr Q24H [facility]YL Administration Sodium Chloride 500 mls @ 0 mls/hr 12/01/20 18:32 12/01/20 23:34 Nacl 0.9% 500 Ml IV 12/02/20 18:31 50 mls/hr ONCE [facility]YL Administration As Directed Ondansetron HCl 4 mg 11/30/20 21:05 12/01/20 08:46 Ondansetron 4 Mg/2 Ml Inj IV 4 mg Q3H PRN Administration Nausea And Vomiting Pantoprazole Sodium 40 mg 12/01/20 22:00 12/02/20 10:19 Pantoprazole 40 Mg Inj IV 40 mg BID APRYL Administration Sodium Chloride 10 ml 11/30/20 22:00 12/02/20 10:20 Sodium Chloride 0.9% 10 Ml Flush Syringe IV 10 ml BID [facility]YL Administration Sodium Chloride 10 ml 11/30/20 18:24 Sodium Chloride 0.9% 10 Ml Flush Syringe IV PRN PRN LINE FLUSH Sodium Chloride 10 ml 11/30/20 22:00 12/02/20 10:21 Sodium Chloride 0.9% 10 Ml Flush Syringe IV 10 ml BID APRYL Administration Tbo-Filgrastim 480 mcg 12/02/20 12:00 Tbo-Filgrastim 480 Mcg/0.8 Ml SUB-Q DAILY [facility]
[2020-12-02] MEDS: TBO-FILGRASTIM 480 MCG/0.8 ML SUB-Q SCH (14:51)
[2020-12-02 15:11] LABS: Total Cells Counted 4
[2020-12-02 15:12] LABS: Platelet Estimate Consistent w Auto; Schistocytes Rare
[2020-12-02 16:38] LABS: Hematocrit 24.6 % (30.3-42.9); Hemoglobin 8.3 gm/dl (10.1-14.3); Mean Corpuscular HGB Conc 34 % (30-34); Mean Corpuscular Volume 91 fl (79-97); Red Blood Count 2.71 M/mm3 (3.65-5.03); Red Cell Distribution Width 14.4 % (13.2-15.2)
[2020-12-02 16:48] LABS: Platelet Count 29 K/mm3 (140-440)
--- NOTE | 2020-12-02 19:35 | Consultation ---
History of Present Illness - Reason for Consult Consult date: 12/02/20 end stage renal disease - History of Present Illness This is a 65-year-old woman with end-stage renal disease on hemodialysis, diabetes, hypertension, renal cell cancer on immunotherapy, psoriasis recently started on methotrexate who presented to the emergency department with complaints of blood tinged emesis. She was recently started on methotrexate therapy for psoriasis and workup in the emergency department was notable for severe pancytopenia. and she was subsequently admitted for further workup. Nephrology was consulted for ESRD management. She is dialyzed at [facility]. She denies headaches, chest pain, shortness of breath but does note fatigue/weakness and gum bleed. Past History Past Medical History: cancer (Renal cell, with metastasis to pancreas, etc), diabetes, ESRD (on hemodialysis), hypertension, other (psoriasis) Past Surgical History: hysterectomy, Other (Bilateral nephrectomies) Social history: denies: smoking, alcohol abuse Family history: no significant family history Medications and Allergies Allergies Allergy/AdvReac Type Severity Reaction Status Date / Time codeine Allergy Rash Verified 09/21/20 09:44 Penicillins Allergy Hives Verified 09/21/20 09:44 ciprofloxacin [From Cipro] AdvReac severe Verified 09/21/20 09:44 nausea ciprofloxacin HCl AdvReac severe Verified 09/21/20 09:44 [From Cipro] nausea Home Medications Medication Instructions Recorded Confirmed Last Taken Type B Complex 11/Folic/C/Biot/Zinc 1 each PO DAILY #30 tablet 02/13/16 11/30/20 10/05/19 Rx [Dialyvite with Zinc Tablet] Meclizine [Antivert] 25 mg PO TID PRN 07/05/16 11/30/20 10/21/16 History Aspirin [Aspirin BABY CHEW TAB] 81 mg PO QDAY #30 tab.chew 10/27/16 11/30/20 12/31/19 Rx carvediloL [Coreg] 25 mg PO BID #60 tablet 06/23/18 11/30/20 10/05/19 Rx Cholecalciferol (Vitamin D3) 5,000 unit PO DAILY 01/16/19 11/30/20 12/31/19 History [Vitamin D3 5,000 UNIT] Cinacalcet [Sensipar] 30 mg PO QHS 01/16/19 11/30/20 10/05/19 History Sevelamer Carbonate [Renvela] 4,000 mg PO TIDWM 01/16/19 11/30/20 10/05/19 History hydrALAZINE [Apresoline TAB] 100 mg PO TID 01/16/19 11/30/20 10/05/19 History amLODIPine 10 mg PO DAILY #30 tablet 07/14/19 11/30/20 10/05/19 Rx cloNIDine [Catapres] 0.2 mg PO TID #90 tablet 07/14/19 11/30/20 10/05/19 Rx Losartan [Cozaar] 50 mg PO QDAY 10/06/19 11/30/20 10/05/19 History Metoclopramide HCl [Reglan TAB] 10 mg PO QID 10/06/19 11/30/20 10/05/19 History AtorvaSTATin [Lipitor] 40 mg PO QHS #30 tablet 10/07/19 11/30/20 12/30/19 Rx Prasugrel [Effient] 10 mg PO QDAY #30 tablet 10/07/19 11/30/20 Unknown Rx Promethazine [Phenergan] 25 mg PO Q6H PRN #20 tablet 07/21/20 11/30/20 Unknown Rx Dicyclomine [Bentyl] 20 mg PO QID PRN #20 tablet 09/17/20 11/30/20 Unknown Rx Promethazine HCl [Phenergan SUPPOS] 25 mg RC Q6HR PRN #20 supp.rect 09/17/20 11/30/20 Unknown Rx Famotidine [Pepcid] 20 mg PO DAILY #30 tablet 09/24/20 11/30/20 Unknown Rx Mag Hydrox/Aluminum Hyd/Simeth 30 ml PO DAILY PRN 30 Days #1 09/24/20 11/30/20 Unknown Rx [Maalox Advanced Suspension] bottle Lidocaine Viscous 2% 15 ml MM Q6HR PRN #1 bottle 11/28/20 11/30/20 Unknown Rx Nystatin [Nystatin SUSP] 5 ml PO QID #200 ml 11/28/20 11/30/20 Unknown Rx Active Meds: Active Medications Acetaminophen (Acetaminophen 325 Mg Tab) 650 mg PO Q4H PRN PRN Reason: Pain MILD(1-3)/Fever >100.5/STEWARD Clonidine HCl (Clonidine Tts 0.3 Mg/24 Hr Patch) 0.3 mg TD We [facility] Last Admin: 11/30/20 23:26 Dose: 0.3 mg Documented by: Hydralazine HCl (Hydralazine 20 Mg/1 Ml Inj) 10 mg IV Q3H PRN PRN Reason: Blood Pressure Last Admin: 12/02/20 03:50 Dose: 10 mg Documented by: Hydromorphone HCl (Hydromorphone 1 Mg/1 Ml Inj) 1 mg IV Q3H PRN PRN Reason: Pain , Severe (7-10) Last Admin: 12/01/20 12:41 Dose: 1 mg Documented by: Fluconazole (Diflucan) 200 mg in 100 mls @ 100 mls/hr IV Q24H [facility] Last Admin: 12/02/20 10:16 Dose: 100 mls/hr Documented by: Ondansetron HCl (Ondansetron 4 Mg/2 Ml Inj) 4 mg IV Q3H PRN PRN Reason: Nausea And Vomiting Last Admin: 12/01/20 08:46 Dose: 4 mg Documented by: Pantoprazole Sodium (Pantoprazole 40 Mg Inj) 40 mg IV BID [facility] Last Admin: 12/02/20 10:19 Dose: 40 mg Documented by: Sodium Chloride (Sodium Chloride 0.9% 10 Ml Flush Syringe) 10 ml IV BID [facility] Last Admin: 12/02/20 10:20 Dose: 10 ml Documented by: Sodium Chloride (Sodium Chloride 0.9% 10 Ml Flush Syringe) 10 ml IV PRN PRN PRN Reason: LINE FLUSH Sodium Chloride (Sodium Chloride 0.9% 10 Ml Flush Syringe) 10 ml IV BID [facility] Last Admin: 12/02/20 10:21 Dose: 10 ml Documented by: Tbo-Filgrastim (Tbo-Filgrastim 480 Mcg/0.8 Ml) 480 mcg SUB-Q DAILY [facility] Last Admin: 12/02/20 14:51 Dose: 480 mcg Documented by: Review of Systems Constitutional: fatigue, weakness, no fever, no chills Ears, nose, mouth and throat: no nasal congestion, no nasal discharge Cardiovascular: no chest pain, no syncope Respiratory: no cough, no shortness of breath Musculoskeletal: no muscle cramps, no frequent falls Integumentary: rash Neurological: weakness, no parathesias Psychiatric: no anxiety, no memory loss Endocrine: no polydipsia, no polyuria Hematologic/Lymphatic: easy bruising, easy bleeding Exam - Vital Signs Vital signs: Vital Signs Pulse Ox 99 11/30/20 09:49 - Physical Exam Narrative exam: General: No acute distress HEENT: Oral mucosa moist Neck: Supple, no JVD Chest: Clear to auscultation bilaterally Heart: RRR, S1 and S2, no pericardial rub Abdomen: Soft, nontender, no renal bruit Extremity: No peripheral cyanosis, edema Neurological: Alert, awake, no asterixis Dermatology: Muliple skin rashes Psych: No agitation Musculoskeletal: No joint effusion Results - Lab Results 12/02/20 16:18 12/02/20 10:30 Most recent lab results Calcium 9.0 mg/dL (8.4-10.2) 12/02/20 10:30 Phosphorus 5.80 mg/dL (2.5-4.5) H 11/30/20 12:00 Magnesium 2.00 mg/dL (1.7-2.3) 11/30/20 12:00 Assessment and Plan Assessment End-stage renal disease on hemodialysis Renal cell cancer, metastaticon immunotherapy Psoriasis, recently started on methotrexate Pancytopenia Mucosal bleed Recommendations Planned for hemodialysis today but patient continued to have mucosal bleed and felt extremely weak, therefore will hold dialysis today and reassess tomorrow. Recommend transfusion of platelets to bring level above 50 K given ongoing bleed, concerned that she will continue to bleed post HD from access at lower levels. Monitor hemoglobin, transfuse for hemoglobin less than 7 Renally dose medications Renal diet
--- NOTE | 2020-12-02 19:38 | Event Note ---
Date: 12/02/20 I called patient's daughter Ms. Kate Bunch at [phone][his number was given by her when I called her home number [phone]] unable to reach her Left a voicemail asking her to call back, I will try to call her again in 15 minutes if unsuccessful will try again tomorrow. I even tried cellphone, unable to reach voice mailbox is full.
--- NOTE | 2020-12-02 19:47 | Event Note ---
Date: 12/02/20 Patient's daughter Ms. Kate Bunch call back, I discussed in detail patient's critical condition, severe thrombocytopenia, severe leukopenia, bleeding episodes, oral ulcers and poor prognosis. I discussed patient's advanced directives and CODE STATUS, and the daughter reported that patient is a full CODE STATUS, and wants everything to be done. The same will be conveyed to the nurse.
[2020-12-02 23:50] LABS: Hemoglobin 8.6 gm/dl (10.1-14.3)
[2020-12-03 04:54] LABS: Hematocrit 23.9 % (30.3-42.9); Hemoglobin 8.2 gm/dl (10.1-14.3); Mean Corpuscular HGB Conc 34 % (30-34); Mean Corpuscular Volume 90 fl (79-97); Red Blood Count 2.65 M/mm3 (3.65-5.03); Red Cell Distribution Width 14.3 % (13.2-15.2)
[2020-12-03 04:58] LABS: Platelet Count 26 K/mm3 (140-440)
[2020-12-03] MEDS ORDERED: SODIUM CHLORIDE 0.9% 500 ML 500 ML IV ONE (05:09)
[2020-12-03 06:22] LABS: Anisocytosis 1+; Eosinophils % (Manual) 33.3 % (0.0-4.3); Platelet Estimate Consistent w Auto; Total Cells Counted 15
--- NOTE | 2020-12-03 09:33 | Progress Note ---
Assessment and Plan Assessment and plan: --Severe oropharyngeal candidiasis/glossitis Current Visit: Yes Status: Acute Plan to address problem: Status post EGD per GI IV Diflucan for now Closely monitor, Patent airway Intermittent oral suction as needed Oral care. Try clear liquids If patient is unable to take oral Consider Dobbhoff placement --Severe thrombocytopenia Current Visit: Yes Status: Acute Plan to address problem: Severe platelet transfusion Closely monitor, transfuse additional platelets Hematology oncology following --Neutropenia; worsening Current Visit: Yes Status: Acute Plan to address problem: Neutropenia precautions Daily Neupogen, supportive care -- Intractable vomiting Current Visit: Yes Status: Acute Plan to address problem: Patient initiated on IV Zofran and IV Reglan. GI evaluated the patient Continue Protonix --End-stage renal disease on hemodialysis Current Visit: Yes Status: Acute Plan to address problem: Nephrology evaluated the patient HD per schedule -- Pancreatic cancer Current Visit: Yes Status: Chronic Plan to address problem: Pancreatic cancer in the body and the tail of pancreas. Patient on chemotherapy. Follows with Dr. Lee Patient will follow up with her private oncologist upon discharge --History of renal cell cancer Current Visit: Yes Status: Chronic Plan to address problem: Had bilateral nephrectomy On hemodialysis --Transaminitis Current Visit: Yes Status: Acute Plan to address problem: Possibly secondary to chemotherapy Check hepatitis profile Possible metastatic --Severe protein calorie malnutrition Current Visit: Yes Status: Acute Plan to address problem: Hypoalbuminemia .Albumin 2.9 Nutrition consult requested --DVT prophylaxis Current Visit: No Status: Acute Plan to address problem: On SCDs no pharmacologic anticoagulation In view of severe thrombocytopenia --Full CODE STATUS --Patient is critically ill very poor prognosis With pancytopenia severe, oropharyngeal candidiasis and glossitis Bleeding episodes, will transfer to [facility] for close observation Nephrology and hematology following I spoke with patient's daughter yesterday in detail, patient's condition, poor prognosis CODE STATUS, full code at this point Closely monitor the patient and adjust the management as needed History Interval history: I have seen and examined the patient at the bedside Patient's chart and medications reviewed Patient has severe oropharyngeal candidiasis With mild streaks of blood in the mouth Patient is in mild distress O2 sats normal range Vital signs reviewed Hospitalist Physical - Constitutional Vitals: Temp Pulse Resp BP Pulse Ox 98.6 F 93 H 18 137/57 100 12/03/20 05:01 12/03/20 04:40 12/03/20 05:01 12/03/20 05:01 12/03/20 04:40 General appearance: Present: mild distress, well-nourished, other - EENT ENT: other (Severe oropharyngeal candidiasis, glossitis) - Neck Neck: Present: supple, normal ROM - Respiratory Respiratory effort: normal Respiratory: bilateral: diminished, rhonchi, negative: rales, wheezing - Cardiovascular Rhythm: regular Heart Sounds: Present: S1 & S2 - Extremities Extremities: no ischemia, No edema - Abdominal General gastrointestinal: soft, non-tender, non-distended, normal bowel sounds - Integumentary Integumentary: Present: clear, warm - Psychiatric Psychiatric: cooperative - Neurologic Neurologic: moves all extremities HEART Score - HEART Score Age: 45-65 Troponin: 1-3x normal limit Results - Labs CBC & Chem 7: 12/03/20 04:25 12/02/20 10:30 Labs: Laboratory Last Values WBC 0.4 K/mm3 (4.5-11.0) L* 12/03/20 04:25 RBC 2.65 M/mm3 (3.65-5.03) L 12/03/20 04:25 Hgb 8.2 gm/dl (10.1-14.3) L 12/03/20 04:25 Hct 23.9 % (30.3-42.9) L 12/03/20 04:25 MCV 90 fl (79-97) 12/03/20 04:25 MCH 31 pg (28-32) 12/03/20 04:25 MCHC 34 % (30-34) 12/03/20 04:25 RDW 14.3 % (13.2-15.2) 12/03/20 04:25 Plt Count 26 K/mm3 (140-440) L 12/03/20 04:25 Lymph % (Auto) Research And Development Director 12/03/20 04:25 Add Manual Diff Complete 12/03/20 04:25 Total Counted 15 12/03/20 04:25 Seg Neutrophils % Research And Development Director 12/03/20 04:25 Seg Neuts % (Manual) 6.7 % (40.0-70.0) L 12/03/20 04:25 Lymphocytes % (Manual) 60.0 % (13.4-35.0) H 12/03/20 04:25 Eosinophils % (Manual) 33.3 % (0.0-4.3) H 12/03/20 04:25 Nucleated RBC % Not Reportable 12/03/20 04:25 Seg Neutrophils # Man 0.0 K/mm3 (1.8-7.7) L 12/03/20 04:25 Band Neutrophils # 0.0 K/mm3 12/03/20 04:25 Lymphocytes # (Manual) 0.2 K/mm3 (1.2-5.4) L 12/03/20 04:25 Abs React Lymphs (Man) 0.0 K/mm3 12/03/20 04:25 Monocytes # (Manual) 0.0 K/mm3 (0.0-0.8) 12/03/20 04:25 Eosinophils # (Manual) 0.1 K/mm3 (0.0-0.4) 12/03/20 04:25 Basophils # (Manual) 0.0 K/mm3 (0.0-0.1) 12/03/20 04:25 Metamyelocytes # 0.0 K/mm3 12/03/20 04:25 Myelocytes # 0.0 K/mm3 12/03/20 04:25 Promyelocytes # 0.0 K/mm3 12/03/20 04:25 Blast Cells # 0.0 K/mm3 12/03/20 04:25 WBC Morphology Not Reportable 12/03/20 04:25 Hypersegmented Neuts Not Reportable 12/03/20 04:25 Hyposegmented Neuts Not Reportable 12/03/20 04:25 Hypogranular Neuts Not Reportable 12/03/20 04:25 Smudge Cells Not Reportable 12/03/20 04:25 Toxic Granulation Not Reportable 12/03/20 04:25 Toxic Vacuolation Not Reportable 12/03/20 04:25 Dohle Bodies Not Reportable 12/03/20 04:25 Pelger-Huet Anomaly Not Reportable 12/03/20 04:25 Deepali Rods Not Reportable 12/03/20 04:25 Platelet Estimate Consistent w auto 12/03/20 04:25 Clumped Platelets Not Reportable 12/03/20 04:25 Plt Clumps, EDTA Not Reportable 12/03/20 04:25 Large Platelets Not Reportable 12/03/20 04:25 Giant Platelets Not Reportable 12/03/20 04:25 Platelet Satelliting Not Reportable 12/03/20 04:25 Plt Morphology Comment Not Reportable 12/03/20 04:25 RBC Morphology Not Reportable 12/03/20 04:25 Dimorphic RBCs Not Reportable 12/03/20 04:25 Polychromasia Not Reportable 12/03/20 04:25 Hypochromasia Not Reportable 12/03/20 04:25 Poikilocytosis Not Reportable 12/03/20 04:25 Anisocytosis 1+ 12/03/20 04:25 Microcytosis Not Reportable 12/03/20 04:25 Macrocytosis Not Reportable 12/03/20 04:25 Spherocytes Not Reportable 12/03/20 04:25 Pappenheimer Bodies Not Reportable 12/03/20 04:25 Sickle Cells Not Reportable 12/03/20 04:25 Target Cells Not Reportable 12/03/20 04:25 Tear Drop Cells Not Reportable 12/03/20 04:25 Ovalocytes Not Reportable 12/03/20 04:25 Helmet Cells Not Reportable 12/03/20 04:25 [place] Bodies Not Reportable 12/03/20 04:25 [place] Rings Not Reportable 12/03/20 04:25 Leslie Cells Not Reportable 12/03/20 04:25 Bite Cells Not Reportable 12/03/20 04:25 Crenated Cell Not Reportable 12/03/20 04:25 Elliptocytes Not Reportable 12/03/20 04:25 Acanthocytes (Spur) Not Reportable 12/03/20 04:25 Rouleaux Not Reportable 12/03/20 04:25 Hemoglobin C Crystals Not Reportable 12/03/20 04:25 Schistocytes Not Reportable 12/03/20 04:25 Malaria parasites Not Reportable 12/03/20 04:25 Kannan Bodies Not Reportable 12/03/20 04:25 Hem Pathologist Commnt No 12/03/20 04:25 Sodium 142 mmol/L (137-145) 12/02/20 10:30 Potassium 5.0 mmol/L (3.6-5.0) 12/02/20 10:30 Chloride 98.3 mmol/L (98-107) 12/02/20 10:30 Carbon Dioxide 23 mmol/L (22-30) 12/02/20 10:30 Anion Gap 26 mmol/L 12/02/20 10:30 BUN 111 mg/dL (7-17) H 12/02/20 10:30 Creatinine 10.1 mg/dL (0.6-1.2) H 12/02/20 10:30 Estimated GFR 4 ml/min 12/02/20 10:30 BUN/Creatinine Ratio 11 % 12/02/20 10:30 Glucose 157 mg/dL (65-100) H 12/02/20 10:30 POC Glucose 120 mg/dL (70-105) H 12/02/20 21:22 Hemoglobin A1c 4.8 % (4-6) 12/01/20 04:57 Calcium 9.0 mg/dL (8.4-10.2) 12/02/20 10:30 Phosphorus 5.80 mg/dL (2.5-4.5) H 11/30/20 12:00 Magnesium 2.00 mg/dL (1.7-2.3) 11/30/20 12:00 Total Bilirubin 1.20 mg/dL (0.1-1.2) 12/01/20 04:57 Direct Bilirubin 0.9 mg/dL (0-0.2) H 11/30/20 12:00 Indirect Bilirubin 0.4 mg/dL 11/30/20 12:00 AST 101 units/L (5-40) H 12/01/20 04:57 ALT 245 units/L (7-56) H 12/01/20 04:57 Alkaline Phosphatase 103 units/L (35-129) 12/01/20 04:57 Total Protein 5.6 g/dL (6.3-8.2) L 12/01/20 04:57 Albumin 2.9 g/dL (3.9-5) L 12/01/20 04:57 Albumin/Globulin Ratio 1.1 % 12/01/20 04:57 Lipase 26 units/L (13-60) 11/30/20 12:00 Hepatitis A IgM Ab Non-reactive (NonReactive) 12/01/20 07:48 Hep Bs Antigen Non-reactive (Negative) 12/01/20 07:48 Hep B Core IgM Ab Non-reactive (NonReactive) 12/01/20 07:48 Hepatitis C Antibody Non-reactive (NonReactive) 12/01/20 07:48 Blood Type O POSITIVE 12/02/20 05:00 Gu/IV: Voiding Method Toilet Active Medications - Current Medications Current Medications: Generic Name Dose Route Start Last Admin Trade Name Freq PRN Reason Stop Dose Admin Acetaminophen 650 mg 11/30/20 18:24 Acetaminophen 325 Mg Tab PO Q4H PRN Pain MILD(1-3)/Fever >100.5/STEWARD Clonidine HCl 0.3 mg 11/30/20 22:00 11/30/20 23:26 Clonidine Tts 0.3 Mg/24 Hr Patch TD 0.3 mg We APRYL Administration Dexamethasone 4 mg 12/03/20 14:00 Dexamethasone 4 Mg Tab PO Q8HR APRYL Hydralazine HCl 10 mg 11/30/20 21:51 12/02/20 03:50 Hydralazine 20 Mg/1 Ml Inj IV 10 mg Q3H PRN Administration Blood Pressure Hydromorphone HCl 1 mg 11/30/20 18:24 12/01/20 12:41 Hydromorphone 1 Mg/1 Ml Inj IV 1 mg Q3H PRN Administration Pain , Severe (7-10) Fluconazole 200 mg in 100 mls @ 100 mls/hr 12/01/20 09:30 12/02/20 10:16 Diflucan IV 12/21/20 10:29 100 mls/hr Q24H APRYL Administration Ondansetron HCl 4 mg 11/30/20 21:05 12/01/20 08:46 Ondansetron 4 Mg/2 Ml Inj IV 4 mg Q3H PRN Administration Nausea And Vomiting Pantoprazole Sodium 40 mg 12/01/20 22:00 12/02/20 21:04 Pantoprazole 40 Mg Inj IV 40 mg BID APRYL Administration Sodium Chloride 10 ml 11/30/20 22:00 12/02/20 21:04 Sodium Chloride 0.9% 10 Ml Flush Syringe IV 10 ml BID APRYL Administration Sodium Chloride 10 ml 11/30/20 18:24 Sodium Chloride 0.9% 10 Ml Flush Syringe IV PRN PRN LINE FLUSH Sodium Chloride 10 ml 11/30/20 22:00 12/02/20 21:05 Sodium Chloride 0.9% 10 Ml Flush Syringe IV Not Given BID APRYL Tbo-Filgrastim 480 mcg 12/02/20 12:00 12/02/20 14:51 Tbo-Filgrastim 480 Mcg/0.8 Ml SUB-Q 480 mcg DAILY APRYL Administration
[2020-12-03] MEDS: PANTOPRAZOLE 40 MG INJ IV SCH ×2 (10:19→23:09)
[2020-12-03] MEDS: FLUCONAZOLE 200 MG 200 MG/100 ML BAG IV SCH (10:19)
[2020-12-03] MEDS: TBO-FILGRASTIM 480 MCG/0.8 ML SUB-Q SCH (10:33)
[2020-12-03] MEDS ORDERED: SODIUM CHLORIDE 0.9% 250ML 250 ML ONE (12:42)
[2020-12-03] MEDS ORDERED: DEXAMETHASONE 4 MG TAB PO SCH (14:00)
[2020-12-03 16:34] LABS: Hematocrit 20.1 % (30.3-42.9); Hemoglobin 6.9 gm/dl (10.1-14.3); Mean Corpuscular HGB Conc 34 % (30-34); Mean Corpuscular Volume 90 fl (79-97); Red Blood Count 2.23 M/mm3 (3.65-5.03)
[2020-12-03 16:40] LABS: Platelet Count 42 K/mm3 (140-440)
[2020-12-03] MEDS ORDERED: LACTATED RINGERS 1000 ML IV SOLN IV ONE (17:00)
[2020-12-03] MEDS ORDERED: SODIUM CHLORIDE 0.9% 500 ML 500 ML IV NR ×2 (17:21→18:14)
[2020-12-03] MEDS ORDERED: LACTATED RINGERS 1,000 ML ONE (17:26)
--- NOTE | 2020-12-03 18:13 | Hem/Onc Progress Note ---
Subjective Interval history: heme data review 65yo disabled woman with ESRD requiring HD, hjas had renal cell carcinoma, presumably withmet to pancreas s/p both nephrectomies has been on immunotherapy since about 2015, last 09/2020 has been stable on immunotherapy recentlly eval for skin problem-->prescribed oral methotrexate now hosp for severe oral mucositis and pancytopena transferred to ICU, not swallowing, not able to take po data reviewed below IMP metastatic renal cell ca-->"stable" on immunotherapy recent oral methotrexate for skin condition now oral mucositis likely due to methotrextae pancytopenia, severe leukopenia, likely due to oral methotrexate (note low dose methotrexate does not usually cause this toxicity) I expect her to recover from this, but it's obviously taking time PLAN/REC: start IV Abx daily GCSF RBC transfusions for severe anemia plt transfusions to keep plt count>20 push through this acute illness because probably she can recover Active Medications Hydromorphone HCl (Hydromorphone 1 Mg/1 Ml Inj) 1 mg IV Q3H PRN PRN Reason: Pain , Severe (7-10) Last Admin: 12/01/20 12:41 Dose: 1 mg Documented by: Fluconazole (Diflucan) 200 mg in 100 mls @ 100 mls/hr IV Q24H APRYL Stop: 12/21/20 10:29 Last Admin: 12/03/20 10:19 Dose: 100 mls/hr Documented by: Sodium Chloride (Nacl 0.9% 500 Ml) 500 mls @ 0 mls/hr IV ONCE NR Tbo-Filgrastim (Tbo-Filgrastim 480 Mcg/0.8 Ml) 480 mcg SUB-Q DAILY APRYL Last Admin: 12/03/20 10:33 Dose: 480 mcg Documented by: Laboratory Last Values WBC 0.2 K/mm3 (4.5-11.0) L* 12/03/20 16:23 Hgb 6.9 gm/dl (10.1-14.3) L 12/03/20 16:23 Hct 20.1 % (30.3-42.9) L 12/03/20 16:23 Plt Count 42 K/mm3 (140-440) L 12/03/20 16:23 Crossmatch See Detail 12/03/20 17:31 Objective - Constitutional Vitals: Last Vital Signs Temp 96.9 F L 12/03/20 14:19 Pulse 119 H 12/03/20 17:45 Resp 24 12/03/20 17:45 BP 141/61 12/03/20 17:45 Pulse Ox 99 12/03/20 17:45 - Labs Lab Results: Laboratory Results - last 24 hr 12/01/20 12/02/20 12/02/20 19:30 05:00 16:12 WBC RBC Hgb Hct MCV MCH MCHC RDW Plt Count Lymph % (Auto) Add Manual Diff Total Counted Seg Neutrophils % Seg Neuts % (Manual) Lymphocytes % (Manual) Eosinophils % (Manual) Nucleated RBC % Seg Neutrophils # Man Band Neutrophils # Lymphocytes # (Manual) Abs React Lymphs (Man) Monocytes # (Manual) Eosinophils # (Manual) Basophils # (Manual) Metamyelocytes # Myelocytes # Promyelocytes # Blast Cells # WBC Morphology Hypersegmented Neuts Hyposegmented Neuts Hypogranular Neuts Smudge Cells Toxic Granulation Toxic Vacuolation Dohle Bodies Pelger-Huet Anomaly Deepali Rods Platelet Estimate Clumped Platelets Plt Clumps, EDTA Large Platelets Giant Platelets Platelet Satelliting Plt Morphology Comment RBC Morphology Dimorphic RBCs Polychromasia Hypochromasia Poikilocytosis Anisocytosis Microcytosis Macrocytosis Spherocytes Pappenheimer Bodies Sickle Cells Target Cells Tear Drop Cells Ovalocytes Helmet Cells Marie-[place] Bodies [place] Rings [place] Cells Bite Cells Crenated Cell Elliptocytes Acanthocytes (Spur) Rouleaux Hemoglobin C Crystals Schistocytes Malaria parasites Kannan Bodies Hem Pathologist Commnt POC Glucose 120 H Blood Type O POSITIVE O POSITIVE Crossmatch 12/02/20 12/02/20 12/03/20 21:22 23:22 04:25 WBC 0.4 L* RBC 2.65 L Hgb 8.6 L 8.2 L Hct 26.0 L 23.9 L MCV 90 MCH 31 MCHC 34 RDW 14.3 Plt Count 26 L Lymph % (Auto) [employer] Add Manual Diff Complete Total Counted 15 Seg Neutrophils % [employer] Seg Neuts % (Manual) 6.7 L Lymphocytes % (Manual) 60.0 H Eosinophils % (Manual) 33.3 H Nucleated RBC % Not Reportable Seg Neutrophils # Man 0.0 L Band Neutrophils # 0.0 Lymphocytes # (Manual) 0.2 L Abs React Lymphs (Man) 0.0 Monocytes # (Manual) 0.0 Eosinophils # (Manual) 0.1 Basophils # (Manual) 0.0 Metamyelocytes # 0.0 Myelocytes # 0.0 Promyelocytes # 0.0 Blast Cells # 0.0 WBC Morphology Not Reportable Hypersegmented Neuts Not Reportable Hyposegmented Neuts Not Reportable Hypogranular Neuts Not Reportable Smudge Cells Not Reportable Toxic Granulation Not Reportable Toxic Vacuolation Not Reportable Dohle Bodies Not Reportable Pelger-Huet Anomaly Not Reportable Deepali Rods Not Reportable Platelet Estimate Consistent w auto Clumped Platelets Not Reportable Plt Clumps, EDTA Not Reportable Large Platelets Not Reportable Giant Platelets Not Reportable Platelet Satelliting Not Reportable Plt Morphology Comment Not Reportable RBC Morphology Not Reportable Dimorphic RBCs Not Reportable Polychromasia Not Reportable Hypochromasia Not Reportable Poikilocytosis Not Reportable Anisocytosis 1+ Microcytosis Not Reportable Macrocytosis Not Reportable Spherocytes Not Reportable Pappenheimer Bodies Not Reportable Sickle Cells Not Reportable Target Cells Not Reportable Tear Drop Cells Not Reportable Ovalocytes Not Reportable Helmet Cells Not Reportable Marie-[place] Bodies Not Reportable [place] Rings Not Reportable [place] Cells Not Reportable Bite Cells Not Reportable Crenated Cell Not Reportable Elliptocytes Not Reportable Acanthocytes (Spur) Not Reportable Rouleaux Not Reportable Hemoglobin C Crystals Not Reportable Schistocytes Not Reportable Malaria parasites Not Reportable Kannan Bodies Not Reportable Hem Pathologist Commnt No POC Glucose 120 H Blood Type Crossmatch 12/03/20 12/03/20 12/03/20 07:19 11:53 16:23 WBC 0.2 L* RBC 2.23 L Hgb 6.9 L Hct 20.1 L MCV 90 MCH 31 MCHC 34 RDW 14.0 Plt Count 42 L Lymph % (Auto) Add Manual Diff Total Counted Seg Neutrophils % Seg Neuts % (Manual) Lymphocytes % (Manual) Eosinophils % (Manual) Nucleated RBC % Seg Neutrophils # Man Band Neutrophils # Lymphocytes # (Manual) Abs React Lymphs (Man) Monocytes # (Manual) Eosinophils # (Manual) Basophils # (Manual) Metamyelocytes # Myelocytes # Promyelocytes # Blast Cells # WBC Morphology Hypersegmented Neuts Hyposegmented Neuts Hypogranular Neuts Smudge Cells Toxic Granulation Toxic Vacuolation Dohle Bodies Pelger-Huet Anomaly Deepali Rods Platelet Estimate Clumped Platelets Plt Clumps, EDTA Large Platelets Giant Platelets Platelet Satelliting Plt Morphology Comment RBC Morphology Dimorphic RBCs Polychromasia Hypochromasia Poikilocytosis Anisocytosis Microcytosis Macrocytosis Spherocytes Pappenheimer Bodies Sickle Cells Target Cells Tear Drop Cells Ovalocytes Helmet Cells Marie-[place] Bodies [place] Rings [place] Cells Bite Cells Crenated Cell Elliptocytes Acanthocytes (Spur) Rouleaux Hemoglobin C Crystals Schistocytes Malaria parasites Kannan Bodies Hem Pathologist Commnt POC Glucose 107 H 140 H Blood Type Crossmatch 12/03/20 17:31 WBC RBC Hgb Hct MCV MCH MCHC RDW Plt Count Lymph % (Auto) Add Manual Diff Total Counted Seg Neutrophils % Seg Neuts % (Manual) Lymphocytes % (Manual) Eosinophils % (Manual) Nucleated RBC % Seg Neutrophils # Man Band Neutrophils # Lymphocytes # (Manual) Abs React Lymphs (Man) Monocytes # (Manual) Eosinophils # (Manual) Basophils # (Manual) Metamyelocytes # Myelocytes # Promyelocytes # Blast Cells # WBC Morphology Hypersegmented Neuts Hyposegmented Neuts Hypogranular Neuts Smudge Cells Toxic Granulation Toxic Vacuolation Dohle Bodies Pelger-Huet Anomaly Deepali Rods Platelet Estimate Clumped Platelets Plt Clumps, EDTA Large Platelets Giant Platelets Platelet Satelliting Plt Morphology Comment RBC Morphology Dimorphic RBCs Polychromasia Hypochromasia Poikilocytosis Anisocytosis Microcytosis Macrocytosis Spherocytes Pappenheimer Bodies Sickle Cells Target Cells Tear Drop Cells Ovalocytes Helmet Cells Marie-[place]end[place] Bodies [place] Rings [place] Cells Bite Cells Crenated Cell Elliptocytes Acanthocytes (Spur) Rouleaux Hemoglobin C Crystals Schistocytes Malaria parasites Kannan Bodies Hem Pathologist Commnt POC Glucose Blood Type O POSITIVE Crossmatch See Detail Medications & Allergies - Medications Allergies/Adverse Reactions: Allergies codeine Allergy (Verified 09/21/20 09:44) Rash Penicillins Allergy (Verified 09/21/20 09:44) Hives ciprofloxacin [From Cipro] Adverse Reaction (Verified 09/21/20 09:44) severe nausea ciprofloxacin HCl [From Cipro] Adverse Reaction (Verified 09/21/20 09:44) severe nausea Home Medications: Home Medications Medication Instructions Recorded Confirmed Last Taken Type B Complex 11/Folic/C/Biot/Zinc 1 each PO DAILY #30 tablet 02/13/16 11/30/20 10/05/19 Rx [Dialyvite with Zinc Tablet] Meclizine [Antivert] 25 mg PO TID PRN 07/05/16 11/30/20 10/21/16 History Aspirin [Aspirin BABY CHEW TAB] 81 mg PO QDAY #30 tab.chew 10/27/16 11/30/20 12/31/19 Rx carvediloL [Coreg] 25 mg PO BID #60 tablet 06/23/18 11/30/20 10/05/19 Rx Cholecalciferol (Vitamin D3) 5,000 unit PO DAILY 01/16/19 11/30/20 12/31/19 History [Vitamin D3 5,000 UNIT] Cinacalcet [Sensipar] 30 mg PO QHS 01/16/19 11/30/20 10/05/19 History Sevelamer Carbonate [Renvela] 4,000 mg PO TIDWM 01/16/19 11/30/20 10/05/19 History hydrALAZINE [Apresoline TAB] 100 mg PO TID 01/16/19 11/30/20 10/05/19 History amLODIPine 10 mg PO DAILY #30 tablet 07/14/19 11/30/20 10/05/19 Rx cloNIDine [Catapres] 0.2 mg PO TID #90 tablet 07/14/19 11/30/20 10/05/19 Rx Losartan [Cozaar] 50 mg PO QDAY 10/06/19 11/30/20 10/05/19 History Metoclopramide HCl [Reglan TAB] 10 mg PO QID 10/06/19 11/30/20 10/05/19 History AtorvaSTATin [Lipitor] 40 mg PO QHS #30 tablet 10/07/19 11/30/20 12/30/19 Rx Prasugrel [Effient] 10 mg PO QDAY #30 tablet 10/07/19 11/30/20 Unknown Rx Promethazine [Phenergan] 25 mg PO Q6H PRN #20 tablet 07/21/20 11/30/20 Unknown Rx Dicyclomine [Bentyl] 20 mg PO QID PRN #20 tablet 09/17/20 11/30/20 Unknown Rx Promethazine HCl [Phenergan SUPPOS] 25 mg RC Q6HR PRN #20 supp.rect 09/17/20 11/30/20 Unknown Rx Famotidine [Pepcid] 20 mg PO DAILY #30 tablet 09/24/20 11/30/20 Unknown Rx Mag Hydrox/Aluminum Hyd/Simeth 30 ml PO DAILY PRN 30 Days #1 09/24/20 11/30/20 Unknown Rx [Maalox Advanced Suspension] bottle Lidocaine Viscous 2% 15 ml MM Q6HR PRN #1 bottle 11/28/20 11/30/20 Unknown Rx Nystatin [Nystatin SUSP] 5 ml PO QID #200 ml 11/28/20 11/30/20 Unknown Rx Active Medications: Generic Name Dose Route Start Last Admin Trade Name Freq PRN Reason Stop Dose Admin Acetaminophen 650 mg 11/30/20 18:24 Acetaminophen 325 Mg Tab PO Q4H PRN Pain MILD(1-3)/Fever >100.5/STEWARD Clonidine HCl 0.3 mg 11/30/20 22:00 11/30/20 23:26 Clonidine Tts 0.3 Mg/24 Hr Patch TD 0.3 mg We APRYL Administration Hydralazine HCl 10 mg 11/30/20 21:51 12/02/20 03:50 Hydralazine 20 Mg/1 Ml Inj IV 10 mg Q3H PRN Administration Blood Pressure Hydromorphone HCl 1 mg 11/30/20 18:24 12/01/20 12:41 Hydromorphone 1 Mg/1 Ml Inj IV 1 mg Q3H PRN Administration Pain , Severe (7-10) Fluconazole 200 mg in 100 mls @ 100 mls/hr 12/01/20 09:30 12/03/20 10:19 Diflucan IV 12/21/20 10:29 100 mls/hr Q24H APRYL Administration Sodium Chloride 500 mls @ 0 mls/hr 12/03/20 17:21 Nacl 0.9% 500 Ml IV 12/03/20 23:59 ONCE NR As Directed Ondansetron HCl 4 mg 11/30/20 21:05 12/01/20 08:46 Ondansetron 4 Mg/2 Ml Inj IV 4 mg Q3H PRN Administration Nausea And Vomiting Pantoprazole Sodium 40 mg 12/01/20 22:00 12/03/20 10:19 Pantoprazole 40 Mg Inj IV 40 mg BID APRYL Administration Sodium Chloride 10 ml 11/30/20 18:24 Sodium Chloride 0.9% 10 Ml Flush Syringe IV PRN PRN LINE FLUSH Sodium Chloride 10 ml 11/30/20 22:00 12/03/20 10:19 Sodium Chloride 0.9% 10 Ml Flush Syringe IV 10 ml BID APRYL Administration Tbo-Filgrastim 480 mcg 12/02/20 12:00 12/03/20 10:33 Tbo-Filgrastim 480 Mcg/0.8 Ml SUB-Q 480 mcg DAILY APRYL Administration
--- NOTE | 2020-12-03 18:28 | Event Note ---
Date: 12/03/20 Patient became severely tachypneic, in respiratory distress Patient's tongue and oral cavity erythematous, bleeding Significant drop in H&H, 2 units of PRBC transfusion requested Unable to place Dobbhoff/oral feeding due to severe edema and bleeding Patient is transferred to IMCU initially and later to ICU Pulmonary critical Dr. Elizondo consulted Discussed with family/ daughter Ms. Kate NO Patient's critical condition, all the labs and reports and CODE STATUS Family would like to come and visit, discussed with ICU charge nurse And 2 members of the family can come and visit the patient. Patient's prognosis is poor We will closely monitor the patient and adjust the management as needed Hematology oncologist, nephro recommendations noted and appreciated Plan of care reviewed with the patient's nurse and patient's family. Total critical care time 45 minutes
--- NOTE | 2020-12-03 19:15 | XRay Report ---
CHEST 1 VIEW 12/03/2020 6:40 PM INDICATION / CLINICAL INFORMATION: Shortness of breath/tachypnea. COMPARISON: 09/21/2020 FINDINGS: SUPPORT DEVICES: Stable, satisfactory device positioning. HEART / MEDIASTINUM: Stable. LUNGS / PLEURA: Left lower lung volume loss and small-moderate left pleural effusion. Pulmonary nodul es visualized on recent CT abdomen not well visualized on this chest radiograph. No pneumothorax. ADDITIONAL FINDINGS: No significant additional findings. IMPRESSION: 1. Mild-moderate left pleural-parenchymal disease. Findings could represent pneumonia or aspiration. Recommend clinical correlation and continued follow-up until resolution. Signer Name: Fuentes Florez MD Signed: 12/03/2020 7:11 PM Workstation Name: [id number]
[2020-12-03 19:29] LABS: Hemoglobin 6.8 gm/dl (10.1-14.3); Mean Corpuscular HGB Conc 34 % (30-34); Mean Corpuscular Volume 91 fl (79-97); Red Blood Count 2.19 M/mm3 (3.65-5.03); Red Cell Distribution Width 14.4 % (13.2-15.2)
[2020-12-03 19:54] LABS: Albumin 2.2 g/dL (3.9-5); Calcium 8.8 mg/dL (8.4-10.2)
[2020-12-03 20:00] LABS: Platelet Count 36 K/mm3 (140-440)
[2020-12-03 20:02] LABS: Hematocrit 19.8 % (30.3-42.9)
--- NOTE | 2020-12-03 20:39 | Progress Note ---
Assessment and Plan Assessment End-stage renal disease on hemodialysis Renal cell cancer, metastaticon immunotherapy Psoriasis, recently started on methotrexate Pancytopenia Mucosal bleed Recommendations Seen during dialysis today, tolerating without complications Assess daily for needs of additional sessions Platelet transfusion to keep above 20K Monitor hemoglobin, transfuse for hemoglobin less than 7 Renally dose medications Renal diet Hematology and primary note reviewed Prognosis guarded Subjective Date of service: 12/03/20 Principal diagnosis: Pancytopenia, bleeding Interval history: Seen during dialysis today, tolerating without complications Patient was seen for her renal issues Nursing, interdisciplinary and consult notes were reviewed Vitals, input and output, medications and labs were reviewed Objective - Exam Narrative Exam: General: No acute distress HEENT: Oral mucosa moist Neck: Supple, no JVD Chest: Clear to auscultation bilaterally Heart: RRR, S1 and S2, no pericardial rub Abdomen: Soft, nontender, no renal bruit Extremity: No peripheral cyanosis, edema Neurological: Alert, awake, no asterixis Dermatology: Muliple skin rashes Psych: No agitation Musculoskeletal: No joint effusion - Vital Signs Vital signs: Vital Signs - 12hr 12/03/20 12/03/20 12/03/20 10:25 10:30 10:45 Temperature Pulse Rate 96 H 98 H 98 H Respiratory Rate Blood Pressure 166/24 114/27 114/34 O2 Sat by Pulse Oximetry O2 Sat by Pulse Oximetry [ Throughout] 12/03/20 12/03/20 12/03/20 11:00 11:15 11:30 Temperature Pulse Rate 100 H 100 H 100 H Respiratory Rate Blood Pressure 107/55 126/23 112/64 O2 Sat by Pulse Oximetry O2 Sat by Pulse Oximetry [ Throughout] 12/03/20 12/03/20 12/03/20 11:42 11:45 12:00 Temperature 98.2 F Pulse Rate 98 H 104 H 93 H Respiratory 26 H Rate Blood Pressure 138/42 119/38 97/31 O2 Sat by Pulse Oximetry O2 Sat by Pulse Oximetry [ Throughout] 12/03/20 12/03/20 12/03/20 12:10 12:15 12:30 Temperature Pulse Rate 109 H 104 H 110 H Respiratory Rate Blood Pressure 116/40 119/37 114/42 O2 Sat by Pulse Oximetry O2 Sat by Pulse Oximetry [ Throughout] 12/03/20 12/03/20 12/03/20 12:45 13:00 13:15 Temperature Pulse Rate 106 H 113 H 118 H Respiratory Rate Blood Pressure 116/29 135/49 122/71 O2 Sat by Pulse Oximetry O2 Sat by Pulse Oximetry [ Throughout] 12/03/20 12/03/20 12/03/20 13:30 13:45 13:55 Temperature Pulse Rate 110 H 106 H 126 H Respiratory Rate Blood Pressure 125/50 138/47 133/41 O2 Sat by Pulse Oximetry O2 Sat by Pulse Oximetry [ Throughout] 12/03/20 12/03/20 12/03/20 14:19 15:05 15:15 Temperature 96.9 F L Pulse Rate 118 H 121 H Respiratory 26 H 45 H Rate Blood Pressure 156/33 114/82 O2 Sat by Pulse 98 97 Oximetry O2 Sat by Pulse 94 Oximetry [ Throughout] 12/03/20 12/03/20 12/03/20 15:31 15:45 16:01 Temperature Pulse Rate 122 H 120 H 118 H Respiratory 38 H 45 H 42 H Rate Blood Pressure 114/82 114/82 101/31 O2 Sat by Pulse 97 97 98 Oximetry O2 Sat by Pulse Oximetry [ Throughout] 12/03/20 12/03/20 12/03/20 16:15 16:31 16:45 Temperature Pulse Rate 122 H 120 H 122 H Respiratory 47 H 38 H 47 H Rate Blood Pressure 101/31 101/31 101/31 O2 Sat by Pulse 98 98 99 Oximetry O2 Sat by Pulse Oximetry [ Throughout] 12/03/20 12/03/20 12/03/20 17:01 17:15 17:31 Temperature Pulse Rate 120 H 120 H 123 H Respiratory 47 H 44 H 44 H Rate Blood Pressure 110/33 91/34 141/61 O2 Sat by Pulse 99 99 99 Oximetry O2 Sat by Pulse Oximetry [ Throughout] 12/03/20 12/03/20 12/03/20 17:45 18:01 18:15 Temperature Pulse Rate 119 H 120 H 118 H Respiratory 24 46 H 50 H Rate Blood Pressure 141/61 141/61 106/79 O2 Sat by Pulse 99 98 93 Oximetry O2 Sat by Pulse Oximetry [ Throughout] 12/03/20 12/03/20 12/03/20 18:30 19:11 19:49 Temperature 102.4 F H Pulse Rate 113 H Respiratory 42 H Rate Blood Pressure 114/48 O2 Sat by Pulse 92 99 Oximetry O2 Sat by Pulse Oximetry [ Throughout] - Lab 12/03/20 19:09 12/03/20 19:09 Most recent lab results ABG pH 7.533 (7.320-7.450) H 12/03/20 18:32 ABG O2 Saturation 91.6 (0-100) 12/03/20 18:32 Calcium 8.8 mg/dL (8.4-10.2) 12/03/20 19:09 Phosphorus 5.80 mg/dL (2.5-4.5) H 11/30/20 12:00 Magnesium 2.00 mg/dL (1.7-2.3) 11/30/20 12:00 Medications & Allergies - Medications Allergies/Adverse Reactions: Allergies codeine Allergy (Verified 09/21/20 09:44) Rash Penicillins Allergy (Verified 09/21/20 09:44) Hives ciprofloxacin [From Cipro] Adverse Reaction (Verified 09/21/20 09:44) severe nausea ciprofloxacin HCl [From Cipro] Adverse Reaction (Verified 09/21/20 09:44) severe nausea Home Medications: Home Medications Medication Instructions Recorded Confirmed Last Taken Type B Complex 11/Folic/C/Biot/Zinc 1 each PO DAILY #30 tablet 02/13/16 11/30/20 10/05/19 Rx [Dialyvite with Zinc Tablet] Meclizine [Antivert] 25 mg PO TID PRN 07/05/16 11/30/20 10/21/16 History Aspirin [Aspirin BABY CHEW TAB] 81 mg PO QDAY #30 tab.chew 10/27/16 11/30/20 12/31/19 Rx carvediloL [Coreg] 25 mg PO BID #60 tablet 06/23/18 11/30/20 10/05/19 Rx Cholecalciferol (Vitamin D3) 5,000 unit PO DAILY 01/16/19 11/30/20 12/31/19 History [Vitamin D3 5,000 UNIT] Cinacalcet [Sensipar] 30 mg PO QHS 01/16/19 11/30/20 10/05/19 History Sevelamer Carbonate [Renvela] 4,000 mg PO TIDWM 01/16/19 11/30/20 10/05/19 H istory hydrALAZINE [Apresoline TAB] 100 mg PO TID 01/16/19 11/30/20 10/05/19 History amLODIPine 10 mg PO DAILY #30 tablet 07/14/19 11/30/20 10/05/19 Rx cloNIDine [Catapres] 0.2 mg PO TID #90 tablet 07/14/19 11/30/20 10/05/19 Rx Losartan [Cozaar] 50 mg PO QDAY 10/06/19 11/30/20 10/05/19 History Metoclopramide HCl [Reglan TAB] 10 mg PO QID 10/06/19 11/30/20 10/05/19 History AtorvaSTATin [Lipitor] 40 mg PO QHS #30 tablet 10/07/19 11/30/20 12/30/19 Rx Prasugrel [Effient] 10 mg PO QDAY #30 tablet 10/07/19 11/30/20 Unknown Rx Promethazine [Phenergan] 25 mg PO Q6H PRN #20 tablet 07/21/20 11/30/20 Unknown Rx Dicyclomine [Bentyl] 20 mg PO QID PRN #20 tablet 09/17/20 11/30/20 Unknown Rx Promethazine HCl [Phenergan SUPPOS] 25 mg RC Q6HR PRN #20 supp.rect 09/17/20 11/30/20 Unknown Rx Famotidine [Pepcid] 20 mg PO DAILY #30 tablet 09/24/20 11/30/20 Unknown Rx Mag Hydrox/Aluminum Hyd/Simeth 30 ml PO DAILY PRN 30 Days #1 09/24/20 11/30/20 Unknown Rx [Maalox Advanced Suspension] bottle Lidocaine Viscous 2% 15 ml MM Q6HR PRN #1 bottle 11/28/20 11/30/20 Unknown Rx Nystatin [Nystatin SUSP] 5 ml PO QID #200 ml 11/28/20 11/30/20 Unknown Rx Active Medications: Generic Name Dose Route Start Last Admin Trade Name Freq PRN Reason Stop Dose Admin Acetaminophen 650 mg 11/30/20 18:24 Acetaminophen 325 Mg Tab PO Q4H PRN Pain MILD(1-3)/Fever >100.5/STEWARD Clonidine HCl 0.3 mg 11/30/20 22:00 11/30/20 23:26 Clonidine Tts 0.3 Mg/24 Hr Patch TD 0.3 mg We APRYL Administration Hydralazine HCl 10 mg 11/30/20 21:51 12/02/20 03:50 Hydralazine 20 Mg/1 Ml Inj IV 10 mg Q3H PRN Administration Blood Pressure Hydromorphone HCl 1 mg 11/30/20 18:24 12/01/20 12:41 Hydromorphone 1 Mg/1 Ml Inj IV 1 mg Q3H PRN Administration Pain , Severe (7-10) Fluconazole 200 mg in 100 mls @ 100 mls/hr 12/01/20 09:30 12/03/20 10:19 Diflucan IV 12/21/20 10:29 100 mls/hr Q24H APRYL Administration Sodium Chloride 500 mls @ 0 mls/hr 12/03/20 17:21 Nacl 0.9% 500 Ml IV 12/03/20 23:59 ONCE NR As Directed Sodium Chloride 500 mls @ 0 mls/hr 12/03/20 18:14 Nacl 0.9% 500 Ml IV 12/04/20 04:00 ONCE NR As Directed Cefepime HCl 2 gm in 100 mls @ 200 mls/hr 12/03/20 20:00 Cefepime/Ns 2 Gm/100 Ml IV Q24H APRYL Protocol Ondansetron HCl 4 mg 11/30/20 21:05 12/01/20 08:46 Ondansetron 4 Mg/2 Ml Inj IV 4 mg Q3H PRN Administration Nausea And Vomiting Pantoprazole Sodium 40 mg 12/01/20 22:00 12/03/20 10:19 Pantoprazole 40 Mg Inj IV 40 mg BID APRYL Administration Sodium Chloride 10 ml 11/30/20 18:24 Sodium Chloride 0.9% 10 Ml Flush Syringe IV PRN PRN LINE FLUSH Sodium Chloride 10 ml 11/30/20 22:00 12/03/20 10:19 Sodium Chloride 0.9% 10 Ml Flush Syringe IV 10 ml BID APRYL Administration Tbo-Filgrastim 480 mcg 12/02/20 12:00 12/03/20 10:33 Tbo-Filgrastim 480 Mcg/0.8 Ml SUB-Q 480 mcg DAILY APRYL Administration
[2020-12-03 21:31] LABS: Total Cells Counted 100
[2020-12-03 21:32] LABS: Helmet Cells Rare; Ovalocytes Rare; Tear Drop Cells Rare
[2020-12-03 21:33] LABS: Platelet Estimate Consistent w Auto
[2020-12-03] MEDS: CEFEPIME/NS 2 GM/100 ML 2 GM/100 ML BAG IV SCH (23:09)
[2020-12-04] MEDS ORDERED: DOPamine/D5W 800 MG/250 ML 800 MG/250 ML BAG IV SCH (04:00)
[2020-12-04] MEDS: VASOPRESSIN 20 UNIT in SODIUM CHLORIDE 0.9% 100 ML IV SCH ×2 (08:20→17:50)
--- NOTE | 2020-12-04 09:51 | Progress Note ---
Assessment and Plan Assessment and plan: --Acute respiratory distress/tachypnea: Current Visit: Yes Status: Acute Plan to address problem: On 4 L nasal cannula oxygen saturating 98-99% Closely monitor, patient DNR status --Pneumonia/possible aspiration pneumonia: Current Visit: Yes Status: Acute Plan to address problem: continue antibiotics cefepime, blood cultures Supplemental oxygen, supportive care Pulmonary consulted. --Septic shock; Current Visit: Yes Status: Acute Plan to address problem: Requiring Levophed and vasopressin Wean as tolerated Supportive care --Severe oropharyngeal candidiasis/glossitis Current Visit: Yes Status: Acute Plan to address problem: Status post EGD per GI IV Diflucan Closely monitor, Patent airway Intermittent oral suction as needed Oral care. Try clear liquids If patient is unable to take oral Consider Dobbhoff placement --Pancytopenia: Current Visit: Yes Status: Acute Plan to address problem: Secondary to underlying chemotherapy, Underlying cancer --Severe anemia; Current Visit: Yes Status: Acute Plan to address problem: Transfuse 2 units of PRBC. Monitor H&H --Severe thrombocytopenia Current Visit: Yes Status: Acute Plan to address problem: Status post platelet transfusion Closely monitor, transfuse additional platelets Hematology oncology following --Neutropenia; worsening Current Visit: Yes Status: Acute Plan to address problem: Neutropenia precautions Daily Neupogen, supportive care -- Intractable vomiting Current Visit: Yes Status: Acute Plan to address problem: Patient initiated on IV Zofran and IV Reglan. GI evaluated the patient Continue Protonix --End-stage renal disease on hemodialysis Current Visit: Yes Status: Acute Plan to address problem: Nephrology evaluated the patient HD per schedule -- Pancreatic cancer Current Visit: Yes Status: Chronic Plan to address problem: Pancreatic cancer in the body and the tail of pancreas. Patient on chemotherapy. Follows with Dr. Lee Patient will follow up with her private oncologist upon discharge --History of renal cell cancer Current Visit: Yes Status: Chronic Plan to address problem: Had bilateral nephrectomy On hemodialysis --Transaminitis Current Visit: Yes Status: Acute Plan to address problem: Possibly secondary to chemotherapy Check hepatitis profile Possible metastatic --Severe protein calorie malnutrition Current Visit: Yes Status: Acute Plan to address problem: Hypoalbuminemia .Albumin 2.9 Nutrition consult requested --DVT prophylaxis Current Visit: No Status: Acute Plan to address problem: On SCDs no pharmacologic anticoagulation In view of severe thrombocytopenia --Patient is critically ill very poor prognosis --DNR status[family made DNR last night] Hospice consult Closely monitor the patient and adjust the management as needed The high probability of a clinically significant, sudden or life threatening deterioration of the [multi] system(s) required my full and direct attention, intervention and personal management. The aggregate critical care time was [35] minutes. This time is in addition to time spent performing reported procedures but includes the following: [x] Data Review and interpretation [x] Patient assessment and monitoring of vital signs [x] Documentation [x] Medication orders and management History Interval history: I have seen and examined the patient at the bedside Patient's chart, reports and medications reviewed Patient's family visited last night and made her DNR status Patient is in acute distress, tachypneic, pale critically ill looking Vital signs noted Hospitalist Physical - Constitutional Vitals: Temp Pulse Resp BP Pulse Ox 100.5 F H 131 H 40 H 127/29 96 12/04/20 08:00 12/04/20 09:16 12/04/20 09:16 12/04/20 09:16 12/04/20 09:16 General appearance: Present: mild distress, well-nourished, other (Pale, critically ill looking) - EENT Eyes: Present: PERRL, EOM intact ENT: thrush, other (Swollen tongue) - Neck Neck: Present: supple - Respiratory Respiratory effort: labored Respiratory: bilateral: diminished, rhonchi, negative: rales, wheezing - Cardiovascular Rhythm: regular Heart Sounds: Present: S1 & S2 - Extremities Extremities: no ischemia Extremity abnormal: edema - Abdominal General gastrointestinal: soft, non-tender, non-distended, normal bowel sounds - Integumentary Integumentary: Present: clear, warm - Psychiatric Psychiatric: other (Noncommunicative) - Neurologic Neurologic: moves all extremities, other (Noncommunicative) HEART Score - HEART Score Age: 45-65 Troponin: 1-3x normal limit Results - Labs CBC & Chem 7: 12/04/20 08:31 12/04/20 08:31 Labs: Laboratory Last Values WBC 0.2 K/mm3 (4.5-11.0) L* 12/03/20 19:09 RBC 2.19 M/mm3 (3.65-5.03) L 12/03/20 19:09 Hgb 6.8 gm/dl (10.1-14.3) L 12/03/20 19:09 Hct 19.8 % (30.3-42.9) L* 12/03/20 19:09 MCV 91 fl (79-97) 12/03/20 19:09 MCH 31 pg (28-32) 12/03/20 19:09 MCHC 34 % (30-34) 12/03/20 19:09 RDW 14.4 % (13.2-15.2) 12/03/20 19:09 Plt Count 36 K/mm3 (140-440) L 12/03/20 19:09 Lymph % (Auto) Embedded Software Test Engineer 12/03/20 19:09 Eos % (Auto) Embedded Software Test Engineer 12/03/20 19:09 Add Manual Diff Complete 12/03/20 19:09 Total Counted 100 12/03/20 19:09 Seg Neutrophils % Embedded Software Test Engineer 12/03/20 19:09 Seg Neuts % (Manual) 6.7 % (40.0-70.0) L 12/03/20 04:25 Lymphocytes % (Manual) 60.0 % (13.4-35.0) H 12/03/20 04:25 Monocytes % (Manual) 2.0 % (0.0-7.3) 12/03/20 19:09 Eosinophils % (Manual) 33.3 % (0.0-4.3) H 12/03/20 04:25 Nucleated RBC % Not Reportable 12/03/20 19:09 Seg Neutrophils # Man 0.0 K/mm3 (1.8-7.7) L 12/03/20 19:09 Band Neutrophils # 0.0 K/mm3 12/03/20 19:09 Lymphocytes # (Manual) 0.1 K/mm3 (1.2-5.4) L 12/03/20 19:09 Abs React Lymphs (Man) 0.0 K/mm3 12/03/20 19:09 Monocytes # (Manual) 0.0 K/mm3 (0.0-0.8) 12/03/20 19:09 Eosinophils # (Manual) 0.1 K/mm3 (0.0-0.4) 12/03/20 19:09 Basophils # (Manual) 0.0 K/mm3 (0.0-0.1) 12/03/20 19:09 Metamyelocytes # 0.0 K/mm3 12/03/20 19:09 Myelocytes # 0.0 K/mm3 12/03/20 19:09 Promyelocytes # 0.0 K/mm3 12/03/20 19:09 Blast Cells # 0.0 K/mm3 12/03/20 19:09 WBC Morphology Not Reportable 12/03/20 19:09 Hypersegmented Neuts Not Reportable 12/03/20 19:09 Hyposegmented Neuts Not Reportable 12/03/20 19:09 Hypogranular Neuts Not Reportable 12/03/20 19:09 Smudge Cells Not Reportable 12/03/20 19:09 Toxic Granulation Not Reportable 12/03/20 19:09 Toxic Vacuolation Not Reportable 12/03/20 19:09 Dohle Bodies Not Reportable 12/03/20 19:09 Pelger-Huet Anomaly Not Reportable 12/03/20 19:09 Deepali Rods Not Reportable 12/03/20 19:09 Platelet Estimate Consistent w auto 12/03/20 19:09 Clumped Platelets Not Reportable 12/03/20 19:09 Plt Clumps, EDTA Not Reportable 12/03/20 19:09 Large Platelets Not Reportable 12/03/20 19:09 Giant Platelets Not Reportable 12/03/20 19:09 Platelet Satelliting Not Reportable 12/03/20 19:09 Plt Morphology Comment Not Reportable 12/03/20 19:09 RBC Morphology Not Reportable 12/03/20 19:09 Dimorphic RBCs Not Reportable 12/03/20 19:09 Polychromasia Not Reportable 12/03/20 19:09 Hypochromasia Not Reportable 12/03/20 19:09 Poikilocytosis Not Reportable 12/03/20 19:09 Anisocytosis Not Reportable 12/03/20 19:09 Microcytosis Not Reportable 12/03/20 19:09 Macrocytosis Not Reportable 12/03/20 19:09 Spherocytes Not Reportable 12/03/20 19:09 Pappenheimer Bodies Not Reportable 12/03/20 19:09 Sickle Cells Not Reportable 12/03/20 19:09 Target Cells Not Reportable 12/03/20 19:09 Tear Drop Cells Rare 12/03/20 19:09 Ovalocytes Rare 12/03/20 19:09 Helmet Cells Rare 12/03/20 19:09 Marie-Huxley Bodies Not Reportable 12/03/20 19:09 Spring Rings Not Reportable 12/03/20 19:09 Jesika Cells Not Reportable 12/03/20 19:09 Bite Cells Not Reportable 12/03/20 19:09 Crenated Cell Not Reportable 12/03/20 19:09 Elliptocytes Not Reportable 12/03/20 19:09 Acanthocytes (Spur) Not Reportable 12/03/20 19:09 Rouleaux Not Reportable 12/03/20 19:09 Hemoglobin C Crystals Not Reportable 12/03/20 19:09 Schistocytes Not Reportable 12/03/20 19:09 Malaria parasites Not Reportable 12/03/20 19:09 Kannan Bodies Not Reportable 12/03/20 19:09 Hem Pathologist Commnt No 12/03/20 19:09 ABG pH 7.533 (7.320-7.450) H 12/03/20 18:32 POC ABG pCO2 36.7 mmHg (32.0-48.0) 12/03/20 18:32 POC ABG pO2 63.1 mmHg (83-108) L 12/03/20 18:32 POC ABG HCO3 30.2 12/03/20 18:32 ABG O2 Saturation 91.6 (0-100) 12/03/20 18:32 POC ABG Base Excess 7.0 12/03/20 18:32 ABG Hemoglobin 6.5 (12.0-17.5) L 12/03/20 18:32 ABG Oxyhemoglobin 87.8 (94-98) L 12/03/20 18:32 ABG Methemoglobin 0.2 (0.0-1.5) 12/03/20 18:32 ABG Sodium 137.6 mmol/L (136.0-145.0) 12/03/20 18:32 ABG Potassium 3.6 mmol/L (3.40-4.50) 12/03/20 18:32 ABG Chloride 103.0 mmol/L (98-107) 12/03/20 18:32 ABG Glucose 97 mg/dL (65-95) H 12/03/20 18:32 Carboxyhemoglobin 4.0 (0.5-1.5) H 12/03/20 18:32 FiO2 % 28 12/03/20 18:32 Sodium 142 mmol/L (137-145) 12/03/20 19:09 Potassium 3.8 mmol/L (3.6-5.0) D 12/03/20 19:09 Chloride 99.9 mmol/L (98-107) 12/03/20 19:09 Carbon Dioxide 32 mmol/L (22-30) H D 12/03/20 19:09 Anion Gap 14 mmol/L 12/03/20 19:09 BUN 44 mg/dL (7-17) H 12/03/20 19:09 Creatinine 4.6 mg/dL (0.6-1.2) H D 12/03/20 19:09 Estimated GFR 10 ml/min 12/03/20 19:09 BUN/Creatinine Ratio 10 % 12/03/20 19:09 Glucose 95 mg/dL (65-100) 12/03/20 19:09 POC Glucose 140 mg/dL (70-105) H 12/03/20 11:53 Hemoglobin A1c 4.8 % (4-6) 12/01/20 04:57 Calcium 8.8 mg/dL (8.4-10.2) 12/03/20 19:09 Phosphorus 5.80 mg/dL (2.5-4.5) H 11/30/20 12:00 Magnesium 2.00 mg/dL (1.7-2.3) 11/30/20 12:00 Total Bilirubin 2.60 mg/dL (0.1-1.2) H 12/03/20 19:09 Direct Bilirubin 0.9 mg/dL (0-0.2) H 11/30/20 12:00 Indirect Bilirubin 0.4 mg/dL 11/30/20 12:00 AST 52 units/L (5-40) H 12/03/20 19:09 ALT 80 units/L (7-56) H 12/03/20 19:09 Alkaline Phosphatase 77 units/L (35-129) 12/03/20 19:09 Total Protein 4.6 g/dL (6.3-8.2) L 12/03/20 19:09 Albumin 2.2 g/dL (3.9-5) L 12/03/20 19:09 Albumin/Globulin Ratio 0.9 % 12/03/20 19:09 Lipase 26 units/L (13-60) 11/30/20 12:00 Arterial Blood Glucose 97 mg/dL (65-95) H 12/03/20 18:32 Arterial Blood Ionized Calcium 4.6 mg/dL (4.6-5.3) 12/03/20 18:32 Hepatitis A IgM Ab Non-reactive (NonReactive) 12/01/20 07:48 Hep Bs Antigen Non-reactive (Negative) 12/01/20 07:48 Hep B Core IgM Ab Non-reactive (NonReactive) 12/01/20 07:48 Hepatitis C Antibody Non-reactive (NonReactive) 12/01/20 07:48 Blood Type O POSITIVE 12/03/20 17:31 Antibody Screen Negative 12/03/20 17:31 Crossmatch See Detail 12/03/20 17:31 Gu/IV: Voiding Method Bedpan Active Medications - Current Medications Current Medications: Generic Name Dose Route Start Last Admin Trade Name Freq PRN Reason Stop Dose Admin Acetaminophen 650 mg 11/30/20 18:24 Acetaminophen 325 Mg Tab PO Q4H PRN Pain MILD(1-3)/Fever >100.5/STEWARD Clonidine HCl 0.3 mg 11/30/20 22:00 11/30/20 23:26 Clonidine Tts 0.3 Mg/24 Hr Patch TD 0.3 mg We APRYL Administration Hydralazine HCl 10 mg 11/30/20 21:51 12/02/20 03:50 Hydralazine 20 Mg/1 Ml Inj IV 10 mg Q3H PRN Administration Blood Pressure Hydromorphone HCl 1 mg 11/30/20 18:24 12/01/20 12:41 Hydromorphone 1 Mg/1 Ml Inj IV 1 mg Q3H PRN Administration Pain , Severe (7-10) Fluconazole 200 mg in 100 mls @ 100 mls/hr 12/01/20 09:30 12/03/20 10:19 Diflucan IV 12/21/20 10:29 100 mls/hr Q24H APRYL Administration Cefepime HCl 2 gm in 100 mls @ 200 mls/hr 12/03/20 20:00 12/03/20 23:09 Cefepime/Ns 2 Gm/100 Ml IV 200 mls/hr Q24H APRYL Administration Protocol Vasopressin 20 unit/ Sodium 101 mls @ 9.09 mls/hr 12/04/20 04:00 12/04/20 08:20 Chloride IV 0.03 units/min TITR APRYL 9.09 mls/hr Administration Protocol 0.03 UNITS/MIN Norepinephrine 4 mg in 250 mls @ 7.5 mls/hr 12/04/20 10:00 Levophed Drip 4 Mg/Ns 250 Ml IV TITR APRYL Protocol 2 MCG/MIN Ondansetron HCl 4 mg 11/30/20 21:05 12/01/20 08:46 Ondansetron 4 Mg/2 Ml Inj IV 4 mg Q3H PRN Administration Nausea And Vomiting Pantoprazole Sodium 40 mg 12/01/20 22:00 12/03/20 23:09 Pantoprazole 40 Mg Inj IV 40 mg BID APRYL Administration Sodium Chloride 10 ml 11/30/20 18:24 Sodium Chloride 0.9% 10 Ml Flush Syringe IV PRN PRN LINE FLUSH Sodium Chloride 10 ml 11/30/20 22:00 12/03/20 23:10 Sodium Chloride 0.9% 10 Ml Flush Syringe IV 10 ml BID APRYL Administration Tbo-Filgrastim 480 mcg 12/02/20 12:00 12/03/20 10:33 Tbo-Filgrastim 480 Mcg/0.8 Ml SUB-Q 480 mcg DAILY APRYL Administration
[2020-12-04 10:03] LABS: Hematocrit 22.2 % (30.3-42.9); Hemoglobin 7.4 gm/dl (10.1-14.3); Mean Corpuscular HGB Conc 33 % (30-34); Mean Corpuscular Volume 91 fl (79-97); Platelet Count 23 K/mm3 (140-440); Red Blood Count 2.45 M/mm3 (3.65-5.03); Red Cell Distribution Width 14.8 % (13.2-15.2)
[2020-12-04] MEDS: PANTOPRAZOLE 40 MG INJ IV SCH ×2 (10:56→21:29)
[2020-12-04] MEDS: FLUCONAZOLE 200 MG 200 MG/100 ML BAG IV SCH (10:57)
[2020-12-04] MEDS: NORepinephrine/NS 4 MG-250 ML 4 MG/250 ML BAG IV SCH ×3 (11:03→21:27)
[2020-12-04] MEDS: TBO-FILGRASTIM 480 MCG/0.8 ML SUB-Q SCH (11:03)
[2020-12-04 12:09] LABS: Total Cells Counted 3
[2020-12-04 12:10] LABS: Schistocytes Rare
[2020-12-04 12:12] LABS: Platelet Estimate Consistent w Auto
--- NOTE | 2020-12-04 14:14 | Hem/Onc Progress Note ---
Subjective Interval history: 65yo disabled woman with ESRD requiring HD, has had renal cell carcinoma, presumably withmet to pancreas s/p both nephrectomies has been on immunotherapy since about 2015, last 09/2020 has been stable on immunotherapy recentlly eval for skin problem-->prescribed oral methotrexate now hosp for severe oral mucositis and pancytopena transferred to ICU, not swallowing, not able to take po had oral bleeding events reviewed RBC transfusion yesterday has been receiving dopamine data reviewed below IMP metastatic renal cell ca-->"stable" on immunotherapy (note her pancreas tumor is felt to be stable Renal cell carcinokma met, not pancreatic ca) recent oral methotrexate for skin condition now oral mucositis likely due to methotrexate elevated liver enzymes, cause unknown pancytopenia, severe leukopenia, likely due to oral methotrexate (note low dose methotrexate does not usually cause this toxicity) I expect her to recover from this, but it's obviously taking time PLAN/REC: cont cefepime, daily GCSF RBC transfusions for severe anemia plt transfusions to keep plt count>20 push through this acute illness because probably she can recover end of life discussion, ongoing, but aggressive interventions still OK Active Medications Fluconazole (Diflucan) 200 mg in 100 mls @ 100 mls/hr IV Q24H APRYL Stop: 12/21/20 10:29 Last Admin: 12/04/20 10:57 Dose: 100 mls/hr Documented by: Cefepime HCl (Cefepime/Ns 2 Gm/100 Ml) 2 gm in 100 mls @ 200 mls/hr IV Q24H APRYL ; Protocol Last Admin: 12/03/20 23:09 Dose: 200 mls/hr Documented by: Vasopressin 20 unit/ Sodium (Chloride) 101 mls @ 9.09 mls/hr IV TITR APRYL; Protocol Last Admin: 12/04/20 08:20 Dose: 0.03 units/min, 9.09 mls/hr Documented by: Tbo-Filgrastim (Tbo-Filgrastim 480 Mcg/0.8 Ml) 480 mcg SUB-Q DAILY APRYL Last Admin: 12/04/20 11:03 Dose: 480 mcg Documented by: Laboratory Last Values WBC 0.3 K/mm3 (4.5-11.0) L* 12/04/20 08:31 Hgb 7.4 gm/dl (10.1-14.3) L 12/04/20 08:31 Hct 22.2 % (30.3-42.9) L 12/04/20 08:31 Plt Count 23 K/mm3 (140-440) L 12/04/20 08:31 Total Bilirubin 2.60 mg/dL (0.1-1.2) H 12/03/20 19:09 Direct Bilirubin 0.9 mg/dL (0-0.2) H 11/30/20 12:00 Indirect Bilirubin 0.4 mg/dL 11/30/20 12:00 AST 52 units/L (5-40) H 12/03/20 19:09 ALT 80 units/L (7-56) H 12/03/20 19:09 Alkaline Phosphatase 77 units/L (35-129) 12/03/20 19:09 Crossmatch See Detail 12/03/20 17:31 Objective - Constitutional Vitals: Last Vital Signs Temp 100.5 F H 12/04/20 08:00 Pulse 131 H 12/04/20 09:16 Resp 40 H 12/04/20 09:16 BP 127/29 12/04/20 09:16 Pulse Ox 96 12/04/20 09:16 - Labs Lab Results: Laboratory Results - last 24 hr 12/03/20 12/03/20 12/03/20 16:23 17:31 18:32 WBC 0.2 L* RBC 2.23 L Hgb 6.9 L Hct 20.1 L MCV 90 MCH 31 MCHC 34 RDW 14.0 Plt Count 42 L Lymph % (Auto) Eos % (Auto) Add Manual Diff Total Counted Seg Neutrophils % Monocytes % (Manual) Nucleated RBC % Seg Neutrophils # Man Band Neutrophils # Lymphocytes # (Manual) Abs React Lymphs (Man) Monocytes # (Manual) Eosinophils # (Manual) Basophils # (Manual) Metamyelocytes # Myelocytes # Promyelocytes # Blast Cells # WBC Morphology Hypersegmented Neuts Hyposegmented Neuts Hypogranular Neuts Smudge Cells Toxic Granulation Toxic Vacuolation Dohle Bodies Pelger-Huet Anomaly Deepali Rods Platelet Estimate Clumped Platelets Plt Clumps, EDTA Large Platelets Giant Platelets Platelet Satelliting Plt Morphology Comment RBC Morphology Dimorphic RBCs Polychromasia Hypochromasia Poikilocytosis Anisocytosis Microcytosis Macrocytosis Spherocytes Pappenheimer Bodies Sickle Cells Target Cells Tear Drop Cells Ovalocytes Helmet Cells Marie-Blakeslee Bodies [place] Rings [place] Cells Bite Cells Crenated Cell Elliptocytes Acanthocytes (Spur) Rouleaux Hemoglobin C Crystals Schistocytes Malaria parasites Kannan Bodies Hem Pathologist Commnt ABG pH 7.533 H POC ABG pCO2 36.7 POC ABG pO2 63.1 L POC ABG HCO3 30.2 ABG O2 Saturation 91.6 POC ABG Base Excess 7.0 ABG Hemoglobin 6.5 L ABG Oxyhemoglobin 87.8 L ABG Methemoglobin 0.2 ABG Sodium 137.6 ABG Potassium 3.6 ABG Chloride 103.0 ABG Glucose 97 H Carboxyhemoglobin 4.0 H FiO2 % 28 Sodium Potassium Chloride Carbon Dioxide Anion Gap BUN Creatinine Estimated GFR BUN/Creatinine Ratio Glucose Calcium Total Bilirubin AST ALT Alkaline Phosphatase Total Protein Albumin Albumin/Globulin Ratio Arterial Blood Glucose 97 H Arterial Blood Ionized Calcium 4.6 Blood Type O POSITIVE Antibody Screen Negative Crossmatch See Detail 12/03/20 12/03/20 12/04/20 19:09 19:09 08:31 WBC 0.2 L* 0.3 L* RBC 2.19 L 2.45 L Hgb 6.8 L 7.4 L Hct 19.8 L* 22.2 L MCV 91 91 MCH 31 30 MCHC 34 33 RDW 14.4 14.8 Plt Count 36 L 23 L Lymph % (Auto) Insights Analyst Insights Analyst Eos % (Auto) Insights Analyst Insights Analyst Add Manual Diff Complete Complete Total Counted 100 3 Seg Neutrophils % Insights Analyst Insights Analyst Monocytes % (Manual) 2.0 Nucleated RBC % Not Reportable Not Reportable Seg Neutrophils # Man 0.0 L 0.0 L Band Neutrophils # 0.0 0.0 Lymphocytes # (Manual) 0.1 L 0.3 L Abs React Lymphs (Man) 0.0 0.0 Monocytes # (Manual) 0.0 0.0 Eosinophils # (Manual) 0.1 0.0 Basophils # (Manual) 0.0 0.0 Metamyelocytes # 0.0 0.0 Myelocytes # 0.0 0.0 Promyelocytes # 0.0 0.0 Blast Cells # 0.0 0.0 WBC Morphology Not Reportable Not Reportable Hypersegmented Neuts Not Reportable Not Reportable Hyposegmented Neuts Not Reportable Not Reportable Hypogranular Neuts Not Reportable Not Reportable Smudge Cells Not Reportable Not Reportable Toxic Granulation Not Reportable Not Reportable Toxic Vacuolation Not Reportable Not Reportable Dohle Bodies Not Reportable Not Reportable Pelger-Huet Anomaly Not Reportable Not Reportable Deepali Rods Not Reportable Not Reportable Platelet Estimate Consistent w auto Consistent w auto Clumped Platelets Not Reportable Not Reportable Plt Clumps, EDTA Not Reportable Not Reportable Large Platelets Not Reportable Not Reportable Giant Platelets Not Reportable Not Reportable Platelet Satelliting Not Reportable Not Reportable Plt Morphology Comment Not Reportable Not Reportable RBC Morphology Not Reportable Not Reportable Dimorphic RBCs Not Reportable Not Reportable Polychromasia Not Reportable Not Reportable Hypochromasia Not Reportable Not Reportable Poikilocytosis Not Reportable Not Reportable Anisocytosis Not Reportable Not Reportable Microcytosis Not Reportable Not Reportable Macrocytosis Not Reportable Not Reportable Spherocytes Not Reportable Not Reportable Pappenheimer Bodies Not Reportable Not Reportable Sickle Cells Not Reportable Not Reportable Target Cells Not Reportable Not Reportable Tear Drop Cells Rare Not Reportable Ovalocytes Rare Not Reportable Helmet Cells Rare Not Reportable Marie-Blakeslee Bodies Not Reportable Not Reportable [place] Rings Not Reportable Not Reportable [place] Cells Not Reportable Not Reportable Bite Cells Not Reportable Not Reportable Crenated Cell Not Reportable Not Reportable Elliptocytes Not Reportable Not Reportable Acanthocytes (Spur) Not Reportable Not Reportable Rouleaux Not Reportable Not Reportable Hemoglobin C Crystals Not Reportable Not Reportable Schistocytes Not Reportable Rare Malaria parasites Not Reportable Not Reportable Kannan Bodies Not Reportable Not Reportable Hem Pathologist Commnt No No ABG pH POC ABG pCO2 POC ABG pO2 POC ABG HCO3 ABG O2 Saturation POC ABG Base Excess ABG Hemoglobin ABG Oxyhemoglobin ABG Methemoglobin ABG Sodium ABG Potassium ABG Chloride ABG Glucose Carboxyhemoglobin FiO2 % Sodium 142 Potassium 3.8 D Chloride 99.9 Carbon Dioxide 32 H D Anion Gap 14 BUN 44 H Creatinine 4.6 H D Estimated GFR 10 BUN/Creatinine Ratio 10 Glucose 95 Calcium 8.8 Total Bilirubin 2.60 H AST 52 H ALT 80 H Alkaline Phosphatase 77 Total Protein 4.6 L Albumin 2.2 L Albumin/Globulin Ratio 0.9 Arterial Blood Glucose Arterial Blood Ionized Calcium Blood Type Antibody Screen Crossmatch 12/04/20 08:31 WBC RBC Hgb Hct MCV MCH MCHC RDW Plt Count Lymph % (Auto) Eos % (Auto) Add Manual Diff Total Counted Seg Neutrophils % Monocytes % (Manual) Nucleated RBC % Seg Neutrophils # Man Band Neutrophils # Lymphocytes # (Manual) Abs React Lymphs (Man) Monocytes # (Manual) Eosinophils # (Manual) Basophils # (Manual) Metamyelocytes # Myelocytes # Promyelocytes # Blast Cells # WBC Morphology Hypersegmented Neuts Hyposegmented Neuts Hypogranular Neuts Smudge Cells Toxic Granulation Toxic Vacuolation Dohle Bodies Pelger-Huet Anomaly Deepali Rods Platelet Estimate Clumped Platelets Plt Clumps, EDTA Large Platelets Giant Platelets Platelet Satelliting Plt Morphology Comment RBC Morphology Dimorphic RBCs Polychromasia Hypochromasia Poikilocytosis Anisocytosis Microcytosis Macrocytosis Spherocytes Pappenheimer Bodies Sickle Cells Target Cells Tear Drop Cells Ovalocytes Helmet Cells Marie-Blakeslee Bodies [place] Rings [place] Cells Bite Cells Crenated Cell Elliptocytes Acanthocytes (Spur) Rouleaux Hemoglobin C Crystals Schistocytes Malaria parasites Kannan Bodies Hem Pathologist Commnt ABG pH POC ABG pCO2 POC ABG pO2 POC ABG HCO3 ABG O2 Saturation POC ABG Base Excess ABG Hemoglobin ABG Oxyhemoglobin ABG Methemoglobin ABG Sodium ABG Potassium ABG Chloride ABG Glucose Carboxyhemoglobin FiO2 % Sodium 143 Potassium 3.8 Chloride 100.9 Carbon Dioxide 30 Anion Gap 16 BUN 57 H Creatinine 5.6 H Estimated GFR 8 BUN/Creatinine Ratio 10 Glucose 93 Calcium 9.0 Total Bilirubin AST ALT Alkaline Phosphatase Total Protein Albumin Albumin/Globulin Ratio Arterial Blood Glucose Arterial Blood Ionized Calcium Blood Type Antibody Screen Crossmatch Medications & Allergies - Medications Allergies/Adverse Reactions: Allergies codeine Allergy (Verified 09/21/20 09:44) Rash Penicillins Allergy (Verified 09/21/20 09:44) Hives ciprofloxacin [From Cipro] Adverse Reaction (Verified 09/21/20 09:44) severe nausea ciprofloxacin HCl [From Cipro] Adverse Reaction (Verified 09/21/20 09:44) severe nausea Home Medications: Home Medications Medication Instructions Recorded Confirmed Last Taken Type B Complex 11/Folic/C/Biot/Zinc 1 each PO DAILY #30 tablet 05/11/30/20 10/05/19 Rx [Dialyvite with Zinc Tablet] Meclizine [Antivert] 25 mg PO TID PRN 07/05/16 11/30/20 10/21/16 History Aspirin [Aspirin BABY CHEW TAB] 81 mg PO QDAY #30 tab.chew 10/27/16 11/30/20 12/31/19 Rx carvediloL [Coreg] 25 mg PO BID #60 tablet 06/23/18 11/30/20 10/05/19 Rx Cholecalciferol (Vitamin D3) 5,000 unit PO DAILY 01/16/19 11/30/20 12/31/19 History [Vitamin D3 5,000 UNIT] Cinacalcet [Sensipar] 30 mg PO QHS 01/16/19 11/30/20 10/05/19 History Sevelamer Carbonate [Renvela] 4,000 mg PO TIDWM 01/16/19 11/30/20 10/05/19 History hydrALAZINE [Apresoline TAB] 100 mg PO TID 01/16/19 11/30/20 10/05/19 History amLODIPine 10 mg PO DAILY #30 tablet 07/14/19 11/30/20 10/05/19 Rx cloNIDine [Catapres] 0.2 mg PO TID #90 tablet 07/14/19 11/30/20 10/05/19 Rx Losartan [Cozaar] 50 mg PO QDAY 10/06/19 11/30/20 10/05/19 History Metoclopramide HCl [Reglan TAB] 10 mg PO QID 10/06/19 11/30/20 10/05/19 History AtorvaSTATin [Lipitor] 40 mg PO QHS #30 tablet 10/07/19 11/30/20 12/30/19 Rx Prasugrel [Effient] 10 mg PO QDAY #30 tablet 10/07/19 11/30/20 Unknown Rx Promethazine [Phenergan] 25 mg PO Q6H PRN #20 tablet 07/21/20 11/30/20 Unknown Rx Dicyclomine [Bentyl] 20 mg PO QID PRN #20 tablet 09/17/20 11/30/20 Unknown Rx Promethazine HCl [Phenergan SUPPOS] 25 mg RC Q6HR PRN #20 supp.rect 09/17/20 11/30/20 Unknown Rx Famotidine [Pepcid] 20 mg PO DAILY #30 tablet 09/24/20 11/30/20 Unknown Rx Mag Hydrox/Aluminum Hyd/Simeth 30 ml PO DAILY PRN 30 Days #1 09/24/20 11/30/20 Unknown Rx [Maalox Advanced Suspension] bottle Lidocaine Viscous 2% 15 ml MM Q6HR PRN #1 bottle 11/28/20 11/30/20 Unknown Rx Nystatin [Nystatin SUSP] 5 ml PO QID #200 ml 11/28/20 11/30/20 Unknown Rx Active Medications: Generic Name Dose Route Start Last Admin Trade Name Freq PRN Reason Stop Dose Admin Acetaminophen 650 mg 11/30/20 18:24 Acetaminophen 325 Mg Tab PO Q4H PRN Pain MILD(1-3)/Fever >100.5/STEWARD Clonidine HCl 0.3 mg 11/30/20 22:00 11/30/20 23:26 Clonidine Tts 0.3 Mg/24 Hr Patch TD 0.3 mg We APRYL Administration Hydralazine HCl 10 mg 11/30/20 21:51 12/02/20 03:50 Hydralazine 20 Mg/1 Ml Inj IV 10 mg Q3H PRN Administration Blood Pressure Hydromorphone HCl 1 mg 11/30/20 18:24 12/01/20 12:41 Hydromorphone 1 Mg/1 Ml Inj IV 1 mg Q3H PRN Administration Pain , Severe (7-10) Fluconazole 200 mg in 100 mls @ 100 mls/hr 12/01/20 09:30 12/04/20 10:57 Diflucan IV 12/21/20 10:29 100 mls/hr Q24H APRYL Administration Cefepime HCl 2 gm in 100 mls @ 200 mls/hr 12/03/20 20:00 12/03/20 23:09 Cefepime/Ns 2 Gm/100 Ml IV 200 mls/hr Q24H APRYL Administration Protocol Vasopressin 20 unit/ Sodium 101 mls @ 9.09 mls/hr 12/04/20 04:00 12/04/20 08:20 Chloride IV 0.03 units/min TITR APRYL 9.09 mls/hr Administration Protocol 0.03 UNITS/MIN Norepinephrine 4 mg in 250 mls @ 7.5 mls/hr 12/04/20 10:00 12/04/20 12:15 Levophed Drip 4 Mg/Ns 250 Ml IV 6 mcg/min TITR APRYL 22.5 mls/hr Titration Protocol 2 MCG/MIN Ondansetron HCl 4 mg 11/30/20 21:05 12/01/20 08:46 Ondansetron 4 Mg/2 Ml Inj IV 4 mg Q3H PRN Administration Nausea And Vomiting Pantoprazole Sodium 40 mg 12/01/20 22:00 12/04/20 10:56 Pantoprazole 40 Mg Inj IV 40 mg BID APRYL Administration Sodium Chloride 10 ml 11/30/20 18:24 Sodium Chloride 0.9% 10 Ml Flush Syringe IV PRN PRN LINE FLUSH Sodium Chloride 10 ml 11/30/20 22:00 12/04/20 11:04 Sodium Chloride 0.9% 10 Ml Flush Syringe IV 10 ml BID APRYL Administration Tbo-Filgrastim 480 mcg 12/02/20 12:00 12/04/20 11:03 Tbo-Filgrastim 480 Mcg/0.8 Ml SUB-Q 480 mcg DAILY APRYL Administration
--- NOTE | 2020-12-04 14:21 | Event Note ---
Date: 12/04/20 Chart reviewed. Full consult to follow. Onc feels that patient can recover from this acute episode. I have never net nor spoken with family. Patient is stuporous. Eyes will open at times but not verbal. Clinically this appears bad but will defer to Onc thoughts and recs. She is not an AND so intubation is not an option. Vasopressors are going but BP is very very unstable. Will continue supportive measures.
--- NOTE | 2020-12-04 14:21 | Consultation ---
History of Present Illness - Reason for Consult Consult date: 12/04/20 Hypotension Requesting physician: BRAXTON LINCOLN Past History Past Medical History: cancer (Renal cell, with metastasis to pancreas, etc), diabetes, ESRD (on hemodialysis), hypertension, other (psoriasis) Past Surgical History: hysterectomy, Other (Bilateral nephrectomies) Social history: denies: smoking, alcohol abuse Family history: no significant family history Medications and Allergies Allergies Allergy/AdvReac Type Severity Reaction Status Date / Time codeine Allergy Rash Verified 09/21/20 09:44 Penicillins Allergy Hives Verified 09/21/20 09:44 ciprofloxacin [From Cipro] AdvReac severe Verified 09/21/20 09:44 nausea ciprofloxacin HCl AdvReac severe Verified 09/21/20 09:44 [From Cipro] nausea Home Medications Medication Instructions Recorded Confirmed Last Taken Type B Complex 11/Folic/C/Biot/Zinc 1 each PO DAILY #30 tablet 02/13/16 11/30/20 10/05/19 Rx [Dialyvite with Zinc Tablet] Meclizine [Antivert] 25 mg PO TID PRN 07/05/16 11/30/20 10/21/16 History Aspirin [Aspirin BABY CHEW TAB] 81 mg PO QDAY #30 tab.chew 10/27/16 11/30/20 12/31/19 Rx carvediloL [Coreg] 25 mg PO BID #60 tablet 06/23/18 11/30/20 10/05/19 Rx Cholecalciferol (Vitamin D3) 5,000 unit PO DAILY 01/16/19 11/30/20 12/31/19 History [Vitamin D3 5,000 UNIT] Cinacalcet [Sensipar] 30 mg PO QHS 01/16/19 11/30/20 10/05/19 History Sevelamer Carbonate [Renvela] 4,000 mg PO TIDWM 01/16/19 11/30/20 10/05/19 History hydrALAZINE [Apresoline TAB] 100 mg PO TID 01/16/19 11/30/20 10/05/19 History amLODIPine 10 mg PO DAILY #30 tablet 07/14/19 11/30/20 10/05/19 Rx cloNIDine [Catapres] 0.2 mg PO TID #90 tablet 07/14/19 11/30/20 10/05/19 Rx Losartan [Cozaar] 50 mg PO QDAY 10/06/19 11/30/20 10/05/19 History Metoclopramide HCl [Reglan TAB] 10 mg PO QID 10/06/19 11/30/20 10/05/19 History AtorvaSTATin [Lipitor] 40 mg PO QHS #30 tablet 10/07/19 11/30/20 12/30/19 Rx Prasugrel [Effient] 10 mg PO QDAY #30 tablet 10/07/19 11/30/20 Unknown Rx Promethazine [Phenergan] 25 mg PO Q6H PRN #20 tablet 07/21/20 11/30/20 Unknown Rx Dicyclomine [Bentyl] 20 mg PO QID PRN #20 tablet 09/17/20 11/30/20 Unknown Rx Promethazine HCl [Phenergan SUPPOS] 25 mg RC Q6HR PRN #20 supp.rect 09/17/20 11/30/20 Unknown Rx Famotidine [Pepcid] 20 mg PO DAILY #30 tablet 09/24/20 11/30/20 Unknown Rx Mag Hydrox/Aluminum Hyd/Simeth 30 ml PO DAILY PRN 30 Days #1 09/24/20 11/30/20 Unknown Rx [Maalox Advanced Suspension] bottle Lidocaine Viscous 2% 15 ml MM Q6HR PRN #1 bottle 11/28/20 11/30/20 Unknown Rx Nystatin [Nystatin SUSP] 5 ml PO QID #200 ml 11/28/20 11/30/20 Unknown Rx Active Meds: Active Medications Acetaminophen (Acetaminophen 325 Mg Tab) 650 mg PO Q4H PRN PRN Reason: Pain MILD(1-3)/Fever >100.5/STEWARD Clonidine HCl (Clonidine Tts 0.3 Mg/24 Hr Patch) 0.3 mg TD We APRYL Last Admin: 11/30/20 23:26 Dose: 0.3 mg Documented by: Hydralazine HCl (Hydralazine 20 Mg/1 Ml Inj) 10 mg IV Q3H PRN PRN Reason: Blood Pressure Last Admin: 12/02/20 03:50 Dose: 10 mg Documented by: Hydromorphone HCl (Hydromorphone 1 Mg/1 Ml Inj) 1 mg IV Q3H PRN PRN Reason: Pain , Severe (7-10) Last Admin: 12/01/20 12:41 Dose: 1 mg Documented by: Fluconazole (Diflucan) 200 mg in 100 mls @ 100 mls/hr IV Q24H APRYL Stop: 12/21/20 10:29 Last Admin: 12/04/20 10:57 Dose: 100 mls/hr Documented by: Cefepime HCl (Cefepime/Ns 2 Gm/100 Ml) 2 gm in 100 mls @ 200 mls/hr IV Q24H APRYL; Protocol Last Admin: 12/03/20 23:09 Dose: 200 mls/hr Documented by: Vasopressin 20 unit/ Sodium (Chloride) 101 mls @ 9.09 mls/hr IV TITR APRYL; Protocol Last Admin: 12/04/20 08:20 Dose: 0.03 units/min, 9.09 mls/hr Documented by: Norepinephrine (Levophed Drip 4 Mg/Ns 250 Ml) 4 mg in 250 mls @ 7.5 mls/hr IV TITR APRYL; Protocol Last Titration: 12/04/20 12:15 Dose: 6 mcg/min, 22.5 mls/hr Documented by: Ondansetron HCl (Ondansetron 4 Mg/2 Ml Inj) 4 mg IV Q3H PRN PRN Reason: Nausea And Vomiting Last Admin: 12/01/20 08:46 Dose: 4 mg Documented by: Pantoprazole Sodium (Pantoprazole 40 Mg Inj) 40 mg IV BID [facility] Last Admin: 12/04/20 10:56 Dose: 40 mg Documented by: Sodium Chloride (Sodium Chloride 0.9% 10 Ml Flush Syringe) 10 ml IV PRN PRN PRN Reason: LINE FLUSH Sodium Chloride (Sodium Chloride 0.9% 10 Ml Flush Syringe) 10 ml IV BID [facility] Last Admin: 12/04/20 11:04 Dose: 10 ml Documented by: Tbo-Filgrastim (Tbo-Filgrastim 480 Mcg/0.8 Ml) 480 mcg SUB-Q DAILY [facility] Last Admin: 12/04/20 11:03 Dose: 480 mcg Documented by: Exam - Constitutional Vitals: Temp Pulse Resp BP Pulse Ox 100.5 F H 131 H 40 H 127/29 96 12/04/20 08:00 12/04/20 09:16 12/04/20 09:16 12/04/20 09:16 12/04/20 09:16 Results - Labs CBC & Chem 7: 12/04/20 08:31 12/04/20 08:31 Labs: Abnormal lab results 12/03/20 12/03/20 12/03/20 Range/Units 16:23 17:31 18:32 WBC 0.2 L* (4.5-11.0) K/mm3 RBC 2.23 L (3.65-5.03) M/mm3 Hgb 6.9 L (10.1-14.3) gm/dl Hct 20.1 L (30.3-42.9) % Plt Count 42 L (140-440) K/mm3 Seg Neutrophils # Man (1.8-7.7) K/mm3 Lymphocytes # (Manual) (1.2-5.4) K/mm3 ABG pH 7.533 H (7.320-7.450) POC ABG pO2 63.1 L (83-108) mmHg ABG Hemoglobin 6.5 L (12.0-17.5) ABG Oxyhemoglobin 87.8 L (94-98) ABG Glucose 97 H (65-95) mg/dL Carboxyhemoglobin 4.0 H (0.5-1.5) Carbon Dioxide (22-30) mmol/L BUN (7-17) mg/dL Creatinine (0.6-1.2) mg/dL Total Bilirubin (0.1-1.2) mg/dL AST (5-40) units/L ALT (7-56) units/L Total Protein (6.3-8.2) g/dL Albumin (3.9-5) g/dL Arterial Blood Glucose 97 H (65-95) mg/dL Crossmatch See Detail 12/03/20 12/03/20 12/04/20 Range/Units 19:09 19:09 08:31 WBC 0.2 L* 0.3 L* (4.5-11.0) K/mm3 RBC 2.19 L 2.45 L (3.65-5.03) M/mm3 Hgb 6.8 L 7.4 L (10.1-14.3) gm/dl Hct 19.8 L* 22.2 L (30.3-42.9) % Plt Count 36 L 23 L (140-440) K/mm3 Seg Neutrophils # Man 0.0 L 0.0 L (1.8-7.7) K/mm3 Lymphocytes # (Manual) 0.1 L 0.3 L (1.2-5.4) K/mm3 ABG pH (7.320-7.450) POC ABG pO2 (83-108) mmHg ABG Hemoglobin (12.0-17.5) ABG Oxyhemoglobin (94-98) ABG Glucose (65-95) mg/dL Carboxyhemoglobin (0.5-1.5) Carbon Dioxide 32 H D (22-30) mmol/L BUN 44 H (7-17) mg/dL Creatinine 4.6 H D (0.6-1.2) mg/dL Total Bilirubin 2.60 H (0.1-1.2) mg/dL AST 52 H (5-40) units/L ALT 80 H (7-56) units/L Total Protein 4.6 L (6.3-8.2) g/dL Albumin 2.2 L (3.9-5) g/dL Arterial Blood Glucose (65-95) mg/dL Crossmatch 12/04/20 Range/Units 08:31 WBC (4.5-11.0) K/mm3 RBC (3.65-5.03) M/mm3 Hgb (10.1-14.3) gm/dl Hct (30.3-42.9) % Plt Count (140-440) K/mm3 Seg Neutrophils # Man (1.8-7.7) K/mm3 Lymphocytes # (Manual) (1.2-5.4) K/mm3 ABG pH (7.320-7.450) POC ABG pO2 (83-108) mmHg ABG Hemoglobin (12.0-17.5) ABG Oxyhemoglobin (94-98) ABG Glucose (65-95) mg/dL Carboxyhemoglobin (0.5-1.5) Carbon Dioxide (22-30) mmol/L BUN 57 H (7-17) mg/dL Creatinine 5.6 H (0.6-1.2) mg/dL Total Bilirubin (0.1-1.2) mg/dL AST (5-40) units/L ALT (7-56) units/L Total Protein (6.3-8.2) g/dL Albumin (3.9-5) g/dL Arterial Blood Glucose (65-95) mg/dL Crossmatch
[2020-12-04 15:08] LABS: Hematocrit 22.4 % (30.3-42.9); Hemoglobin 7.4 gm/dl (10.1-14.3); Mean Corpuscular HGB Conc 33 % (30-34); Mean Corpuscular Volume 92 fl (79-97); Red Blood Count 2.43 M/mm3 (3.65-5.03); Red Cell Distribution Width 15.1 % (13.2-15.2)
[2020-12-04 15:12] LABS: Platelet Count 24 K/mm3 (140-440)
[2020-12-04 17:54] LABS: Hematocrit 20.3 % (30.3-42.9); Hemoglobin 6.8 gm/dl (10.1-14.3); Mean Corpuscular HGB Conc 33 % (30-34); Mean Corpuscular Volume 91 fl (79-97); Red Blood Count 2.22 M/mm3 (3.65-5.03); Red Cell Distribution Width 15.2 % (13.2-15.2)
[2020-12-04 18:28] LABS: Platelet Count 17 K/mm3 (140-440)
[2020-12-04] MEDS ORDERED: SODIUM CHLORIDE 0.9% 500 ML 500 ML IV NR (19:27)
--- NOTE | 2020-12-04 20:28 | Progress Note ---
Assessment and Plan Assessment End-stage renal disease on hemodialysis Renal cell cancer, metastaticon immunotherapy Psoriasis, recently started on methotrexate Pancytopenia Mucosal bleed Acute encephalopathy Shock Recommendations Patient has been stable outpatient with stable labwork but presented with sudden clinical decline following initiation of methotrexate therapy for psoriasis. Tolerated HD yesterday without complications. Plan on next session tomorrow if hemodynamically stable and with acceptable hgb/platelet count Platelet transfusion to keep above 20K Monitor hemoglobin, transfuse for hemoglobin less than 7 Will start epogen if ok with hematology (RCC) Vasopressors to keep MAP > 65 Renally dose medications Renal diet Hematology and primary note reviewed Prognosis guarded Subjective Date of service: 12/04/20 Principal diagnosis: Pancytopenia, bleeding Interval history: Clinically deteriorating, transferred to the ICU Patient was seen for her renal issues Nursing, interdisciplinary and consult notes were reviewed Vitals, input and output, medications and labs were reviewed Objective - Exam Narrative Exam: General: No acute distress HEENT: Oral mucosa moist Neck: Supple, no JVD Chest: Clear to auscultation bilaterally Heart: RRR, S1 and S2, no pericardial rub Abdomen: Soft, nontender, no renal bruit Extremity: No peripheral cyanosis, edema Neurological: Somnolent Dermatology: Muliple skin rashes Psych: Unable to assess Musculoskeletal: No joint effusion - Vital Signs Vital signs: Vital Signs - 12hr 12/04/20 12/04/20 12/04/20 08:30 08:46 09:00 Pulse Rate 119 H 122 H 130 H Respiratory 35 H 41 H 43 H Rate Blood Pressure 81/22 81/22 79/17 O2 Sat by Pulse 100 100 98 Oximetry 12/04/20 12/04/20 12/04/20 09:16 09:30 09:46 Pulse Rate 131 H 126 H 124 H Respiratory 40 H 45 H 37 H Rate Blood Pressure 127/29 127/29 191/131 O2 Sat by Pulse 96 98 98 Oximetry 12/04/20 12/04/20 12/04/20 10:00 10:16 10:30 Pulse Rate 125 H 123 H 122 H Respiratory 38 H 37 H 37 H Rate Blood Pressure 104/28 104/28 104/28 O2 Sat by Pulse 99 98 97 Oximetry 12/04/20 12/04/20 12/04/20 10:46 11:00 11:15 Pulse Rate 118 H 119 H 110 H Respiratory 39 H 37 H 39 H Rate Blood Pressure 70/38 92/54 100/57 O2 Sat by Pulse 97 97 98 Oximetry 12/04/20 12/04/20 12/04/20 11:30 11:46 12:00 Pulse Rate 112 H 103 H 106 H Respiratory 23 46 H 45 H Rate Blood Pressure 100/57 79/46 97/40 O2 Sat by Pulse 97 93 95 Oximetry 12/04/20 12/04/20 12/04/20 12:15 12:30 12:46 Pulse Rate 107 H 96 H 104 H Respiratory 18 43 H 36 H Rate Blood Pressure 73/48 148/66 191/135 O2 Sat by Pulse 97 93 100 Oximetry 12/04/20 12/04/20 12/04/20 13:00 13:16 13:30 Pulse Rate 102 H 102 H 103 H Respiratory 47 H 30 H 40 H Rate Blood Pressure 98/74 98/74 98/74 O2 Sat by Pulse 88 98 94 Oximetry 12/04/20 12/04/20 12/04/20 13:46 14:00 14:16 Pulse Rate 106 H 103 H 98 H Respiratory 45 H 38 H 37 H Rate Blood Pressure 132/84 O2 Sat by Pulse 98 93 100 Oximetry 12/04/20 12/04/20 12/04/20 14:30 14:46 15:00 Pulse Rate 103 H 104 H 100 H Respiratory 45 H 44 H 46 H Rate Blood Pressure 89/24 78/33 78/33 O2 Sat by Pulse 99 100 99 Oximetry 12/04/20 12/04/20 12/04/20 15:16 15:30 15:46 Pulse Rate 100 H 101 H 102 H Respiratory 41 H 42 H 41 H Rate Blood Pressure 94/66 115/50 105/40 O2 Sat by Pulse 100 100 100 Oximetry 12/04/20 12/04/20 12/04/20 16:00 16:16 16:30 Pulse Rate 99 H 102 H 94 H Respiratory 40 H 43 H 37 H Rate Blood Pressure 105/40 104/35 100/36 O2 Sat by Pulse 100 100 98 Oximetry 12/04/20 12/04/20 12/04/20 16:46 17:00 17:15 Pulse Rate 103 H 101 H 98 H Respiratory 34 H 28 H 37 H Rate Blood Pressure 105/34 86/19 86/47 O2 Sat by Pulse 95 98 100 Oximetry 12/04/20 12/04/20 12/04/20 17:30 17:46 18:00 Pulse Rate 93 H 99 H 94 H Respiratory 36 H 39 H 36 H Rate Blood Pressure 86/47 91/36 91/36 O2 Sat by Pulse 100 100 100 Oximetry 12/04/20 12/04/20 12/04/20 18:15 18:30 18:46 Pulse Rate 93 H 93 H 106 H Respiratory 35 H 39 H 44 H Rate Blood Pressure 96/36 98/46 98/46 O2 Sat by Pulse 100 100 99 Oximetry 12/04/20 12/04/20 12/04/20 19:00 19:15 19:23 Pulse Rate 105 H 102 H Respiratory 45 H 43 H Rate Blood Pressure 105/45 115/49 O2 Sat by Pulse 98 98 100 Oximetry 12/04/20 19:30 Pulse Rate 106 H Respiratory 46 H Rate Blood Pressure 118/62 O2 Sat by Pulse 100 Oximetry - Lab 12/04/20 17:49 12/04/20 08:31 Most recent lab results ABG pH 7.533 (7.320-7.450) H 12/03/20 18:32 ABG O2 Saturation 91.6 (0-100) 12/03/20 18:32 Calcium 9.0 mg/dL (8.4-10.2) 12/04/20 08:31 Phosphorus 5.80 mg/dL (2.5-4.5) H 11/30/20 12:00 Magnesium 2.00 mg/dL (1.7-2.3) 11/30/20 12:00 Medications & Allergies - Medications Allergies/Adverse Reactions: Allergies codeine Allergy (Verified 09/21/20 09:44) Rash Penicillins Allergy (Verified 09/21/20 09:44) Hives ciprofloxacin [From Cipro] Adverse Reaction (Verified 09/21/20 09:44) severe nausea ciprofloxacin HCl [From Cipro] Adverse Reaction (Verified 09/21/20 09:44) severe nausea Home Medications: Home Medications Medication Instructions Recorded Confirmed Last Taken Type B Complex 11/Folic/C/Biot/Zinc 1 each PO DAILY #30 tablet 02/13/16 11/30/20 10/05/19 Rx [Dialyvite with Zinc Tablet] Meclizine [Antivert] 25 mg PO TID PRN 07/05/16 11/30/20 10/21/16 History Aspirin [Aspirin BABY CHEW TAB] 81 mg PO QDAY #30 tab.chew 10/27/16 11/30/20 12/31/19 Rx carvediloL [Coreg] 25 mg PO BID #60 tablet 06/23/18 11/30/20 10/05/19 Rx Cholecalciferol (Vitamin D3) 5,000 unit PO DAILY 01/16/19 11/30/20 12/31/19 History [Vitamin D3 5,000 UNIT] Cinacalcet [Sensipar] 30 mg PO QHS 01/16/19 11/30/20 10/05/19 History Sevelamer Carbonate [Renvela] 4,000 mg PO TIDWM 01/16/19 11/30/20 10/05/19 History hydrALAZINE [Apresoline TAB] 100 mg PO TID 01/16/19 11/30/20 10/05/19 History amLODIPine 10 mg PO DAILY #30 tablet 07/14/19 11/30/20 10/05/19 Rx cloNIDine [Catapres] 0.2 mg PO TID #90 tablet 07/14/19 11/30/20 10/05/19 Rx Losartan [Cozaar] 50 mg PO QDAY 10/06/19 11/30/20 10/05/19 History Metoclopramide HCl [Reglan TAB] 10 mg PO QID 10/06/19 11/30/20 10/05/19 History AtorvaSTATin [Lipitor] 40 mg PO QHS #30 tablet 10/07/19 11/30/20 12/30/19 Rx Prasugrel [Effient] 10 mg PO QDAY #30 tablet 10/07/19 11/30/20 Unknown Rx Promethazine [Phenergan] 25 mg PO Q6H PRN #20 tablet 07/21/20 11/30/20 Unknown Rx Dicyclomine [Bentyl] 20 mg PO QID PRN #20 tablet 09/17/20 11/30/20 Unknown Rx Promethazine HCl [Phenergan SUPPOS] 25 mg RC Q6HR PRN #20 supp.rect 09/17/20 11/30/20 Unknown Rx Famotidine [Pepcid] 20 mg PO DAILY #30 tablet 09/24/20 11/30/20 Unknown Rx Mag Hydrox/Aluminum Hyd/Simeth 30 ml PO DAILY PRN 30 Days #1 09/24/20 11/30/20 Unknown Rx [Maalox Advanced Suspension] bottle Lidocaine Viscous 2% 15 ml MM Q6HR PRN #1 bottle 11/28/20 11/30/20 Unknown Rx Nystatin [Nystatin SUSP] 5 ml PO QID #200 ml 11/28/20 11/30/20 Unknown Rx Active Medications: Generic Name Dose Route Start Last Admin Trade Name Freq PRN Reason Stop Dose Admin Acetaminophen 650 mg 11/30/20 18:24 Acetaminophen 325 Mg Tab PO Q4H PRN Pain MILD(1-3)/Fever >100.5/STEWARD Clonidine HCl 0.3 mg 11/30/20 22:00 11/30/20 23:26 Clonidine Tts 0.3 Mg/24 Hr Patch TD 0.3 mg We APRYL Administration Hydralazine HCl 10 mg 11/30/20 21:51 12/02/20 03:50 Hydralazine 20 Mg/1 Ml Inj IV 10 mg Q3H PRN Administration Blood Pressure Hydromorphone HCl 1 mg 11/30/20 18:24 12/01/20 12:41 Hydromorphone 1 Mg/1 Ml Inj IV 1 mg Q3H PRN Administration Pain , Severe (7-10) Fluconazole 200 mg in 100 mls @ 100 mls/hr 12/01/20 09:30 12/04/20 10:57 Diflucan IV 12/21/20 10:29 100 mls/hr Q24H APRYL Administration Cefepime HCl 2 gm in 100 mls @ 200 mls/hr 12/03/20 20:00 12/03/20 23:09 Cefepime/Ns 2 Gm/100 Ml IV 200 mls/hr Q24H APRYL Administration Protocol Vasopressin 20 unit/ Sodium 101 mls @ 9.09 mls/hr 12/04/20 04:00 12/04/20 17:50 Chloride IV 0.03 units/min TITR APRYL 9.09 mls/hr Administration Protocol 0.03 UNITS/MIN Norepinephrine 4 mg in 250 mls @ 7.5 mls/hr 12/04/20 10:00 12/04/20 18:45 Levophed Drip 4 Mg/Ns 250 Ml IV 20 mcg/min TITR APRYL 75 mls/hr Titration Protocol 2 MCG/MIN Sodium Chloride 500 mls @ 0 mls/hr 12/04/20 19:27 Nacl 0.9% 500 Ml IV 12/04/20 23:59 ONCE NR As Directed Ondansetron HCl 4 mg 11/30/20 21:05 12/01/20 08:46 Ondansetron 4 Mg/2 Ml Inj IV 4 mg Q3H PRN Administration Nausea And Vomiting Pantoprazole Sodium 40 mg 12/01/20 22:00 12/04/20 10:56 Pantoprazole 40 Mg Inj IV 40 mg BID APRYL Administration Sodium Chloride 10 ml 11/30/20 18:24 Sodium Chloride 0.9% 10 Ml Flush Syringe IV PRN PRN LINE FLUSH Sodium Chloride 10 ml 11/30/20 22:00 12/04/20 11:04 Sodium Chloride 0.9% 10 Ml Flush Syringe IV 10 ml BID APRYL Administration Tbo-Filgrastim 480 mcg 12/02/20 12:00 12/04/20 11:03 Tbo-Filgrastim 480 Mcg/0.8 Ml SUB-Q 480 mcg DAILY APRYL Administration
[2020-12-04] MEDS: CEFEPIME/NS 2 GM/100 ML 2 GM/100 ML BAG IV SCH (21:38)
[2020-12-05] MEDS: NORepinephrine/NS 4 MG-250 ML 4 MG/250 ML BAG IV SCH ×6 (01:15→18:06)
[2020-12-05] MEDS: VASOPRESSIN 20 UNIT in SODIUM CHLORIDE 0.9% 100 ML IV SCH ×2 (04:59→18:03)
[2020-12-05 05:52] LABS: Hematocrit 24.2 % (30.3-42.9); Hemoglobin 8.1 gm/dl (10.1-14.3); Mean Corpuscular HGB Conc 33 % (30-34); Mean Corpuscular Volume 92 fl (79-97); Red Blood Count 2.64 M/mm3 (3.65-5.03); Red Cell Distribution Width 15.2 % (13.2-15.2)
[2020-12-05 06:15] LABS: Platelet Count 13 K/mm3 (140-440)
[2020-12-05 07:04] LABS: Calcium 8.7 mg/dL (8.4-10.2)
[2020-12-05 07:27] LABS: Anisocytosis 1+; Hypochromasia 1+; Total Cells Counted 10
[2020-12-05 07:28] LABS: Platelet Estimate Consistent w Auto
--- NOTE | 2020-12-05 08:23 | Progress Note ---
Assessment and Plan Assessment and plan: Hematology oncology, pulmonary critical, nephrology following GI evaluated, ID consulted --Febrile neutropenia/immunocompromised patient Current Visit: Yes Status: Acute Plan to address problem: T-max last 24 hours 103 F Blood and urine cultures requested Chest x-ray possible pneumonia Patient is already on cefepime Will add vancomycin 1 dose ID consult, informed Dr. Tenzin Gomez Neutropenia precautions --Septic shock; Current Visit: Yes Status: Acute Plan to address problem: Requiring Levophed and vasopressin Wean as tolerated,Supportive care --Pneumonia/possible aspiration pneumonia: Current Visit: Yes Status: Acute Plan to address problem: continue antibiotics cefepime, blood cultures Supplemental oxygen, supportive care Pulmonary consulted. --Pancytopenia: Current Visit: Yes Status: Acute Plan to address problem: h/o chemotherapy, Underlying cancer --Severe anemia; Current Visit: Yes Status: Acute Plan to address problem: Transfuse 2 units of PRBC. Monitor H&H transfuse additional PRBC --Severe thrombocytopenia Current Visit: Yes Status: Acute Plan to address problem: Status post platelet transfusion Closely monitor, transfuse additional platelets Hematology oncology following --Neutropenia; worsening Current Visit: Yes Status: Acute Plan to address problem: Neutropenia precautions Daily filgrastim, supportive care Worsening leukopenia --Severe oropharyngeal candidiasis/glossitis Current Visit: Yes Status: Acute Plan to address problem: Status post EGD, continue IV Diflucan Patent airway,Intermittent oral suction as needed Oral care. Try clear liquids as tolerated If patient is unable to take oral Consider Dobbhoff placement --Acute respiratory distress/tachypnea: Current Visit: Yes Status: Acute Plan to address problem: On 4 L nasal cannula oxygen saturating 98-99% Closely monitor, patient DNR status --End-stage renal disease on hemodialysis Current Visit: Yes Status: Acute Plan to address problem: Management per nephrology, HD per schedule --h/o Pancreatic and renal cancer Current Visit: Yes Status: Chronic Plan to address problem: Pancreatic cancer in the body and the tail of pancreas. Patient on chemotherapy. Follows with Dr. Lee s/p Bilateral nephrectomy on hemodialysis --Transaminitis Current Visit: Yes Status: Acute Plan to address problem: Possibly secondary to chemotherapy Negative hepatitis panel --Severe protein calorie malnutrition Current Visit: Yes Status: Acute Plan to address problem: Hypoalbuminemia .Albumin 2.9 Unable to give oral nutrition, consider tube feeding Versus PPN,Nutrition consult requested --DVT prophylaxis Current Visit: No Status: Acute Plan to address problem: On SCDs no pharmacologic anticoagulation In view of severe thrombocytopenia --Patient is critically ill very poor prognosis --DNR status[family made DNR last night] Consider hospice consult Closely monitor the patient and adjust the management as needed The high probability of a clinically significant, sudden or life threatening deterioration of the [multi] system(s) required my full and direct attention, intervention and personal management. The aggregate critical care time was [35] minutes. This time is in addition to time spent performing reported procedures but includes the following: [x] Data Review and interpretation [x] Patient assessment and monitoring of vital signs [x] Documentation [x] Medication orders and management I spoke with patient's daughter Ms. Kate BunchONEAL multiple times regarding patient's critical condition, treatment plan and prognosis Will update her periodically. 12/05/2020; patient remains pancytopenic, receiving filgrastim, platelet transfusion, RBC transfusion Numbers continue to be low, febrile neutropenia, hematology oncologist, pulmonary critical, nephrology following, will consult ID Very poor prognosis, family made the patient DNR with complete treatment, hematology oncology feels that patient may recover from this with aggressive treatment. History Interval history: I have seen and examined the patient at the bedside in ICU this morning Patient's chart, medications tests and reports reviewed Patient remains altered, in mild distress Severe pancytopenia Febrile T-max last 24 hours 103 F Hospitalist Physical - Constitutional Vitals: Temp Pulse Resp BP Pulse Ox 99.9 F H 98 H 32 H 88/33 98 12/05/20 03:45 12/05/20 06:15 12/05/20 06:15 12/05/20 06:15 12/05/20 07:28 General appearance: Present: severe distress, well-nourished, other (Pale, cr itically ill looking) - EENT Eyes: Present: PERRL, EOM intact ENT: thrush, ulcerations, other (Acute glossitis) - Neck Neck: Present: supple, normal ROM - Respiratory Respiratory effort: normal Respiratory: bilateral: diminished, rhonchi, negative: rales, wheezing - Extremities Extremities: no ischemia Extremity abnormal: edema - Abdominal General gastrointestinal: soft, non-tender, non-distended, normal bowel sounds - Integumentary Integumentary: Present: clear, warm - Psychiatric Psychiatric: other - Neurologic Neurologic: CNII-XII intact, moves all extremities (Noncommunicative), other (Noncommunicative) HEART Score - HEART Score Age: 45-65 Troponin: 1-3x normal limit Results - Labs CBC & Chem 7: 12/05/20 17:29 12/05/20 05:00 Labs: Laboratory Last Values WBC 0.2 K/mm3 (4.5-11.0) L* 12/05/20 05:00 RBC 2.64 M/mm3 (3.65-5.03) L 12/05/20 05:00 Hgb 8.1 gm/dl (10.1-14.3) L 12/05/20 05:00 Hct 24.2 % (30.3-42.9) L 12/05/20 05:00 MCV 92 fl (79-97) 12/05/20 05:00 MCH 31 pg (28-32) 12/05/20 05:00 MCHC 33 % (30-34) 12/05/20 05:00 RDW 15.2 % (13.2-15.2) 12/05/20 05:00 Plt Count 13 K/mm3 (140-440) L* 12/05/20 05:00 Lymph % (Auto) [employer] 12/05/20 05:00 Eos % (Auto) [employer] 12/05/20 05:00 Add Manual Diff Complete 12/05/20 05:00 Total Counted 10 12/05/20 05:00 Seg Neutrophils % [employer] 12/05/20 05:00 Seg Neuts % (Manual) 10.0 % (40.0-70.0) L 12/05/20 05:00 Lymphocytes % (Manual) 60.0 % (13.4-35.0) H 12/05/20 05:00 Monocytes % (Manual) 20.0 % (0.0-7.3) H 12/05/20 05:00 Eosinophils % (Manual) 10.0 % (0.0-4.3) H 12/05/20 05:00 Nucleated RBC % Not Reportable 12/05/20 05:00 Seg Neutrophils # Man 0.0 K/mm3 (1.8-7.7) L 12/05/20 05:00 Band Neutrophils # 0.0 K/mm3 12/05/20 05:00 Lymphocytes # (Manual) 0.1 K/mm3 (1.2-5.4) L 12/05/20 05:00 Abs React Lymphs (Man) 0.0 K/mm3 12/05/20 05:00 Monocytes # (Manual) 0.0 K/mm3 (0.0-0.8) 12/05/20 05:00 Eosinophils # (Manual) 0.0 K/mm3 (0.0-0.4) 12/05/20 05:00 Basophils # (Manual) 0.0 K/mm3 (0.0-0.1) 12/05/20 05:00 Metamyelocytes # 0.0 K/mm3 12/05/20 05:00 Myelocytes # 0.0 K/mm3 12/05/20 05:00 Promyelocytes # 0.0 K/mm3 12/05/20 05:00 Blast Cells # 0.0 K/mm3 12/05/20 05:00 WBC Morphology Not Reportable 12/05/20 05:00 Hypersegmented Neuts Not Reportable 12/05/20 05:00 Hyposegmented Neuts Not Reportable 12/05/20 05:00 Hypogranular Neuts Not Reportable 12/05/20 05:00 Smudge Cells Not Reportable 12/05/20 05:00 Toxic Granulation Not Reportable 12/05/20 05:00 Toxic Vacuolation Not Reportable 12/05/20 05:00 Dohle Bodies Not Reportable 12/05/20 05:00 Pelger-Huet Anomaly Not Reportable 12/05/20 05:00 Deepali Rods Not Reportable 12/05/20 05:00 Platelet Estimate Consistent w auto 12/05/20 05:00 Clumped Platelets Not Reportable 12/05/20 05:00 Plt Clumps, EDTA Not Reportable 12/05/20 05:00 Large Platelets Not Reportable 12/05/20 05:00 Giant Platelets Not Reportable 12/05/20 05:00 Platelet Satelliting Not Reportable 12/05/20 05:00 Plt Morphology Comment Not Reportable 12/05/20 05:00 RBC Morphology Not Reportable 12/05/20 05:00 Dimorphic RBCs Not Reportable 12/05/20 05:00 Polychromasia Not Reportable 12/05/20 05:00 Hypochromasia 1+ 12/05/20 05:00 Poikilocytosis Not Reportable 12/05/20 05:00 Anisocytosis 1+ 12/05/20 05:00 Microcytosis Not Reportable 12/05/20 05:00 Macrocytosis Not Reportable 12/05/20 05:00 Spherocytes Not Reportable 12/05/20 05:00 Pappenheimer Bodies Not Reportable 12/05/20 05:00 Sickle Cells Not Reportable 12/05/20 05:00 Target Cells Not Reportable 12/05/20 05:00 Tear Drop Cells Not Reportable 12/05/20 05:00 Ovalocytes Not Reportable 12/05/20 05:00 Helmet Cells Not Reportable 12/05/20 05:00 [place] Bodies Not Reportable 12/05/20 05:00 [place] Rings Not Reportable 12/05/20 05:00 [place] Cells Not Reportable 12/05/20 05:00 Bite Cells Not Reportable 12/05/20 05:00 Crenated Cell Not Reportable 12/05/20 05:00 Elliptocytes Not Reportable 12/05/20 05:00 Acanthocytes (Spur) Not Reportable 12/05/20 05:00 Rouleaux Not Reportable 12/05/20 05:00 Hemoglobin C Crystals Not Reportable 12/05/20 05:00 Schistocytes Not Reportable 12/05/20 05:00 Malaria parasites Not Reportable 12/05/20 05:00 Kannan Bodies Not Reportable 12/05/20 05:00 Hem Pathologist Commnt No 12/05/20 05:00 ABG pH 7.533 (7.320-7.450) H 12/03/20 18:32 POC ABG pCO2 36.7 mmHg (32.0-48.0) 12/03/20 18:32 POC ABG pO2 63.1 mmHg (83-108) L 12/03/20 18:32 POC ABG HCO3 30.2 12/03/20 18:32 ABG O2 Saturation 91.6 (0-100) 12/03/20 18:32 POC ABG Base Excess 7.0 12/03/20 18:32 ABG Hemoglobin 6.5 (12.0-17.5) L 12/03/20 18:32 ABG Oxyhemoglobin 87.8 (94-98) L 12/03/20 18:32 ABG Methemoglobin 0.2 (0.0-1.5) 12/03/20 18:32 ABG Sodium 137.6 mmol/L (136.0-145.0) 12/03/20 18:32 ABG Potassium 3.6 mmol/L (3.40-4.50) 12/03/20 18:32 ABG Chloride 103.0 mmol/L (98-107) 12/03/20 18:32 ABG Glucose 97 mg/dL (65-95) H 12/03/20 18:32 Carboxyhemoglobin 4.0 (0.5-1.5) H 12/03/20 18:32 FiO2 % 28 12/03/20 18:32 Sodium 154 mmol/L (137-145) H D 12/05/20 05:00 Potassium 4.9 mmol/L (3.6-5.0) D 12/05/20 05:00 Chloride 109.6 mmol/L (98-107) H 12/05/20 05:00 Carbon Dioxide 18 mmol/L (22-30) L D 12/05/20 05:00 Anion Gap 31 mmol/L 12/05/20 05:00 BUN 81 mg/dL (7-17) H 12/05/20 05:00 Creatinine 7.0 mg/dL (0.6-1.2) H 12/05/20 05:00 Estimated GFR 6 ml/min 12/05/20 05:00 BUN/Creatinine Ratio 12 % 12/05/20 05:00 Glucose 134 mg/dL (65-100) H 12/05/20 05:00 POC Glucose 140 mg/dL (70-105) H 12/03/20 11:53 Hemoglobin A1c 4.8 % (4-6) 12/01/20 04:57 Calcium 8.7 mg/dL (8.4-10.2) 12/05/20 05:00 Phosphorus 5.80 mg/dL (2.5-4.5) H 11/30/20 12:00 Magnesium 2.00 mg/dL (1.7-2.3) 11/30/20 12:00 Total Bilirubin 2.60 mg/dL (0.1-1.2) H 12/03/20 19:09 Direct Bilirubin 0.9 mg/dL (0-0.2) H 11/30/20 12:00 Indirect Bilirubin 0.4 mg/dL 11/30/20 12:00 AST 52 units/L (5-40) H 12/03/20 19:09 ALT 80 units/L (7-56) H 12/03/20 19:09 Alkaline Phosphatase 77 units/L (35-129) 12/03/20 19:09 Total Protein 4.6 g/dL (6.3-8.2) L 12/03/20 19:09 Albumin 2.2 g/dL (3.9-5) L 12/03/20 19:09 Albumin/Globulin Ratio 0.9 % 12/03/20 19:09 Lipase 26 units/L (13-60) 11/30/20 12:00 Arterial Blood Glucose 97 mg/dL (65-95) H 12/03/20 18:32 Arterial Blood Ionized Calcium 4.6 mg/dL (4.6-5.3) 12/03/20 18:32 Hepatitis A IgM Ab Non-reactive (NonReactive) 12/01/20 07:48 Hep Bs Antigen Non-reactive (Negative) 12/01/20 07:48 Hep B Core IgM Ab Non-reactive (NonReactive) 12/01/20 07:48 Hepatitis C Antibody Non-reactive (NonReactive) 12/01/20 07:48 Blood Type O POSITIVE 12/03/20 17:31 Antibody Screen Negative 12/03/20 17:31 Crossmatch See Detail 12/03/20 17:31 Gu/IV: Voiding Method Bedpan Active Medications - Current Medications Current Medications: Generic Name Dose Route Start Last Admin Trade Name Freq PRN Reason Stop Dose Admin Acetaminophen 650 mg 11/30/20 18:24 Acetaminophen 325 Mg Tab PO Q4H PRN Pain MILD(1-3)/Fever >100.5/STEWARD Clonidine HCl 0.3 mg 11/30/20 22:00 11/30/20 23:26 Clonidine Tts 0.3 Mg/24 Hr Patch TD 0.3 mg We APRYL Administration Hydralazine HCl 10 mg 11/30/20 21:51 12/02/20 03:50 Hydralazine 20 Mg/1 Ml Inj IV 10 mg Q3H PRN Administration Blood Pressure Hydromorphone HCl 1 mg 11/30/20 18:24 12/01/20 12:41 Hydromorphone 1 Mg/1 Ml Inj IV 1 mg Q3H PRN Administration Pain , Severe (7-10) Fluconazole 200 mg in 100 mls @ 100 mls/hr 12/01/20 09:30 12/04/20 10:57 Diflucan IV 12/18/20 09:29 100 mls/hr Q24H APRYL Administration Cefepime HCl 2 gm in 100 mls @ 200 mls/hr 12/03/20 20:00 12/04/20 21:38 Cefepime/Ns 2 Gm/100 Ml IV 200 mls/hr Q24H APRYL Administration Protocol Vasopressin 20 unit/ Sodium 101 mls @ 9.09 mls/hr 12/04/20 04:00 12/05/20 04:59 Chloride IV 0.03 units/min TITR APRYL 9.09 mls/hr Administration Protocol 0.03 UNITS/MIN Norepinephrine 4 mg in 250 mls @ 7.5 mls/hr 12/04/20 10:00 12/05/20 06:36 Levophed Drip 4 Mg/Ns 250 Ml IV 28 mcg/min TITR APRYL 105 mls/hr Titration Protocol 2 MCG/MIN Ondansetron HCl 4 mg 11/30/20 21:05 12/01/20 08:46 Ondansetron 4 Mg/2 Ml Inj IV 4 mg Q3H PRN Administration Nausea And Vomiting Pantoprazole Sodium 40 mg 12/01/20 22:00 12/04/20 21:29 Pantoprazole 40 Mg Inj IV 40 mg BID APRYL Administration Sodium Chloride 10 ml 11/30/20 18:24 Sodium Chloride 0.9% 10 Ml Flush Syringe IV PRN PRN LINE FLUSH Sodium Chloride 10 ml 11/30/20 22:00 12/04/20 11:04 Sodium Chloride 0.9% 10 Ml Flush Syringe IV 10 ml BID APRYL Administration Tbo-Filgrastim 480 mcg 12/02/20 12:00 12/04/20 11:03 Tbo-Filgrastim 480 Mcg/0.8 Ml SUB-Q 480 mcg DAILY APRYL Administration
[2020-12-05] MEDS ORDERED: VANCOMYCIN/NS 1 GM/250 ML 1 GM/250 ML BAG IV ONE (08:27)
[2020-12-05] MEDS ORDERED: VANCOMYCIN 1,500 MG in SODIUM CHLORIDE 0.9% 500 ML 500 ML IV ONE (09:00)
[2020-12-05] MEDS: FLUCONAZOLE 200 MG 200 MG/100 ML BAG IV SCH (10:32)
[2020-12-05] MEDS: PANTOPRAZOLE 40 MG INJ IV SCH ×2 (10:33→21:30)
--- NOTE | 2020-12-05 11:02 | Progress Note ---
Subjective Date of service: 12/12/20 Principal diagnosis: Pancytopenia, bleeding Interval history: Assessment End-stage renal disease on hemodialysis Renal cell cancer, metastaticon immunotherapy Psoriasis, recently started on methotrexate Pancytopenia Mucosal bleed Acute encephalopathy Shock Recommendations HD prn if hemodynamically stable stop clonidine patch add bicarb gtt Platelet transfusion to keep above 20K Monitor hemoglobin, transfuse for hemoglobin less than 7 Will start epogen if ok with hematology (RCC) Vasopressors to keep MAP > 65 Renally dose medications Renal diet Hematology and primary note reviewed Prognosis guarded Subjective Date of service: 12/04/20 Principal diagnosis: Pancytopenia, bleeding Interval history: Clinically deteriorating, transferred to the ICU recently Patient was seen for her renal issues Nursing, interdisciplinary and consult notes were reviewed Vitals, input and output, medications and labs were reviewed Objective - Exam Narrative Exam: HEENT: Oral mucosa moist Neck: Supple, no JVD Chest: Clear to auscultation bilaterally Heart: RRR, S1 and S2, no pericardial rub Abdomen: Soft, nontender, no renal bruit Extremity: No peripheral cyanosis, edema Neurological: Somnolent Dermatology: Muliple skin rashes Psych: Unable to assess Musculoskeletal: No joint effusion Objective - Vital Signs Vital signs: Vital Signs - 12hr 12/04/20 12/04/20 12/04/20 23:08 23:10 23:20 Temperature Pulse Rate 103 H 104 H 103 H Pulse Rate [ From Monitor] Respiratory 38 H 40 H 26 H Rate Blood Pressure 109/55 109/55 115/45 O2 Sat by Pulse 97 99 98 Oximetry 12/04/20 12/04/20 12/04/20 23:25 23:30 23:40 Temperature 101.2 F H Pulse Rate 103 H 104 H Pulse Rate [ From Monitor] Respiratory 40 H 43 H Rate Blood Pressure 115/45 O2 Sat by Pulse 98 97 Oximetry 12/04/20 12/05/20 12/05/20 23:50 00:00 00:10 Temperature Pulse Rate 107 H 108 H 114 H Pulse Rate [ 108 H From Monitor] Respiratory 44 H 26 H 40 H Rate Blood Pressure 102/45 102/45 96/63 O2 Sat by Pulse 98 97 92 Oximetry 12/05/20 12/05/20 12/05/20 00:13 00:16 00:30 Temperature 987 F H Pulse Rate 109 H 109 H Pulse Rate [ From Monitor] Respiratory 43 H 43 H Rate Blood Pressure 96/63 96/63 O2 Sat by Pulse 98 96 Oximetry 12/05/20 12/05/20 12/05/20 00:46 01:00 01:16 Temperature Pulse Rate 109 H 108 H 107 H Pulse Rate [ From Monitor] Respiratory 41 H 41 H 40 H Rate Blood Pressure 96/63 90/60 122/66 O2 Sat by Pulse 98 98 99 Oximetry 12/05/20 12/05/20 12/05/20 01:30 01:45 02:00 Temperature Pulse Rate 108 H 108 H 106 H Pulse Rate [ From Monitor] Respiratory 40 H 33 H 37 H Rate Blood Pressure 131/63 124/62 130/71 O2 Sat by Pulse 99 97 96 Oximetry 12/05/20 12/05/20 12/05/20 02:16 02:30 02:45 Temperature Pulse Rate 111 H 111 H 111 H Pulse Rate [ From Monitor] Respiratory 30 H 39 H 43 H Rate Blood Pressure 136/74 131/75 122/55 O2 Sat by Pulse 96 96 100 Oximetry 12/05/20 12/05/20 12/05/20 03:00 03:16 03:30 Temperature Pulse Rate 107 H 111 H 111 H Pulse Rate [ From Monitor] Respiratory 38 H 43 H 39 H Rate Blood Pressure 134/56 136/58 126/68 O2 Sat by Pulse 100 98 96 Oximetry 12/05/20 12/05/20 12/05/20 03:45 04:00 04:16 Temperature 99.9 F H Pulse Rate 109 H 103 H 109 H Pulse Rate [ 103 H From Monitor] Respiratory 27 H 15 30 H Rate Blood Pressure 133/57 133/57 143/53 O2 Sat by Pulse 99 90 90 Oximetry 12/05/20 12/05/20 12/05/20 04:30 04:46 05:00 Temperature Pulse Rate 106 H 110 H 106 H Pulse Rate [ From Monitor] Respiratory 34 H 39 H 34 H Rate Blood Pressure 88/62 96/40 92/44 O2 Sat by Pulse 91 81 L 89 Oximetry 12/05/20 12/05/20 12/05/20 05:16 05:30 05:46 Temperature Pulse Rate 103 H 101 H 106 H Pulse Rate [ From Monitor] Respiratory 20 22 31 H Rate Blood Pressure 101/36 77/32 163/136 O2 Sat by Pulse 97 96 94 Oximetry 12/05/20 12/05/20 12/05/20 06:00 06:15 06:30 Temperature Pulse Rate 100 H 98 H 104 H Pulse Rate [ From Monitor] Respiratory 27 H 32 H 26 H Rate Blood Pressure 88/36 88/33 88/33 O2 Sat by Pulse 94 96 96 Oximetry 12/05/20 12/05/20 12/05/20 06:45 07:00 07:16 Temperature Pulse Rate 101 H 101 H 104 H Pulse Rate [ From Monitor] Respiratory 30 H 32 H 35 H Rate Blood Pressure 107/38 112/28 80/23 O2 Sat by Pulse 97 96 98 Oximetry 12/05/20 12/05/20 12/05/20 07:28 07:30 07:46 Temperature Pulse Rate 105 H 105 H Pulse Rate [ From Monitor] Respiratory 22 36 H Rate Blood Pressure 80/23 100/37 O2 Sat by Pulse 98 97 98 Oximetry 12/05/20 12/05/20 12/05/20 08:00 08:16 08:30 Temperature 99.6 F Pulse Rate 104 H 103 H 108 H Pulse Rate [ From Monitor] Respiratory 36 H 34 H 40 H Rate Blood Pressure 75/54 92/46 92/46 O2 Sat by Pulse 98 99 98 Oximetry 12/05/20 12/05/20 12/05/20 08:46 09:00 09:16 Temperature Pulse Rate 108 H 107 H 108 H Pulse Rate [ From Monitor] Respiratory 37 H 41 H 47 H Rate Blood Pressure 90/45 90/45 144/52 O2 Sat by Pulse 99 99 98 Oximetry 12/05/20 12/05/20 12/05/20 09:30 09:45 10:00 Temperature Pulse Rate 111 H 109 H 107 H Pulse Rate [ From Monitor] Respiratory 45 H 41 H 45 H Rate Blood Pressure 144/52 114/63 114/63 O2 Sat by Pulse Oximetry 12/05/20 12/05/20 12/05/20 10:16 10:30 10:45 Temperature Pulse Rate 106 H 109 H 111 H Pulse Rate [ From Monitor] Respiratory 44 H 43 H 21 Rate Blood Pressure 103/47 124/67 137/70 O2 Sat by Pulse Oximetry - Lab 12/05/20 05:00 12/05/20 05:00 Most recent lab results ABG pH 7.533 (7.320-7.450) H 12/03/20 18:32 ABG O2 Saturation 91.6 (0-100) 12/03/20 18:32 Calcium 8.7 mg/dL (8.4-10.2) 12/05/20 05:00 Phosphorus 5.80 mg/dL (2.5-4.5) H 11/30/20 12:00 Magnesium 2.00 mg/dL (1.7-2.3) 11/30/20 12:00 Medications & Allergies - Medications Allergies/Adverse Reactions: Allergies codeine Allergy (Verified 09/21/20 09:44) Rash Penicillins Allergy (Verified 09/21/20 09:44) Hives ciprofloxacin [From Cipro] Adverse Reaction (Verified 09/21/20 09:44) severe nausea ciprofloxacin HCl [From Cipro] Adverse Reaction (Verified 09/21/20 09:44) severe nausea Home Medications: Home Medications Medication Instructions Recorded Confirmed Last Taken Type B Complex 11/Folic/C/Biot/Zinc 1 each PO DAILY #30 tablet 02/13/16 11/30/20 10/05/19 Rx [Dialyvite with Zinc Tablet] Meclizine [Antivert] 25 mg PO TID PRN 07/05/16 11/30/20 10/21/16 History Aspirin [Aspirin BABY CHEW TAB] 81 mg PO QDAY #30 tab.chew 10/27/16 11/30/20 12/31/19 Rx carvediloL [Coreg] 25 mg PO BID #60 tablet 06/23/18 11/30/20 10/05/19 Rx Cholecalciferol (Vitamin D3) 5,000 unit PO DAILY 01/16/19 11/30/20 12/31/19 History [Vitamin D3 5,000 UNIT] Cinacalcet [Sensipar] 30 mg PO QHS 01/16/19 11/30/20 10/05/19 History Sevelamer Carbonate [Renvela] 4,000 mg PO TIDWM 01/16/19 11/30/20 10/05/19 History hydrALAZINE [Apresoline TAB] 100 mg PO TID 01/16/19 11/30/20 10/05/19 History amLODIPine 10 mg PO DAILY #30 tablet 07/14/19 11/30/20 10/05/19 Rx cloNIDine [Catapres] 0.2 mg PO TID #90 tablet 07/14/19 11/30/20 10/05/19 Rx Losartan [Cozaar] 50 mg PO QDAY 10/06/19 11/30/20 10/05/19 History Metoclopramide HCl [Reglan TAB] 10 mg PO QID 10/06/19 11/30/20 10/05/19 History AtorvaSTATin [Lipitor] 40 mg PO QHS #30 tablet 10/07/19 11/30/20 12/30/19 Rx Prasugrel [Effient] 10 mg PO QDAY #30 tablet 10/07/19 11/30/20 Unknown Rx Promethazine [Phenergan] 25 mg PO Q6H PRN #20 tablet 07/21/20 11/30/20 Unknown Rx Dicyclomine [Bentyl] 20 mg PO QID PRN #20 tablet 09/17/20 11/30/20 Unknown Rx Promethazine HCl [Phenergan SUPPOS] 25 mg RC Q6HR PRN #20 supp.rect 09/17/20 11/30/20 Unknown Rx Famotidine [Pepcid] 20 mg PO DAILY #30 tablet 09/24/20 11/30/20 Unknown Rx Mag Hydrox/Aluminum Hyd/Simeth 30 ml PO DAILY PRN 30 Days #1 09/24/20 11/30/20 Unknown Rx [Maalox Advanced Suspension] bottle Lidocaine Viscous 2% 15 ml MM Q6HR PRN #1 bottle 11/28/20 11/30/20 Unknown Rx Nystatin [Nystatin SUSP] 5 ml PO QID #200 ml 11/28/20 11/30/20 Unknown Rx Active Medications: Generic Name Dose Route Start Last Admin Trade Name Freq PRN Reason Stop Dose Admin Acetaminophen 650 mg 11/30/20 18:24 Acetaminophen 325 Mg Tab PO Q4H PRN Pain MILD(1-3)/Fever >100.5/STEWARD Hydralazine HCl 10 mg 11/30/20 21:51 12/02/20 03:50 Hydralazine 20 Mg/1 Ml Inj IV 10 mg Q3H PRN Administration Blood Pressure Hydromorphone HCl 1 mg 11/30/20 18:24 12/01/20 12:41 Hydromorphone 1 Mg/1 Ml Inj IV 1 mg Q3H PRN Administration Pain , Severe (7-10) Fluconazole 200 mg in 100 mls @ 100 mls/hr 12/01/20 09:30 12/05/20 10:32 Diflucan IV 12/18/20 09:29 100 mls/hr Q24H APRYL Administration Cefepime HCl 2 gm in 100 mls @ 200 mls/hr 12/03/20 20:00 12/04/20 21:38 Cefepime/Ns 2 Gm/100 Ml IV 200 mls/hr Q24H APRYL Administration Protocol Vasopressin 20 unit/ Sodium 101 mls @ 9.09 mls/hr 12/04/20 04:00 12/05/20 0 4:59 Chloride IV 0.03 units/min TITR APRYL 9.09 mls/hr Administration Protocol 0.03 UNITS/MIN Norepinephrine 4 mg in 250 mls @ 7.5 mls/hr 12/04/20 10:00 12/05/20 10:32 Levophed Drip 4 Mg/Ns 250 Ml IV 26 mcg/min TITR APRYL 97.5 mls/hr Administration Protocol 2 MCG/MIN Sodium Bicarbonate 150 meq/ 1,150 mls @ 50 mls/hr 12/05/20 11:00 Dextrose IV DIRECT APRYL Ondansetron HCl 4 mg 11/30/20 21:05 12/01/20 08:46 Ondansetron 4 Mg/2 Ml Inj IV 4 mg Q3H PRN Administration Nausea And Vomiting Pantoprazole Sodium 40 mg 12/01/20 22:00 12/05/20 10:33 Pantoprazole 40 Mg Inj IV 40 mg BID APRYL Administration Sodium Chloride 10 ml 11/30/20 18:24 Sodium Chloride 0.9% 10 Ml Flush Syringe IV PRN PRN LINE FLUSH Sodium Chloride 10 ml 11/30/20 22:00 12/05/20 10:34 Sodium Chloride 0.9% 10 Ml Flush Syringe IV 10 ml BID APRYL Administration Tbo-Filgrastim 480 mcg 12/02/20 12:00 12/04/20 11:03 Tbo-Filgrastim 480 Mcg/0.8 Ml SUB-Q 480 mcg DAILY APRYL Administration
[2020-12-05] MEDS ORDERED: SODIUM BICARBONATE 150 MEQ in DEXTROSE 5% IN WATER 1,000 ML IV SCH (11:30)
[2020-12-05] MEDS: TBO-FILGRASTIM 480 MCG/0.8 ML SUB-Q SCH (11:33)
--- NOTE | 2020-12-05 13:26 | Progress Note ---
Assessment and Plan 12/05 Multiorgan failure metastatic CA febrile neuropenia, P: support DNR Subjective Date of service: 12/05/20 Principal diagnosis: Pancytopenia, bleeding Interval history: 12/05/20 Minimally arousable shallow resp on pressors sat 90s p90 Chart reviewed mult probs mult organ failure Objective Vital Signs - 12hr 12/05/20 12/05/20 12/05/20 01:30 01:45 02:00 Temperature Pulse Rate 108 H 108 H 106 H Pulse Rate [ From Monitor] Respiratory 40 H 33 H 37 H Rate Blood Pressure 131/63 124/62 130/71 O2 Sat by Pulse 99 97 96 Oximetry 12/05/20 12/05/20 12/05/20 02:16 02:30 02:45 Temperature Pulse Rate 111 H 111 H 111 H Pulse Rate [ From Monitor] Respiratory 30 H 39 H 43 H Rate Blood Pressure 136/74 131/75 122/55 O2 Sat by Pulse 96 96 100 Oximetry 12/05/20 12/05/20 12/05/20 03:00 03:16 03:30 Temperature Pulse Rate 107 H 111 H 111 H Pulse Rate [ From Monitor] Respiratory 38 H 43 H 39 H Rate Blood Pressure 134/56 136/58 126/68 O2 Sat by Pulse 100 98 96 Oximetry 12/05/20 12/05/20 12/05/20 03:45 04:00 04:16 Temperature 99.9 F H Pulse Rate 109 H 103 H 109 H Pulse Rate [ 103 H From Monitor] Respiratory 27 H 15 30 H Rate Blood Pressure 133/57 133/57 143/53 O2 Sat by Pulse 99 90 90 Oximetry 12/05/20 12/05/20 12/05/20 04:30 04:46 05:00 Temperature Pulse Rate 106 H 110 H 106 H Pulse Rate [ From Monitor] Respiratory 34 H 39 H 34 H Rate Blood Pressure 88/62 96/40 92/44 O2 Sat by Pulse 91 81 L 89 Oximetry 12/05/20 12/05/20 12/05/20 05:16 05:30 05:46 Temperature Pulse Rate 103 H 101 H 106 H Pulse Rate [ From Monitor] Respiratory 20 22 31 H Rate Blood Pressure 101/36 77/32 163/136 O2 Sat by Pulse 97 96 94 Oximetry 12/05/20 12/05/20 12/05/20 06:00 06:15 06:30 Temperature Pulse Rate 100 H 98 H 104 H Pulse Rate [ From Monitor] Respiratory 27 H 32 H 26 H Rate Blood Pressure 88/36 88/33 88/33 O2 Sat by Pulse 94 96 96 Oximetry 12/05/20 12/05/20 12/05/20 06:45 07:00 07:16 Temperature Pulse Rate 101 H 101 H 104 H Pulse Rate [ From Monitor] Respiratory 30 H 32 H 35 H Rate Blood Pressure 107/38 112/28 80/23 O2 Sat by Pulse 97 96 98 Oximetry 12/05/20 12/05/20 12/05/20 07:28 07:30 07:46 Temperature Pulse Rate 105 H 105 H Pulse Rate [ From Monitor] Respiratory 22 36 H Rate Blood Pressure 80/23 100/37 O2 Sat by Pulse 98 97 98 Oximetry 12/05/20 12/05/20 12/05/20 08:00 08:16 08:30 Temperature 99.6 F Pulse Rate 104 H 103 H 108 H Pulse Rate [ From Monitor] Respiratory 36 H 34 H 40 H Rate Blood Pressure 75/54 92/46 92/46 O2 Sat by Pulse 98 99 98 Oximetry 12/05/20 12/05/20 12/05/20 08:46 09:00 09:16 Temperature Pulse Rate 108 H 107 H 108 H Pulse Rate [ From Monitor] Respiratory 37 H 41 H 47 H Rate Blood Pressure 90/45 90/45 144/52 O2 Sat by Pulse 99 99 98 Oximetry 12/05/20 12/05/20 12/05/20 09:30 09:45 10:00 Temperature Pulse Rate 111 H 109 H 107 H Pulse Rate [ From Monitor] Respiratory 45 H 41 H 45 H Rate Blood Pressure 144/52 114/63 114/63 O2 Sat by Pulse Oximetry 12/05/20 12/05/20 12/05/20 10:16 10:30 10:45 Temperature Pulse Rate 106 H 109 H 111 H Pulse Rate [ From Monitor] Respiratory 44 H 43 H 21 Rate Blood Pressure 103/47 124/67 137/70 O2 Sat by Pulse Oximetry 12/05/20 12/05/20 12/05/20 11:00 11:15 11:30 Temperature Pulse Rate 110 H 105 H 108 H Pulse Rate [ From Monitor] Respiratory 35 H 25 H 18 Rate Blood Pressure 140/62 124/58 121/62 O2 Sat by Pulse 100 100 100 Oximetry 12/05/20 12/05/20 11:46 12:00 Temperature 99 F Pulse Rate 103 H 105 H Pulse Rate [ From Monitor] Respiratory 16 19 Rate Blood Pressure 110/41 110/41 O2 Sat by Pulse 99 93 Oximetry Constitutional: lethargic ENT: other (ecchymotic) Neck: supple Effort: very labored, other (shallow) Ascultation: Bilateral: diminished breath sounds Cardiovascular: regular rate and rhythm Gastrointestinal: hypoactive bowel sounds Extremities: anasarca Neurologic: non-focal exam CBC and BMP: 12/05/20 05:00 12/05/20 05:00 ABG, PT/INR, D-dimer: ABG ABG pH 7.533 (7.320-7.450) H 12/03/20 18:32 POC ABG pCO2 36.7 mmHg (32.0-48.0) 12/03/20 18:32 POC ABG pO2 63.1 mmHg (83-108) L 12/03/20 18:32 POC ABG HCO3 30.2 12/03/20 18:32 ABG O2 Saturation 91.6 (0-100) 12/03/20 18:32 Abnormal lab findings: Abnormal Labs 11/30/20 11/30/20 11/30/20 12:00 12:00 12:00 WBC 0.9 L* RBC 3.46 L Hgb Hct Plt Count 24 L Seg Neuts % (Manual) Lymphocytes % (Manual) Monocytes % (Manual) Eosinophils % (Manual) Seg Neutrophils # Man Lymphocytes # (Manual) ABG pH POC ABG pO2 ABG Hemoglobin ABG Oxyhemoglobin ABG Glucose Carboxyhemoglobin Sodium Chloride 94.5 L Carbon Dioxide BUN 68 H Creatinine 7.7 H Glucose 164 H POC Glucose Phosphorus 5.80 H Total Bilirubin 1.30 H Direct Bilirubin 0.9 H AST 207 H ALT 333 H Total Protein 5.7 L Albumin 2.9 L Arterial Blood Glucose Crossmatch 11/30/20 11/30/20 12/01/20 21:30 22:33 04:57 WBC 0.9 L* RBC 3.28 L Hgb Hct 30.2 L 29.8 L Plt Count 16 L* Seg Neuts % (Manual) 74.1 H Lymphocytes % (Manual) Monocytes % (Manual) Eosinophils % (Manual) Seg Neutrophils # Man 0.7 L Lymphocytes # (Manual) 0.2 L ABG pH POC ABG pO2 ABG Hemoglobin ABG Oxyhemoglobin ABG Glucose Carboxyhemoglobin Sodium Chloride Carbon Dioxide BUN Creatinine Glucose POC Glucose 114 H Phosphorus Total Bilirubin Direct Bilirubin AST ALT Total Protein Albumin Arterial Blood Glucose Crossmatch 12/01/20 12/01/20 12/01/20 04:57 07:43 11:54 WBC RBC Hgb Hct Plt Count Seg Neuts % (Manual) Lymphocytes % (Manual) Monocytes % (Manual) Eosinophils % (Manual) Seg Neutrophils # Man Lymphocytes # (Manual) ABG pH POC ABG pO2 ABG Hemoglobin ABG Oxyhemoglobin ABG Glucose Carboxyhemoglobin Sodium Chloride 96.9 L Carbon Dioxide BUN 84 H Creatinine 9.0 H Glucose 151 H POC Glucose 136 H 126 H Phosphorus Total Bilirubin Direct Bilirubin AST 101 H ALT 245 H Total Protein 5.6 L Albumin 2.9 L Arterial Blood Glucose Crossmatch 12/01/20 12/01/20 12/02/20 17:02 21:26 07:53 WBC RBC Hgb Hct Plt Count Seg Neuts % (Manual) Lymphocytes % (Manual) Monocytes % (Manual) Eosinophils % (Manual) Seg Neutrophils # Man Lymphocytes # (Manual) ABG pH POC ABG pO2 ABG Hemoglobin ABG Oxyhemoglobin ABG Glucose Carboxyhemoglobin Sodium Chloride Carbon Dioxide BUN Creatinine Glucose POC Glucose 119 H 136 H 136 H Phosphorus Total Bilirubin Direct Bilirubin AST ALT Total Protein Albumin Arterial Blood Glucose Crossmatch 12/02/20 12/02/20 12/02/20 10:30 10:30 11:40 WBC 0.3 L* RBC 2.97 L Hgb 9.0 L Hct 27.1 L Plt Count 20 L Seg Neuts % (Manual) Lymphocytes % (Manual) 50.0 H Monocytes % (Manual) Eosinophils % (Manual) Seg Neutrophils # Man 0.2 L Lymphocytes # (Manual) 0.2 L ABG pH POC ABG pO2 ABG Hemoglobin ABG Oxyhemoglobin ABG Glucose Carboxyhemoglobin Sodium Chloride Carbon Dioxide BUN 111 H Creatinine 10.1 H Glucose 157 H POC Glucose 147 H Phosphorus Total Bilirubin Direct Bilirubin AST ALT Total Protein Albumin Arterial Blood Glucose Crossmatch 12/02/20 12/02/20 12/02/20 16:12 16:18 21:22 WBC 0.3 L* RBC 2.71 L Hgb 8.3 L Hct 24.6 L Plt Count 29 L Seg Neuts % (Manual) Lymphocytes % (Manual) Monocytes % (Manual) Eosinophils % (Manual) Seg Neutrophils # Man Lymphocytes # (Manual) ABG pH POC ABG pO2 ABG Hemoglobin ABG Oxyhemoglobin ABG Glucose Carboxyhemoglobin Sodium Chloride Carbon Dioxide BUN Creatinine Glucose POC Glucose 120 H 120 H Phosphorus Total Bilirubin Direct Bilirubin AST ALT Total Protein Albumin Arterial Blood Glucose Crossmatch 12/02/20 12/03/20 12/03/20 23:22 04:25 07:19 WBC 0.4 L* RBC 2.65 L Hgb 8.6 L 8.2 L Hct 26.0 L 23.9 L Plt Count 26 L Seg Neuts % (Manual) 6.7 L Lymphocytes % (Manual) 60.0 H Monocytes % (Manual) Eosinophils % (Manual) 33.3 H Seg Neutrophils # Man 0.0 L Lymphocytes # (Manual) 0.2 L ABG pH POC ABG pO2 ABG Hemoglobin ABG Oxyhemoglobin ABG Glucose Carboxyhemoglobin Sodium Chloride Carbon Dioxide BUN Creatinine Glucose POC Glucose 107 H Phosphorus Total Bilirubin Direct Bilirubin AST ALT Total Protein Albumin Arterial Blood Glucose Crossmatch 12/03/20 12/03/20 12/03/20 11:53 16:23 17:31 WBC 0.2 L* RBC 2.23 L Hgb 6.9 L Hct 20.1 L Plt Count 42 L Seg Neuts % (Manual) Lymphocytes % (Manual) Monocytes % (Manual) Eosinophils % (Manual) Seg Neutrophils # Man Lymphocytes # (Manual) ABG pH POC ABG pO2 ABG Hemoglobin ABG Oxyhemoglobin ABG Glucose Carboxyhemoglobin Sodium Chloride Carbon Dioxide BUN Creatinine Glucose POC Glucose 140 H Phosphorus Total Bilirubin Direct Bilirubin AST ALT Total Protein Albumin Arterial Blood Glucose Crossmatch See Detail 12/03/20 12/03/20 12/03/20 18:32 19:09 19:09 WBC 0.2 L* RBC 2.19 L Hgb 6.8 L Hct 19.8 L* Plt Count 36 L Seg Neuts % (Manual) Lymphocytes % (Manual) Monocytes % (Manual) Eosinophils % (Manual) Seg Neutrophils # Man 0.0 L Lymphocytes # (Manual) 0.1 L ABG pH 7.533 H POC ABG pO2 63.1 L ABG Hemoglobin 6.5 L ABG Oxyhemoglobin 87.8 L ABG Glucose 97 H Carboxyhemoglobin 4.0 H Sodium Chloride Carbon Dioxide 32 H D BUN 44 H Creatinine 4.6 H D Glucose POC Glucose Phosphorus Total Bilirubin 2.60 H Direct Bilirubin AST 52 H ALT 80 H Total Protein 4.6 L Albumin 2.2 L Arterial Blood Glucose 97 H Crossmatch 12/04/20 12/04/20 12/04/20 08:31 08:31 14:02 WBC 0.3 L* 0.5 L* RBC 2.45 L 2.43 L Hgb 7.4 L 7.4 L Hct 22.2 L 22.4 L Plt Count 23 L 24 L Seg Neuts % (Manual) Lymphocytes % (Manual) Monocytes % (Manual) Eosinophils % (Manual) Seg Neutrophils # Man 0.0 L Lymphocytes # (Manual) 0.3 L ABG pH POC ABG pO2 ABG Hemoglobin ABG Oxyhemoglobin ABG Glucose Carboxyhemoglobin Sodium Chloride Carbon Dioxide BUN 57 H Creatinine 5.6 H Glucose POC Glucose Phosphorus Total Bilirubin Direct Bilirubin AST ALT Total Protein Albumin Arterial Blood Glucose Crossmatch 12/04/20 12/05/20 12/05/20 17:49 05:00 05:00 WBC 0.3 L* 0.2 L* RBC 2.22 L 2.64 L Hgb 6.8 L 8.1 L Hct 20.3 L 24.2 L Plt Count 17 L* 13 L* Seg Neuts % (Manual) 10.0 L Lymphocytes % (Manual) 60.0 H Monocytes % (Manual) 20.0 H Eosinophils % (Manual) 10.0 H Seg Neutrophils # Man 0.0 L Lymphocytes # (Manual) 0.1 L ABG pH POC ABG pO2 ABG Hemoglobin ABG Oxyhemoglobin ABG Glucose Carboxyhemoglobin Sodium 154 H D Chloride 109.6 H Carbon Dioxide 18 L D BUN 81 H Creatinine 7.0 H Glucose 134 H POC Glucose Phosphorus Total Bilirubin Direct Bilirubin AST ALT Total Protein Albumin Arterial Blood Glucose Crossmatch Chest x-ray: report reviewed, image reviewed (12/03 grossly clear cannot viz L base )
--- NOTE | 2020-12-05 14:42 | Progress Note ---
Subjective Date of service: 12/05/20 Principal diagnosis: Pancytopenia, bleeding Interval history: 55-year-old female past medical history ESRD on HD, RCC presented to the hospital complaining of vomiting for 5 days prior to admission. She was previously on treatment for oral candidiasis. She also has a history of psoriasis. She also has a history of a pancreatic mass and lung tumors, curr ently on chemotherapy. She was found to be septic and pancytopenic. Febrile to 101.2 with a white count of 0.2. Currently on cefepime and vancomycin. Currently on 5 L nasal cannula. Imaging personally reviewed: Chest x-ray: Left parenchymal disease Objective - Exam Narrative Exam: Physical Exam: Constitutional: Awake, confused Head, Ears, Nose: Normocephalic, atraumatic. External ears, nose normal Eyes: Conjunctivae/corneas clear. No icterus. No ptosis. Neck: Supple, no meningeal signs Oral: +mucositis Cardiovascular: S1, S2 normal. Respiratory: Good air entry, clear to auscultation bilaterally GI: Soft, non-tender; bowel sounds normal. No peritoneal signs. Musculoskeletal: No pedal edema, no cyanosis. Skin: No rash or abscess Hem/Lymphatic: No palpable cervical or supraclavicular nodes. No lymphangitis Psych: confused, not agitated Neurological: Not agitated. - Constitutional Vitals: Vital Signs Temp Pulse Resp BP Pulse Ox 99 F 104 H 33 H 119/99 94 12/05/20 12:00 12/05/20 13:16 12/05/20 13:16 12/05/20 13:16 12/05/20 13:16 Temperature -Last 24 Hours Temperature 99 F Temperature 99.0 F Temperature 99.2 F Temperature 99.6 F Temperature 99.6 F Temperature 99.9 F Temperature 987 F Temperature 101.2 F Temperature 99.7 F Temperature 100.9 F - Labs CBC & Chem 7: 12/05/20 05:00 12/05/20 05:00 Labs: Abnormal lab results 12/03/20 12/04/20 12/04/20 Range/Units 17:31 14:02 17:49 WBC 0.5 L* 0.3 L* (4.5-11.0) K/mm3 RBC 2.43 L 2.22 L (3.65-5.03) M/mm3 Hgb 7.4 L 6.8 L (10.1-14.3) gm/dl Hct 22.4 L 20.3 L (30.3-42.9) % Plt Count 24 L 17 L* (140-440) K/mm3 Seg Neuts % (Manual) (40.0-70.0) % Lymphocytes % (Manual) (13.4-35.0) % Monocytes % (Manual) (0.0-7.3) % Eosinophils % (Manual) (0.0-4.3) % Seg Neutrophils # Man (1.8-7.7) K/mm3 Lymphocytes # (Manual) (1.2-5.4) K/mm3 Sodium (137-145) mmol/L Chloride (98-107) mmol/L Carbon Dioxide (22-30) mmol/L BUN (7-17) mg/dL Creatinine (0.6-1.2) mg/dL Glucose (65-100) mg/dL Crossmatch See Detail 12/05/20 12/05/20 Range/Units 05:00 05:00 WBC 0.2 L* (4.5-11.0) K/mm3 RBC 2.64 L (3.65-5.03) M/mm3 Hgb 8.1 L (10.1-14.3) gm/dl Hct 24.2 L (30.3-42.9) % Plt Count 13 L* (140-440) K/mm3 Seg Neuts % (Manual) 10.0 L (40.0-70.0) % Lymphocytes % (Manual) 60.0 H (13.4-35.0) % Monocytes % (Manual) 20.0 H (0.0-7.3) % Eosinophils % (Manual) 10.0 H (0.0-4.3) % Seg Neutrophils # Man 0.0 L (1.8-7.7) K/mm3 Lymphocytes # (Manual) 0.1 L (1.2-5.4) K/mm3 Sodium 154 H D (137-145) mmol/L Chloride 109.6 H (98-107) mmol/L Carbon Dioxide 18 L D (22-30) mmol/L BUN 81 H (7-17) mg/dL Creatinine 7.0 H (0.6-1.2) mg/dL Glucose 134 H (65-100) mg/dL Crossmatch
--- NOTE | 2020-12-05 14:47 | Consultation ---
History of Present Illness - Reason for Consult Consult date: 12/05/20 - History of Present Illness 55-year-old female past medical history ESRD on HD, RCC presented to the hospital complaining of vomiting for 5 days prior to admission. She was previously on treatment for oral candidiasis. She also has a history of psoriasis. She also has a history of a pancreatic mass and lung tumors, cu rrently on chemotherapy. She was found to be septic and pancytopenic. Febrile to 101.2 with a white count of 0.2. Currently on cefepime and vancomycin. Currently on 5 L nasal cannula. Imaging personally reviewed: Chest x-ray: Left parenchymal disease Past History Past Medical History: cancer (Renal cell, with metastasis to pancreas, etc), diabetes, ESRD (on hemodialysis), hypertension, other (psoriasis) Past Surgical History: hysterectomy, Other (Bilateral nephrectomies) Social history: denies: smoking, alcohol abuse Family history: no significant family history Medications and Allergies Allergies Allergy/AdvReac Type Severity Reaction Status Date / Time codeine Allergy Rash Verified 09/21/20 09:44 Penicillins Allergy Hives Verified 09/21/20 09:44 ciprofloxacin [From Cipro] AdvReac severe Verified 09/21/20 09:44 nausea ciprofloxacin HCl AdvReac severe Verified 09/21/20 09:44 [From Cipro] nausea Home Medications Medication Instructions Recorded Confirmed Last Taken Type B Complex 11/Folic/C/Biot/Zinc 1 each PO DAILY #30 tablet 02/13/16 11/30/20 10/05/19 Rx [Dialyvite with Zinc Tablet] Meclizine [Antivert] 25 mg PO TID PRN 07/05/16 11/30/20 10/21/16 History Aspirin [Aspirin BABY CHEW TAB] 81 mg PO QDAY #30 tab.chew 10/27/16 11/30/20 12/31/19 Rx carvediloL [Coreg] 25 mg PO BID #60 tablet 06/23/18 11/30/20 10/05/19 Rx Cholecalciferol (Vitamin D3) 5,000 unit PO DAILY 01/16/19 11/30/20 12/31/19 History [Vitamin D3 5,000 UNIT] Cinacalcet [Sensipar] 30 mg PO QHS 01/16/19 11/30/20 10/05/19 History Sevelamer Carbonate [Renvela] 4,000 mg PO TIDWM 01/16/19 11/30/20 10/05/19 History hydrALAZINE [Apresoline TAB] 100 mg PO TID 01/16/19 11/30/20 10/05/19 History amLODIPine 10 mg PO DAILY #30 tablet 07/14/19 11/30/20 10/05/19 Rx cloNIDine [Catapres] 0.2 mg PO TID #90 tablet 07/14/19 11/30/20 10/05/19 Rx Losartan [Cozaar] 50 mg PO QDAY 10/06/19 11/30/20 10/05/19 History Metoclopramide HCl [Reglan TAB] 10 mg PO QID 10/06/19 11/30/20 10/05/19 History AtorvaSTATin [Lipitor] 40 mg PO QHS #30 tablet 10/07/19 11/30/20 12/30/19 Rx Prasugrel [Effient] 10 mg PO QDAY #30 tablet 10/07/19 11/30/20 Unknown Rx Promethazine [Phenergan] 25 mg PO Q6H PRN #20 tablet 07/21/20 11/30/20 Unknown Rx Dicyclomine [Bentyl] 20 mg PO QID PRN #20 tablet 09/17/20 11/30/20 Unknown Rx Promethazine HCl [Phenergan SUPPOS] 25 mg RC Q6HR PRN #20 supp.rect 09/17/20 11/30/20 Unknown Rx Famotidine [Pepcid] 20 mg PO DAILY #30 tablet 09/24/20 11/30/20 Unknown Rx Mag Hydrox/Aluminum Hyd/Simeth 30 ml PO DAILY PRN 30 Days #1 09/24/20 11/30/20 Unknown Rx [Maalox Advanced Suspension] bottle Lidocaine Viscous 2% 15 ml MM Q6HR PRN #1 bottle 11/28/20 11/30/20 Unknown Rx Nystatin [Nystatin SUSP] 5 ml PO QID #200 ml 11/28/20 11/30/20 Unknown Rx Active Meds: Active Medications Acetaminophen (Acetaminophen 325 Mg Tab) 650 mg PO Q4H PRN PRN Reason: Pain MILD(1-3)/Fever >100.5/STEWARD Hydralazine HCl (Hydralazine 20 Mg/1 Ml Inj) 10 mg IV Q3H PRN PRN Reason: Blood Pressure Last Admin: 12/02/20 03:50 Dose: 10 mg Documented by: Hydromorphone HCl (Hydromorphone 1 Mg/1 Ml Inj) 1 mg IV Q3H PRN PRN Reason: Pain , Severe (7-10) Last Admin: 12/01/20 12:41 Dose: 1 mg Documented by: Fluconazole (Diflucan) 200 mg in 100 mls @ 100 mls/hr IV Q24H APRYL Stop: 12/18/20 09:29 Last Admin: 12/05/20 10:32 Dose: 100 mls/hr Documented by: Cefepime HCl (Cefepime/Ns 2 Gm/100 Ml) 2 gm in 100 mls @ 200 mls/hr IV Q24H APRYL; Protocol Last Admin: 12/04/20 21:38 Dose: 200 mls/hr Documented by: Vasopressin 20 unit/ Sodium (Chloride) 101 mls @ 9.09 mls/hr IV TITR APRYL; Protocol Last Admin: 12/05/20 04:59 Dose: 0.03 units/min, 9.09 mls/hr Documented by: Norepinephrine (Levophed Drip 4 Mg/Ns 250 Ml) 4 mg in 250 mls @ 7.5 mls/hr IV TITR APRYL; Protocol Last Admin: 12/05/20 13:32 Dose: 18 mcg/min, 67.5 mls/hr Documented by: Sodium Bicarbonate 150 meq/ (Dextrose) 1,150 mls @ 50 mls/hr IV DIRECT APRYL Last Admin: 12/05/20 11:59 Dose: 50 mls/hr Documented by: Ondansetron HCl (Ondansetron 4 Mg/2 Ml Inj) 4 mg IV Q3H PRN PRN Reason: Nausea And Vomiting Last Admin: 12/01/20 08:46 Dose: 4 mg Documented by: Pantoprazole Sodium (Pantoprazole 40 Mg Inj) 40 mg IV BID APRYL Last Admin: 12/05/20 10:33 Dose: 40 mg Documented by: Sodium Chloride (Sodium Chloride 0.9% 10 Ml Flush Syringe) 10 ml IV PRN PRN PRN Reason: LINE FLUSH Sodium Chloride (Sodium Chloride 0.9% 10 Ml Flush Syringe) 10 ml IV BID APRYL Last Admin: 12/05/20 10:34 Dose: 10 ml Documented by: Tbo-Filgrastim (Tbo-Filgrastim 480 Mcg/0.8 Ml) 480 mcg SUB-Q DAILY APRYL Last Admin: 12/05/20 11:33 Dose: 480 mcg Documented by: Physical Examination - Physical Exam Narrative exam: Physical Exam: Constitutional: Awake, confused Head, Ears, Nose: Normocephalic, atraumatic. External ears, nose normal Eyes: Conjunctivae/corneas clear. No icterus. No ptosis. Neck: Supple, no meningeal signs Oral: +mucositis Cardiovascular: S1, S2 normal. Respiratory: Good air entry, clear to auscultation bilaterally GI: Soft, non-tender; bowel sounds normal. No peritoneal signs. Musculoskeletal: No pedal edema, no cyanosis. Skin: No rash or abscess Hem/Lymphatic: No palpable cervical or supraclavicular nodes. No lymphangitis Psych: confused, not agitated Neurological: Not agitated. - Constitutional Vitals: Vital Signs Temp Pulse Resp BP Pulse Ox 99 F 107 H 19 93/49 77 L 12/05/20 12:00 12/05/20 14:30 12/05/20 14:30 12/05/20 14:30 12/05/20 13:46 Temperature -Last 24 Hours Temperature 99 F Temperature 99.0 F Temperature 99.2 F Temperature 99.6 F Temperature 99.6 F Temperature 99.9 F Temperature 987 F Temperature 101.2 F Temperature 99.7 F Temperature 100.9 F Results - Labs CBC & Chem 7: 12/05/20 05:00 12/05/20 05:00 Labs: Abnormal lab results 12/03/20 12/04/20 12/04/20 Range/Units 17:31 14:02 17:49 WBC 0.5 L* 0.3 L* (4.5-11.0) K/mm3 RBC 2.43 L 2.22 L (3.65-5.03) M/mm3 Hgb 7.4 L 6.8 L (10.1-14.3) gm/dl Hct 22.4 L 20.3 L (30.3-42.9) % Plt Count 24 L 17 L* (140-440) K/mm3 Seg Neuts % (Manual) (40.0-70.0) % Lymphocytes % (Manual) (13.4-35.0) % Monocytes % (Manual) (0.0-7.3) % Eosinophils % (Manual) (0.0-4.3) % Seg Neutrophils # Man (1.8-7.7) K/mm3 Lymphocytes # (Manual) (1.2-5.4) K/mm3 Sodium (137-145) mmol/L Chloride (98-107) mmol/L Carbon Dioxide (22-30) mmol/L BUN (7-17) mg/dL Creatinine (0.6-1.2) mg/dL Glucose (65-100) mg/dL Crossmatch See Detail 12/05/20 12/05/20 Range/Units 05:00 05:00 WBC 0.2 L* (4.5-11.0) K/mm3 RBC 2.64 L (3.65-5.03) M/mm3 Hgb 8.1 L (10.1-14.3) gm/dl Hct 24.2 L (30.3-42.9) % Plt Count 13 L* (140-440) K/mm3 Seg Neuts % (Manual) 10.0 L (40.0-70.0) % Lymphocytes % (Manual) 60.0 H (13.4-35.0) % Monocytes % (Manual) 20.0 H (0.0-7.3) % Eosinophils % (Manual) 10.0 H (0.0-4.3) % Seg Neutrophils # Man 0.0 L (1.8-7.7) K/mm3 Lymphocytes # (Manual) 0.1 L (1.2-5.4) K/mm3 Sodium 154 H D (137-145) mmol/L Chloride 109.6 H (98-107) mmol/L Carbon Dioxide 18 L D (22-30) mmol/L BUN 81 H (7-17) mg/dL Creatinine 7.0 H (0.6-1.2) mg/dL Glucose 134 H (65-100) mg/dL Crossmatch Assessment and Plan Cultures: None A/P: 55-year-old female past medical history ESRD on HD, metastatic RCC admitted with sepsis, neutropenic fevers #Septic shock: on pressors, with fevers and neutropenia. Unclear acute cause at present, fevers appear to be improving #Neutropenic fevers: last chemo 09/2020. with mucositis, which can cause fevers as well. #Metastatic RCC: last chemo 09/2020. Oncology on board. #Pancyotpenia: getting daily GCSF #Acute hypoxic resp failure: on 5L NC. Patient with neutropenia can sometimes have normal CXR as they cannot mount immune response needed to create CXR changes #ESRD on HD: renally adjust antibiotics. Recs: -Obtain blood cultures, neutropenic patients at high risk of bacterial translocation from the gut. -Continue empiric cefepime -Fevers may be from the tumours, RCC notorious for causing fevers. -Fevers do appear to be improving, as such no acute adjustments in plan. Thank you for the consult, we will continue to follow. MD Prasanna A[facility] O: [phone] F: [phone]
[2020-12-05 18:19] LABS: Hematocrit 22.3 % (30.3-42.9); Hemoglobin 7.4 gm/dl (10.1-14.3); Mean Corpuscular HGB Conc 33 % (30-34); Mean Corpuscular Volume 91 fl (79-97); Red Blood Count 2.45 M/mm3 (3.65-5.03); Red Cell Distribution Width 15.7 % (13.2-15.2)
[2020-12-05 18:53] LABS: Platelet Count 25 K/mm3 (140-440)
[2020-12-05] MEDS: CEFEPIME/NS 2 GM/100 ML 2 GM/100 ML BAG IV SCH (20:30)
[2020-12-05 22:41] VITALS: BP 49/25
--- NOTE | 2020-12-05 22:49 | Event Note ---
Date: 12/05/20 Called to pronounce patient who has been on admission for septic shock, febrile neutropenia, pneumonia, history of pancreatic and renal cancer who has been made a DNR. On exam there was no response to verbal commands or deep sternal rub. Pupils: Fixed and dilated. Chest: No breath sounds Cardiovascular exam: No heart sounds and no peripheral pulses Abdomen: Slightly distended, soft Extremities: Cold and clammy Central nervous system: No reflexes Patient pronounced on December 05, 2020 at 22:30. Family has been notified.
--- NOTE | 2020-12-06 09:04 | Death Summary ---
Summary - Providers Date of service: 12/06/20 Consults: 11/30/20 21:21 Consult to Physician [CONS] Routine Comment: Consulting Provider: ALEX CARDONA Physician Instructions: Reason For Exam: Upper GI bleed 12/01/20 01:54 Consult to Wound/ET Nurse [CONS] Routine Reason For Exam: wound eval 12/01/20 07:30 Consult to Physician [CONS] Routine Comment: Consulting Provider: ALEC SPRINGER Physician Instructions: Reason For Exam: Neutropenia and thrombocytopenia 12/01/20 11:37 Consult to Physician [CONS] Routine Comment: Consulting Provider: DAQUAN LIMON Physician Instructions: Reason For Exam: ESRD 12/03/20 17:43 Consult to Physician [CONS] Routine Comment: Consulting Provider: BRENDAN GUALLPA Physician Instructions: Reason For Exam: CC /Pulm consult /pancytopenia/respiratory failure 12/05/20 08:14 Consult to Physician [CONS] Routine Comment: Consulting Provider: BARBI KEY Physician Instructions: Reason For Exam: Immunocompromised/fever/chemotherapy/pancytopenia 12/05/20 08:36 Consult to Dietitian/Nutrition [CONS] Routine Physician Instructions: Reason For Exam: Reason for Consult: Malnutrition Attending: BRAXTON LINCOLN - summary Date of admission: 12/01/20 11:07 Date of : 12/05/20 (22:30) Significant findings: --Febrile neutropenia/immunocompromised patient Current Visit: Yes Status: Acute Plan to address problem: T-max last 24 hours 103 F Blood and urine cultures requested Chest x-ray possible pneumonia Patient is already on cefepime Will add vancomycin 1 dose ID consult, informed Dr. Tenzin Gomez Neutropenia precautions --Septic shock; Current Visit: Yes Status: Acute Plan to address problem: Requiring Levophed and vasopressin Wean as tolerated,Supportive care --Pneumonia/possible aspiration pneumonia: Current Visit: Yes Status: Acute Plan to address problem: continue antibiotics cefepime, blood cultures Supplemental oxygen, supportive care Pulmonary consulted. --Pancytopenia: Current Visit: Yes Status: Acute Plan to address problem: h/o chemotherapy, Underlying cancer --Severe anemia; Current Visit: Yes Status: Acute Plan to address problem: Transfuse 2 units of PRBC. Monitor H&H transfuse additional PRBC --Severe thrombocytopenia Current Visit: Yes Status: Acute Plan to address problem: Status post platelet transfusion Closely monitor, transfuse additional platelets Hematology oncology following --Neutropenia; worsening Current Visit: Yes Status: Acute Plan to address problem: Neutropenia precautions Daily filgrastim, supportive care Worsening leukopenia --Severe oropharyngeal candidiasis/glossitis Current Visit: Yes Status: Acute Plan to address problem: Status post EGD, continue IV Diflucan Patent airway,Intermittent oral suction as needed Oral care. Try clear liquids as tolerated If patient is unable to take oral Consider Dobbhoff placement --Acute respiratory distress/tachypnea: Current Visit: Yes Status: Acute Plan to address problem: On 4 L nasal cannula oxygen saturating 98-99% Closely monitor, patient DNR status --End-stage renal disease on hemodialysis Current Visit: Yes Status: Acute Plan to address problem: Management per nephrology, HD per schedule --h/o Pancreatic and renal cancer Current Visit: Yes Status: Chronic Plan to address problem: Pancreatic cancer in the body and the tail of pancreas. Patient on chemotherapy. Follows with Dr. Lee s/p Bilateral nephrectomy on hemodialysis --Transaminitis Current Visit: Yes Status: Acute Plan to address problem: Possibly secondary to chemotherapy Negative hepatitis panel --Severe protein calorie malnutrition Current Visit: Yes Status: Acute Plan to address problem: Hypoalbuminemia .Albumin 2.9 Unable to give oral nutrition, consider tube feeding Versus PPN,Nutrition consult requested --DVT prophylaxis Current Visit: No Status: Acute Plan to address problem: On SCDs no pharmacologic anticoagulation In view of severe thrombocytopenia --Patient is critically ill very poor prognosis --DNR status[family made DNR last night] Consider hospice consult - Final diagnosis (1) Acute respiratory failure with hypoxia Note: Final diagnosis: (2) Septic shock Note: Final diagnosis: (3) Severe sepsis Note: Final diagnosis: (4) Pancytopenia due to antineoplastic chemotherapy Note: Final diagnosis: (5) Pancreatic cancer Note: Final diagnosis: (6) ESRD on dialysis Note: Final diagnosis:
== END 2020-12-05 22:30 | DRG 808 ==
LOC: ED 09:35 → 3A 13:07 → OBSVTOIN 12-01 11:07 → IMCU 12-03 15:00 → CC1 12-03 18:09
PROVIDERS: ADMIT Internal Medicine; ATTEND Internal Medicine
PROC: 30233R1 Transfusion of Nonautologous Platelets into Peripheral Vein, Percutaneous Approach (ICD-10-PCS; principal; 2020-12-01)
PROC: 5A1D70Z Performance of Urinary Filtration, Intermittent, Less than 6 Hours Per Day (ICD-10-PCS; 2020-12-03)
PROC: 30233N1 Transfusion of Nonautologous Red Blood Cells into Peripheral Vein, Percutaneous Approach (ICD-10-PCS; 2020-12-04)
DX: D61.810 Antineoplastic chemotherapy induced pancytopenia (principal); N18.6 End stage renal disease; E43 Unspecified severe protein-calorie malnutrition; J18.9 Pneumonia, unspecified organism; A41.9 Sepsis, unspecified organism; R65.21 Severe sepsis with septic shock; C25.0 Malignant neoplasm of head of pancreas; B37.0 Candidal stomatitis; I12.0 Hypertensive chronic kidney disease with stage 5 chronic kidney disease or end stage renal disease; C79.00 Secondary malignant neoplasm of unspecified kidney and renal pelvis; G93.40 Encephalopathy, unspecified; E86.0 Dehydration; D69.59 Other secondary thrombocytopenia; D70.9 Neutropenia, unspecified; L40.9 Psoriasis, unspecified; K52.9 Noninfective gastroenteritis and colitis, unspecified; K29.80 Duodenitis without bleeding; Z66 Do not resuscitate; M13.862 Other specified arthritis, left knee; M13.861 Other specified arthritis, right knee; D69.6 Thrombocytopenia, unspecified; T45.1X5A Adverse effect of antineoplastic and immunosuppressive drugs, initial encounter; E11.22 Type 2 diabetes mellitus with diabetic chronic kidney disease; E78.5 Hyperlipidemia, unspecified; I25.10 Atherosclerotic heart disease of native coronary artery without angina pectoris; Z99.2 Dependence on renal dialysis; Z79.899 Other long term (current) drug therapy; Z68.36 Body mass index [BMI] 36.0-36.9, adult; Z79.891 Long term (current) use of opiate analgesic; Z79.01 Long term (current) use of anticoagulants; Z88.0 Allergy status to penicillin; Z88.5 Allergy status to narcotic agent; Z88.8 Allergy status to other drugs, medicaments and biological substances; Z90.49 Acquired absence of other specified parts of digestive tract; Z90.710 Acquired absence of both cervix and uterus; Z90.5 Acquired absence of kidney; Z79.82 Long term (current) use of aspirin; Y92.89 Other specified places as the place of occurrence of the external cause
CPT/HCPCS: 36415; 36430; 71045; 74176; 80048; 80053; 80074; 80076; 82805; 82962; 83036; 83690; 83735; 84100; 85007; 85014; 85018; 85025; 85027; 85610; 85730; 86850; 86900; 86901; 86920; 87040; 94760; 96374; 96375; G0378; C9113; J0360; J0692; J1170; J1265; J1447; J1450; J2270; J2405; J3370; J7030; J7040; J7070; J7120; P9016; P9035; U0003